=== PATIENT | female | born 1935 | race Caucasian/White ===

== ENCOUNTER 2016-12-03 10:46 | Inpatient (IN) | payer MEDICARE, OTHER ==
[~2016-12-03] VITALS: Ht 154.9 cm; Wt 86.0 kg
[~2016-12-03 10:46] MED LIST: AMLO5TAB4 PO; ASPI-306 PO; ATOR20TA17 PO; COL250 PO; DULO30CA45 PO; LANT3I SC; LORA-408 PO; MECL25TA2 PO; METO-448 PO; NOVO3I SC; PANT40TA3 PO; QUET25TA26 PO; RANI150T9 PO
[2016-12-03 11:00] VITALS: Ht 154.9 cm; Wt 86.0 kg
--- NOTE | 2016-12-03 11:59 | ERA ---
ER Documentation Chief Complaint Date/Time DATE: 12/03/16 TIME: 11:59 Chief Complaint headache with witnessed near syncope while walking HPI The patient is a 80-year-old female, presenting to the ER because of the weakness near syncope while she was walking prior to arrival. She denies chest pain, dyspnea, abdominal pain, vomiting, dysuria, diarrhea. She does not smoke or drink Past medical history: Diabetes mellitus, history of CVA with right hemiparesis, hypertension, hard of hearing Past surgical history: Laparotomy due to ischemic colitis ROS All systems reviewed and are negative except as per history of present illness. Medications Home Meds Active Scripts Ranitidine Hcl* (Zantac*) 150 Mg Tablet, 150 MG PO BID Y for EPIGASTRIC PAIN, # 30 TAB Prov:JENNIFER LAMA DO 12/28/15 Insulin Glargine* (Lantus*) 100 Unit/Ml Soln, 20 UNIT SC DAILY for 30 Days, EA Prov:STEPHANIE MADRIGAL EXTENSION EDGER 10/31/14 Metoprolol Tartrate* (Lopressor*) 25 Mg Tab, 25 MG PO BID for 30 Days, TAB Prov:STEPHANIE MADRIGAL EXTENSION EDGER 10/31/14 Insulin Aspart* (Novolog Insulin Pen*) 100 Unit/Ml Soln, 3 UNIT SC WITH MEALS for 30 Days Prov:STEPHANIE MADRIGAL EXTENSION EDGER 10/31/14 Reported Medications Pantoprazole* (Pantoprazole*) 40 Mg Tablet.dr, 40 MG PO AC BREAKFAST, TAB 12/03/16 Lorazepam* (Lorazepam*) 1 Mg Tablet, 1 MG PO Q8 Y for ANXIETY, #60 TAB 12/03/16 Duloxetine Hcl* (Cymbalta*) 30 Mg Capsule.dr, 30 MG PO DAILY, CAP 12/03/16 Docusate Sodium* (Colace*) 100 Mg Capsule, 100 MG PO DAILY, #30 CAP 12/03/16 Atorvastatin Calcium* (Atorvastatin Calcium*) 20 Mg Tablet, 20 MG PO QHS, #30 TAB 12/03/16 Aspirin* (Aspirin* Chew) 81 Mg Tab.chew, 81 MG PO DAILY, TAB.CHEW 12/03/16 Amlodipine Besylate* (Amlodipine Besylate*) 5 Mg Tablet, 5 MG PO DAILY, #30 TAB 12/03/16 Quetiapine Fumarate* (Seroquel*) 25 Mg Tablet, 25 TAB PO DAILY 11/27/11 Discontinued Reported Medications Aspirin (Analgesic) 325 Mg Tablet, 1 TAB PO DAILY, 0 Refills 08/19/10 Duloxetine Hcl* (Cymbalta*) 30 Mg Capsule.dr, 1 TAB PO DAILY, 0 Refills 08/19/10 Docusate Sodium (Colace) 250 Mg Cap, 1 TAB PO BID, 0 Refills 08/19/10 Discontinued Scripts Meclizine Hcl* (Antivert*) 25 Mg Tablet, 25 MG PO Q6H Y for DIZZINESS, #20 TAB Prov:JENNIFER LAMA DO 12/28/15 Allergies Allergies: Coded Allergies: No Known Drug Allergy (Verified Allergy, Mild, 02/22/12) PMhx/Soc History of Surgery: No Anesthesia Reaction: No Hx Neurological Disorder: No Hx Respiratory Disorders: No Hx Cardiac Disorders: No Hx Psychiatric Problems: No (DEPRESSION, ANXIETY) Hx Miscellaneous Medical Probl: Yes (DM,hyperlipidemia,Htn,CVA) Hx Alcohol Use: No Hx Substance Use: No Hx Tobacco Use: No Smoking Status: Never smoker Physical Exam Vitals Vital Signs Date Time Temp Pulse Resp B/P Pulse Ox O2 Delivery O2 Flow Rate FiO2 12/03/16 13:44 68 12 125/64 97 Room Air 12/03/16 11:00 98.9 74 16 92/61 95 Physical Exam Const: No acute distress. Head: Atraumatic. Eyes: Normal Conjunctiva. ENT: Normal External Ears, Nose and Mouth. Neck: Full range of motion. No meningismus. Resp: Clear to auscultation bilaterally. Cardio: Regular rate and rhythm. Abd: Soft, non distended, normal bowel sounds, non tender. Skin: No petechiae or rashes. Back: No midline or flank tenderness. Ext: No cyanosis, or edema. Neur: Awake and alert. Right hemiparalysis Psych: Normal Mood and Affect. Result Diagram: 12/03/16 1220 12/03/16 1220 Results 24 hrs Laboratory Tests Test 12/03/16 12:20 White Blood Count 9.410^3/ul Red Blood Count 5.0010^6/ul Hemoglobin 12.9g/dl Hematocrit 41.0% Mean Corpuscular Volume 82.0fl Mean Corpuscular Hemoglobin 25.8pg Mean Corpuscular Hemoglobin Concent 31.5g/dl Red Cell Distribution Width 15.2% Platelet Count 32455^3/UL Mean Platelet Volume 12.3fl Neutrophils % 71.0% Lymphocytes % 21.2% Monocytes % 6.1% Eosinophils % 1.2% Basophils % 0.3% Nucleated Red Blood Cells % 0.0/100WBC Neutrophils # (Manual) 710^3/ul Lymphocytes # 2.010^3/ul Monocytes # 0.610^3/ul Eosinophils # 0.110^3/ul Basophils # 0.010^3/ul Nucleated Red Blood Cells # 0.010^3/ul Sodium Level 140mmol/L Potassium Level 3.9mmol/L Chloride Level 101mmol/L Carbon Dioxide Level 26mmol/L Anion Gap 17 Blood Urea Nitrogen 25mg/dl Creatinine 1.11mg/dl Glucose Level 261mg/dl Calcium Level 9.0mg/dl Troponin I < 0.012ng/ml Current Medications Medications (Trade) Dose Ordered Sig/Jarett Route PRN Reason Start Time Stop Time Status Last Admin Dose Admin Sodium Chloride (NS) 500 ml @ 500 mls/hr Q1H ONCE IV 12/03/16 12:00 12/03/16 12:59 DC 12/03/16 13:22 Procedures/[place] [id number] Radiology Main Line: [phone] DIAGNOSTIC IMAGING REPORT Patient: BRANDO PIRES : 1935 Age: 80 Sex: F MR #: [id number] DOS: 12/03/16 1156 Ordering MD: KEAGAN PAUL MD Location: E/R Room/Bed: PROCEDURE: CT Brain without contrast. CLINICAL INDICATION: Syncope TECHNIQUE: A CT of the brain was performed on a multidetector CT scanner utilizing axial sections from the skull base through the vertex without contrast. Images were reviewed on a high-resolution PACS workstation. Exam CTDI = 44.4 mGy and the DLP = 630.20 mGy-cm. One or more of the following dose reduction techniques were used: Automated exposure control Adjustment of the mA and/or kV according to patient size. Use of iterative reconstruction technique. COMPARISON: MRI brain 02/23/2012 FINDINGS: Mild diffuse cerebral and cerebellar atrophy is present. There is proportionate dilatation of the ventricular system and sulci in a symmetric fashion. There is prominence of the extraaxial spaces secondary to atrophy. There is no evidence of intracranial hemorrhage, mass effect or midline shift. There is focal encephalomalacia in the medial left cerebellar hemisphere. Chronic lacunar infarct is seen in the posterior left basal ganglia. No abnormal intra-axial or extra-axial fluid collections are seen. The density of the brain is normal and the leger/white matter differentiation is well preserved. Mild patchy diffuse deep white matter microangiopathic ischemic change is seen. The osseous structures are unremarkable. Paranasal sinuses are clear. Vascular calcifications are identified. IMPRESSION: 1. No intracranial hemorrhage, mass effect or midline shift. 2. Mild generalized atrophy. Mild microangiopathic ischemic change. 3. Chronic lacunar infarcts in the posterior left basal ganglia and inferior medial left cerebellar hemisphere. 4. Intracranial atherosclerosis. RPTAT: HHO .Pal Alexandre MD, MD Date Time Electronically viewed and signed by .Pal Alexandre MD, on 12/03/2016 13:22 .O/ CC: KEAGAN PAUL MD EKG: Read by emergency physician Rate/Rhythm: Normal Sinus Rhythm 75 beats/min QRS, ST, T-waves: No ST elevation, no T inversion Impression: Normal EKG MEDICAL MAKING DECISION: The patient is a 80-year-old, presenting with acute near syncope most likely due to acute dehydration. She was treated with normal saline 500 mL with good response The differential diagnoses considered include but are not limited to bradyarrhythmia, tachyarrhythmias, aortic outflow obstruction, neurogenic including subarachnoid hemorrhage, orthostatic hypotension and all of its causes , hypoglycemia, dysautonomia, medications. Departure Diagnosis: Primary Impression: Near syncope Additional Impression: Dehydration Condition: Stable Comments I discussed the findings with the patient. I discussed the patient with her physician Dr. Hadley at 2:15 PM who was made aware of the lab, the treatment, the patient condition. The patient is admitted to telemetry observation KEAGAN PAUL MD Dec 03, 2016 11:58
[2016-12-03] MEDS ORDERED: SOD CHLORIDE 0.9% 500 ML IV ONE (12:00)
[2016-12-03 12:48] LABS: BASOPHILS % 0.3 % (0.0-2.0); EOSINOPHILS # 0.1 10^3/ul (0.0-0.5); EOSINOPHILS % 1.2 % (0.0-7.0); HEMOGLOBIN 12.9 g/dl (12.0-16.0); LYMPHOCYTES % 21.2 % (15.0-51.0); MEAN CORPUSCULAR HEMOGLOBIN 25.8 pg (29.0-33.0); MEAN CORPUSCULAR HGB CONC 31.5 g/dl (32.0-37.0); MEAN PLATELET VOLUME 12.3 fl (7.4-10.4); MONOCYTE # 0.6 10^3/ul (0.3-0.9); MONOCYTES % 6.1 % (0.0-11.0); PLATELET COUNT 239 10^3/UL (140-415); RED CELL DISTRIBUTION WIDTH 15.2 % (11.5-14.5); WHITE BLOOD COUNT 9.4 10^3/ul (4.8-10.8)
[2016-12-03 13:11] LABS: ANION GAP 17 (8-16); BLOOD UREA NITROGEN 25 mg/dl (7-20); CARBON DIOXIDE 26 mmol/L (21-31); CHLORIDE 101 mmol/L (97-110); CREATININE 1.11 mg/dl (0.44-1.00); GLUCOSE 261 mg/dl (70-220); POTASSIUM 3.9 mmol/L (3.5-5.1); SODIUM 140 mmol/L (135-144)
[2016-12-03 13:23] LABS: TROPONIN-I < 0.012 ng/ml (0.00-0.12)
--- NOTE | 2016-12-03 13:23 | RADRPT ---
PROCEDURE: CT Brain without contrast. CLINICAL INDICATION: Syncope TECHNIQUE: A CT of the brain was performed on a multidetector CT scanner utilizing axial sections from the skull base through the vertex without contrast. Images were reviewed on a high-resolution Noveporter workstation. Exam CTDI = 44.4 mGy and the DLP = 630.20 mGy-cm. One or more of the following dose reduction techniques were used: Automated exposure control Adjustment of the mA and/or kV according to patient size. Use of iterative reconstruction technique. COMPARISON: MRI brain 02/23/2012 FINDINGS: Mild diffuse cerebral and cerebellar atrophy is present. There is proportionate dilatation of the v entricular system and sulci in a symmetric fashion. There is prominence of the extraaxial spaces sec ondary to atrophy. There is no evidence of intracranial hemorrhage, mass effect or midline shift. Th ere is focal encephalomalacia in the medial left cerebellar hemisphere. Chronic lacunar infarct is s een in the posterior left basal ganglia. No abnormal intra-axial or extra-axial fluid collections a re seen. The density of the brain is normal and the leger/white matter differentiation is well prese rved. Mild patchy diffuse deep white matter microangiopathic ischemic change is seen. The osseou s structures are unremarkable. Paranasal sinuses are clear. Vascular calcifications are identified. IMPRESSION: 1. No intracranial hemorrhage, mass effect or midline shift. 2. Mild generalized atrophy. Mild microangiopathic ischemic change. 3. Chronic lacunar infarcts in the posterior left basal ganglia and inferior medial left cerebellar hemisphere. 4. Intracranial atherosclerosis. RPTAT: HHO .Pal Alexandre MD, Date Time Electronically viewed and signed by .Pal Alexandre MD, MD on 12/03/2016 13:22 .O/
[2016-12-03] MEDS ORDERED: ATOR20TA38 PO (13:40)
[2016-12-03] MEDS ORDERED: ASPI81TA3 PO (13:40)
[2016-12-03] MEDS ORDERED: AMLO-145 PO (13:40)
[2016-12-03] MEDS ORDERED: DULO30CA45 PO (13:41)
[2016-12-03] MEDS ORDERED: DOCU-144 PO (13:41)
[2016-12-03] MEDS ORDERED: LORA1TAB PO (13:42)
[2016-12-03] MEDS ORDERED: PANT40TA4 PO (13:43)
[2016-12-03] MEDS ORDERED: NITROGLYCERIN (SL) 0.4 MG TAB SL PRN (16:00)
[2016-12-03] MEDS ORDERED: GLUCOSE GEL 15 GRAM TUBE PO PRN ×2 (17:00)
[2016-12-03] MEDS ORDERED: GLUCOSE GEL 15 GRAM TUBE BUCCAL PRN (17:00)
[2016-12-03] MEDS ORDERED: DEXTROSE 50% 50 ML SYRINGE IV PRN ×2 (17:00)
[2016-12-03] MEDS ORDERED: GLUCAGON 1 MG INJ IM PRN (17:00)
[2016-12-03] MEDS: INSULIN ASPART [NOVOLOG] 3 ML PEN SC SCH (18:00)
[2016-12-03 18:14] LABS: CREATINE KINASE 23 IU/L (23-200)
[2016-12-03 18:24] LABS: CK-MB 0.36 ng/ml (0.0-2.4)
[2016-12-03 18:31] LABS: TROPONIN-I < 0.012 ng/ml (0.00-0.12)
--- NOTE | 2016-12-03 18:32 | HP ---
DATE OF ADMISSION: 12/03/2016 CHIEF COMPLAINT: Near syncopal episode and headache. HISTORY OF PRESENT ILLNESS: The patient is a 80-year-old female with past medical history positive for diabetes, hypertension, hyperlipidemia, history of CVA with right hemiparesis, history of ischemic colitis 2 years ago, and according to patient's daughter, the patient had a near syncopal episode after eating breakfast. After the patient recovered and was alert and oriented. However, the patient complains headache. The patient was evaluated in the emergency room and underwent a CT of the brain which revealed: 1. No intracranial hemorrhage, mass effect, or midline shift. 2. Mild generalized atrophy, mild nuchal cord myelopathic ischemic change. 3. Chronic lacunar infarctions in the posterior left basal ganglia and anterior medial left cerebral hemisphere. 4. Intracranial atherosclerosis. The patient underwent 12 lead EKG, which revealed normal sinus rhythm, no ST elevation, no T-wave inversion. The patient was noted to have dehydration according to BNP and the patient was given IV fluids, and patient will be admitted for further evaluation and management. PAST MEDICAL HISTORY: Diabetes, hyperlipidemia, hypertension, history of CVA, depression, anxiety, hearing impairment. PAST SURGICAL HISTORY: Status post laparotomy due to ischemic colitis 2 years ago. FAMILY HISTORY: Noncontributory. SOCIAL HISTORY: Patient lives at home with her family. The patient denies any tobacco use. Denies any alcohol use. Denies any illicit drug use. ALLERGIES: NO KNOWN ALLERGIES. MEDICATIONS ON ADMISSION: Include: 1. Amlodipine. 2. Aspirin. 3. Atorvastatin. 4. Colace. 5. Cymbalta. 6. NovoLog 3 units with meals. 7. Lantus 20 units subcu at bedtime. 8. Ativan. 9. Metoprolol. 10. Protonix. 11. Seroquel. 12. Zantac. REVIEW OF SYSTEMS: The patient denies any fever or chills. Denies any nausea and vomiting. Denies any dysuria. Denies any chest pain, denies shortness of breath. Twelve point review of system is negative unless mentioned in HPI and what is mentioned above. PHYSICAL EXAMINATION: GENERAL: Well developed, obese female, currently is awake, alert. VITAL SIGNS: Temperature is 98.9, pulse is 69, blood pressure 125/64, respiratory 12, oxygen saturation 97 percent on room air. HEENT: Head is atraumatic, normocephalic. Pupils equal, round, reactive to light and accommodation. Oral mucosa is pink and moist. NECK: Supple. No cervical lymphadenopathy. No thyromegaly. CHEST: Lungs clear bilaterally. Slightly diminished at the bases. CARDIOVASCULAR: Normal S1, S2. No murmurs, gallops, clicks, rubs noted. ABDOMEN: Protuberant, soft, nondistended, nontender. Bowel sounds present. No guarding. No rebound tenderness. EXTREMITIES: No edema, clubbing, cyanosis. Pulses equal bilaterally 2+. SKIN: No rash. No petechiae noted. NEUROLOGICAL: Patient is awake, alert, and oriented x3. Moves all extremities. LABORATORY DATA: On admission, CBC white blood cells 9.4, hemoglobin 12.9, hematocrit 41.0, platelets 239. Chemistry sodium was 140, potassium 3.9, chloride 101, carbon dioxide 26, BUN is 25, creatinine 1.11, glucose 261. Troponin less than 0.012. ASSESSMENT AND PLAN: 1. Near syncopal episode. Will admit patient on telemetry floor. Will obtain cardiac enzymes x3 to rule out acute coronary syndrome. Will ask Dr. Bhagat to see patient in cardiology consultation. Also obtain 2D echo for evaluation of left ventricular function. 2. Headache and near syncopal episode. Rule out transient ischemic attack in patient with history of stroke. Continue aspirin. Will ask Dr. Blackburn to see patient in a neurology consultation. 3. Diabetes mellitus type 2. We will obtain hemoglobin A1c. Continue Lantus and NovoLog. 4. Hypertension. Patient is currently hypotensive. Continue to monitor. 5. Acute kidney injury secondary to dehydration. Continue gentle hydration. 6. Will continue Lovenox for deep venous thrombosis prophylaxis and Protonix for peptic ulcer disease prophylaxis. Further recommendations based on clinical course. Plan of care discussed with Dr. Hadley. Dictated By: Sailaja Moreno NP /nano/arya /Document#: [id number]
[2016-12-03 19:27] VITALS: PULSE 70
[2016-12-03 20:00] VITALS: BP 125/83; PULSE 75; RESP 16
[2016-12-03 20:01] VITALS: BP 125/73; PULSE 72; RESP 18
[2016-12-03] MEDS: ATORVASTATIN 20 MG TAB PO SCH (20:26)
[2016-12-03 23:46] VITALS: BP 172/74; RESP 17
[2016-12-04] VITALS (11 sets, daily range): BP systolic 130–157; BP diastolic 63–94; PULSE 70–84; RESP 16–18
[2016-12-04 01:52] LABS: CK-MB 0.35 ng/ml (0.0-2.4)
[2016-12-04 01:56] LABS: TROPONIN-I < 0.012 ng/ml (0.00-0.12)
[2016-12-04 02:18] LABS: CREATINE KINASE 25 IU/L (23-200)
[2016-12-04] MEDS ORDERED: hydrALAzine 20 MG INJ IV PRN (02:30)
[2016-12-04] MEDS ORDERED: AMLODIPINE 10 MG TAB PO ONE (02:30)
--- NOTE | 2016-12-04 03:42 | CONS ---
DATE OF ADMISSION: 12/03/2016 DATE OF CONSULTATION: 12/03/2016 REASON FOR CONSULTATION: Presyncope. Add electrocardiogram to assess acute coronary syndrome, rule out cardiac arrhythmia. REFERRING PHYSICIAN: Redd Hadley MD. HISTORY OF PRESENT ILLNESS: Ms. Pleitez is a 80-year-old female with a history of diabetes mellitus, prior CVA with right hemiparesis, hypertension, difficulty hearing, prior ischemic colitis status post laparotomy, who presented with generalized weakness and complaints of near syncopal episode while walking prior to arrival. The patient, at that time, denies chest pain or shortness of breath to ER doctor but currently does tell me that she has chest pain, described as a cramping feeling within her chest. Initially in the emergency department, temperature 98.9, blood pressure low at 92/61, pulse 74, respiratory rate 16, sating 95 percent. The patient's labs, white count 9.4, hemoglobin 5.0, platelet count of 239. Sodium of 140, potassium 3.9, creatinine of 1.1. BUN 25. Troponin negative. The patient underwent a head CT revealing no intracranial hemorrhage, mild generalized atrophy, chronic lacunar infarcts, intracranial atherosclerosis. The patient's electrocardiogram, normal sinus rhythm, rate 75, normal axis, normal intervals, lateral T-wave inversion. The patient, at this time, awaits admit to the floor. PAST MEDICAL HISTORY: As above in HPI. MEDICATION: Prior to admit: 1. Norvasc. 5 mg daily. 2. Atorvastatin 20 q.h.s. 3. Metoprolol 25 mg p.o. b.i.d. 4. Aspirin 81 mg daily. 5. Cymbalta 30 mg daily. 6. Ativan p.r.n. 7. Seroquel 25 mg daily. 8. Colace p.r.n. 9. Protonix 4 mg daily. 10. Zantac 150 mg p.o. b.i.d. 11. Lantus insulin. ALLERGIES: NO KNOWN DRUG ALLERGIES. SOCIAL HISTORY: No tobacco, EtOH, or illicit drug use. FAMILY HISTORY: Negative for sudden cardiac or early CAD. REVIEW OF SYSTEMS: As above in HPI. CONSTITUTIONAL: No fevers or chills. RESPIRATORY: Positive shortness of breath. CARDIOVASCULAR: Intermittent chest pain. GASTROINTESTINAL: History is acute colitis. GENITOURINARY: No hematuria. MUSCULOSKELETAL: Degenerative joint disease. PSYCH: Positive psychiatric history on medications. NEURO: Presyncope. PHYSICAL EXAMINATION: VITAL SIGNS: Temperature 98.9, blood pressure most recently now 125/64, pulse 68, pulse ox 99 percent. GENERAL: The patient is alert, awake, complaining of chest pain and generalized weakness. NECK: JVP is difficult to assess, secondary to body habitus. HEART: Regular rate and rhythm. Normal S1, S2 and 1/6 systolic murmur. Nondisplaced PMI. ABDOMEN: Positive bowel sounds. Soft. EXTREMITIES: No pitting edema. One plus pulses bilaterally. LABORATORY: As above in HPI. No further labs reviewed at this time. IMAGING STUDIES: As above in HPI. No further imaging studies are reviewed this time. ECG: As above in HPI. No further electrocardiograms reviewed at this time. IMPRESSION: 1. Chest pain. Assess for acute cardiac syndrome. 2. Presyncope. Rule out cardiac etiology. Rule out cardiac arrhythmia, rule acute coronary syndrome. 3. Hypotension on admit with a history of hypertension medications. 4. Electrocardiogram with lateral T-wave inversion. Assess for acute coronary syndrome. 5. Generalized weakness. 6. Diabetes mellitus. 7. Prerenal azotemia. RECOMMENDATIONS: 1. At this time, would admit patient to telemetry monitoring to follow rhythm rates closely to rule out any possible rhythm causes of the patient's presyncopal episode. 2. Complete rule out for myocardial infarction to ensure that the patient's chest pain is not due to any acute coronary syndromes, acute myocardial infarction. 3. Troponin q.6 h x2. 4. Check 2D echo to further assess ejection fraction, wall motion, and major abnormalities and consider carotid ultrasound. 5. The patient is status post CT revealing no acute abnormalities. 6. Check orthostatics, which showed orthostasis in the setting of possible prerenal state due to the patient's syncopal episode. 7. We will hold the patient's antihypertensives at this time. Follow blood pressure closely. 8. IV fluid hydration. Thank you for allowing me to take part in the care of this patient. I will follow with you. Any further recommendation will be made through inpatient hospital clinical course. Dictated By: Nancy Agosto /fnt/grs /Document#: [id number] CC: Redd Hadley MD;*End*
[2016-12-04] MEDS: PANTOPRAZOLE (EC) 40 MG TAB PO SCH (06:03)
[2016-12-04 07:34] LABS: BASOPHILS % 0.4 % (0.0-2.0); EOSINOPHILS # 0.2 10^3/ul (0.0-0.5); EOSINOPHILS % 2.6 % (0.0-7.0); HEMATOCRIT 38.6 % (37.0-47.0); HEMOGLOBIN 12.2 g/dl (12.0-16.0); LYMPHOCYTES # 2.3 10^3/ul (0.8-2.9); LYMPHOCYTES % 29.8 % (15.0-51.0); MEAN CORPUSCULAR HEMOGLOBIN 25.6 pg (29.0-33.0); MEAN CORPUSCULAR HGB CONC 31.6 g/dl (32.0-37.0); MEAN CORPUSCULAR VOLUME 81.1 fl (82.0-101.0); MEAN PLATELET VOLUME 12.4 fl (7.4-10.4); MONOCYTE # 0.5 10^3/ul (0.3-0.9); MONOCYTES % 6.9 % (0.0-11.0); NEUTROPHILS % 59.9 % (39.0-77.0); PLATELET COUNT 213 10^3/UL (140-415); RED BLOOD COUNT 4.76 10^6/ul (4.20-5.40); RED CELL DISTRIBUTION WIDTH 15.5 % (11.5-14.5); WHITE BLOOD COUNT 7.7 10^3/ul (4.8-10.8)
[2016-12-04 07:50] LABS: CHOL/HDL RATIO 2.8 RATIO
[2016-12-04] MEDS: ASPIRIN 81 MG TAB PO SCH (08:29)
[2016-12-04] MEDS: QUETIAPINE 25 MG TAB PO SCH (08:30)
[2016-12-04] MEDS: AMLODIPINE 10 MG TAB PO SCH (08:30)
[2016-12-04 08:33] LABS: CALCIUM 8.9 mg/dl (8.4-10.2); CREATININE 0.8 mg/dl (0.44-1.00); POTASSIUM 4.5 mmol/L (3.5-5.1)
[2016-12-04] MEDS: INSULIN GLARGINE [LANtus] 3 ML PEN SC SCH (08:35)
[2016-12-04] MEDS: INSULIN ASPART [NOVOLOG] 3 ML PEN SC SCH ×5 (08:38→20:39)
[2016-12-04 08:50] LABS: CK-MB 0.51 ng/ml (0.0-2.4)
[2016-12-04 08:54] LABS: TROPONIN-I < 0.012 ng/ml (0.00-0.12)
[2016-12-04 09:15] LABS: CREATINE KINASE 27 IU/L (23-200)
--- NOTE | 2016-12-04 11:23 | CONS ---
Date/Time of Note Date/Time of Note DATE: 12/04/16 TIME: 11:10 Assessment/Plan Assessment/Plan Chief Complaint/Hosp Course 80 year old female with history of CVA with residual right sided weakness, DM with generalized weakness syncopal event with hypotension. Recommendations: check orthostatic vitals ECHO Carotid Duplex MRI Brain w/o contrast continue aspirin 81 mg daily anti-hypertensives currently being held LDL 80, goal is less than 70 would initiate low dose statin HBA1C (9.6%) to optimize diabetes medications , insulin adjustment goal HBA1C <7.0% for secondary stroke prevention DVT ppx Problems: Consultation Date/Type/Reason Admit Date/Time Dec 03, 2016 at 14:20 Date of Consultation: Dec 04, 2016 Type of Consultation: Neurology Reason for Consultation evaluation for syncope Referring Provider: CARLEE VILLALPANDO Hx of Present Illness 80 year old female with history of DM, previous CVA with residual right hemiparesis, HTN, ischemic colitis hx admitted with generalized weakness with syncopal event while sitting on the sofa at home. Per history obtained from daughter she was diaphoretic, eyes rolled up with generalized weakness with bluish discoloration of her lips lasted a few mins, no seizure activity described. Per daughter her blood pressure was low in 70-80 range when checked by daughter at home. She returned back to baseline admitted for further work up. Head CT shows chronic lacunar infarctions posterior left basal ganglia and anterior medial left cerebral hemisphere, intracranial athero. no complaints Past Medical History ischemic colitis CVA DM HTN Past Surgical History ischemic bowel Family History Significant Family History: no pertinent family hx Social History Smoking Status: Never smoker Exam/Review of Systems Vital Signs Vitals Vital Signs Date Time Temp Pulse Resp B/P Pulse Ox O2 Delivery O2 Flow Rate FiO2 12/04/16 08:11 79 12/04/16 07:19 98.0 18 153/94 94 12/03/16 20:00 Nasal Cannula 2.0 Intake and Output 12/03/16 12/03/16 12/04/16 15:00 23:00 07:00 Intake Total 300 ml Balance 300 ml Exam awake and alert oriented to self, hospital, family no aphasia follows commands CN: BHASKAR blinks to threat, slight right facial droop palate upgoing uvula midline scm/trap intact Motor: slight drift in right arm 4/5 strength compared to left poor effort in both LE can lift anti-gravity Reflexes brisk throughout toes upgoing Results Result Diagram: 12/04/16 0656 12/04/16 0656 Results 24 hrs Laboratory Tests Test 12/03/16 12:20 12/03/16 17:45 12/04/16 00:31 12/04/16 06:56 White Blood Count 9.4 7.7 Red Blood Count 5.00 4.76 Hemoglobin 12.9 12.2 Hematocrit 41.0 38.6 Mean Corpuscular Volume 82.0 81.1 L Mean Corpuscular Hemoglobin 25.8 L 25.6 L Mean Corpuscular Hemoglobin Concent 31.5 L 31.6 L Red Cell Distribution Width 15.2 H 15.5 H Platelet Count 239 213 Mean Platelet Volume 12.3 #H 12.4 H Neutrophils % 71.0 59.9 Lymphocytes % 21.2 29.8 Monocytes % 6.1 6.9 Eosinophils % 1.2 2.6 Basophils % 0.3 0.4 Nucleated Red Blood Cells % 0.0 0.0 Neutrophils # (Manual) 7 5 Lymphocytes # 2.0 2.3 Monocytes # 0.6 0.5 Eosinophils # 0.1 0.2 Basophils # 0.0 0.0 Nucleated Red Blood Cells # 0.0 0.0 Sodium Level 140 138 Potassium Level 3.9 4.5 Chloride Level 101 103 Carbon Dioxide Level 26 28 Anion Gap 17 H 12 Blood Urea Nitrogen 25 H 28 H Creatinine 1.11 H 0.80 Glucose Level 261 H 241 H Calcium Level 9.0 8.9 Troponin I < 0.012 < 0.012 < 0.012 < 0.012 Thyroid Stimulating Hormone (TSH) 2.530 Hemoglobin A1c 9.6 H Creatine Kinase 23 25 27 Creatine Kinase Index 1.6 1.4 1.9 Creatinine Kinase MB (Mass) 0.36 0.35 0.51 Triglycerides Level 122 Cholesterol Level 159 LDL Cholesterol, Calculated 80 HDL Cholesterol 55 Cholesterol/HDL Ratio 2.8 Test 12/04/16 08:20 Bedside Glucose 236 H Medications Medications Current Medications Aspirin (Aspirin) 81 mg DAILY PO Last administered on 12/04/16 08:29; Admin Dose 81 MG; Start 12/04/16 at 09:00 Atorvastatin Calcium (Lipitor) 20 mg QHS PO Last administered on 12/03/16 20: 26; Admin Dose 20 MG; Start 12/03/16 at 21:00 Insulin Glargine (Lantus) 20 unit DAILY SC Last administered on 12/04/16 08:35 ; Admin Dose 20 UNIT; Start 12/04/16 at 09:00 Pantoprazole (Protonix Tab) 40 mg DAILY@06 PO Last administered on 12/04/16 06 :03; Admin Dose 40 MG; Start 12/04/16 at 06:00 Nitroglycerin (Nitroglycerin (Sl Tab) 0.4 Mg) 1 tab Q5M PRN SL ANGINA; Start at 16:00 Miscellaneous Information 1 ea NOTE XX ; Start 12/03/16 at 17:00 Glucose (Glutose) 15 gm Q15M PRN PO DECREASED GLUCOSE; Start 12/03/16 at 17:00 Glucose (Glutose) 22.5 gm Q15M PRN PO DECREASED GLUCOSE; Start 12/03/16 at 17: 00 Dextrose (D50w Syringe) 25 ml Q15M PRN IV DECREASED GLUCOSE; Start 12/03/16 at 17:00 Dextrose (D50w Syringe) 50 ml Q15M PRN IV DECREASED GLUCOSE; Start 12/03/16 at 17:00 Glucagon (Glucagen) 1 mg Q15M PRN IM DECREASED GLUCOSE; Start 12/03/16 at 17:00 Glucose (Glutose) 15 gm Q15M PRN BUCCAL DECREASED GLUCOSE; Start 12/03/16 at 17 :00 Amlodipine Besylate (Norvasc) 10 mg DAILY PO Last administered on 12/04/16 08: 30; Admin Dose 10 MG; Start 12/04/16 at 09:00 Lorazepam (Ativan) 1 mg Q6H PRN IV AGITATION/ANXIETY; Start 12/04/16 at 02:30 Quetiapine Fumarate (Seroquel) 25 mg DAILY PO Last administered on 12/04/16 08 :30; Admin Dose 25 MG; Start 12/04/16 at 09:00 Hydralazine HCl (Apresoline) 10 mg Q4H PRN IV ELEVATED BLOOD PRESSURE; Start at 02:30 DON GONCALVES MD Dec 04, 2016 11:20
--- NOTE | 2016-12-04 11:56 | CONS ---
Date/Time of Note Date/Time of Note DATE: 12/04/16 TIME: 11:50 Assessment/Plan Assessment/Plan Chief Complaint/Hosp Course IMPRESSION: 1. Chest pain.-negative trop x 3 2. Presyncope.- no sig arrythmia by tele monitoring 3. Hypotension on admit-now improved with HTN 4. Electrocardiogram with lateral T-wave inversion. Assess for acute coronary syndrome. 5. Generalized weakness. 6. Diabetes mellitus. 7. Prerenal azotemia. Rec: -Tele -Will f/u echo -Continue norvasc and f/u BP with possible need for additional anti-hypertenives -Will consider lexiscan -Ongoing neuro eval -repeat orthostatics -Continue asa/statin Problems: Consultation Date/Type/Reason Admit Date/Time Dec 03, 2016 at 14:20 Initial Consult Date 12/04/16 Type of Consultation: cardiology Reason for Consultation Chest pain Referring Provider: CARLEE VILLALPANDO Exam/Review of Systems Vital Signs Vitals Vital Signs Date Time Temp Pulse Resp B/P Pulse Ox O2 Delivery O2 Flow Rate FiO2 12/04/16 11:29 98.2 83 16 157/76 96 12/04/16 08:00 Nasal Cannula 2.0 Intake and Output 12/03/16 12/03/16 12/04/16 15:00 23:00 07:00 Intake Total 300 ml Balance 300 ml Exam Review of Systems: CONSTITUTIONAL: No fevers, chills. PULMONARY: No sob CARDIOVASCULAR: intermittent chest pain GASTROINTESTINAL: No nausea/vomiting. GENITOURINARY: No hematuria/dysuria. MUSCULOSKELETAL: No myagias/arthalgias. PSYCHIATRIC: The patient denies depression. NEUROLOGIC: No weakness Constitutional: alert Psych: no complaints Head: normocephalic ENMT: mucosa pink and moist Neck: jvd (9 cm water), supple Respiratory: diminished breath sounds (at bases/B) Cardiovascular: regular rate and rhythm Gastrointestinal: non-tender, soft Musculoskeletal: muscle tone (normal) Extremities: edema (none) Neurological: other (No focal deficits) Results Result Diagram: 12/04/16 0656 12/04/16 0656 Results 24 hrs Laboratory Tests Test 12/03/16 12:20 12/03/16 17:45 12/04/16 00:31 12/04/16 06:56 White Blood Count 9.4 7.7 Red Blood Count 5.00 4.76 Hemoglobin 12.9 12.2 Hematocrit 41.0 38.6 Mean Corpuscular Volume 82.0 81.1 L Mean Corpuscular Hemoglobin 25.8 L 25.6 L Mean Corpuscular Hemoglobin Concent 31.5 L 31.6 L Red Cell Distribution Width 15.2 H 15.5 H Platelet Count 239 213 Mean Platelet Volume 12.3 #H 12.4 H Neutrophils % 71.0 59.9 Lymphocytes % 21.2 29.8 Monocytes % 6.1 6.9 Eosinophils % 1.2 2.6 Basophils % 0.3 0.4 Nucleated Red Blood Cells % 0.0 0.0 Neutrophils # (Manual) 7 5 Lymphocytes # 2.0 2.3 Monocytes # 0.6 0.5 Eosinophils # 0.1 0.2 Basophils # 0.0 0.0 Nucleated Red Blood Cells # 0.0 0.0 Sodium Level 140 138 Potassium Level 3.9 4.5 Chloride Level 101 103 Carbon Dioxide Level 26 28 Anion Gap 17 H 12 Blood Urea Nitrogen 25 H 28 H Creatinine 1.11 H 0.80 Glucose Level 261 H 241 H Calcium Level 9.0 8.9 Troponin I < 0.012 < 0.012 < 0.012 < 0.012 Thyroid Stimulating Hormone (TSH) 2.530 Hemoglobin A1c 9.6 H Creatine Kinase 23 25 27 Creatine Kinase Index 1.6 1.4 1.9 Creatinine Kinase MB (Mass) 0.36 0.35 0.51 Triglycerides Level 122 Cholesterol Level 159 LDL Cholesterol, Calculated 80 HDL Cholesterol 55 Cholesterol/HDL Ratio 2.8 Test 12/04/16 08:20 Bedside Glucose 236 H Medications Medications Current Medications Aspirin (Aspirin) 81 mg DAILY PO Last administered on 12/04/16 08:29; Admin Dose 81 MG; Start 12/04/16 at 09:00 Atorvastatin Calcium (Lipitor) 20 mg QHS PO Last administered on 12/03/16 20: 26; Admin Dose 20 MG; Start 12/03/16 at 21:00 Insulin Glargine (Lantus) 20 unit DAILY SC Last administered on 12/04/16 08:35 ; Admin Dose 20 UNIT; Start 12/04/16 at 09:00 Pantoprazole (Protonix Tab) 40 mg DAILY@06 PO Last administered on 12/04/16 06 :03; Admin Dose 40 MG; Start 12/04/16 at 06:00 Nitroglycerin (Nitroglycerin (Sl Tab) 0.4 Mg) 1 tab Q5M PRN SL ANGINA; Start at 16:00 Miscellaneous Information 1 ea NOTE XX ; Start 12/03/16 at 17:00 Glucose (Glutose) 15 gm Q15M PRN PO DECREASED GLUCOSE; Start 12/03/16 at 17:00 Glucose (Glutose) 22.5 gm Q15M PRN PO DECREASED GLUCOSE; Start 12/03/16 at 17: 00 Dextrose (D50w Syringe) 25 ml Q15M PRN IV DECREASED GLUCOSE; Start 12/03/16 at 17:00 Dextrose (D50w Syringe) 50 ml Q15M PRN IV DECREASED GLUCOSE; Start 12/03/16 at 17:00 Glucagon (Glucagen) 1 mg Q15M PRN IM DECREASED GLUCOSE; Start 12/03/16 at 17:00 Glucose (Glutose) 15 gm Q15M PRN BUCCAL DECREASED GLUCOSE; Start 12/03/16 at 17 :00 Amlodipine Besylate (Norvasc) 10 mg DAILY PO Last administered on 12/04/16 08: 30; Admin Dose 10 MG; Start 12/04/16 at 09:00 Lorazepam (Ativan) 1 mg Q6H PRN IV AGITATION/ANXIETY; Start 12/04/16 at 02:30 Quetiapine Fumarate (Seroquel) 25 mg DAILY PO Last administered on 12/04/16 08 :30; Admin Dose 25 MG; Start 12/04/16 at 09:00 Hydralazine HCl (Apresoline) 10 mg Q4H PRN IV ELEVATED BLOOD PRESSURE; Start at 02:30 ROSALINDA JARVIS Dec 04, 2016 11:55
--- NOTE | 2016-12-04 12:27 | RADRPT ---
PROCEDURE: US Carotids. CLINICAL INDICATION: bruit , syncope TECHNIQUE: Multiple sonographic of the carotid bifurcation region and vertebral arteries were obta ined utilizing leger scale, duplex and color-flow imaging. The images were reviewed on a PACS worksta tion. COMPARISON: No prior studies are available for comparison. FINDINGS: Evaluation of the right carotid bifurcation region reveals mild calcific atherosclerotic disease. . There is a 32% stenosis in the right carotid bulb. Evaluation of the left carotid bifurcation region reveals mild calcific atherosclerotic disease. There is antegrade flow within the vertebral arteries bilaterally. RIGHT CAROTID MEASUREMENTS: Common Carotid Ahzzrm89.2 (cm/sec) Internal Carotid Artery - cyvjihim02.1 (cm/sec) Internal Carotid Artery - mid87.3 (cm/sec) Internal Carotid Artery - iwzppz97.4 (cm/sec) Internal Carotid/Common Carotid1.67 LEFT CAROTID MEASUREMENTS: Common Carotid Psgepg99.1 (cm/sec) Internal Carotid Artery - (cm/sec) Internal Carotid Artery - mid47.5 (cm/sec) Internal Carotid Artery - oxzkfi95.1 (cm/sec) Internal Carotid/Common Carotid0.7 RPTAT: AA IMPRESSION: No evidence for hemodynamically significant stenosis in the bilateral internal carotid arteries - va lidated velocity measurements with angiographic measurements, velocity criteria are extrapolated fro m diameter data as defined by the Society of Radiologists in Ultrasound Consensus Conference Radiolo gy 2003; 229;340-346. This study does indirectly reference the measurement of the distal ICA diamet er as the denominator for stenosis measurement. Normal antegrade flow in the vertebral arteries bilaterally. .Deangelo Casatneda MD, Date Time Electronically viewed and signed by .Deangelo Castaneda MD, MD on 12/04/2016 12:27 .S/
--- NOTE | 2016-12-04 13:59 | RADRPT ---
Echocardiogram Report Patient Name: BRANDO PIRES Gender: Female Date: 1935 Study Date: 04-Dec-2016 [employer]ato Pancake Frier: Mireya Amaya RDCS Location: [facility] Ref. Physician: CARLEE VILLALPANDO Quality: Good Procedures: Transthoracic echocardiogram with complete 2D, M-Mode, and doppler examination. Indications: Evaluate Left Ventricular function. 2D/M Mode Doppler Measurement Value Normal Ranges Measurement Value Normal Ranges LVIDd 2D 4.0 3.5 - 5.6 cm AV Peak Jacob 1.3 m/sec LVIDs 2D 2.3 2.1 - 4.1 cm AV Peak PG 6.3 mmHg LVPWd 2D 1.1 0.6 - 1.1 cm LVOT Peak Jacob 1.0 m/sec IVSd 2D 1.1 0.6 - 1.1 cm LVOT Peak PG 4.3 mmHg AoR Diam 2D 3.2 2.0 - 3.7 cm MV E Peak Jacob 0.7 m/sec EDV 2D 71.9 cm3 MV A Peak Jacob 1.2 m/sec ESV 2D 12.5 cm3 MV E/A 0.6 LA Dimen 2D 4.2 2.3 - 4.0 cm MV Decel Time 241 msec MV Decel Shelby 3 MV E/A 0.6 TR Peak Jacob 1.8 m/sec TR Peak PG 13.6 mmHg RVSP 17.0 mmHg Findings Left Ventricle: Normal left ventricular systolic function. Normal left ventricular cavity size. Mild concentric left ventricular hypertrophy. Ejection fraction is visually estimated at 6065 %. Tissue Doppler/Mitral Doppler indices are consistent with impaired relaxation (Stage I diastolic dysfunction). Right Ventricle: Normal right ventricular size. Normal right ventricular systolic function. Left Atrium: There is mild enlargement of left atrium. Right Atrium: The right atrium is normal in size. Mitral Valve: Normal appearance and function of the mitral valve with trace physiologic regurgitation. Aortic Valve: Normal appearance of the aortic valve. No significant aortic stenosis or insufficiency. Tricuspid Valve: Normal appearance of the tricuspid valve. Estimated peak PA systolic pressure 17 mmHg. There is trace tricuspid regurgitation. Pulmonic Valve: Pulmonic valve not well visualized. Pericardium: Normal pericardium with no significant pericardial effusion. Aorta: Normal aortic root. IVC: Normal size and normal respiratory collapse consistent with normal right atrial pressure. Conclusions 1.Normal left ventricular systolic function. Normal left ventricular cavity size. Mild concentric left ventricular hypertrophy. Ejection fraction is visually estimated at 60-65 %. Tissue Doppler/Mitral Doppler indices are consistent with impaired relaxation (Stage I diastolic dysfunction). 2.Normal appearance and function of the mitral valve with trace physiologic regurgitation. 3.Normal appearance of the tricuspid valve. Estimated peak PA systolic pressure 17 mmHg. There is trace tricuspid regurgitation. Electronically Signed By: Kiran Bhagat 04-Dec-2016 13:59:03 -0700 Patient Name: BRANDO PIRES Study Date: 04-Dec-2016 [id number]
--- NOTE | 2016-12-04 14:17 | PN ---
Date/Time of Note Date/Time of Note DATE: 12/04/16 TIME: 14:06 Assessment/Plan VTE Prophylaxis VTE Prophylaxis Intervention: LMWH Lines/Catheters [facility] ([facility] Saline Lock Urinary Cath still in place: Yes Reason Cath still needed: urinary retention Assessment/Plan Assessment/Plan 1. Near syncopal episode. - Continue on telemetry - cardiac enzymes x3 to rule out acute coronary - per Dr. Bhagat in cardiology - 2D echo 2. Headache and near syncopal episode. Rule out transient ischemic attack in patient with history of stroke. - Continue aspirin. - per Dr. Blackburn in a neurology consultation. 3. Diabetes mellitus type 2. - hemoglobin A1c. - Continue Lantus and NovoLog. 4. Hypertension. Patient is currently hypotensive. - Continue to monitor. 5. Acute kidney injury secondary to dehydration. - Continue gentle hydration. 6. Lovenox for deep venous thrombosis prophylaxis 7. Protonix for peptic ulcer disease prophylaxis. Further recommendations based on clinical course. Plan of care discussed with Dr. Hadley. Subjective 24 Hr Interval Summary Free Text/Dictation nad, resying in bed, afebrile, seems comfortable, dw staff, no acute issues reported. Constitutional: requiring O2 Respiratory: no complaints Cardiovascular: no complaints Gastrointestinal: no complaints Genitourinary: no complaints Musculoskeletal: no complaints Exam/Review of Systems Vital Signs Vitals Vital Signs Date Time Temp Pulse Resp B/P Pulse Ox O2 Delivery O2 Flow Rate FiO2 12/04/16 12:04 82 12/04/16 11:29 98.2 16 157/76 96 12/04/16 08:00 Nasal Cannula 2.0 Intake and Output 12/03/16 12/03/16 12/04/16 15:00 23:00 07:00 Intake Total 300 ml Balance 300 ml Exam Constitutional: alert, well developed Respiratory: clear to auscultation, normal air movement Cardiovascular: nl pulses, regular rate and rhythm Gastrointestinal: non-tender, soft Musculoskeletal: muscle weakness Extremities: normal pulses Results Result Diagram: 12/04/16 0656 12/04/16 0656 Results 24 hrs Laboratory Tests Test 12/03/16 17:45 12/04/16 00:31 12/04/16 06:56 12/04/16 08:20 Hemoglobin A1c 9.6 H Creatine Kinase 23 25 27 Creatine Kinase Index 1.6 1.4 1.9 Creatinine Kinase MB (Mass) 0.36 0.35 0.51 Troponin I < 0.012 < 0.012 < 0.012 White Blood Count 7.7 Red Blood Count 4.76 Hemoglobin 12.2 Hematocrit 38.6 Mean Corpuscular Volume 81.1 L Mean Corpuscular Hemoglobin 25.6 L Mean Corpuscular Hemoglobin Concent 31.6 L Red Cell Distribution Width 15.5 H Platelet Count 213 Mean Platelet Volume 12.4 H Neutrophils % 59.9 Lymphocytes % 29.8 Monocytes % 6.9 Eosinophils % 2.6 Basophils % 0.4 Nucleated Red Blood Cells % 0.0 Neutrophils # (Manual) 5 Lymphocytes # 2.3 Monocytes # 0.5 Eosinophils # 0.2 Basophils # 0.0 Nucleated Red Blood Cells # 0.0 Sodium Level 138 Potassium Level 4.5 Chloride Level 103 Carbon Dioxide Level 28 Anion Gap 12 Blood Urea Nitrogen 28 H Creatinine 0.80 Glucose Level 241 H Calcium Level 8.9 Triglycerides Level 122 Cholesterol Level 159 LDL Cholesterol, Calculated 80 HDL Cholesterol 55 Cholesterol/HDL Ratio 2.8 Bedside Glucose 236 H Test 12/04/16 12:34 Bedside Glucose 191 Medications Medications Current Medications Aspirin (Aspirin) 81 mg DAILY PO Last administered on 12/04/16 08:29; Admin Dose 81 MG; Start 12/04/16 at 09:00 Atorvastatin Calcium (Lipitor) 20 mg QHS PO Last administered on 12/03/16 20: 26; Admin Dose 20 MG; Start 12/03/16 at 21:00 Insulin Glargine (Lantus) 20 unit DAILY SC Last administered on 12/04/16 08:35 ; Admin Dose 20 UNIT; Start 12/04/16 at 09:00 Pantoprazole (Protonix Tab) 40 mg DAILY@06 PO Last administered on 12/04/16 06 :03; Admin Dose 40 MG; Start 12/04/16 at 06:00 Nitroglycerin (Nitroglycerin (Sl Tab) 0.4 Mg) 1 tab Q5M PRN SL ANGINA; Start at 16:00 Miscellaneous Information 1 ea NOTE XX ; Start 12/03/16 at 17:00 Glucose (Glutose) 15 gm Q15M PRN PO DECREASED GLUCOSE; Start 12/03/16 at 17:00 Glucose (Glutose) 22.5 gm Q15M PRN PO DECREASED GLUCOSE; Start 12/03/16 at 17: 00 Dextrose (D50w Syringe) 25 ml Q15M PRN IV DECREASED GLUCOSE; Start 12/03/16 at 17:00 Dextrose (D50w Syringe) 50 ml Q15M PRN IV DECREASED GLUCOSE; Start 12/03/16 at 17:00 Glucagon (Glucagen) 1 mg Q15M PRN IM DECREASED GLUCOSE; Start 12/03/16 at 17:00 Glucose (Glutose) 15 gm Q15M PRN BUCCAL DECREASED GLUCOSE; Start 12/03/16 at 17 :00 Amlodipine Besylate (Norvasc) 10 mg DAILY PO Last administered on 12/04/16 08: 30; Admin Dose 10 MG; Start 12/04/16 at 09:00 Lorazepam (Ativan) 1 mg Q6H PRN IV AGITATION/ANXIETY; Start 12/04/16 at 02:30 Quetiapine Fumarate (Seroquel) 25 mg DAILY PO Last administered on 12/04/16 08 :30; Admin Dose 25 MG; Start 12/04/16 at 09:00 Hydralazine HCl (Apresoline) 10 mg Q4H PRN IV ELEVATED BLOOD PRESSURE; Start at 02:30 Benazepril HCl (Lotensin) 10 mg BID PO ; Start 12/04/16 at 21:00 TAMERA HANKINS Dec 04, 2016 14:16
[2016-12-04] MEDS ORDERED: Discontinue current oral sulfonylureas (glyburide, glipizide, and/or glimepiride) prior to XX ONE (14:30)
[2016-12-04] MEDS ORDERED: HYPOGLYCEMIA PROTOCOL when Glucose is <70 mg/dL or symptomatic <90 mg/dL. XX ONE (14:30)
[2016-12-04] MEDS ORDERED: INSULIN ASPART [NOVOLOG] 3 ML PEN SC SCH (17:00)
[2016-12-04] MEDS: ATORVASTATIN 20 MG TAB PO SCH (20:40)
[2016-12-04] MEDS: BENAZEPRIL 10 MG TAB PO SCH (20:40)
[2016-12-05] VITALS (11 sets, daily range): BP systolic 106–144; BP diastolic 58–80; PULSE 68–82; RESP 15–22
[2016-12-05] MEDS: ACCU-CHEK XX SCH ×2 (02:00)
[2016-12-05] MEDS ORDERED: ACCU-CHEK XX SCH (02:00)
[2016-12-05] MEDS: PANTOPRAZOLE (EC) 40 MG TAB PO SCH (05:31)
[2016-12-05 06:58] LABS: BASOPHILS % 0.3 % (0.0-2.0); EOSINOPHILS # 0.2 10^3/ul (0.0-0.5); EOSINOPHILS % 3.1 % (0.0-7.0); HEMOGLOBIN 11.7 g/dl (12.0-16.0); LYMPHOCYTES # 1.9 10^3/ul (0.8-2.9); LYMPHOCYTES % 29.3 % (15.0-51.0); MEAN CORPUSCULAR HEMOGLOBIN 25.9 pg (29.0-33.0); MEAN CORPUSCULAR HGB CONC 31.6 g/dl (32.0-37.0); MEAN PLATELET VOLUME 12.3 fl (7.4-10.4); MONOCYTE # 0.5 10^3/ul (0.3-0.9); MONOCYTES % 7.5 % (0.0-11.0); NEUTROPHILS % 59.5 % (39.0-77.0); PLATELET COUNT 197 10^3/UL (140-415); RED BLOOD COUNT 4.51 10^6/ul (4.20-5.40); RED CELL DISTRIBUTION WIDTH 15.2 % (11.5-14.5); WHITE BLOOD COUNT 6.5 10^3/ul (4.8-10.8)
[2016-12-05 07:35] LABS: CALCIUM 9.2 mg/dl (8.4-10.2); CREATININE 0.79 mg/dl (0.44-1.00); POTASSIUM 4.4 mmol/L (3.5-5.1)
[2016-12-05] MEDS: INSULIN ASPART [NOVOLOG] 3 ML PEN SC SCH ×7 (07:55→20:44)
[2016-12-05] MEDS: INSULIN GLARGINE [LANtus] 3 ML PEN SC SCH (08:25)
--- NOTE | 2016-12-05 11:02 | CONS ---
Date/Time of Note Date/Time of Note DATE: 12/05/16 TIME: 10:52 Assessment/Plan Assessment/Plan Chief Complaint/Hosp Course IMPRESSION: 1. Chest pain.-negative trop x 3/NL EF by echo 2. Presyncope.- no sig arrythmia by tele monitoring 3. Hypotension on admit-now improved with HTN 4. Electrocardiogram with lateral T-wave inversion-negative trop x 3 5. Generalized weakness. 6. Diabetes mellitus. 7. Prerenal azotemia. Rec: -Tele -Continue norvasc/benazepril -Ongoing neuro eval -Continue asa/statin -Lexiscan stress test today Problems: Consultation Date/Type/Reason Admit Date/Time Dec 03, 2016 at 14:20 Initial Consult Date 12/04/16 Type of Consultation: cardiology Reason for Consultation chest pain Referring Provider: CARLEE VILLALPANDO Exam/Review of Systems Vital Signs Vitals Vital Signs Date Time Temp Pulse Resp B/P Pulse Ox O2 Delivery O2 Flow Rate FiO2 12/05/16 08:28 72 12/05/16 07:22 98.3 16 144/65 93 12/04/16 20:00 Nasal Cannula 2.0 Intake and Output 12/04/16 12/04/16 12/05/16 15:00 23:00 07:00 Intake Total 750 ml 400 ml Balance 750 ml 400 ml Exam Review of Systems: CONSTITUTIONAL: No fevers, chills. PULMONARY: No sob CARDIOVASCULAR: No chest pain/palpitations GASTROINTESTINAL: No nausea/vomiting. GENITOURINARY: No hematuria/dysuria. MUSCULOSKELETAL: No myagias/arthalgias. PSYCHIATRIC: The patient denies depression. NEUROLOGIC: No weakness Constitutional: alert, oriented Head: normocephalic ENMT: mucosa pink and moist Neck: jvd (9 cm water), supple Respiratory: diminished breath sounds (at bases/B) Cardiovascular: regular rate and rhythm Gastrointestinal: non-tender, soft Musculoskeletal: muscle tone Extremities: edema (none) Neurological: other (No focal deficits) Results Result Diagram: 12/05/16 0610 12/05/16 0610 Results 24 hrs Laboratory Tests Test 12/04/16 12:34 12/04/16 17:56 12/04/16 20:34 12/05/16 06:10 Bedside Glucose 191 188 126 White Blood Count 6.5 Red Blood Count 4.51 Hemoglobin 11.7 L Hematocrit 37.0 Mean Corpuscular Volume 82.0 Mean Corpuscular Hemoglobin 25.9 L Mean Corpuscular Hemoglobin Concent 31.6 L Red Cell Distribution Width 15.2 H Platelet Count 197 Mean Platelet Volume 12.3 H Neutrophils % 59.5 Lymphocytes % 29.3 Monocytes % 7.5 Eosinophils % 3.1 Basophils % 0.3 Nucleated Red Blood Cells % 0.0 Neutrophils # (Manual) 3.9 Lymphocytes # 1.9 Monocytes # 0.5 Eosinophils # 0.2 Basophils # 0.0 Nucleated Red Blood Cells # 0.0 Sodium Level 142 Potassium Level 4.4 Chloride Level 101 Carbon Dioxide Level 30 Anion Gap 15 Blood Urea Nitrogen 26 H Creatinine 0.79 Glucose Level 182 Hemoglobin A1c 9.5 H Calcium Level 9.2 Test 12/05/16 08:11 Bedside Glucose 192 Medications Medications Current Medications Aspirin (Aspirin) 81 mg DAILY PO Last administered on 12/04/16 08:29; Admin Dose 81 MG; Start 12/04/16 at 09:00 Atorvastatin Calcium (Lipitor) 20 mg QHS PO Last administered on 12/04/16 20: 40; Admin Dose 20 MG; Start 12/03/16 at 21:00 Insulin Glargine (Lantus) 20 unit DAILY SC Last administered on 12/05/16 08:25 ; Admin Dose 20 UNIT; Start 12/04/16 at 09:00 Pantoprazole (Protonix Tab) 40 mg DAILY@06 PO Last administered on 12/05/16 05 :31; Admin Dose 40 MG; Start 12/04/16 at 06:00 Nitroglycerin (Nitroglycerin (Sl Tab) 0.4 Mg) 1 tab Q5M PRN SL ANGINA; Start at 16:00 Miscellaneous Information 1 ea NOTE XX ; Start 12/03/16 at 17:00 Glucose (Glutose) 15 gm Q15M PRN PO DECREASED GLUCOSE; Start 12/03/16 at 17:00 Glucose (Glutose) 22.5 gm Q15M PRN PO DECREASED GLUCOSE; Start 12/03/16 at 17: 00 Dextrose (D50w Syringe) 25 ml Q15M PRN IV DECREASED GLUCOSE; Start 12/03/16 at 17:00 Dextrose (D50w Syringe) 50 ml Q15M PRN IV DECREASED GLUCOSE; Start 12/03/16 at 17:00 Glucagon (Glucagen) 1 mg Q15M PRN IM DECREASED GLUCOSE; Start 12/03/16 at 17:00 Glucose (Glutose) 15 gm Q15M PRN BUCCAL DECREASED GLUCOSE; Start 12/03/16 at 17 :00 Amlodipine Besylate (Norvasc) 10 mg DAILY PO Last administered on 12/04/16 08: 30; Admin Dose 10 MG; Start 12/04/16 at 09:00 Lorazepam (Ativan) 1 mg Q6H PRN IV AGITATION/ANXIETY; Start 12/04/16 at 02:30 Quetiapine Fumarate (Seroquel) 25 mg DAILY PO Last administered on 12/04/16 08 :30; Admin Dose 25 MG; Start 12/04/16 at 09:00 Hydralazine HCl (Apresoline) 10 mg Q4H PRN IV ELEVATED BLOOD PRESSURE; Start at 02:30 Benazepril HCl (Lotensin) 10 mg BID PO Last administered on 12/04/16 20:40; Admin Dose 10 MG; Start 12/04/16 at 21:00 Diagnostic Test (Pha) (Accu-Chek) 1 ea 02 XX ; Start 12/05/16 at 02:00 Diagnostic Test (Pha) (Accu-Chek) 1 ea 02 XX ; Start 12/05/16 at 02:00 ROSALINDA JARVIS Dec 05, 2016 11:01
[2016-12-05] MEDS ORDERED: REGADENOSON 0.4 MG/5 ML SYG ONE (11:29)
--- NOTE | 2016-12-05 12:04 | PN ---
Date/Time of Note Date/Time of Note DATE: 12/05/16 TIME: 12:03 Assessment/Plan VTE Prophylaxis VTE Prophylaxis Intervention: SCD's Lines/Catheters [facility] Urinary Cath still in place: Yes Reason Cath still needed: urinary retention Assessment/Plan Chief Complaint/Hosp Course Patient is taken to stress test, no acute events reported prior to procedure. ASSESSMENT AND PLAN: 1. Near syncopal episode. Dr. Bhagat is following in cardiology consultation. 2. Rule out acute stroke. Dr. Blackburn to see patient in a neurology consultation. 3. Diabetes mellitus type 2. Continue Lantus and NovoLog. 4. Hypertension. 5. Acute kidney injury secondary to dehydration, resolved. D/W Dr Hadley Problems: Exam/Review of Systems Vital Signs Vitals Vital Signs Date Time Temp Pulse Resp B/P Pulse Ox O2 Delivery O2 Flow Rate FiO2 12/05/16 08:28 72 12/05/16 08:00 Nasal Cannula 2.0 12/05/16 07:22 98.3 16 144/65 93 Intake and Output 12/04/16 12/04/16 12/05/16 15:00 23:00 07:00 Intake Total 750 ml 400 ml Balance 750 ml 400 ml Exam Constitutional: alert Neck: supple Respiratory: normal air movement Cardiovascular: nl pulses Gastrointestinal: non-tender, soft Extremities: normal pulses Results Result Diagram: 12/05/16 0610 12/05/16 0610 Results 24 hrs Laboratory Tests Test 12/04/16 12:34 12/04/16 17:56 12/04/16 20:34 12/05/16 06:10 Bedside Glucose 191 188 126 White Blood Count 6.5 Red Blood Count 4.51 Hemoglobin 11.7 L Hematocrit 37.0 Mean Corpuscular Volume 82.0 Mean Corpuscular Hemoglobin 25.9 L Mean Corpuscular Hemoglobin Concent 31.6 L Red Cell Distribution Width 15.2 H Platelet Count 197 Mean Platelet Volume 12.3 H Neutrophils % 59.5 Lymphocytes % 29.3 Monocytes % 7.5 Eosinophils % 3.1 Basophils % 0.3 Nucleated Red Blood Cells % 0.0 Neutrophils # (Manual) 3.9 Lymphocytes # 1.9 Monocytes # 0.5 Eosinophils # 0.2 Basophils # 0.0 Nucleated Red Blood Cells # 0.0 Sodium Level 142 Potassium Level 4.4 Chloride Level 101 Carbon Dioxide Level 30 Anion Gap 15 Blood Urea Nitrogen 26 H Creatinine 0.79 Glucose Level 182 Hemoglobin A1c 9.5 H Calcium Level 9.2 Test 12/05/16 08:11 Bedside Glucose 192 Medications Medications Current Medications Aspirin (Aspirin) 81 mg DAILY PO Last administered on 12/04/16 08:29; Admin Dose 81 MG; Start 12/04/16 at 09:00 Atorvastatin Calcium (Lipitor) 20 mg QHS PO Last administered on 12/04/16 20: 40; Admin Dose 20 MG; Start 12/03/16 at 21:00 Insulin Glargine (Lantus) 20 unit DAILY SC Last administered on 12/05/16 08:25 ; Admin Dose 20 UNIT; Start 12/04/16 at 09:00 Pantoprazole (Protonix Tab) 40 mg DAILY@06 PO Last administered on 12/05/16 05 :31; Admin Dose 40 MG; Start 12/04/16 at 06:00 Nitroglycerin (Nitroglycerin (Sl Tab) 0.4 Mg) 1 tab Q5M PRN SL ANGINA; Start at 16:00 Miscellaneous Information 1 ea NOTE XX ; Start 12/03/16 at 17:00 Glucose (Glutose) 15 gm Q15M PRN PO DECREASED GLUCOSE; Start 12/03/16 at 17:00 Glucose (Glutose) 22.5 gm Q15M PRN PO DECREASED GLUCOSE; Start 12/03/16 at 17: 00 Dextrose (D50w Syringe) 25 ml Q15M PRN IV DECREASED GLUCOSE; Start 12/03/16 at 17:00 Dextrose (D50w Syringe) 50 ml Q15M PRN IV DECREASED GLUCOSE; Start 12/03/16 at 17:00 Glucagon (Glucagen) 1 mg Q15M PRN IM DECREASED GLUCOSE; Start 12/03/16 at 17:00 Glucose (Glutose) 15 gm Q15M PRN BUCCAL DECREASED GLUCOSE; Start 12/03/16 at 17 :00 Amlodipine Besylate (Norvasc) 10 mg DAILY PO Last administered on 12/04/16 08: 30; Admin Dose 10 MG; Start 12/04/16 at 09:00 Lorazepam (Ativan) 1 mg Q6H PRN IV AGITATION/ANXIETY; Start 12/04/16 at 02:30 Quetiapine Fumarate (Seroquel) 25 mg DAILY PO Last administered on 12/04/16 08 :30; Admin Dose 25 MG; Start 12/04/16 at 09:00 Hydralazine HCl (Apresoline) 10 mg Q4H PRN IV ELEVATED BLOOD PRESSURE; Start at 02:30 Benazepril HCl (Lotensin) 10 mg BID PO Last administered on 12/04/16 20:40; Admin Dose 10 MG; Start 12/04/16 at 21:00 Diagnostic Test (Pha) (Accu-Chek) 1 ea 02 XX ; Start 12/05/16 at 02:00 Diagnostic Test (Pha) (Accu-Chek) 1 ea 02 XX ; Start 12/05/16 at 02:00 CARLEE VILLALPANDO Dec 05, 2016 12:04
--- NOTE | 2016-12-05 13:04 | CARRPT ---
DATE OF PROCEDURE: 12/05/2016 TYPE OF PROCEDURE: Lexiscan cardiac stress test, electrocardiogram portion. ATTENDING PHYSICIAN: Dr. Kiran Bhagat. INDICATION: Chest pain, assess for ischemia. BASELINE VITAL SIGNS ON ELECTROCARDIOGRAM: Pulse of 79, blood pressure 159/72. Electrocardiogram reveals normal sinus rhythm, rate 79, normal axis, normal intervals, with lateral T-wave inversions. PROCEDURE: Patient underwent a standard Lexiscan infusion for over 10 seconds followed by radiotracer. Patient's test was stopped due to completion of protocol. Maximal achieved blood pressure during the test 141/62. Maximal achieved heart rate during test 83. ELECTROCARDIOGRAM FINDINGS: The patient did develop any new Lexiscan-induced ST-T wave changes from baseline abnormalities. Occasional PVCs. SYMPTOMS: The patient had no complaints of chest pain or shortness of breath during stress testing. IMPRESSION: 1. No Lexiscan-induced ST-T changes from baseline abnormalities for diagnostic cardiac ischemia. 2. No complaints of chest pain or shortness of breath during stress testing. 3. Occasional premature ventricular contractions during stress test. 4. Report of nuclear images to follow in a separate dictation. Dictated By: Nancy Agosto /fnt/gj /Document#: [id number] CC: Redd Hadley MD;*[facility]*
--- NOTE | 2016-12-05 14:47 | PN ---
Date/Time of Note Date/Time of Note DATE: 12/05/16 TIME: 14:43 Assessment/Plan VTE Prophylaxis VTE Prophylaxis Intervention: SCD's Lines/Catheters IV [facility] Type [facility]from [facility] Saline Lock Urinary Cath still in place: Yes Reason Cath still needed: urinary retention Assessment/Plan Chief Complaint/Hosp Course Patient is taken to stress test, no acute events reported prior to procedure. ASSESSMENT AND PLAN: - Near syncopal episode. Cardiac enzymes is negative 3. Dr. Bhagat is following and cardiology consultation. Patient is undergoing stress test today. - Rule out transient ischemic attack in patient with history of stroke. Continue aspirin. Dr. Blackburn is following in a neurology consultation. - Diabetes mellitus type 2. Hemoglobin A1c is 9.6. Continue Lantus and NovoLog. - Hypertension. Continue Lotensin and Norvasc. - Acute kidney injury secondary to dehydration, resolved. Further recommendations based on clinical course. Plan of care discussed with Dr. Hadley. Problems: Exam/Review of Systems Vital Signs Vitals Vital Signs Date Time Temp Pulse Resp B/P Pulse Ox O2 Delivery O2 Flow Rate FiO2 12/05/16 13:07 98.2 80 22 106/59 93 12/05/16 08:00 Nasal Cannula 2.0 Intake and Output 12/04/16 12/04/16 12/05/16 15:00 23:00 07:00 Intake Total 750 ml 400 ml Balance 750 ml 400 ml Results Result Diagram: 12/05/16 0610 12/05/16 0610 Results 24 hrs Laboratory Tests Test 12/04/16 17:56 12/04/16 20:34 12/05/16 06:10 12/05/16 08:11 Bedside Glucose 188 126 192 White Blood Count 6.5 Red Blood Count 4.51 Hemoglobin 11.7 L Hematocrit 37.0 Mean Corpuscular Volume 82.0 Mean Corpuscular Hemoglobin 25.9 L Mean Corpuscular Hemoglobin Concent 31.6 L Red Cell Distribution Width 15.2 H Platelet Count 197 Mean Platelet Volume 12.3 H Neutrophils % 59.5 Lymphocytes % 29.3 Monocytes % 7.5 Eosinophils % 3.1 Basophils % 0.3 Nucleated Red Blood Cells % 0.0 Neutrophils # (Manual) 3.9 Lymphocytes # 1.9 Monocytes # 0.5 Eosinophils # 0.2 Basophils # 0.0 Nucleated Red Blood Cells # 0.0 Sodium Level 142 Potassium Level 4.4 Chloride Level 101 Carbon Dioxide Level 30 Anion Gap 15 Blood Urea Nitrogen 26 H Creatinine 0.79 Glucose Level 182 Hemoglobin A1c 9.5 H Calcium Level 9.2 Medications Medications Current Medications Aspirin (Aspirin) 81 mg DAILY PO Last administered on 12/04/16 08:29; Admin Dose 81 MG; Start 12/04/16 at 09:00 Atorvastatin Calcium (Lipitor) 20 mg QHS PO Last administered on 12/04/16 20: 40; Admin Dose 20 MG; Start 12/03/16 at 21:00 Insulin Glargine (Lantus) 20 unit DAILY SC Last administered on 12/05/16 08:25 ; Admin Dose 20 UNIT; Start 12/04/16 at 09:00 Pantoprazole (Protonix Tab) 40 mg DAILY@06 PO Last administered on 12/05/16 05 :31; Admin Dose 40 MG; Start 12/04/16 at 06:00 Nitroglycerin (Nitroglycerin (Sl Tab) 0.4 Mg) 1 tab Q5M PRN SL ANGINA; Start at 16:00 Miscellaneous Information 1 ea NOTE XX ; Start 12/03/16 at 17:00 Glucose (Glutose) 15 gm Q15M PRN PO DECREASED GLUCOSE; Start 12/03/16 at 17:00 Glucose (Glutose) 22.5 gm Q15M PRN PO DECREASED GLUCOSE; Start 12/03/16 at 17: 00 Dextrose (D50w Syringe) 25 ml Q15M PRN IV DECREASED GLUCOSE; Start 12/03/16 at 17:00 Dextrose (D50w Syringe) 50 ml Q15M PRN IV DECREASED GLUCOSE; Start 12/03/16 at 17:00 Glucagon (Glucagen) 1 mg Q15M PRN IM DECREASED GLUCOSE; Start 12/03/16 at 17:00 Glucose (Glutose) 15 gm Q15M PRN BUCCAL DECREASED GLUCOSE; Start 12/03/16 at 17 :00 Amlodipine Besylate (Norvasc) 10 mg DAILY PO Last administered on 12/04/16 08: 30; Admin Dose 10 MG; Start 12/04/16 at 09:00 Lorazepam (Ativan) 1 mg Q6H PRN IV AGITATION/ANXIETY; Start 12/04/16 at 02:30 Quetiapine Fumarate (Seroquel) 25 mg DAILY PO Last administered on 12/04/16 08 :30; Admin Dose 25 MG; Start 12/04/16 at 09:00 Hydralazine HCl (Apresoline) 10 mg Q4H PRN IV ELEVATED BLOOD PRESSURE; Start at 02:30 Benazepril HCl (Lotensin) 10 mg BID PO Last administered on 12/04/16 20:40; Admin Dose 10 MG; Start 12/04/16 at 21:00 Diagnostic Test (Pha) (Accu-Chek) 1 ea 02 XX ; Start 12/05/16 at 02:00 Diagnostic Test (Pha) (Accu-Chek) 1 ea 02 XX ; Start 12/05/16 at 02:00 CARLEE VILLALPANDO Dec 05, 2016 14:47
--- NOTE | 2016-12-05 14:53 | RADRPT ---
PROCEDURE: Lexiscan myocardial perfusion study CLINICAL INDICATION: 80 -year-old patient complaining of chest pain. TECHNIQUE: Lexiscan 0.4 mg intravenously separate acquisition gated myocardial perfusion SPECT usi ng Tc 99m Myoview 30.0 mCi intravenously at stress and Tc-99m Myoview, 10.0 mCi intravenously at res t was performed using the rest/stress sequence. Poststress Myoview SPECT images were obtained in th e supine position. COMPARISON: No prior studies. FINDINGS: Perfusion images reveal no evidence of perfusion defects. Lexiscan post stress gated SPECT images demonstrate no wall motion abnormalities. IMPRESSION: 1. No definite evidence of stress-induced ischemia. 2. No wall motion abnormalities. 3. The left ventricle ejection fraction at stress is greater than 70%. A call report was made to Dr. Bhagat at 02:51 p.m. on December 05, 2016. RPTAT: HH .Marie Chavez MD, MD Date Time Electronically viewed and signed by .Marie Chavez MD, on 12/05/2016 14:52 .L/
[2016-12-05] MEDS: BENAZEPRIL 10 MG TAB PO SCH ×2 (16:00→20:42)
[2016-12-05] MEDS: AMLODIPINE 10 MG TAB PO SCH (16:00)
[2016-12-05] MEDS: ASPIRIN 81 MG TAB PO SCH (16:38)
[2016-12-05] MEDS: QUETIAPINE 25 MG TAB PO SCH (16:38)
--- NOTE | 2016-12-05 17:11 | RADRPT ---
Vent Rate: 81 bpm RR Interval: 0 msec MS Interval: 144 msec QRS Duration: 76 msec QT Interval: 400 msec QTC Interval: 464 msec P-R-T [place]: 32 - 55 - 59 degrees Normal sinus rhythm Normal ECG Electronically Signed By: Rodrigue Tavarez [id number]
--- NOTE | 2016-12-05 17:12 | RADRPT ---
Vent Rate: 82 bpm RR Interval: 0 msec CA Interval: 142 msec QRS Duration: 70 msec QT Interval: 380 msec QTC Interval: 443 msec P-R-T [place]: 33 - 25 - 54 degrees Normal sinus rhythm Normal ECG Electronically Signed By: Rodrigue Tavarez [id number]
[2016-12-05] MEDS: ATORVASTATIN 20 MG TAB PO SCH (20:41)
[2016-12-06] VITALS (10 sets, daily range): BP systolic 125–152; BP diastolic 59–82; PULSE 76–97; RESP 16–18
[2016-12-06] MEDS: ACCU-CHEK XX SCH ×2 (02:00)
--- NOTE | 2016-12-06 04:25 | RADRPT ---
PROCEDURE: MR Brain without contrast. CLINICAL INDICATION: Syncope. Question stroke. TECHNIQUE: Sagittal and axial T1 weighted, axial T2 weighted, coronal GRE, axial diffusion weighte d with ADC mapping, and axial and sagittal FLAIR imaging without contrast. COMPARISON: None FINDINGS: No diffusion weighted abnormalities are seen to suggest the presence of acute ischemia or recent inf arct. No hypointense signal abnormalities are seen on the GRE images to suggest the presence of blo od degradation products. There is no evidence of intracranial hemorrhage, mass effect, or midline sh ift. No extra-axial fluid collections are seen. Again seen is moderate cerebral and cerebellar atrop hy with mild ex vacuo dilatation of the ventricles and moderate probable chronic microvascular ische maria guadalupe change of both hemispheres. Old lacunar infarcts of the basal ganglia and left thalamus and old left cerebellar infarct again seen. Small old infarct of the right paramedian johnny and left dorsal lingula.. Prior cataract surgery. Normal flow voids are visible in the proximal intracranial arter ies and dural sinuses, indicating patency. The visualized paranasal sinuses and mastoids are grossly clear. IMPRESSION: Atrophy and chronic microvascular ischemic changes. Old lacunar infarcts again seen. No definite a cute abnormality. RPTAT: [facility] Physician Jaime Date Time Electronically viewed and signed by Physician Jaime on 12/06/2016 02:29 LE/
[2016-12-06] MEDS: PANTOPRAZOLE (EC) 40 MG TAB PO SCH (06:00)
[2016-12-06 06:31] LABS: BASOPHILS % 0.4 % (0.0-2.0); EOSINOPHILS # 0.2 10^3/ul (0.0-0.5); HEMATOCRIT 38.1 % (37.0-47.0); LYMPHOCYTES % 27.6 % (15.0-51.0); MEAN CORPUSCULAR HEMOGLOBIN 25.8 pg (29.0-33.0); MEAN CORPUSCULAR HGB CONC 31.5 g/dl (32.0-37.0); MEAN CORPUSCULAR VOLUME 81.8 fl (82.0-101.0); MEAN PLATELET VOLUME 12.7 fl (7.4-10.4); MONOCYTE # 0.6 10^3/ul (0.3-0.9); MONOCYTES % 8.3 % (0.0-11.0); NEUTROPHILS % 60.3 % (39.0-77.0); PLATELET COUNT 196 10^3/UL (140-415); RED BLOOD COUNT 4.66 10^6/ul (4.20-5.40); RED CELL DISTRIBUTION WIDTH 15.5 % (11.5-14.5); WHITE BLOOD COUNT 7.4 10^3/ul (4.8-10.8)
[2016-12-06 07:12] LABS: CALCIUM 9.4 mg/dl (8.4-10.2); CREATININE 0.85 mg/dl (0.44-1.00); POTASSIUM 4.2 mmol/L (3.5-5.1)
[2016-12-06] MEDS: INSULIN GLARGINE [LANtus] 3 ML PEN SC SCH (08:15)
[2016-12-06] MEDS: INSULIN ASPART [NOVOLOG] 3 ML PEN SC SCH ×7 (08:16→21:00)
[2016-12-06] MEDS: ASPIRIN 81 MG TAB PO SCH (08:18)
[2016-12-06] MEDS: AMLODIPINE 10 MG TAB PO SCH (08:19)
[2016-12-06] MEDS: BENAZEPRIL 10 MG TAB PO SCH ×2 (08:19→21:02)
[2016-12-06] MEDS: QUETIAPINE 25 MG TAB PO SCH (08:19)
--- NOTE | 2016-12-06 12:18 | CONS ---
Date/Time of Note Date/Time of Note DATE: 12/06/16 TIME: 12:16 Assessment/Plan Assessment/Plan Additional Assessment/Plan 1. Chest pain.-negative trop x 3 - will monitor clinically 2. Presyncope.- no sig arrythmia by tele monitoring - no ectopy on tele 3. Hypotension on admit-now improved with HTN - BP better now 4. Electrocardiogram with lateral T-wave inversion. Assess for acute coronary syndrome. R/o TN now. 5. Generalized weakness. 6. Diabetes mellitus - con't sheila Rx 7. Prerenal azotemia. Consultation Date/Type/Reason Admit Date/Time Dec 03, 2016 at 14:20 Initial Consult Date 12/04/16 Type of Consultation: cardiology Referring Provider: CARLEE VILLALPANDO 24 HR Interval Summary Free Text/Dictation No acute events - BP in good destin now - no tachy-bardy on tele ROS: No fever, no chills, no nausea, no vomiting, no diarrhea/constipation No recent weight changes No chest pain, no PND, no orthopnea No dizziness, blurred vision No thirst, no heat or cold intolerance Exam/Review of Systems Vital Signs Vitals Vital Signs Date Time Temp Pulse Resp B/P Pulse Ox O2 Delivery O2 Flow Rate FiO2 12/06/16 12:03 91 12/06/16 11:16 97.8 16 149/74 97 12/06/16 08:00 Nasal Cannula 2.0 Intake and Output 12/05/16 12/05/16 12/06/16 15:00 23:00 07:00 Intake Total 450 ml Balance 450 ml Exam General: WN/WD/NAD, AOx 3 (Swedish) HEENT: Unicetric/atraumatic/EOMI (follows commands) NECK: JVD elevated, no thyromegaly Lymph: no lymphadenopathy HEART: regular with no S3, II/ systolic murmur at apex LUNGS: Coarse sounds ABD: soft, NT, ND, +BS : Intact Neuro: non focal SKIN: chronic changes EXT: trace edema Results Result Diagram: 12/06/16 0519 12/06/16 0519 Results 24 hrs Laboratory Tests Test 12/05/16 15:46 12/05/16 16:37 12/05/16 20:43 12/06/16 05:19 Bedside Glucose 146 116 132 White Blood Count 7.4 Red Blood Count 4.66 Hemoglobin 12.0 Hematocrit 38.1 Mean Corpuscular Volume 81.8 L Mean Corpuscular Hemoglobin 25.8 L Mean Corpuscular Hemoglobin Concent 31.5 L Red Cell Distribution Width 15.5 H Platelet Count 196 Mean Platelet Volume 12.7 H Neutrophils % 60.3 Lymphocytes % 27.6 Monocytes % 8.3 Eosinophils % 3.0 Basophils % 0.4 Nucleated Red Blood Cells % 0.0 Neutrophils # (Manual) 4.4 Lymphocytes # 2.0 Monocytes # 0.6 Eosinophils # 0.2 Basophils # 0.0 Nucleated Red Blood Cells # 0.0 Sodium Level 140 Potassium Level 4.2 Chloride Level 100 Carbon Dioxide Level 32 H Anion Gap 12 Blood Urea Nitrogen 24 H Creatinine 0.85 Glucose Level 189 Calcium Level 9.4 Medications Medications Current Medications Aspirin (Aspirin) 81 mg DAILY PO Last administered on 12/06/16 08:18; Admin Dose 81 MG; Start 12/04/16 at 09:00 Atorvastatin Calcium (Lipitor) 20 mg QHS PO Last administered on 12/05/16 20: 41; Admin Dose 20 MG; Start 12/03/16 at 21:00 Insulin Glargine (Lantus) 20 unit DAILY SC Last administered on 12/06/16 08:15 ; Admin Dose 20 UNIT; Start 12/04/16 at 09:00 Pantoprazole (Protonix Tab) 40 mg DAILY@06 PO Last administered on 12/05/16 05 :31; Admin Dose 40 MG; Start 12/04/16 at 06:00 Nitroglycerin (Nitroglycerin (Sl Tab) 0.4 Mg) 1 tab Q5M PRN SL ANGINA; Start at 16:00 Miscellaneous Information 1 ea NOTE XX ; Start 12/03/16 at 17:00 Glucose (Glutose) 15 gm Q15M PRN PO DECREASED GLUCOSE; Start 12/03/16 at 17:00 Glucose (Glutose) 22.5 gm Q15M PRN PO DECREASED GLUCOSE; Start 12/03/16 at 17: 00 Dextrose (D50w Syringe) 25 ml Q15M PRN IV DECREASED GLUCOSE; Start 12/03/16 at 17:00 Dextrose (D50w Syringe) 50 ml Q15M PRN IV DECREASED GLUCOSE; Start 12/03/16 at 17:00 Glucagon (Glucagen) 1 mg Q15M PRN IM DECREASED GLUCOSE; Start 12/03/16 at 17:00 Glucose (Glutose) 15 gm Q15M PRN BUCCAL DECREASED GLUCOSE; Start 12/03/16 at 17 :00 Amlodipine Besylate (Norvasc) 10 mg DAILY PO Last administered on 12/06/16 08: 19; Admin Dose 10 MG; Start 12/04/16 at 09:00 Lorazepam (Ativan) 1 mg Q6H PRN IV AGITATION/ANXIETY; Start 12/04/16 at 02:30 Quetiapine Fumarate (Seroquel) 25 mg DAILY PO Last administered on 12/06/16 08 :19; Admin Dose 25 MG; Start 12/04/16 at 09:00 Hydralazine HCl (Apresoline) 10 mg Q4H PRN IV ELEVATED BLOOD PRESSURE; Start at 02:30 Benazepril HCl (Lotensin) 10 mg BID PO Last administered on 12/06/16 08:19; Admin Dose 10 MG; Start 12/04/16 at 21:00 Diagnostic Test (Pha) (Accu-Chek) 1 ea 02 XX ; Start 12/05/16 at 02:00 Diagnostic Test (Pha) (Accu-Chek) 1 ea 02 XX ; Start 12/05/16 at 02:00 ARTHUR TITUS MD Dec 06, 2016 12:18
--- NOTE | 2016-12-06 12:59 | CONS ---
Date/Time of Note Date/Time of Note DATE: 12/06/16 TIME: 12:53 Consult Date/Type/Reason Admit Date/Time Dec 03, 2016 at 14:20 Initial Consult Date 12/04/16 Type of Consultation: neurology Ordering Provider: CARLEE VILLALPANDO Subjective No complaints, no syncopes. Objective Vital Signs Date Time Temp Pulse Resp B/P Pulse Ox O2 Delivery O2 Flow Rate FiO2 12/06/16 12:03 91 12/06/16 11:16 97.8 16 149/74 97 12/06/16 08:00 Nasal Cannula 2.0 Intake and Output 12/05/16 12/05/16 12/06/16 15:00 23:00 07:00 Intake Total 450 ml Balance 450 ml Results/Medications Result Diagram: 12/06/16 0519 12/06/16 0519 Results 24 hrs Laboratory Tests Test 12/05/16 15:46 12/05/16 16:37 12/05/16 20:43 12/06/16 05:19 Bedside Glucose 146 116 132 White Blood Count 7.4 Red Blood Count 4.66 Hemoglobin 12.0 Hematocrit 38.1 Mean Corpuscular Volume 81.8 L Mean Corpuscular Hemoglobin 25.8 L Mean Corpuscular Hemoglobin Concent 31.5 L Red Cell Distribution Width 15.5 H Platelet Count 196 Mean Platelet Volume 12.7 H Neutrophils % 60.3 Lymphocytes % 27.6 Monocytes % 8.3 Eosinophils % 3.0 Basophils % 0.4 Nucleated Red Blood Cells % 0.0 Neutrophils # (Manual) 4.4 Lymphocytes # 2.0 Monocytes # 0.6 Eosinophils # 0.2 Basophils # 0.0 Nucleated Red Blood Cells # 0.0 Sodium Level 140 Potassium Level 4.2 Chloride Level 100 Carbon Dioxide Level 32 H Anion Gap 12 Blood Urea Nitrogen 24 H Creatinine 0.85 Glucose Level 189 Calcium Level 9.4 Test 12/06/16 12:10 Bedside Glucose 209 Medications Current Medications Aspirin (Aspirin) 81 mg DAILY PO Last administered on 12/06/16 08:18; Admin Dose 81 MG; Start 12/04/16 at 09:00 Atorvastatin Calcium (Lipitor) 20 mg QHS PO Last administered on 12/05/16 20: 41; Admin Dose 20 MG; Start 12/03/16 at 21:00 Insulin Glargine (Lantus) 20 unit DAILY SC Last administered on 12/06/16 08:15 ; Admin Dose 20 UNIT; Start 12/04/16 at 09:00 Pantoprazole (Protonix Tab) 40 mg DAILY@06 PO Last administered on 12/05/16 05 :31; Admin Dose 40 MG; Start 12/04/16 at 06:00 Nitroglycerin (Nitroglycerin (Sl Tab) 0.4 Mg) 1 tab Q5M PRN SL ANGINA; Start at 16:00 Miscellaneous Information 1 ea NOTE XX ; Start 12/03/16 at 17:00 Glucose (Glutose) 15 gm Q15M PRN PO DECREASED GLUCOSE; Start 12/03/16 at 17:00 Glucose (Glutose) 22.5 gm Q15M PRN PO DECREASED GLUCOSE; Start 12/03/16 at 17: 00 Dextrose (D50w Syringe) 25 ml Q15M PRN IV DECREASED GLUCOSE; Start 12/03/16 at 17:00 Dextrose (D50w Syringe) 50 ml Q15M PRN IV DECREASED GLUCOSE; Start 12/03/16 at 17:00 Glucagon (Glucagen) 1 mg Q15M PRN IM DECREASED GLUCOSE; Start 12/03/16 at 17:00 Glucose (Glutose) 15 gm Q15M PRN BUCCAL DECREASED GLUCOSE; Start 12/03/16 at 17 :00 Amlodipine Besylate (Norvasc) 10 mg DAILY PO Last administered on 12/06/16 08: 19; Admin Dose 10 MG; Start 12/04/16 at 09:00 Lorazepam (Ativan) 1 mg Q6H PRN IV AGITATION/ANXIETY; Start 12/04/16 at 02:30 Quetiapine Fumarate (Seroquel) 25 mg DAILY PO Last administered on 12/06/16 08 :19; Admin Dose 25 MG; Start 12/04/16 at 09:00 Hydralazine HCl (Apresoline) 10 mg Q4H PRN IV ELEVATED BLOOD PRESSURE; Start at 02:30 Benazepril HCl (Lotensin) 10 mg BID PO Last administered on 12/06/16 08:19; Admin Dose 10 MG; Start 12/04/16 at 21:00 Diagnostic Test (Pha) (Accu-Chek) 1 ea 02 XX ; Start 8/25/17 at 02:00 Diagnostic Test (Pha) (Accu-Chek) 1 ea 02 XX ; Start 12/05/16 at 02:00 Assessment/Plan Chief Complaint/Hosp Course Neuro exam: awake and alert, Ox3, fluent speech, follows commands CN: Pupils 3mm postsx, sluggish, blinks to threat, slight right facial droop palate upgoing uvula midline scm/trap intact Motor: slight drift in right arm 4/5 strength compared to left poor effort in both LE can lift anti-gravity Reflexes brisk throughout toes upgoing Min right [id number] dysmetria A/P: S/p syncope, Hypotension, dehydration. hx of CVA Continue current Tx Problems: GREGOR SIMMONS MD Dec 06, 2016 12:59
--- NOTE | 2016-12-06 14:26 | PN ---
Date/Time of Note Date/Time of Note DATE: 12/06/16 TIME: 14:16 Assessment/Plan VTE Prophylaxis VTE Prophylaxis Intervention: other Lines/Catheters IV [facility] Peripheral IV Urinary Cath still in place: No Assessment/Plan Assessment/Plan - C/O WHEEZING- will do CXR, breathing treatment, cont to observe at tele - Near syncopal episode. Cardiac enzymes is negative 3. Dr. Bhagat is following and cardiology consultation. Patient is undergoing stress test today. - Rule out transient ischemic attack in patient with history of stroke. Continue aspirin. Dr. Blackburn is following in a neurology consultation. - Diabetes mellitus type 2. Hemoglobin A1c is 9.6. Continue Lantus and NovoLog. - Hypertension. Continue Lotensin and Norvasc. - Acute kidney injury secondary to dehydration, resolved. Further recommendations based on clinical course. Plan of care discussed with Dr. Hadley. Subjective 24 Hr Interval Summary Respiratory: no complaints Cardiovascular: no complaints Gastrointestinal: no complaints Genitourinary: no complaints Musculoskeletal: no complaints Skin: no complaints Exam/Review of Systems Vital Signs Vitals Vital Signs Date Time Temp Pulse Resp B/P Pulse Ox O2 Delivery O2 Flow Rate FiO2 12/06/16 12:03 91 12/06/16 11:16 97.8 16 149/74 97 12/06/16 08:00 Nasal Cannula 2.0 Intake and Output 12/05/16 12/05/16 12/06/16 15:00 23:00 07:00 Intake Total 450 ml Balance 450 ml Exam Constitutional: alert, well developed Respiratory: diminished breath sounds Cardiovascular: nl pulses, regular rate and rhythm Gastrointestinal: non-tender, soft Musculoskeletal: nl extremities to inspection Skin: other Results Result Diagram: 12/06/16 0519 12/06/16 0519 Results 24 hrs Laboratory Tests Test 12/05/16 15:46 12/05/16 16:37 12/05/16 20:43 12/06/16 05:19 Bedside Glucose 146 116 132 White Blood Count 7.4 Red Blood Count 4.66 Hemoglobin 12.0 Hematocrit 38.1 Mean Corpuscular Volume 81.8 L Mean Corpuscular Hemoglobin 25.8 L Mean Corpuscular Hemoglobin Concent 31.5 L Red Cell Distribution Width 15.5 H Platelet Count 196 Mean Platelet Volume 12.7 H Neutrophils % 60.3 Lymphocytes % 27.6 Monocytes % 8.3 Eosinophils % 3.0 Basophils % 0.4 Nucleated Red Blood Cells % 0.0 Neutrophils # (Manual) 4.4 Lymphocytes # 2.0 Monocytes # 0.6 Eosinophils # 0.2 Basophils # 0.0 Nucleated Red Blood Cells # 0.0 Sodium Level 140 Potassium Level 4.2 Chloride Level 100 Carbon Dioxide Level 32 H Anion Gap 12 Blood Urea Nitrogen 24 H Creatinine 0.85 Glucose Level 189 Calcium Level 9.4 Test 12/06/16 07:38 12/06/16 12:10 Bedside Glucose 186 209 Medications Medications Current Medications Aspirin (Aspirin) 81 mg DAILY PO Last administered on 12/06/16 08:18; Admin Dose 81 MG; Start 12/04/16 at 09:00 Atorvastatin Calcium (Lipitor) 20 mg QHS PO Last administered on 12/05/16 20: 41; Admin Dose 20 MG; Start 12/03/16 at 21:00 Insulin Glargine (Lantus) 20 unit DAILY SC Last administered on 12/06/16 08:15 ; Admin Dose 20 UNIT; Start 12/04/16 at 09:00 Pantoprazole (Protonix Tab) 40 mg DAILY@06 PO Last administered on 12/05/16 05 :31; Admin Dose 40 MG; Start 12/04/16 at 06:00 Nitroglycerin (Nitroglycerin (Sl Tab) 0.4 Mg) 1 tab Q5M PRN SL ANGINA; Start at 16:00 Miscellaneous Information 1 ea NOTE XX ; Start 12/03/16 at 17:00 Glucose (Glutose) 15 gm Q15M PRN PO DECREASED GLUCOSE; Start 12/03/16 at 17:00 Glucose (Glutose) 22.5 gm Q15M PRN PO DECREASED GLUCOSE; Start 12/03/16 at 17: 00 Dextrose (D50w Syringe) 25 ml Q15M PRN IV DECREASED GLUCOSE; Start 12/03/16 at 17:00 Dextrose (D50w Syringe) 50 ml Q15M PRN IV DECREASED GLUCOSE; Start 12/03/16 at 17:00 Glucagon (Glucagen) 1 mg Q15M PRN IM DECREASED GLUCOSE; Start 12/03/16 at 17:00 Glucose (Glutose) 15 gm Q15M PRN BUCCAL DECREASED GLUCOSE; Start 12/03/16 at 17 :00 Amlodipine Besylate (Norvasc) 10 mg DAILY PO Last administered on 12/06/16 08: 19; Admin Dose 10 MG; Start 12/04/16 at 09:00 Lorazepam (Ativan) 1 mg Q6H PRN IV AGITATION/ANXIETY; Start 12/04/16 at 02:30 Quetiapine Fumarate (Seroquel) 25 mg DAILY PO Last administered on 12/06/16 08 :19; Admin Dose 25 MG; Start 12/04/16 at 09:00 Hydralazine HCl (Apresoline) 10 mg Q4H PRN IV ELEVATED BLOOD PRESSURE; Start at 02:30 Benazepril HCl (Lotensin) 10 mg BID PO Last administered on 12/06/16 08:19; Admin Dose 10 MG; Start 12/04/16 at 21:00 Diagnostic Test (Pha) (Accu-Chek) 1 ea 02 XX ; Start 12/05/16 at 02:00 Diagnostic Test (Pha) (Accu-Chek) 1 ea 02 XX ; Start 12/05/16 at 02:00 TAMERA HANKINS Dec 06, 2016 14:26
[2016-12-06] MEDS ORDERED: LEVALBUTEROL (NEB) 0.63 MG/3 ML AMP HHN PRN (14:30)
[2016-12-06] MEDS ORDERED: BISACODYL 10 MG SUPP PR PRN (15:30)
[2016-12-06] MEDS: MAGNESIUM HYDROXIDE 30ML CUP PO PRN (15:55)
[2016-12-06 16:47] LABS: BASOPHILS % 0.4 % (0.0-2.0); EOSINOPHILS # 0.2 10^3/ul (0.0-0.5); EOSINOPHILS % 3.1 % (0.0-7.0); HEMATOCRIT 37.7 % (37.0-47.0); HEMOGLOBIN 11.9 g/dl (12.0-16.0); LYMPHOCYTES # 2.1 10^3/ul (0.8-2.9); LYMPHOCYTES % 31.6 % (15.0-51.0); MEAN CORPUSCULAR HGB CONC 31.6 g/dl (32.0-37.0); MEAN CORPUSCULAR VOLUME 82.3 fl (82.0-101.0); MEAN PLATELET VOLUME 12.5 fl (7.4-10.4); MONOCYTE # 0.6 10^3/ul (0.3-0.9); MONOCYTES % 8.3 % (0.0-11.0); NEUTROPHILS % 56.3 % (39.0-77.0); PLATELET COUNT 203 10^3/UL (140-415); RED BLOOD COUNT 4.58 10^6/ul (4.20-5.40); RED CELL DISTRIBUTION WIDTH 15.5 % (11.5-14.5); WHITE BLOOD COUNT 6.8 10^3/ul (4.8-10.8)
--- NOTE | 2016-12-06 17:33 | RADRPT ---
PROCEDURE: Chest xray. CLINICAL INDICATION: Wheezing TECHNIQUE: A portable semisupine AP view of the chest was obtained. COMPARISON: 10/27/2014. FINDINGS: The cardiomediastinal silhouette is within normal limits. Atherosclerotic calcifications are presen t in the aorta. Lung volumes are low with associated bronchovascular crowding and bibasilar subsegm ental atelectasis. No focal opacity, pleural effusion, or pneumothorax is identified. The skeletal structures and soft tissues are unremarkable. IMPRESSION: Low lung volumes with associated bronchovascular crowding and bibasilar subsegmental atelectasis. RPTAT:PP .Chelita Arauz MD, MD Date Time Electronically viewed and signed by .Chelita Arauz MD, on 12/06/2016 17:33 .K/
[2016-12-06] MEDS: ATORVASTATIN 20 MG TAB PO SCH (21:03)
[2016-12-07] VITALS (13 sets, daily range): BP systolic 109–151; BP diastolic 52–69; PULSE 80–100; RESP 17–20
[2016-12-07] MEDS: ACCU-CHEK XX SCH ×2 (02:00)
[2016-12-07] MEDS: PANTOPRAZOLE (EC) 40 MG TAB PO SCH (05:15)
[2016-12-07 07:42] LABS: CALCIUM 9.2 mg/dl (8.4-10.2); CREATININE 0.9 mg/dl (0.44-1.00); POTASSIUM 4.6 mmol/L (3.5-5.1)
[2016-12-07] MEDS: INSULIN GLARGINE [LANtus] 3 ML PEN SC SCH (07:50)
[2016-12-07] MEDS: INSULIN ASPART [NOVOLOG] 3 ML PEN SC SCH ×7 (07:58→21:03)
[2016-12-07] MEDS: BENAZEPRIL 10 MG TAB PO SCH ×2 (08:19→20:42)
[2016-12-07] MEDS: ASPIRIN 81 MG TAB PO SCH (08:19)
[2016-12-07] MEDS: QUETIAPINE 25 MG TAB PO SCH (08:19)
[2016-12-07] MEDS: AMLODIPINE 10 MG TAB PO SCH (08:19)
--- NOTE | 2016-12-07 09:46 | CONS ---
Date/Time of Note Date/Time of Note DATE: 12/07/16 TIME: 09:44 Assessment/Plan Assessment/Plan Additional Assessment/Plan 1. Chest pain.-negative trop x 3 - will monitor clinically NO intervention planned now. 2. Presyncope.- no sig arrythmia by tele monitoring - no ectopy on tele 3. Hypotension on admit-now improved with HTN -Labile - will add therapy as needed 4. Electrocardiogram with lateral T-wave inversion. Assess for acute coronary syndrome. R/o LA now. 5. Generalized weakness- much improved 6. Diabetes mellitus - con't sheila Rx 7. Prerenal azotemia. Consultation Date/Type/Reason Admit Date/Time Dec 03, 2016 at 16:00 Initial Consult Date 12/04/16 Type of Consultation: neurology Referring Provider: CARLEE VILLALPANDO 24 HR Interval Summary Free Text/Dictation Much better overall - no ectopy on te;e - diego add BP rx as needed ROS: No fever, no chills, no nausea, no vomiting, no diarrhea/constipation No recent weight changes No chest pain, no PND, no orthopnea No dizziness, blurred vision No thirst, no heat or cold intolerance Exam/Review of Systems Vital Signs Vitals Vital Signs Date Time Temp Pulse Resp B/P Pulse Ox O2 Delivery O2 Flow Rate FiO2 12/07/16 08:06 98.2 88 17 151/69 94 12/06/16 20:00 Nasal Cannula 2.0 Intake and Output 12/06/16 12/06/16 12/07/16 15:00 23:00 07:00 Intake Total 800 ml 400 ml Balance 800 ml 400 ml Exam General: WN/WD/NAD, AOx 2-3 French HEENT: Unicetric/atraumatic/EOMI (follows commands) NECK: JVD elevated, no thyromegaly Lymph: no lymphadenopathy HEART: regular with no S3, II/ systolic murmur at apex LUNGS: Coarse sounds ABD: soft, NT, ND, +BS : Intact Neuro: non focal SKIN: chronic changes EXT: trace edema Results Result Diagram: 12/06/16 1530 12/07/16 0603 Results 24 hrs Laboratory Tests Test 12/06/16 12:10 12/06/16 15:30 12/06/16 17:10 12/06/16 21:24 Bedside Glucose 209 125 170 White Blood Count 6.8 Red Blood Count 4.58 Hemoglobin 11.9 L Hematocrit 37.7 Mean Corpuscular Volume 82.3 Mean Corpuscular Hemoglobin 26.0 L Mean Corpuscular Hemoglobin Concent 31.6 L Red Cell Distribution Width 15.5 H Platelet Count 203 Mean Platelet Volume 12.5 H Neutrophils % 56.3 Lymphocytes % 31.6 Monocytes % 8.3 Eosinophils % 3.1 Basophils % 0.4 Nucleated Red Blood Cells % 0.0 Neutrophils # (Manual) 3.8 Lymphocytes # 2.1 Monocytes # 0.6 Eosinophils # 0.2 Basophils # 0.0 Nucleated Red Blood Cells # 0.0 Test 12/07/16 06:03 12/07/16 07:46 Sodium Level 143 Potassium Level 4.6 Chloride Level 102 Carbon Dioxide Level 30 Anion Gap 16 Blood Urea Nitrogen 32 H Creatinine 0.90 Glucose Level 205 Calcium Level 9.2 Bedside Glucose 194 Medications Medications Current Medications Aspirin (Aspirin) 81 mg DAILY PO Last administered on 12/07/16 08:19; Admin Dose 81 MG; Start 12/04/16 at 09:00 Atorvastatin Calcium (Lipitor) 20 mg QHS PO Last administered on 12/06/16 21: 03; Admin Dose 20 MG; Start 12/03/16 at 21:00 Insulin Glargine (Lantus) 20 unit DAILY SC Last administered on 12/07/16 07:50 ; Admin Dose 20 UNIT; Start 12/04/16 at 09:00 Pantoprazole (Protonix Tab) 40 mg DAILY@06 PO Last administered on 12/07/16 05 :15; Admin Dose 40 MG; Start 12/04/16 at 06:00 Nitroglycerin (Nitroglycerin (Sl Tab) 0.4 Mg) 1 tab Q5M PRN SL ANGINA; Start at 16:00 Miscellaneous Information 1 ea NOTE XX ; Start 12/03/16 at 17:00 Glucose (Glutose) 15 gm Q15M PRN PO DECREASED GLUCOSE; Start 12/03/16 at 17:00 Glucose (Glutose) 22.5 gm Q15M PRN PO DECREASED GLUCOSE; Start 12/03/16 at 17: 00 Dextrose (D50w Syringe) 25 ml Q15M PRN IV DECREASED GLUCOSE; Start 12/03/16 at 17:00 Dextrose (D50w Syringe) 50 ml Q15M PRN IV DECREASED GLUCOSE; Start 12/03/16 at 17:00 Glucagon (Glucagen) 1 mg Q15M PRN IM DECREASED GLUCOSE; Start 12/03/16 at 17:00 Glucose (Glutose) 15 gm Q15M PRN BUCCAL DECREASED GLUCOSE; Start 12/03/16 at 17 :00 Amlodipine Besylate (Norvasc) 10 mg DAILY PO Last administered on 12/07/16 08: 19; Admin Dose 10 MG; Start 12/04/16 at 09:00 Lorazepam (Ativan) 1 mg Q6H PRN IV AGITATION/ANXIETY; Start 12/04/16 at 02:30 Quetiapine Fumarate (Seroquel) 25 mg DAILY PO Last administered on 12/07/16 08 :19; Admin Dose 25 MG; Start 12/04/16 at 09:00 Hydralazine HCl (Apresoline) 10 mg Q4H PRN IV ELEVATED BLOOD PRESSURE; Start at 02:30 Benazepril HCl (Lotensin) 10 mg BID PO Last administered on 12/07/16 08:19; Admin Dose 10 MG; Start 12/04/16 at 21:00 Diagnostic Test (Pha) (Accu-Chek) 1 ea 02 XX ; Start 12/05/16 at 02:00 Diagnostic Test (Pha) (Accu-Chek) 1 ea 02 XX ; Start 12/05/16 at 02:00 Magnesium Hydroxide (Milk Of Mag) 30 ml BID PRN PO CONSTIPATION Last administered on 12/06/16 15:55; Admin Dose 30 ML; Start 12/06/16 at 15:30 Bisacodyl (Dulcolax Supp) 10 mg DAILY PRN [place] CONSTIPATION Last administered on 12/07/16 07:48; Admin Dose 10 MG; Start 12/06/16 at 15:30 ARTHUR TITUS MD Dec 07, 2016 09:46
[2016-12-07] MEDS: ISOSORBIDE DINITRATE 20 MG TAB PO SCH ×2 (13:04→20:43)
--- NOTE | 2016-12-07 13:07 | CONS ---
Date/Time of Note Date/Time of Note DATE: 12/07/16 TIME: 13:06 Consult Date/Type/Reason Admit Date/Time Dec 03, 2016 at 16:00 Initial Consult Date 12/04/16 Type of Consultation: neurology Ordering Provider: CARLEE VILLALPANDO Subjective No acute events Objective Vital Signs Date Time Temp Pulse Resp B/P Pulse Ox O2 Delivery O2 Flow Rate FiO2 12/07/16 12:00 97.9 78 20 113/55 93 12/06/16 20:00 Nasal Cannula 2.0 Intake and Output 12/06/16 12/06/16 12/07/16 15:00 23:00 07:00 Intake Total 800 ml 400 ml Balance 800 ml 400 ml Results/Medications Result Diagram: 12/06/16 1530 12/07/16 0603 Results 24 hrs Laboratory Tests Test 12/06/16 15:30 12/06/16 17:10 12/06/16 21:24 12/07/16 06:03 White Blood Count 6.8 Red Blood Count 4.58 Hemoglobin 11.9 L Hematocrit 37.7 Mean Corpuscular Volume 82.3 Mean Corpuscular Hemoglobin 26.0 L Mean Corpuscular Hemoglobin Concent 31.6 L Red Cell Distribution Width 15.5 H Platelet Count 203 Mean Platelet Volume 12.5 H Neutrophils % 56.3 Lymphocytes % 31.6 Monocytes % 8.3 Eosinophils % 3.1 Basophils % 0.4 Nucleated Red Blood Cells % 0.0 Neutrophils # (Manual) 3.8 Lymphocytes # 2.1 Monocytes # 0.6 Eosinophils # 0.2 Basophils # 0.0 Nucleated Red Blood Cells # 0.0 Bedside Glucose 125 170 Sodium Level 143 Potassium Level 4.6 Chloride Level 102 Carbon Dioxide Level 30 Anion Gap 16 Blood Urea Nitrogen 32 H Creatinine 0.90 Glucose Level 205 Calcium Level 9.2 Test 12/07/16 07:46 12/07/16 12:05 Bedside Glucose 194 150 Medications Current Medications Aspirin (Aspirin) 81 mg DAILY PO Last administered on 12/07/16 08:19; Admin Dose 81 MG; Start 12/04/16 at 09:00 Atorvastatin Calcium (Lipitor) 20 mg QHS PO Last administered on 12/06/16 21: 03; Admin Dose 20 MG; Start 12/03/16 at 21:00 Insulin Glargine (Lantus) 20 unit DAILY SC Last administered on 12/07/16 07:50 ; Admin Dose 20 UNIT; Start 12/04/16 at 09:00 Pantoprazole (Protonix Tab) 40 mg DAILY@06 PO Last administered on 12/07/16 05 :15; Admin Dose 40 MG; Start 12/04/16 at 06:00 Nitroglycerin (Nitroglycerin (Sl Tab) 0.4 Mg) 1 tab Q5M PRN SL ANGINA; Start at 16:00 Miscellaneous Information 1 ea NOTE XX ; Start 12/03/16 at 17:00 Glucose (Glutose) 15 gm Q15M PRN PO DECREASED GLUCOSE; Start 12/03/16 at 17:00 Glucose (Glutose) 22.5 gm Q15M PRN PO DECREASED GLUCOSE; Start 12/03/16 at 17: 00 Dextrose (D50w Syringe) 25 ml Q15M PRN IV DECREASED GLUCOSE; Start 12/03/16 at 17:00 Dextrose (D50w Syringe) 50 ml Q15M PRN IV DECREASED GLUCOSE; Start 12/03/16 at 17:00 Glucagon (Glucagen) 1 mg Q15M PRN IM DECREASED GLUCOSE; Start 12/03/16 at 17:00 Glucose (Glutose) 15 gm Q15M PRN BUCCAL DECREASED GLUCOSE; Start 12/03/16 at 17 :00 Amlodipine Besylate (Norvasc) 10 mg DAILY PO Last administered on 12/07/16 08: 19; Admin Dose 10 MG; Start 12/04/16 at 09:00 Lorazepam (Ativan) 1 mg Q6H PRN IV AGITATION/ANXIETY; Start 12/04/16 at 02:30 Quetiapine Fumarate (Seroquel) 25 mg DAILY PO Last administered on 12/07/16 08 :19; Admin Dose 25 MG; Start 12/04/16 at 09:00 Hydralazine HCl (Apresoline) 10 mg Q4H PRN IV ELEVATED BLOOD PRESSURE; Start at 02:30 Benazepril HCl (Lotensin) 10 mg BID PO Last administered on 12/07/16 08:19; Admin Dose 10 MG; Start 12/04/16 at 21:00 Diagnostic Test (Pha) (Accu-Chek) 1 ea 02 XX ; Start 12/05/16 at 02:00 Diagnostic Test (Pha) (Accu-Chek) 1 ea 02 XX ; Start 12/05/16 at 02:00 Magnesium Hydroxide (Milk Of Mag) 30 ml BID PRN PO CONSTIPATION Last administered on 12/06/16 15:55; Admin Dose 30 ML; Start 12/06/16 at 15:30 Bisacodyl (Dulcolax Supp) 10 mg DAILY PRN [place] CONSTIPATION Last administered on 12/07/16 07:48; Admin Dose 10 MG; Start 12/06/16 at 15:30 Isosorbide Dinitrate (Isordil) 40 mg TID PO Last administered on 12/07/16 13: 04; Admin Dose 40 MG; Start 12/07/16 at 13:00 Assessment/Plan Chief Complaint/Hosp Course Neuro exam: awake and alert, Ox3, fluent speech, follows commands CN: Pupils 3mm postsx, sluggish, blinks to threat, slight right facial droop palate upgoing uvula midline scm/trap intact Motor: slight drift in right arm 4/5 strength compared to left poor effort in both LE can lift anti-gravity Reflexes brisk throughout toes upgoing Min right [id number] dysmetria A/P: S/p syncope, Hypotension, dehydration. hx of CVA Continue current Tx Problems: GREGOR SIMMONS MD Dec 07, 2016 13:07
[2016-12-07] MEDS ORDERED: ALBUTEROL 0.083% (NEB) 2.5 MG/3 ML AMP HHN SCH (20:00)
--- NOTE | 2016-12-07 20:01 | PN ---
Date/Time of Note Date/Time of Note DATE: 12/07/16 TIME: 19:53 Assessment/Plan VTE Prophylaxis VTE Prophylaxis Intervention: SCD's Lines/Catheters IV [facility] Type (from [facility] Peripheral IV Urinary Cath still in place: No Assessment/Plan Assessment/Plan - Acute Bronchitis - solumedrol - Albuterol - Due NEB - Levaquin - CX am - Possible aspiratio - CXR am - aspiration precautions - puree diet - swallow evaluation - Near syncopal episode. - Cardiac enzymes is negative 3. - per cardiology - Rule out transient ischemic attack in patient with history of stroke. Continue aspirin. Dr. Blackburn is following in a neurology consultation. - Diabetes mellitus type 2. Hemoglobin A1c is 9.6. Continue Lantus and NovoLog. - Hypertension. Continue Lotensin and Norvasc. - Acute kidney injury secondary to dehydration, resolved. Further recommendations based on clinical course. Plan of care discussed with Dr. Hadley. Subjective 24 Hr Interval Summary Free Text/Dictation 1730 - entry wheezing, no SOB, no chest pain . daughter at bed side, staff ENT: no complaints Respiratory: no complaints Cardiovascular: chest pain Gastrointestinal: no complaints Musculoskeletal: no complaints Exam/Review of Systems Vital Signs Vitals Vital Signs Date Time Temp Pulse Resp B/P Pulse Ox O2 Delivery O2 Flow Rate FiO2 12/07/16 19:50 98.1 88 18 126/60 95 12/06/16 20:00 Nasal Cannula 2.0 Intake and Output 12/06/16 12/06/16 12/07/16 15:00 23:00 07:00 Intake Total 800 ml 400 ml Balance 800 ml 400 ml Exam Constitutional: alert, oriented, well developed Respiratory: clear to auscultation, normal air movement Cardiovascular: nl pulses, regular rate and rhythm Gastrointestinal: non-tender, soft Musculoskeletal: nl extremities to inspection Extremities: normal pulses Neurological: nl mental status, nl speech Results Result Diagram: 12/06/16 1530 12/07/16 0603 Results 24 hrs Laboratory Tests Test 12/06/16 21:24 12/07/16 06:03 12/07/16 07:46 12/07/16 12:05 Bedside Glucose 170 194 150 Sodium Level 143 Potassium Level 4.6 Chloride Level 102 Carbon Dioxide Level 30 Anion Gap 16 Blood Urea Nitrogen 32 H Creatinine 0.90 Glucose Level 205 Calcium Level 9.2 Test 12/07/16 17:23 Bedside Glucose 194 Medications Medications Current Medications Aspirin (Aspirin) 81 mg DAILY PO Last administered on 12/07/16 08:19; Admin Dose 81 MG; Start 12/04/16 at 09:00 Atorvastatin Calcium (Lipitor) 20 mg QHS PO Last administered on 12/06/16 21: 03; Admin Dose 20 MG; Start 12/03/16 at 21:00 Insulin Glargine (Lantus) 20 unit DAILY SC Last administered on 12/07/16 07:50 ; Admin Dose 20 UNIT; Start 12/04/16 at 09:00 Pantoprazole (Protonix Tab) 40 mg DAILY@06 PO Last administered on 12/07/16 05 :15; Admin Dose 40 MG; Start 12/04/16 at 06:00 Nitroglycerin (Nitroglycerin (Sl Tab) 0.4 Mg) 1 tab Q5M PRN SL ANGINA; Start at 16:00 Miscellaneous Information 1 ea NOTE XX ; Start 12/03/16 at 17:00 Glucose (Glutose) 15 gm Q15M PRN PO DECREASED GLUCOSE; Start 12/03/16 at 17:00 Glucose (Glutose) 22.5 gm Q15M PRN PO DECREASED GLUCOSE; Start 12/03/16 at 17: 00 Dextrose (D50w Syringe) 25 ml Q15M PRN IV DECREASED GLUCOSE; Start 12/03/16 at 17:00 Dextrose (D50w Syringe) 50 ml Q15M PRN IV DECREASED GLUCOSE; Start 12/03/16 at 17:00 Glucagon (Glucagen) 1 mg Q15M PRN IM DECREASED GLUCOSE; Start 12/03/16 at 17:00 Glucose (Glutose) 15 gm Q15M PRN BUCCAL DECREASED GLUCOSE; Start 12/03/16 at 17 :00 Amlodipine Besylate (Norvasc) 10 mg DAILY PO Last administered on 12/07/16 08: 19; Admin Dose 10 MG; Start 12/04/16 at 09:00 Lorazepam (Ativan) 1 mg Q6H PRN IV AGITATION/ANXIETY; Start 12/04/16 at 02:30 Quetiapine Fumarate (Seroquel) 25 mg DAILY PO Last administered on 12/07/16 08 :19; Admin Dose 25 MG; Start 12/04/16 at 09:00 Hydralazine HCl (Apresoline) 10 mg Q4H PRN IV ELEVATED BLOOD PRESSURE; Start at 02:30 Benazepril HCl (Lotensin) 10 mg BID PO Last administered on 12/07/16 08:19; Admin Dose 10 MG; Start 12/04/16 at 21:00 Diagnostic Test (Pha) (Accu-Chek) 1 ea 02 XX ; Start 12/05/16 at 02:00 Diagnostic Test (Pha) (Accu-Chek) 1 ea 02 XX ; Start 12/05/16 at 02:00 Magnesium Hydroxide (Milk Of Mag) 30 ml BID PRN PO CONSTIPATION Last administered on 12/06/16 15:55; Admin Dose 30 ML; Start 12/06/16 at 15:30 Bisacodyl (Dulcolax Supp) 10 mg DAILY PRN [place] CONSTIPATION Last administered on 12/07/16 07:48; Admin Dose 10 MG; Start 12/06/16 at 15:30 Isosorbide Dinitrate (Isordil) 40 mg TID PO Last administered on 12/07/16 13: 04; Admin Dose 40 MG; Start 12/07/16 at 13:00 Methylprednisolone Sodium Succinate 40 mg 40 mg Q8 IV ; Start 12/07/16 at 22:00 Levofloxacin/ Dextrose 100 ml @ 100 mls/hr ONCE ONCE IVPB ; Start 12/07/16 at 21:30; Stop 12/07/16 at 22:29 Levofloxacin/ Dextrose (Levaquin 250 Mg/ D5W 50 ml (Pmx)) 50 ml @ 50 mls/hr Q24H IVPB ; Start 12/08/16 at 21:00 TAMERA HANKINS Dec 07, 2016 20:01
[2016-12-07] MEDS: ALBUTEROL/IPRATROPIUM (NEB) 3 ML AMP HHN SCH (20:18)
[2016-12-07] MEDS: ATORVASTATIN 20 MG TAB PO SCH (20:42)
[2016-12-07] MEDS ORDERED: LEVOFLOXACIN 500MG/D5W (PMX) 100 ML IVPB ONE (21:30)
[2016-12-07] MEDS ORDERED: METHYLPREDNISOLONE 40 MG INJ IV SCH (22:00)
[2016-12-08] VITALS (11 sets, daily range): BP systolic 110–160; BP diastolic 53–81; PULSE 90–109; RESP 18–20
[2016-12-08] MEDS: ALBUTEROL/IPRATROPIUM (NEB) 3 ML AMP HHN SCH ×4 (01:10→20:14)
[2016-12-08] MEDS: ACCU-CHEK XX SCH ×2 (02:00)
[2016-12-08] MEDS ORDERED: INSULIN ASPART [NOVOLOG] 3 ML PEN SC ONE ×2 (04:00→11:30)
[2016-12-08] MEDS: PANTOPRAZOLE (EC) 40 MG TAB PO SCH (06:00)
[2016-12-08] MEDS ORDERED: NPH, HUMAN INSULIN ISOPHANE 3ML VIAL SC SCH (06:00)
[2016-12-08 06:27] LABS: ABNORMAL IP MESSAGE 1; BASOPHILS % 0.1 % (0.0-2.0); HEMATOCRIT 35.6 % (37.0-47.0); HEMOGLOBIN 11.1 g/dl (12.0-16.0); LYMPHOCYTES # 0.6 10^3/ul (0.8-2.9); LYMPHOCYTES % 6.9 % (15.0-51.0); MEAN CORPUSCULAR HEMOGLOBIN 25.3 pg (29.0-33.0); MEAN CORPUSCULAR HGB CONC 31.2 g/dl (32.0-37.0); MEAN CORPUSCULAR VOLUME 81.3 fl (82.0-101.0); MEAN PLATELET VOLUME 12.6 fl (7.4-10.4); MONOCYTE # 0.1 10^3/ul (0.3-0.9); MONOCYTES % 0.6 % (0.0-11.0); NEUTROPHILS % 92.2 % (39.0-77.0); PLATELET COUNT 192 10^3/UL (140-415); RED BLOOD COUNT 4.38 10^6/ul (4.20-5.40); RED CELL DISTRIBUTION WIDTH 15.4 % (11.5-14.5); WHITE BLOOD COUNT 8.4 10^3/ul (4.8-10.8)
[2016-12-08 06:46] LABS: CALCIUM 9.4 mg/dl (8.4-10.2); CREATININE 1.08 mg/dl (0.44-1.00); POTASSIUM 4.9 mmol/L (3.5-5.1)
[2016-12-08 06:56] LABS: POSITIVE DIFF @See below
[2016-12-08] MEDS: ASPIRIN 81 MG TAB PO SCH (08:26)
[2016-12-08] MEDS: BENAZEPRIL 10 MG TAB PO SCH ×2 (08:29→20:40)
[2016-12-08] MEDS: AMLODIPINE 10 MG TAB PO SCH (08:30)
[2016-12-08] MEDS: QUETIAPINE 25 MG TAB PO SCH (08:31)
[2016-12-08] MEDS: ISOSORBIDE DINITRATE 20 MG TAB PO SCH ×3 (08:31→20:40)
[2016-12-08] MEDS: METHYLPREDNISOLONE 40 MG INJ IV SCH ×2 (08:33→20:33)
[2016-12-08] MEDS: NPH, HUMAN INSULIN ISOPHANE 3ML VIAL SC SCH ×2 (08:37→20:37)
[2016-12-08] MEDS: INSULIN ASPART [NOVOLOG] 3 ML PEN SC SCH ×7 (08:38→20:39)
[2016-12-08] MEDS: INSULIN GLARGINE [LANtus] 3 ML PEN SC SCH (08:43)
--- NOTE | 2016-12-08 09:25 | RADRPT ---
PROCEDURE: XR Chest 1 View. CLINICAL INDICATION: Shortness of breath. TECHNIQUE: AP view of the chest was obtained. COMPARISON: December 06, 2016 FINDINGS: The heart size is within normal limits. Calcified atherosclerosis is noted in the aorta. Elevated r ight hemidiaphragm is identified. Scattered atelectasis is seen in both lungs. No consolidations ar e identified. No pneumothorax is seen. Osseous structures appear intact. Old, healed left rib fra ctures are seen. IMPRESSION: Calcified atherosclerosis in the aorta. Elevated right hemidiaphragm. Scattered atelectasis in both lungs. RPTAT: AA .Bakari Alvarado MD, MD Date Time Electronically viewed and signed by .Bakari Alvarado MD, MD on 12/08/2016 09:25 .P/
--- NOTE | 2016-12-08 10:22 | CONS ---
Date/Time of Note Date/Time of Note DATE: 12/08/16 TIME: 10:19 Assessment/Plan Assessment/Plan Chief Complaint/Hosp Course IMPRESSION: 1. Chest pain.-negative trop x 3/NL EF by echo. NO ischemia. NL EF by lexiscan 2. Presyncope.- no sig arrythmia by tele monitoring 3. Hypotension on admit-now improved with HTN 4. Electrocardiogram with lateral T-wave inversion-negative trop x 3 5. Generalized weakness. 6. Diabetes mellitus. 7. Prerenal azotemia. Rec: -Tele -Continue norvasc/benazepril -Ongoing neuro eval -Continue asa/statin -D/C planning from cardiac standpoint Problems: Consultation Date/Type/Reason Admit Date/Time Dec 03, 2016 at 16:00 Initial Consult Date 12/04/16 Type of Consultation: cardiology Reason for Consultation chest pain Referring Provider: CARLEE VILLALPANDO Exam/Review of Systems Vital Signs Vitals Vital Signs Date Time Temp Pulse Resp B/P Pulse Ox O2 Delivery O2 Flow Rate FiO2 12/08/16 08:00 109 12/08/16 07:24 98.6 19 160/81 91 12/08/16 07:22 21 12/06/16 20:00 Nasal Cannula 2.0 Intake and Output 12/07/16 12/07/16 12/08/16 15:00 23:00 07:00 Intake Total 800 ml Balance 800 ml Exam Review of Systems: CONSTITUTIONAL: No fevers, chills. PULMONARY: No sob CARDIOVASCULAR: No chest pain/palpitations GASTROINTESTINAL: No nausea/vomiting. GENITOURINARY: No hematuria/dysuria. MUSCULOSKELETAL: c/o generalized body pain PSYCHIATRIC: The patient denies depression. NEUROLOGIC: No weakness Constitutional: alert Psych: no complaints Head: normocephalic ENMT: mucosa pink and moist Neck: jvd (8-9 cm water), supple Respiratory: diminished breath sounds (at bases/B) Cardiovascular: regular rate and rhythm Gastrointestinal: non-tender, soft Musculoskeletal: muscle tone (normal) Extremities: edema (none) Neurological: other (No focal deficits) Results Result Diagram: 12/08/16 0545 12/08/16 0545 Results 24 hrs Laboratory Tests Test 12/07/16 12:05 12/07/16 17:23 12/07/16 20:59 12/08/16 02:37 Bedside Glucose 150 194 270 H 334 H Test 12/08/16 05:45 12/08/16 06:22 12/08/16 08:23 12/08/16 09:34 White Blood Count 8.4 # Red Blood Count 4.38 Hemoglobin 11.1 L Hematocrit 35.6 L Mean Corpuscular Volume 81.3 L Mean Corpuscular Hemoglobin 25.3 L Mean Corpuscular Hemoglobin Concent 31.2 L Red Cell Distribution Width 15.4 H Platelet Count 192 Mean Platelet Volume 12.6 H Neutrophils % 92.2 H Lymphocytes % 6.9 L Monocytes % 0.6 Eosinophils % 0.0 Basophils % 0.1 Nucleated Red Blood Cells % 0.0 Neutrophils # (Manual) 7.8 H Lymphocytes # 0.6 L Monocytes # 0.1 L Eosinophils # 0.0 Basophils # 0.0 Nucleated Red Blood Cells # 0.0 Sodium Level 139 Potassium Level 4.9 Chloride Level 99 Carbon Dioxide Level 26 Anion Gap 19 H Blood Urea Nitrogen 35 H Creatinine 1.08 H Glucose Level 416 #*H Calcium Level 9.4 Bedside Glucose 399 H 382 H 361 H Medications Medications Current Medications Aspirin (Aspirin) 81 mg DAILY PO Last administered on 12/08/16 08:26; Admin Dose 81 MG; Start 12/04/16 at 09:00 Atorvastatin Calcium (Lipitor) 20 mg QHS PO Last administered on 12/07/16 20: 42; Admin Dose 20 MG; Start 12/03/16 at 21:00 Insulin Glargine (Lantus) 20 unit DAILY SC Last administered on 12/08/16 08:43 ; Admin Dose 20 UNIT; Start 12/04/16 at 09:00 Pantoprazole (Protonix Tab) 40 mg DAILY@06 PO Last administered on 12/07/16 05 :15; Admin Dose 40 MG; Start 12/04/16 at 06:00 Nitroglycerin (Nitroglycerin (Sl Tab) 0.4 Mg) 1 tab Q5M PRN SL ANGINA; Start at 16:00 Miscellaneous Information 1 ea NOTE XX ; Start 12/03/16 at 17:00 Glucose (Glutose) 15 gm Q15M PRN PO DECREASED GLUCOSE; Start 12/03/16 at 17:00 Glucose (Glutose) 22.5 gm Q15M PRN PO DECREASED GLUCOSE; Start 12/03/16 at 17: 00 Dextrose (D50w Syringe) 25 ml Q15M PRN IV DECREASED GLUCOSE; Start 12/03/16 at 17:00 Dextrose (D50w Syringe) 50 ml Q15M PRN IV DECREASED GLUCOSE; Start 12/03/16 at 17:00 Glucagon (Glucagen) 1 mg Q15M PRN IM DECREASED GLUCOSE; Start 12/03/16 at 17:00 Glucose (Glutose) 15 gm Q15M PRN BUCCAL DECREASED GLUCOSE; Start 12/03/16 at 17 :00 Amlodipine Besylate (Norvasc) 10 mg DAILY PO Last administered on 12/08/16 08: 30; Admin Dose 10 MG; Start 12/04/16 at 09:00 Lorazepam (Ativan) 1 mg Q6H PRN IV AGITATION/ANXIETY; Start 12/04/16 at 02:30 Quetiapine Fumarate (Seroquel) 25 mg DAILY PO Last administered on 12/08/16 08 :31; Admin Dose 25 MG; Start 12/04/16 at 09:00 Hydralazine HCl (Apresoline) 10 mg Q4H PRN IV ELEVATED BLOOD PRESSURE; Start at 02:30 Benazepril HCl (Lotensin) 10 mg BID PO Last administered on 12/08/16 08:29; Admin Dose 10 MG; Start 12/04/16 at 21:00 Diagnostic Test (Pha) (Accu-Chek) 1 ea 02 XX ; Start 12/05/16 at 02:00 Diagnostic Test (Pha) (Accu-Chek) 1 ea 02 XX ; Start 12/05/16 at 02:00 Magnesium Hydroxide (Milk Of Mag) 30 ml BID PRN PO CONSTIPATION Last administered on 12/06/16 15:55; Admin Dose 30 ML; Start 12/06/16 at 15:30 Bisacodyl (Dulcolax Supp) 10 mg DAILY PRN [place] CONSTIPATION Last administered on 12/07/16 07:48; Admin Dose 10 MG; Start 12/06/16 at 15:30 Isosorbide Dinitrate 40 mg 40 mg TID PO Last administered on 12/08/16 08:31; Admin Dose 40 MG; Start 12/07/16 at 13:00 Levofloxacin/ Dextrose (Levaquin 250 Mg/ D5W 50 ml (Pmx)) 50 ml @ 50 mls/hr Q24H IVPB ; Start 12/08/16 at 21:00 Methylprednisolone Sodium Succinate (Solu-Medrol) 10 mg BID IV Last administered on 12/08/16 08:33; Admin Dose 10 MG; Start 12/08/16 at 09:00 Insulin Human NPH (Humulin N) 10 unit BID SC Last administered on 12/08/16 08: 37; Admin Dose 10 UNIT; Start 12/08/16 at 09:00 ROSALINDA JARVIS Dec 08, 2016 10:22
--- NOTE | 2016-12-08 16:44 | PN ---
Date/Time of Note Date/Time of Note DATE: 12/08/16 TIME: 16:37 Assessment/Plan VTE Prophylaxis VTE Prophylaxis Intervention: SCD's Lines/Catheters IV [facility]ter Type (from [facility] Urinary Cath still in place: No Assessment/Plan Chief Complaint/Hosp Course Patient passed swallow evaluation, started on mechanical soft diet. Elevated blood sugar secondary to steroids use, will continue NPH with Solu-Medrol dose. Patient continues to complaints of headache and chest pain. Problems: Assessment/Plan - Acute bronchitis, continue Levaquin, steroids. - Near syncopal episode. Acute coronary syndrome ruled out. cardiac enzymes is negative 3. Dr. Bhagat is following and cardiology consultation. - Rule out transient ischemic attack in patient with history of stroke. Continue aspirin. MRI is negative. Dr. Sinclair is following in a neurology consultation. - Diabetes mellitus type 2. Hemoglobin A1c is 9.6. Continue Lantus and NovoLog. - Hypertension. Continue Lotensin and Norvasc. - Acute kidney injury secondary to dehydration, resolved. Further recommendations based on clinical course. Plan of care discussed with Dr. Hadley. Exam/Review of Systems Vital Signs Vitals Vital Signs Date Time Temp Pulse Resp B/P Pulse Ox O2 Delivery O2 Flow Rate FiO2 12/08/16 15:15 98.0 105 19 121/53 93 12/08/16 07:22 21 12/06/16 20:00 Nasal Cannula 2.0 Intake and Output 12/07/16 12/07/16 12/08/16 15:00 23:00 07:00 Intake Total 800 ml Balance 800 ml Exam Constitutional: alert, oriented Head: normocephalic Neck: supple Respiratory: normal air movement Cardiovascular: nl pulses Gastrointestinal: non-tender, soft Extremities: normal pulses Results Result Diagram: 12/08/16 0545 12/08/16 0545 Results 24 hrs Laboratory Tests Test 12/07/16 17:23 12/07/16 20:59 12/08/16 02:37 12/08/16 05:45 Bedside Glucose 194 270 H 334 H White Blood Count 8.4 # Red Blood Count 4.38 Hemoglobin 11.1 L Hematocrit 35.6 L Mean Corpuscular Volume 81.3 L Mean Corpuscular Hemoglobin 25.3 L Mean Corpuscular Hemoglobin Concent 31.2 L Red Cell Distribution Width 15.4 H Platelet Count 192 Mean Platelet Volume 12.6 H Neutrophils % 92.2 H Lymphocytes % 6.9 L Monocytes % 0.6 Eosinophils % 0.0 Basophils % 0.1 Nucleated Red Blood Cells % 0.0 Neutrophils # (Manual) 7.8 H Lymphocytes # 0.6 L Monocytes # 0.1 L Eosinophils # 0.0 Basophils # 0.0 Nucleated Red Blood Cells # 0.0 Sodium Level 139 Potassium Level 4.9 Chloride Level 99 Carbon Dioxide Level 26 Anion Gap 19 H Blood Urea Nitrogen 35 H Creatinine 1.08 H Glucose Level 416 #*H Calcium Level 9.4 Test 12/08/16 06:22 12/08/16 08:23 12/08/16 09:34 12/08/16 11:21 Bedside Glucose 399 H 382 H 361 H 381 H Test 12/08/16 12:20 Bedside Glucose 343 H Medications Medications Current Medications Aspirin (Aspirin) 81 mg DAILY PO Last administered on 12/08/16 08:26; Admin Dose 81 MG; Start 12/04/16 at 09:00 Atorvastatin Calcium (Lipitor) 20 mg QHS PO Last administered on 12/07/16 20: 42; Admin Dose 20 MG; Start 12/03/16 at 21:00 Insulin Glargine (Lantus) 20 unit DAILY SC Last administered on 12/08/16 08:43 ; Admin Dose 20 UNIT; Start 12/04/16 at 09:00 Pantoprazole (Protonix Tab) 40 mg DAILY@06 PO Last administered on 12/07/16 05 :15; Admin Dose 40 MG; Start 12/04/16 at 06:00 Nitroglycerin (Nitroglycerin (Sl Tab) 0.4 Mg) 1 tab Q5M PRN SL ANGINA; Start at 16:00 Miscellaneous Information 1 ea NOTE XX ; Start 12/03/16 at 17:00 Glucose (Glutose) 15 gm Q15M PRN PO DECREASED GLUCOSE; Start 12/03/16 at 17:00 Glucose (Glutose) 22.5 gm Q15M PRN PO DECREASED GLUCOSE; Start 12/03/16 at 17: 00 Dextrose (D50w Syringe) 25 ml Q15M PRN IV DECREASED GLUCOSE; Start 12/03/16 at 17:00 Dextrose (D50w Syringe) 50 ml Q15M PRN IV DECREASED GLUCOSE; Start 12/03/16 at 17:00 Glucagon (Glucagen) 1 mg Q15M PRN IM DECREASED GLUCOSE; Start 12/03/16 at 17:00 Glucose (Glutose) 15 gm Q15M PRN BUCCAL DECREASED GLUCOSE; Start 12/03/16 at 17 :00 Amlodipine Besylate (Norvasc) 10 mg DAILY PO Last administered on 12/08/16 08: 30; Admin Dose 10 MG; Start 12/04/16 at 09:00 Lorazepam (Ativan) 1 mg Q6H PRN IV AGITATION/ANXIETY; Start 12/04/16 at 02:30 Quetiapine Fumarate (Seroquel) 25 mg DAILY PO Last administered on 12/08/16 08 :31; Admin Dose 25 MG; Start 12/04/16 at 09:00 Hydralazine HCl (Apresoline) 10 mg Q4H PRN IV ELEVATED BLOOD PRESSURE; Start at 02:30 Benazepril HCl (Lotensin) 10 mg BID PO Last administered on 12/08/16 08:29; Admin Dose 10 MG; Start 12/04/16 at 21:00 Diagnostic Test (Pha) (Accu-Chek) 1 ea 02 XX ; Start 12/05/16 at 02:00 Diagnostic Test (Pha) (Accu-Chek) 1 ea 02 XX ; Start 12/05/16 at 02:00 Magnesium Hydroxide (Milk Of Mag) 30 ml BID PRN PO CONSTIPATION Last administered on 12/06/16 15:55; Admin Dose 30 ML; Start 12/06/16 at 15:30 Bisacodyl (Dulcolax Supp) 10 mg DAILY PRN [place] CONSTIPATION Last administered on 12/07/16 07:48; Admin Dose 10 MG; Start 12/06/16 at 15:30 Isosorbide Dinitrate 40 mg 40 mg TID PO Last administered on 12/08/16 13:06; Admin Dose 40 MG; Start 12/07/16 at 13:00 Levofloxacin/ Dextrose (Levaquin 250 Mg/ D5W 50 ml (Pmx)) 50 ml @ 50 mls/hr Q24H IVPB ; Start 12/08/16 at 21:00 Methylprednisolone Sodium Succinate (Solu-Medrol) 10 mg BID IV Last administered on 12/08/16 08:33; Admin Dose 10 MG; Start 12/08/16 at 09:00 Insulin Human NPH (Humulin N) 10 unit BID SC Last administered on 12/08/16 08: 37; Admin Dose 10 UNIT; Start 12/08/16 at 09:00 CARLEE VILLALPANDO Dec 08, 2016 16:44
[2016-12-08] MEDS: LEVOFLOXACIN 250MG/D5W (PMX) 50 ML IVPB SCH (20:40)
[2016-12-08] MEDS: ATORVASTATIN 20 MG TAB PO SCH (20:40)
[2016-12-09] VITALS (12 sets, daily range): BP systolic 110–145; BP diastolic 54–87; PULSE 100–101; RESP 18–20
[2016-12-09] MEDS: ALBUTEROL/IPRATROPIUM (NEB) 3 ML AMP HHN SCH ×5 (01:27→20:02)
[2016-12-09] MEDS: ACCU-CHEK XX SCH ×2 (02:00)
[2016-12-09] MEDS ORDERED: INSULIN ASPART [NOVOLOG] 3 ML PEN SC ONE (03:00)
[2016-12-09] MEDS: PANTOPRAZOLE (EC) 40 MG TAB PO SCH (06:04)
[2016-12-09 06:56] LABS: ABNORMAL IP MESSAGE 1; BASOPHILS % 0.1 % (0.0-2.0); HEMATOCRIT 33.3 % (37.0-47.0); HEMOGLOBIN 10.8 g/dl (12.0-16.0); LYMPHOCYTES # 1.1 10^3/ul (0.8-2.9); LYMPHOCYTES % 7.8 % (15.0-51.0); MEAN CORPUSCULAR HEMOGLOBIN 25.9 pg (29.0-33.0); MEAN CORPUSCULAR HGB CONC 32.4 g/dl (32.0-37.0); MEAN CORPUSCULAR VOLUME 79.9 fl (82.0-101.0); MEAN PLATELET VOLUME 13.2 fl (7.4-10.4); MONOCYTE # 0.4 10^3/ul (0.3-0.9); MONOCYTES % 2.9 % (0.0-11.0); NEUTROPHILS % 88.7 % (39.0-77.0); PLATELET COUNT 208 10^3/UL (140-415); RED BLOOD COUNT 4.17 10^6/ul (4.20-5.40); RED CELL DISTRIBUTION WIDTH 15.6 % (11.5-14.5); WHITE BLOOD COUNT 13.8 10^3/ul (4.8-10.8)
[2016-12-09 07:09] LABS: CALCIUM 9.7 mg/dl (8.4-10.2); CREATININE 0.93 mg/dl (0.44-1.00); POTASSIUM 4.3 mmol/L (3.5-5.1)
[2016-12-09 07:33] LABS: POSITIVE DIFF @See below
[2016-12-09] MEDS: AMLODIPINE 10 MG TAB PO SCH (08:18)
[2016-12-09] MEDS: BENAZEPRIL 10 MG TAB PO SCH ×2 (08:19→20:53)
[2016-12-09] MEDS: ISOSORBIDE DINITRATE 20 MG TAB PO SCH ×3 (08:19→20:53)
[2016-12-09] MEDS: QUETIAPINE 25 MG TAB PO SCH (08:20)
[2016-12-09] MEDS: ASPIRIN 81 MG TAB PO SCH (08:20)
[2016-12-09] MEDS: METHYLPREDNISOLONE 40 MG INJ IV SCH ×2 (08:21→20:52)
[2016-12-09] MEDS: INSULIN ASPART [NOVOLOG] 3 ML PEN SC SCH ×7 (08:29→20:42)
[2016-12-09] MEDS: INSULIN GLARGINE [LANtus] 3 ML PEN SC SCH (08:31)
[2016-12-09] MEDS: NPH, HUMAN INSULIN ISOPHANE 3ML VIAL SC SCH ×2 (08:31→20:41)
--- NOTE | 2016-12-09 09:05 | CONS ---
Date/Time of Note Date/Time of Note DATE: 12/09/16 TIME: 09:04 Assessment/Plan Assessment/Plan Additional Assessment/Plan 1. Chest pain.-negative trop x 3 - will monitor clinically NO intervention planned now. Now confused, but denies CP. 2. Presyncope.- no sig arrythmia by tele monitoring - no ectopy on tele - no indication for pacer. 3. Hypotension on admit-now improved with HTN -Labile - will add therapy as needed 4. Electrocardiogram with lateral T-wave inversion. Assess for acute coronary syndrome. R/o [place] now. 5. Generalized weakness- much improved 6. Diabetes mellitus - con't sheila Rx 7. Prerenal azotemia. 8. Encephalopathy - more confused today - PMD to follow. Consultation Date/Type/Reason Admit Date/Time Dec 03, 2016 at 16:00 Initial Consult Date 12/04/16 Type of Consultation: cardiology Referring Provider: CARLEE VILLALPANDO 24 HR Interval Summary Free Text/Dictation NO acute events - no tachy-hilda arrhythmia on tele. ROS: No fever, no chills, no nausea, no vomiting, no diarrhea/constipation No recent weight changes No chest pain, no PND, no orthopnea No dizziness, blurred vision No thirst, no heat or cold intolerance Exam/Review of Systems Vital Signs Vitals Vital Signs Date Time Temp Pulse Resp B/P Pulse Ox O2 Delivery O2 Flow Rate FiO2 12/09/16 08:51 100 12/09/16 07:53 97 12/09/16 07:53 20 Nasal Cannula 2.0 12/09/16 07:14 98.3 117/54 12/08/16 20:14 21 Intake and Output 12/08/16 12/08/16 12/09/16 15:00 23:00 07:00 Intake Total 750 ml 200 ml Balance 750 ml 200 ml Exam General: WN/WD/NAD, AOx 1 - more confused HEENT: Unicetric/atraumatic/EOMI (follows some commands) NECK: JVD elevated, no thyromegaly Lymph: no lymphadenopathy HEART: regular with no S3, II/ systolic murmur at apex LUNGS: Coarse sounds ABD: soft, NT, ND, +BS : Intact Neuro: non focal SKIN: chronic changes EXT: trace edema Results Result Diagram: 12/09/16 0531 12/09/16 0531 Results 24 hrs Laboratory Tests Test 12/08/16 09:34 12/08/16 11:21 12/08/16 12:20 12/08/16 17:19 Bedside Glucose 361 H 381 H 343 H 263 H Test 12/08/16 20:32 12/09/16 02:25 12/09/16 02:57 12/09/16 05:31 Bedside Glucose 284 H 315 H 296 H White Blood Count 13.8 #H Red Blood Count 4.17 L Hemoglobin 10.8 L Hematocrit 33.3 L Mean Corpuscular Volume 79.9 L Mean Corpuscular Hemoglobin 25.9 L Mean Corpuscular Hemoglobin Concent 32.4 Red Cell Distribution Width 15.6 H Platelet Count 208 Mean Platelet Volume 13.2 H Neutrophils % 88.7 H Lymphocytes % 7.8 L Monocytes % 2.9 Eosinophils % 0.0 Basophils % 0.1 Nucleated Red Blood Cells % 0.0 Neutrophils # (Manual) 12.3 H Lymphocytes # 1.1 Monocytes # 0.4 Eosinophils # 0.0 Basophils # 0.0 Nucleated Red Blood Cells # 0.0 Sodium Level 137 Potassium Level 4.3 Chloride Level 99 Carbon Dioxide Level 26 Anion Gap 16 Blood Urea Nitrogen 38 H Creatinine 0.93 Glucose Level 296 #H Calcium Level 9.7 Test 12/09/16 07:38 12/09/16 08:26 Bedside Glucose 298 H 306 H Medications Medications Current Medications Aspirin (Aspirin) 81 mg DAILY PO Last administered on 12/09/16 08:20; Admin Dose 81 MG; Start 12/04/16 at 09:00 Atorvastatin Calcium (Lipitor) 20 mg QHS PO Last administered on 12/08/16 20: 40; Admin Dose 20 MG; Start 12/03/16 at 21:00 Insulin Glargine (Lantus) 20 unit DAILY SC Last administered on 12/09/16 08:31 ; Admin Dose 20 UNIT; Start 12/04/16 at 09:00 Pantoprazole (Protonix Tab) 40 mg DAILY@06 PO Last administered on 12/09/16 06 :04; Admin Dose 40 MG; Start 12/04/16 at 06:00 Nitroglycerin (Nitroglycerin (Sl Tab) 0.4 Mg) 1 tab Q5M PRN SL ANGINA; Start at 16:00 Miscellaneous Information 1 ea NOTE XX ; Start 12/03/16 at 17:00 Glucose (Glutose) 15 gm Q15M PRN PO DECREASED GLUCOSE; Start 12/03/16 at 17:00 Glucose (Glutose) 22.5 gm Q15M PRN PO DECREASED GLUCOSE; Start 12/03/16 at 17: 00 Dextrose (D50w Syringe) 25 ml Q15M PRN IV DECREASED GLUCOSE; Start 12/03/16 at 17:00 Dextrose (D50w Syringe) 50 ml Q15M PRN IV DECREASED GLUCOSE; Start 12/03/16 at 17:00 Glucagon (Glucagen) 1 mg Q15M PRN IM DECREASED GLUCOSE; Start 12/03/16 at 17:00 Glucose (Glutose) 15 gm Q15M PRN BUCCAL DECREASED GLUCOSE; Start 12/03/16 at 17 :00 Amlodipine Besylate (Norvasc) 10 mg DAILY PO Last administered on 12/09/16 08: 18; Admin Dose 10 MG; Start 12/04/16 at 09:00 Lorazepam (Ativan) 1 mg Q6H PRN IV AGITATION/ANXIETY; Start 12/04/16 at 02:30 Quetiapine Fumarate (Seroquel) 25 mg DAILY PO Last administered on 12/09/16 08 :20; Admin Dose 25 MG; Start 12/04/16 at 09:00 Hydralazine HCl (Apresoline) 10 mg Q4H PRN IV ELEVATED BLOOD PRESSURE; Start at 02:30 Benazepril HCl (Lotensin) 10 mg BID PO Last administered on 12/09/16 08:19; Admin Dose 10 MG; Start 12/04/16 at 21:00 Diagnostic Test (Pha) (Accu-Chek) 1 ea 02 XX ; Start 12/05/16 at 02:00 Diagnostic Test (Pha) (Accu-Chek) 1 ea 02 XX ; Start 12/05/16 at 02:00 Magnesium Hydroxide (Milk Of Mag) 30 ml BID PRN PO CONSTIPATION Last administered on 12/06/16 15:55; Admin Dose 30 ML; Start 12/06/16 at 15:30 Bisacodyl (Dulcolax Supp) 10 mg DAILY PRN [place] CONSTIPATION Last administered on 12/07/16 07:48; Admin Dose 10 MG; Start 12/06/16 at 15:30 Isosorbide Dinitrate 40 mg 40 mg TID PO Last administered on 12/09/16 08:19; Admin Dose 40 MG; Start 12/07/16 at 13:00 Levofloxacin/ Dextrose (Levaquin 250 Mg/ D5W 50 ml (Pmx)) 50 ml @ 50 mls/hr Q24H IVPB Last administered on 12/08/16 20:40; Admin Dose 50 MLS/HR; Start at 21:00 Methylprednisolone Sodium Succinate (Solu-Medrol) 10 mg BID IV Last administered on 12/09/16 08:21; Admin Dose 10 MG; Start 12/08/16 at 09:00 Insulin Human NPH (Humulin N) 10 unit BID SC Last administered on 12/09/16 08: 31; Admin Dose 10 UNIT; Start 12/08/16 at 09:00 ARTHUR TITUS MD Dec 09, 2016 09:05
--- NOTE | 2016-12-09 15:33 | PN ---
Date/Time of Note Date/Time of Note DATE: 12/09/16 TIME: 15:24 Assessment/Plan VTE Prophylaxis VTE Prophylaxis Intervention: SCD's Lines/Catheters [facility] Urinary Cath still in place: No Assessment/Plan Chief Complaint/Hosp Course Patient denies any shortness of breath at rest, continues to have elevated sugar , NPH insulin is giving concurrently with steroid increased. PT evaluation. Assessment/Plan - Acute bronchitis, continue Levaquin, steroids. - Near syncopal episode. Acute coronary syndrome ruled out. cardiac enzymes is negative 3. Dr. Bhagat is following and cardiology consultation. - Rule out transient ischemic attack in patient with history of stroke. Continue aspirin. MRI is negative. Dr. Rios is following in a neurology consultation. - Diabetes mellitus type 2. Hemoglobin A1c is 9.6. Continue Lantus and NovoLog. - Hypertension. Continue Lotensin and Norvasc. - Acute kidney injury secondary to dehydration, resolved. Further recommendations based on clinical course. Plan of care discussed with Dr. Hadley. Problems: Exam/Review of Systems Vital Signs Vitals Vital Signs Date Time Temp Pulse Resp B/P Pulse Ox O2 Delivery O2 Flow Rate FiO2 12/09/16 13:54 96 2.0 12/09/16 13:54 95 16 Nasal Cannula 12/09/16 11:44 98.0 113/87 12/08/16 20:14 21 Intake and Output 12/08/16 12/08/16 12/09/16 15:00 23:00 07:00 Intake Total 750 ml 200 ml Balance 750 ml 200 ml Exam Constitutional: alert, oriented Head: normocephalic Neck: supple Respiratory: normal air movement Cardiovascular: nl pulses Gastrointestinal: non-tender, soft Extremities: normal pulses Results Result Diagram: 12/09/16 0531 12/09/16 0531 Results 24 hrs Laboratory Tests Test 12/08/16 17:19 12/08/16 20:32 12/09/16 02:25 12/09/16 02:57 Bedside Glucose 263 H 284 H 315 H 296 H Test 12/09/16 05:31 12/09/16 07:38 12/09/16 08:26 12/09/16 11:47 White Blood Count 13.8 #H Red Blood Count 4.17 L Hemoglobin 10.8 L Hematocrit 33.3 L Mean Corpuscular Volume 79.9 L Mean Corpuscular Hemoglobin 25.9 L Mean Corpuscular Hemoglobin Concent 32.4 Red Cell Distribution Width 15.6 H Platelet Count 208 Mean Platelet Volume 13.2 H Neutrophils % 88.7 H Lymphocytes % 7.8 L Monocytes % 2.9 Eosinophils % 0.0 Basophils % 0.1 Nucleated Red Blood Cells % 0.0 Neutrophils # (Manual) 12.3 H Lymphocytes # 1.1 Monocytes # 0.4 Eosinophils # 0.0 Basophils # 0.0 Nucleated Red Blood Cells # 0.0 Sodium Level 137 Potassium Level 4.3 Chloride Level 99 Carbon Dioxide Level 26 Anion Gap 16 Blood Urea Nitrogen 38 H Creatinine 0.93 Glucose Level 296 #H Calcium Level 9.7 Bedside Glucose 298 H 306 H 389 H Medications Medications Current Medications Aspirin (Aspirin) 81 mg DAILY PO Last administered on 12/09/16 08:20; Admin Dose 81 MG; Start 12/04/16 at 09:00 Atorvastatin Calcium (Lipitor) 20 mg QHS PO Last administered on 12/08/16 20: 40; Admin Dose 20 MG; Start 12/03/16 at 21:00 Insulin Glargine (Lantus) 20 unit DAILY SC Last administered on 12/09/16 08:31 ; Admin Dose 20 UNIT; Start 12/04/16 at 09:00 Pantoprazole (Protonix Tab) 40 mg DAILY@06 PO Last administered on 12/09/16 06 :04; Admin Dose 40 MG; Start 12/04/16 at 06:00 Nitroglycerin (Nitroglycerin (Sl Tab) 0.4 Mg) 1 tab Q5M PRN SL ANGINA; Start at 16:00 Miscellaneous Information 1 ea NOTE XX ; Start 12/03/16 at 17:00 Glucose (Glutose) 15 gm Q15M PRN PO DECREASED GLUCOSE; Start 12/03/16 at 17:00 Glucose (Glutose) 22.5 gm Q15M PRN PO DECREASED GLUCOSE; Start 12/03/16 at 17: 00 Dextrose (D50w Syringe) 25 ml Q15M PRN IV DECREASED GLUCOSE; Start 12/03/16 at 17:00 Dextrose (D50w Syringe) 50 ml Q15M PRN IV DECREASED GLUCOSE; Start 12/03/16 at 17:00 Glucagon (Glucagen) 1 mg Q15M PRN IM DECREASED GLUCOSE; Start 12/03/16 at 17:00 Glucose (Glutose) 15 gm Q15M PRN BUCCAL DECREASED GLUCOSE; Start 12/03/16 at 17 :00 Amlodipine Besylate (Norvasc) 10 mg DAILY PO Last administered on 12/09/16 08: 18; Admin Dose 10 MG; Start 12/04/16 at 09:00 Lorazepam (Ativan) 1 mg Q6H PRN IV AGITATION/ANXIETY; Start 12/04/16 at 02:30 Quetiapine Fumarate (Seroquel) 25 mg DAILY PO Last administered on 12/09/16 08 :20; Admin Dose 25 MG; Start 12/04/16 at 09:00 Hydralazine HCl (Apresoline) 10 mg Q4H PRN IV ELEVATED BLOOD PRESSURE; Start at 02:30 Benazepril HCl (Lotensin) 10 mg BID PO Last administered on 12/09/16 08:19; Admin Dose 10 MG; Start 12/04/16 at 21:00 Diagnostic Test (Pha) (Accu-Chek) 1 ea 02 XX ; Start 12/05/16 at 02:00 Diagnostic Test (Pha) (Accu-Chek) 1 ea 02 XX ; Start 12/05/16 at 02:00 Magnesium Hydroxide (Milk Of Mag) 30 ml BID PRN PO CONSTIPATION Last administered on 12/06/16 15:55; Admin Dose 30 ML; Start 12/06/16 at 15:30 Bisacodyl (Dulcolax Supp) 10 mg DAILY PRN [place] CONSTIPATION Last administered on 12/07/16 07:48; Admin Dose 10 MG; Start 12/06/16 at 15:30 Isosorbide Dinitrate 40 mg 40 mg TID PO Last administered on 12/09/16 12:47; Admin Dose 40 MG; Start 12/07/16 at 13:00 Levofloxacin/ Dextrose (Levaquin 250 Mg/ D5W 50 ml (Pmx)) 50 ml @ 50 mls/hr Q24H IVPB Last administered on 12/08/16 20:40; Admin Dose 50 MLS/HR; Start at 21:00 Methylprednisolone Sodium Succinate (Solu-Medrol) 10 mg BID IV Last administered on 12/09/16 08:21; Admin Dose 10 MG; Start 12/08/16 at 09:00 Insulin Human NPH (Humulin N) 14 unit BID@08,20 SC ; Start 12/09/16 at 20:00 CARLEE VILLALPANDO Dec 09, 2016 15:33
[2016-12-09] MEDS: LEVOFLOXACIN 250MG/D5W (PMX) 50 ML IVPB SCH (20:52)
[2016-12-09] MEDS: ATORVASTATIN 20 MG TAB PO SCH (20:53)
[2016-12-09] MEDS: LORAZEPAM 2 MG INJ IV PRN (20:54)
[2016-12-10] VITALS (12 sets, daily range): BP systolic 113–141; BP diastolic 53–63; PULSE 90–100; RESP 18–22
[2016-12-10] MEDS: ALBUTEROL/IPRATROPIUM (NEB) 3 ML AMP HHN SCH ×4 (00:56→19:18)
[2016-12-10] MEDS: ACCU-CHEK XX SCH (02:23)
[2016-12-10] MEDS: PANTOPRAZOLE (EC) 40 MG TAB PO SCH (05:46)
[2016-12-10 08:14] LABS: ABNORMAL IP MESSAGE 1; BASOPHILS % 0.1 % (0.0-2.0); HEMATOCRIT 34.2 % (37.0-47.0); HEMOGLOBIN 11.2 g/dl (12.0-16.0); LYMPHOCYTES # 0.9 10^3/ul (0.8-2.9); LYMPHOCYTES % 8.4 % (15.0-51.0); MEAN CORPUSCULAR HEMOGLOBIN 26.4 pg (29.0-33.0); MEAN CORPUSCULAR HGB CONC 32.7 g/dl (32.0-37.0); MEAN CORPUSCULAR VOLUME 80.7 fl (82.0-101.0); MEAN PLATELET VOLUME 13.2 fl (7.4-10.4); MONOCYTE # 0.2 10^3/ul (0.3-0.9); MONOCYTES % 1.9 % (0.0-11.0); PLATELET COUNT 221 10^3/UL (140-415); RED BLOOD COUNT 4.24 10^6/ul (4.20-5.40); RED CELL DISTRIBUTION WIDTH 15.5 % (11.5-14.5); WHITE BLOOD COUNT 11.1 10^3/ul (4.8-10.8)
[2016-12-10 08:16] LABS: POSITIVE DIFF @See below
[2016-12-10] MEDS: NPH, HUMAN INSULIN ISOPHANE 3ML VIAL SC SCH ×2 (08:35→20:41)
[2016-12-10] MEDS: INSULIN ASPART [NOVOLOG] 3 ML PEN SC SCH ×7 (08:36→20:40)
[2016-12-10] MEDS: METHYLPREDNISOLONE 40 MG INJ IV SCH ×2 (08:38→20:36)
[2016-12-10] MEDS: ASPIRIN 81 MG TAB PO SCH (08:39)
[2016-12-10] MEDS: ISOSORBIDE DINITRATE 20 MG TAB PO SCH ×3 (08:39→20:37)
[2016-12-10] MEDS: QUETIAPINE 25 MG TAB PO SCH (08:40)
[2016-12-10] MEDS: BENAZEPRIL 10 MG TAB PO SCH ×2 (08:40→20:37)
[2016-12-10] MEDS: AMLODIPINE 10 MG TAB PO SCH (08:40)
[2016-12-10 08:47] LABS: CALCIUM 9.4 mg/dl (8.4-10.2); CREATININE 0.96 mg/dl (0.44-1.00); POTASSIUM 4.7 mmol/L (3.5-5.1)
[2016-12-10] MEDS ORDERED: INSULIN GLARGINE [LANtus] 3 ML PEN SC SCH (09:00)
--- NOTE | 2016-12-10 14:16 | PN ---
Date/Time of Note Date/Time of Note DATE: 12/10/16 TIME: 14:15 Assessment/Plan VTE Prophylaxis VTE Prophylaxis Intervention: SCD's Lines/Catheters IV [facility] Type (from [facility] Urinary Cath still in place: No Assessment/Plan Chief Complaint/Hosp Course Patient continues to have wheezing, elevated blood sugar, will increase Lantus, continue physical therapy. Assessment/Plan - Acute bronchitis, continue Levaquin, steroids. - Near syncopal episode. Acute coronary syndrome ruled out. cardiac enzymes is negative 3. Dr. Bhagat is following and cardiology consultation. - Rule out transient ischemic attack in patient with history of stroke. Continue aspirin. MRI is negative. Dr. Rios is following in a neurology consultation. - Diabetes mellitus type 2. Hemoglobin A1c is 9.6. Continue Lantus and NovoLog. - Hypertension. Continue Lotensin and Norvasc. - Acute kidney injury secondary to dehydration, resolved. Further recommendations based on clinical course. Plan of care discussed with Dr. Hadley. Problems: Exam/Review of Systems Vital Signs Vitals Vital Signs Date Time Temp Pulse Resp B/P Pulse Ox O2 Delivery O2 Flow Rate FiO2 12/10/16 14:12 2.0 12/10/16 14:07 96 20 95 Nasal Cannula 12/10/16 12:01 98.3 123/56 12/08/16 20:14 21 Intake and Output 12/09/16 12/09/16 12/10/16 15:00 23:00 07:00 Intake Total 750 ml 240 ml Balance 750 ml 240 ml Exam Constitutional: alert, oriented Head: normocephalic Neck: supple Respiratory: normal air movement Cardiovascular: nl pulses Gastrointestinal: non-tender, soft Extremities: normal pulses Results Result Diagram: 12/10/16 0650 12/10/16 0650 Results 24 hrs Laboratory Tests Test 12/09/16 17:42 12/09/16 18:51 12/09/16 20:37 12/09/16 21:48 Bedside Glucose 431 *H 416 *H 305 H 229 H Test 12/10/16 02:21 12/10/16 06:50 12/10/16 08:18 12/10/16 12:09 Bedside Glucose 171 313 H 269 H White Blood Count 11.1 H Red Blood Count 4.24 Hemoglobin 11.2 L Hematocrit 34.2 L Mean Corpuscular Volume 80.7 L Mean Corpuscular Hemoglobin 26.4 L Mean Corpuscular Hemoglobin Concent 32.7 Red Cell Distribution Width 15.5 H Platelet Count 221 Mean Platelet Volume 13.2 H Neutrophils % 89.0 H Lymphocytes % 8.4 L Monocytes % 1.9 Eosinophils % 0.0 Basophils % 0.1 Nucleated Red Blood Cells % 0.0 Neutrophils # (Manual) 9.8 H Lymphocytes # 0.9 Monocytes # 0.2 L Eosinophils # 0.0 Basophils # 0.0 Nucleated Red Blood Cells # 0.0 Sodium Level 137 Potassium Level 4.7 Chloride Level 99 Carbon Dioxide Level 27 Anion Gap 16 Blood Urea Nitrogen 47 H Creatinine 0.96 Glucose Level 311 H Calcium Level 9.4 Medications Medications Current Medications Aspirin (Aspirin) 81 mg DAILY PO Last administered on 12/10/16 08:39; Admin Dose 81 MG; Start 12/04/16 at 09:00 Atorvastatin Calcium (Lipitor) 20 mg QHS PO Last administered on 12/09/16 20: 53; Admin Dose 20 MG; Start 12/03/16 at 21:00 Pantoprazole (Protonix Tab) 40 mg DAILY@06 PO Last administered on 12/10/16 05 :46; Admin Dose 40 MG; Start 12/04/16 at 06:00 Nitroglycerin (Nitroglycerin (Sl Tab) 0.4 Mg) 1 tab Q5M PRN SL ANGINA; Start at 16:00 Miscellaneous Information 1 ea NOTE XX ; Start 12/03/16 at 17:00 Glucose (Glutose) 15 gm Q15M PRN PO DECREASED GLUCOSE; Start 12/03/16 at 17:00 Glucose (Glutose) 22.5 gm Q15M PRN PO DECREASED GLUCOSE; Start 12/03/16 at 17: 00 Dextrose (D50w Syringe) 25 ml Q15M PRN IV DECREASED GLUCOSE; Start 12/03/16 at 17:00 Dextrose (D50w Syringe) 50 ml Q15M PRN IV DECREASED GLUCOSE; Start 12/03/16 at 17:00 Glucagon (Glucagen) 1 mg Q15M PRN IM DECREASED GLUCOSE; Start 12/03/16 at 17:00 Glucose (Glutose) 15 gm Q15M PRN BUCCAL DECREASED GLUCOSE; Start 12/03/16 at 17 :00 Amlodipine Besylate (Norvasc) 10 mg DAILY PO Last administered on 12/10/16 08: 40; Admin Dose 10 MG; Start 12/04/16 at 09:00 Lorazepam (Ativan) 1 mg Q6H PRN IV AGITATION/ANXIETY Last administered on 20:54; Admin Dose 1 MG; Start 12/04/16 at 02:30 Quetiapine Fumarate (Seroquel) 25 mg DAILY PO Last administered on 12/10/16 08 :40; Admin Dose 25 MG; Start 12/04/16 at 09:00 Hydralazine HCl (Apresoline) 10 mg Q4H PRN IV ELEVATED BLOOD PRESSURE; Start at 02:30 Benazepril HCl (Lotensin) 10 mg BID PO Last administered on 12/10/16 08:40; Admin Dose 10 MG; Start 12/04/16 at 21:00 Diagnostic Test (Pha) (Accu-Chek) 1 ea 02 XX Last administered on 12/10/16 02: 23; Admin Dose 1 EA; Start 12/05/16 at 02:00 Magnesium Hydroxide (Milk Of Mag) 30 ml BID PRN PO CONSTIPATION Last administered on 12/06/16 15:55; Admin Dose 30 ML; Start 12/06/16 at 15:30 Bisacodyl (Dulcolax Supp) 10 mg DAILY PRN [place] CONSTIPATION Last administered on 12/07/16 07:48; Admin Dose 10 MG; Start 12/06/16 at 15:30 Isosorbide Dinitrate 40 mg 40 mg TID PO Last administered on 12/10/16 12:10; Admin Dose 40 MG; Start 12/07/16 at 13:00 Levofloxacin/ Dextrose (Levaquin 250 Mg/ D5W 50 ml (Pmx)) 50 ml @ 50 mls/hr Q24H IVPB Last administered on 12/09/16 20:52; Admin Dose 50 MLS/HR; Start at 21:00 Methylprednisolone Sodium Succinate (Solu-Medrol) 10 mg BID IV Last administered on 12/10/16 08:38; Admin Dose 10 MG; Start 12/08/16 at 09:00 Insulin Human NPH (Humulin N) 14 unit BID@08,20 SC Last administered on 08:35; Admin Dose 14 UNIT; Start 12/09/16 at 20:00 Insulin Glargine (Lantus) 26 unit DAILY SC Last administered on 12/10/16 08:34 ; Admin Dose 26 UNIT; Start 12/10/16 at 09:00 CARLEE VILLALPANDO Dec 10, 2016 14:16
--- NOTE | 2016-12-10 17:35 | CONS ---
Date/Time of Note Date/Time of Note DATE: 12/10/16 TIME: 17:27 Assessment/Plan Assessment/Plan Chief Complaint/Hosp Course IMPRESSION: 1. Chest pain.-negative trop x 3/NL EF by echo. NO ischemia. NL EF by lexiscan 2. Presyncope.- no sig arrythmia by tele monitoring 3. Hypotension on admit-now improved with HTN 4. Electrocardiogram with lateral T-wave inversion-negative trop x 3 5. Generalized weakness. 6. Diabetes mellitus. 7. Prerenal azotemia. Rec: -Tele -Continue norvasc/benazepril/isordil -Continue asa/statin -Continue solumedrol/Bronchodilators Problems: Consultation Date/Type/Reason Admit Date/Time Dec 03, 2016 at 16:00 Initial Consult Date 12/04/16 Type of Consultation: cardiology Reason for Consultation sob Referring Provider: CARLEE VILLALPANDO Exam/Review of Systems Vital Signs Vitals Vital Signs Date Time Temp Pulse Resp B/P Pulse Ox O2 Delivery O2 Flow Rate FiO2 12/10/16 16:04 97 12/10/16 15:31 98.0 19 113/53 95 12/10/16 14:12 2.0 12/10/16 14:07 Nasal Cannula 12/08/16 20:14 21 Intake and Output 12/09/16 12/09/16 12/10/16 15:00 23:00 07:00 Intake Total 750 ml 240 ml Balance 750 ml 240 ml Exam Review of Systems: CONSTITUTIONAL: No fevers, chills. PULMONARY: No sob CARDIOVASCULAR: No chest pain/palpitations GASTROINTESTINAL: No nausea/vomiting. GENITOURINARY: No hematuria/dysuria. MUSCULOSKELETAL: No myagias/arthalgias. PSYCHIATRIC: The patient denies depression. NEUROLOGIC: No weakness Constitutional: alert Psych: no complaints Head: normocephalic ENMT: mucosa pink and moist Neck: jvd, supple Respiratory: diminished breath sounds Cardiovascular: regular rate and rhythm Gastrointestinal: non-tender Musculoskeletal: muscle tone (normal) Extremities: edema (none) Results Result Diagram: 12/10/16 0650 12/10/16 0650 Results 24 hrs Laboratory Tests Test 12/09/16 17:42 12/09/16 18:51 12/09/16 20:37 12/09/16 21:48 Bedside Glucose 431 *H 416 *H 305 H 229 H Test 12/10/16 02:21 12/10/16 06:50 12/10/16 08:18 12/10/16 12:09 Bedside Glucose 171 313 H 269 H White Blood Count 11.1 H Red Blood Count 4.24 Hemoglobin 11.2 L Hematocrit 34.2 L Mean Corpuscular Volume 80.7 L Mean Corpuscular Hemoglobin 26.4 L Mean Corpuscular Hemoglobin Concent 32.7 Red Cell Distribution Width 15.5 H Platelet Count 221 Mean Platelet Volume 13.2 H Neutrophils % 89.0 H Lymphocytes % 8.4 L Monocytes % 1.9 Eosinophils % 0.0 Basophils % 0.1 Nucleated Red Blood Cells % 0.0 Neutrophils # (Manual) 9.8 H Lymphocytes # 0.9 Monocytes # 0.2 L Eosinophils # 0.0 Basophils # 0.0 Nucleated Red Blood Cells # 0.0 Sodium Level 137 Potassium Level 4.7 Chloride Level 99 Carbon Dioxide Level 27 Anion Gap 16 Blood Urea Nitrogen 47 H Creatinine 0.96 Glucose Level 311 H Calcium Level 9.4 Medications Medications Current Medications Aspirin (Aspirin) 81 mg DAILY PO Last administered on 12/10/16 08:39; Admin Dose 81 MG; Start 12/04/16 at 09:00 Atorvastatin Calcium (Lipitor) 20 mg QHS PO Last administered on 12/09/16 20: 53; Admin Dose 20 MG; Start 12/03/16 at 21:00 Pantoprazole (Protonix Tab) 40 mg DAILY@06 PO Last administered on 12/10/16 05 :46; Admin Dose 40 MG; Start 12/04/16 at 06:00 Nitroglycerin (Nitroglycerin (Sl Tab) 0.4 Mg) 1 tab Q5M PRN [place] ANGINA; Start at 16:00 Miscellaneous Information 1 ea NOTE XX ; Start 12/03/16 at 17:00 Glucose (Glutose) 15 gm Q15M PRN PO DECREASED GLUCOSE; Start 12/03/16 at 17:00 Glucose (Glutose) 22.5 gm Q15M PRN PO DECREASED GLUCOSE; Start 12/03/16 at 17: 00 Dextrose (D50w Syringe) 25 ml Q15M PRN IV DECREASED GLUCOSE; Start 12/03/16 at 17:00 Dextrose (D50w Syringe) 50 ml Q15M PRN IV DECREASED GLUCOSE; Start 12/03/16 at 17:00 Glucagon (Glucagen) 1 mg Q15M PRN IM DECREASED GLUCOSE; Start 12/03/16 at 17:00 Glucose (Glutose) 15 gm Q15M PRN BUCCAL DECREASED GLUCOSE; Start 12/03/16 at 17 :00 Amlodipine Besylate (Norvasc) 10 mg DAILY PO Last administered on 12/10/16 08: 40; Admin Dose 10 MG; Start 12/04/16 at 09:00 Lorazepam (Ativan) 1 mg Q6H PRN IV AGITATION/ANXIETY Last administered on 20:54; Admin Dose 1 MG; Start 12/04/16 at 02:30 Quetiapine Fumarate (Seroquel) 25 mg DAILY PO Last administered on 12/10/16 08 :40; Admin Dose 25 MG; Start 12/04/16 at 09:00 Hydralazine HCl (Apresoline) 10 mg Q4H PRN IV ELEVATED BLOOD PRESSURE; Start at 02:30 Benazepril HCl (Lotensin) 10 mg BID PO Last administered on 12/10/16 08:40; Admin Dose 10 MG; Start 12/04/16 at 21:00 Diagnostic Test (Pha) (Accu-Chek) 1 ea 02 XX Last administered on 12/10/16 02: 23; Admin Dose 1 EA; Start 12/05/16 at 02:00 Magnesium Hydroxide (Milk Of Mag) 30 ml BID PRN PO CONSTIPATION Last administered on 12/06/16 15:55; Admin Dose 30 ML; Start 12/06/16 at 15:30 Bisacodyl (Dulcolax Supp) 10 mg DAILY PRN [place] CONSTIPATION Last administered on 12/07/16 07:48; Admin Dose 10 MG; Start 12/06/16 at 15:30 Isosorbide Dinitrate 40 mg 40 mg TID PO Last administered on 12/10/16 12:10; Admin Dose 40 MG; Start 12/07/16 at 13:00 Levofloxacin/ Dextrose (Levaquin 250 Mg/ D5W 50 ml (Pmx)) 50 ml @ 50 mls/hr Q24H IVPB Last administered on 12/09/16 20:52; Admin Dose 50 MLS/HR; Start at 21:00 Insulin Human NPH (Humulin N) 14 unit BID@08,20 SC Last administered on t 08:35; Admin Dose 14 UNIT; Start 12/09/16 at 20:00 Insulin Glargine (Lantus) 30 unit DAILY@08 SC ; Start 12/11/16 at 08:00 Methylprednisolone Sodium Succinate (Solu-Medrol) 10 mg BID@08,20 IV ; Start at 20:00 ROSALINDA JARVIS Dec 10, 2016 17:35
[2016-12-10] MEDS ORDERED: INSULIN ASPART [NOVOLOG] 3 ML PEN SC SCH (17:55)
[2016-12-10] MEDS: LEVOFLOXACIN 250MG/D5W (PMX) 50 ML IVPB SCH (20:36)
[2016-12-10] MEDS: ATORVASTATIN 20 MG TAB PO SCH (20:36)
[2016-12-10] MEDS: MAGNESIUM HYDROXIDE 30ML CUP PO PRN (20:56)
[2016-12-10] MEDS: LORAZEPAM 2 MG INJ IV PRN (22:11)
[2016-12-11] VITALS (10 sets, daily range): BP systolic 125–133; BP diastolic 59–83; PULSE 81–94; RESP 16–19
[2016-12-11] MEDS: ALBUTEROL/IPRATROPIUM (NEB) 3 ML AMP HHN SCH ×3 (01:12→13:01)
[2016-12-11] MEDS: ACCU-CHEK XX SCH (02:30)
[2016-12-11] MEDS: PANTOPRAZOLE (EC) 40 MG TAB PO SCH (06:20)
[2016-12-11] MEDS ORDERED: INSULIN GLARGINE [LANtus] 3 ML PEN SC SCH ×2 (08:00→09:00)
[2016-12-11] MEDS: MAGNESIUM HYDROXIDE 30ML CUP PO PRN (08:03)
[2016-12-11] MEDS: QUETIAPINE 25 MG TAB PO SCH (08:04)
[2016-12-11] MEDS: ISOSORBIDE DINITRATE 20 MG TAB PO SCH ×2 (08:04→12:22)
[2016-12-11] MEDS: AMLODIPINE 10 MG TAB PO SCH (08:04)
[2016-12-11] MEDS: BENAZEPRIL 10 MG TAB PO SCH (08:05)
[2016-12-11] MEDS: ASPIRIN 81 MG TAB PO SCH (08:05)
[2016-12-11] MEDS: NPH, HUMAN INSULIN ISOPHANE 3ML VIAL SC SCH ×2 (08:06→19:53)
[2016-12-11] MEDS: METHYLPREDNISOLONE 40 MG INJ IV SCH ×2 (08:06→19:40)
[2016-12-11] MEDS: INSULIN ASPART [NOVOLOG] 3 ML PEN SC SCH ×6 (08:07→17:26)
[2016-12-11 08:29] LABS: BASOPHILS % 0.1 % (0.0-2.0); HEMATOCRIT 31.6 % (37.0-47.0); HEMOGLOBIN 10.2 g/dl (12.0-16.0); LYMPHOCYTES # 1.2 10^3/ul (0.8-2.9); MEAN CORPUSCULAR HEMOGLOBIN 25.7 pg (29.0-33.0); MEAN CORPUSCULAR HGB CONC 32.3 g/dl (32.0-37.0); MEAN CORPUSCULAR VOLUME 79.6 fl (82.0-101.0); MEAN PLATELET VOLUME 12.5 fl (7.4-10.4); MONOCYTE # 0.5 10^3/ul (0.3-0.9); MONOCYTES % 4.8 % (0.0-11.0); NEUTROPHILS % 82.2 % (39.0-77.0); PLATELET COUNT 192 10^3/UL (140-415); RED BLOOD COUNT 3.97 10^6/ul (4.20-5.40); RED CELL DISTRIBUTION WIDTH 15.6 % (11.5-14.5); WHITE BLOOD COUNT 9.9 10^3/ul (4.8-10.8)
[2016-12-11 08:45] LABS: CALCIUM 9.2 mg/dl (8.4-10.2); CREATININE 0.92 mg/dl (0.44-1.00); POTASSIUM 4.9 mmol/L (3.5-5.1)
--- NOTE | 2016-12-11 15:09 | PDOCDIS ---
Discharge Instructions CONDITION Patient Condition: Stable HOME CARE INSTRUCTIONS: Special Diet: puree carb controlled diet ACTIVITY: Activity Restrictions: Slowly Increase Activity Rest between Activity Avoid heavy lifting Do not operate Machinery Do not operate Power Tool Avoid Heavy Housework Bathing Restrictions: TAMERA HANKINS Dec 11, 2016 15:09
--- NOTE | 2016-12-11 18:02 | CONS ---
Date/Time of Note Date/Time of Note DATE: 12/11/16 TIME: 18:00 Assessment/Plan Assessment/Plan Chief Complaint/Hosp Course IMPRESSION: 1. Chest pain.-negative trop x 3/NL EF by echo. NO ischemia. NL EF by lexiscan 2. Presyncope.- no sig arrythmia by tele monitoring 3. Hypotension on admit-now improved with HTN 4. Electrocardiogram with lateral T-wave inversion-negative trop x 3 5. Generalized weakness. 6. Diabetes mellitus. 7. Prerenal azotemia. Rec: -Tele -Continue norvasc/benazepril/isordil -Continue asa/statin -Continue solumedrol/Bronchodilators -Follow volume status closely Problems: Consultation Date/Type/Reason Admit Date/Time Dec 03, 2016 at 16:00 Initial Consult Date 12/04/16 Type of Consultation: cardiology Reason for Consultation chest pain Referring Provider: CARLEE VILLALPANDO Exam/Review of Systems Vital Signs Vitals Vital Signs Date Time Temp Pulse Resp B/P Pulse Ox O2 Delivery O2 Flow Rate FiO2 12/11/16 16:22 98.0 78 18 133/61 98 12/11/16 13:02 Nasal Cannula 2.0 12/08/16 20:14 21 Intake and Output 12/10/16 12/10/16 12/11/16 15:00 23:00 07:00 Intake Total 900 ml 400 ml Balance 900 ml 400 ml Exam Review of Systems: CONSTITUTIONAL: No fevers, chills. PULMONARY: No sob CARDIOVASCULAR: No chest pain/palpitations GASTROINTESTINAL: No nausea/vomiting. GENITOURINARY: No hematuria/dysuria. MUSCULOSKELETAL: No myagias/arthalgias. PSYCHIATRIC: The patient denies depression. NEUROLOGIC: No weakness Constitutional: alert Psych: no complaints Head: normocephalic ENMT: mucosa pink and moist Neck: supple Respiratory: diminished breath sounds (at bases/B) Cardiovascular: regular rate and rhythm Gastrointestinal: non-tender, soft Musculoskeletal: muscle tone (normal) Extremities: edema (none) Neurological: other (No focal deficits) Results Result Diagram: 12/11/16 0745 12/11/16 0745 Results 24 hrs Laboratory Tests Test 12/10/16 20:34 12/10/16 22:12 12/11/16 02:17 12/11/16 07:45 Bedside Glucose 325 H 313 H 243 H White Blood Count 9.9 Red Blood Count 3.97 L Hemoglobin 10.2 L Hematocrit 31.6 L Mean Corpuscular Volume 79.6 L Mean Corpuscular Hemoglobin 25.7 L Mean Corpuscular Hemoglobin Concent 32.3 Red Cell Distribution Width 15.6 H Platelet Count 192 Mean Platelet Volume 12.5 H Neutrophils % 82.2 H Lymphocytes % 12.0 L Monocytes % 4.8 Eosinophils % 0.0 Basophils % 0.1 Nucleated Red Blood Cells % 0.0 Neutrophils # (Manual) 8.2 H Lymphocytes # 1.2 Monocytes # 0.5 Eosinophils # 0.0 Basophils # 0.0 Nucleated Red Blood Cells # 0.0 Sodium Level 136 Potassium Level 4.9 Chloride Level 96 L Carbon Dioxide Level 29 Anion Gap 16 Blood Urea Nitrogen 44 H Creatinine 0.92 Glucose Level 363 H Calcium Level 9.2 Test 12/11/16 08:02 12/11/16 12:20 12/11/16 17:15 Bedside Glucose 299 H 254 H 156 Medications Medications Current Medications Aspirin (Aspirin) 81 mg DAILY PO Last administered on 12/11/16 08:05; Admin Dose 81 MG; Start 12/04/16 at 09:00 Atorvastatin Calcium (Lipitor) 20 mg QHS PO Last administered on 12/10/16 20: 36; Admin Dose 20 MG; Start 12/03/16 at 21:00 Pantoprazole (Protonix Tab) 40 mg DAILY@06 PO Last administered on 12/11/16 06 :20; Admin Dose 40 MG; Start 12/04/16 at 06:00 Nitroglycerin (Nitroglycerin (Sl Tab) 0.4 Mg) 1 tab Q5M PRN SL ANGINA; Start at 16:00 Miscellaneous Information 1 ea NOTE XX ; Start 12/03/16 at 17:00 Glucose (Glutose) 15 gm Q15M PRN PO DECREASED GLUCOSE; Start 12/03/16 at 17:00 Glucose (Glutose) 22.5 gm Q15M PRN PO DECREASED GLUCOSE; Start 12/03/16 at 17: 00 Dextrose (D50w Syringe) 25 ml Q15M PRN IV DECREASED GLUCOSE; Start 12/03/16 at 17:00 Dextrose (D50w Syringe) 50 ml Q15M PRN IV DECREASED GLUCOSE; Start 12/03/16 at 17:00 Glucagon (Glucagen) 1 mg Q15M PRN IM DECREASED GLUCOSE; Start 12/03/16 at 17:00 Glucose (Glutose) 15 gm Q15M PRN BUCCAL DECREASED GLUCOSE; Start 12/03/16 at 17 :00 Amlodipine Besylate (Norvasc) 10 mg DAILY PO Last administered on 12/11/16 08: 04; Admin Dose 10 MG; Start 12/04/16 at 09:00 Lorazepam (Ativan) 1 mg Q6H PRN IV AGITATION/ANXIETY Last administered on 22:11; Admin Dose 1 MG; Start 12/04/16 at 02:30 Quetiapine Fumarate (Seroquel) 25 mg DAILY PO Last administered on 12/11/16 08 :04; Admin Dose 25 MG; Start 12/04/16 at 09:00 Hydralazine HCl (Apresoline) 10 mg Q4H PRN IV ELEVATED BLOOD PRESSURE; Start at 02:30 Benazepril HCl (Lotensin) 10 mg BID PO Last administered on 12/11/16 08:05; Admin Dose 10 MG; Start 12/04/16 at 21:00 Diagnostic Test (Pha) (Accu-Chek) 1 ea 02 XX Last administered on 12/11/16 02: 30; Admin Dose 1 EA; Start 12/05/16 at 02:00 Magnesium Hydroxide (Milk Of Mag) 30 ml BID PRN PO CONSTIPATION Last administered on 12/11/16 08:03; Admin Dose 30 ML; Start 12/06/16 at 15:30 Bisacodyl (Dulcolax Supp) 10 mg DAILY PRN [place] CONSTIPATION Last administered on 12/07/16 07:48; Admin Dose 10 MG; Start 12/06/16 at 15:30 Isosorbide Dinitrate 40 mg 40 mg TID PO Last administered on 12/11/16 12:22; Admin Dose 40 MG; Start 12/07/16 at 13:00 Levofloxacin/ Dextrose (Levaquin 250 Mg/ D5W 50 ml (Pmx)) 50 ml @ 50 mls/hr Q24H IVPB Last administered on 12/10/16 20:36; Admin Dose 50 MLS/HR; Start at 21:00 Insulin Glargine (Lantus) 30 unit DAILY@08 SC Last administered on 12/11/16 08 :07; Admin Dose 30 UNIT; Start 12/11/16 at 08:00 Methylprednisolone Sodium Succinate (Solu-Medrol) 10 mg BID@08,20 IV Last administered on 12/11/16 08:06; Admin Dose 10 MG; Start 12/10/16 at 20:00 Insulin Human NPH (Humulin N) 18 unit BID@08,20 SC Last administered on 08:06; Admin Dose 18 UNIT; Start 12/11/16 at 08:00 ROSALINDA JARVIS Dec 11, 2016 18:02
== END 2016-12-11 19:50 | DRG 640 ==
LOC: E/R 10:46 → TEL 14:20 → OBSVTOIN 16:00
PROVIDERS: ADMIT Internal Medicine; ATTEND Internal Medicine
DX: E86.0 Dehydration (principal); G93.40 Encephalopathy, unspecified; N17.9 Acute kidney failure, unspecified; I95.9 Hypotension, unspecified; I69.351 Hemiplegia and hemiparesis following cerebral infarction affecting right dominant side; E11.9 Type 2 diabetes mellitus without complications; G45.9 Transient cerebral ischemic attack, unspecified; R55 Syncope and collapse; I10 Essential (primary) hypertension; R51 Headache; J20.9 Acute bronchitis, unspecified
CPT/HCPCS: 70450; 70551; 71010; 78452; 80048; 80061; 82550; 82553; 82962; 83036; 84443; 84484; 85025; 93005; 93017; 93306; 93880; 94640; 94664; 97110; 97162; 97530; 99283; G0378; A9500; A9505; J1815; J1956; J2060; J2785; J2920; J7040

== ENCOUNTER 2016-12-11 18:16 | Inpatient (IN) | payer MEDICARE, OTHER ==
[~2016-12-11] VITALS: Ht 152.4 cm; Wt 86.0 kg
[~2016-12-11 18:16] MED LIST changes: +AMLO-145 PO; -AMLO5TAB4 PO; -ASPI-306 PO; +ASPI81TA3 PO; -ATOR20TA17 PO; +ATOR20TA38 PO; -COL250 PO; +DOCU-144 PO; -LORA-408 PO; +LORA1TAB PO; -MECL25TA2 PO; -PANT40TA3 PO; +PANT40TA4 PO
[2016-12-11 20:20] VITALS: Ht 152.4 cm; Wt 86.0 kg
[2016-12-11 20:22] VITALS: BP 130/62; RESP 18
[2016-12-11] MEDS ORDERED: BENAZEPRIL 10 MG TAB PO SCH (22:20)
[2016-12-11] MEDS ORDERED: GLUCAGON 1 MG INJ IM PRN (22:20)
[2016-12-11] MEDS ORDERED: NPH, HUMAN INSULIN ISOPHANE 3ML VIAL SC SCH (22:20)
[2016-12-11] MEDS ORDERED: ISOSORBIDE DINITRATE 20 MG TAB PO SCH (22:20)
[2016-12-11] MEDS ORDERED: ATORVASTATIN 20 MG TAB PO SCH (22:20)
[2016-12-11] MEDS ORDERED: NITROGLYCERIN (SL) 0.4 MG TAB SL PRN (22:20)
[2016-12-11] MEDS ORDERED: INSULIN GLARGINE [LANtus] 3 ML PEN SC SCH (22:20)
[2016-12-11] MEDS ORDERED: METHYLPREDNISOLONE 40 MG INJ IV SCH (22:20)
[2016-12-11] MEDS ORDERED: DEXTROSE 50% 50 ML SYRINGE IV PRN ×2 (22:20)
[2016-12-11] MEDS ORDERED: GLUCOSE GEL 15 GRAM TUBE BUCCAL PRN (22:20)
[2016-12-11] MEDS ORDERED: LEVOFLOXACIN 250MG/D5W (PMX) 50 ML IVPB SCH (22:20)
[2016-12-11] MEDS ORDERED: BISACODYL 10 MG SUPP PR PRN (22:20)
[2016-12-11] MEDS ORDERED: GLUCOSE GEL 15 GRAM TUBE PO PRN (22:20)
[2016-12-11] MEDS ORDERED: LEVALBUTEROL (NEB) 0.63 MG/3 ML AMP HHN PRN (22:20)
[2016-12-11] MEDS: NPH, HUMAN INSULIN ISOPHANE 3ML VIAL SC SCH ×2 (23:03→23:13)
[2016-12-11] MEDS: ATORVASTATIN 20 MG TAB PO SCH (23:06)
[2016-12-11] MEDS: BENAZEPRIL 10 MG TAB PO SCH (23:06)
[2016-12-11] MEDS: ISOSORBIDE DINITRATE 20 MG TAB PO SCH (23:34)
[2016-12-12] MEDS: ALBUTEROL/IPRATROPIUM (NEB) 3 ML AMP HHN SCH ×3 (01:56→19:55)
[2016-12-12] MEDS: ACCU-CHEK XX SCH (02:07)
[2016-12-12 02:12] VITALS: BP 116/54; RESP 18
[2016-12-12 04:58] LABS: ADD UMIC NO; UR ASCORBIC ACID NEGATIVE (NEGATIVE); UR BILIRUBIN (Dip) NEGATIVE (NEGATIVE); UR BLOOD (Dip) NEGATIVE (NEGATIVE); UR CLARITY CLEAR (CLEAR); UR COLOR STRAW (YELLOW); UR GLUCOSE (Dip) 1+ mg/dL (NEGATIVE); UR KETONES (Dip) NEGATIVE (NEGATIVE); UR LEUKOCYTE ESTERASE (Dip) NEGATIVE Leu/ul (NEGATIVE); UR NITRITE (Dip) NEGATIVE (NEGATIVE); UR SPECIFIC GRAVITY (Dip) 1.012 (1.003-1.030); UR TOTAL PROTEIN (Dip) NEGATIVE (NEGATIVE); UR UROBILINOGEN (Dip) NEGATIVE (NEGATIVE)
[2016-12-12] MEDS: PANTOPRAZOLE (EC) 40 MG TAB PO SCH (06:50)
[2016-12-12 07:54] VITALS: BP 178/65; RESP 18
[2016-12-12] MEDS: INSULIN ASPART [NOVOLOG] 3 ML PEN SC SCH ×7 (08:12→20:55)
[2016-12-12 08:16] VITALS: BP 134/69; PULSE 80
[2016-12-12 08:34] LABS: BASOPHILS % 0.1 % (0.0-2.0); HEMATOCRIT 34.5 % (37.0-47.0); HEMOGLOBIN 11.1 g/dl (12.0-16.0); LYMPHOCYTES # 1.2 10^3/ul (0.8-2.9); LYMPHOCYTES % 11.9 % (15.0-51.0); MEAN CORPUSCULAR HEMOGLOBIN 25.6 pg (29.0-33.0); MEAN CORPUSCULAR HGB CONC 32.2 g/dl (32.0-37.0); MEAN CORPUSCULAR VOLUME 79.7 fl (82.0-101.0); MEAN PLATELET VOLUME 12.7 fl (7.4-10.4); MONOCYTE # 0.7 10^3/ul (0.3-0.9); MONOCYTES % 6.5 % (0.0-11.0); NEUTROPHILS % 80.8 % (39.0-77.0); PLATELET COUNT 223 10^3/UL (140-415); RED BLOOD COUNT 4.33 10^6/ul (4.20-5.40); RED CELL DISTRIBUTION WIDTH 15.4 % (11.5-14.5); WHITE BLOOD COUNT 10.4 10^3/ul (4.8-10.8)
[2016-12-12] MEDS: NPH, HUMAN INSULIN ISOPHANE 3ML VIAL SC SCH (08:37)
[2016-12-12 08:54] LABS: ALBUMIN 3.2 g/dl (3.3-4.9); ALBUMIN/GLOBULIN RATIO 1.03; BILIRUBIN,INDIRECT 0.1 mg/dl (0-1.1); BILIRUBIN,TOTAL 0.1 mg/dl (0.2-1.3); CALCIUM 9.1 mg/dl (8.4-10.2); CREATININE 0.89 mg/dl (0.44-1.00); POTASSIUM 4.6 mmol/L (3.5-5.1); TOTAL PROTEIN 6.3 g/dl (6.1-8.1)
[2016-12-12] MEDS: AMLODIPINE 10 MG TAB PO SCH (09:50)
[2016-12-12] MEDS: BENAZEPRIL 10 MG TAB PO SCH ×2 (09:50→20:55)
[2016-12-12] MEDS: ASPIRIN 81 MG TAB PO SCH (09:50)
[2016-12-12] MEDS: ISOSORBIDE DINITRATE 20 MG TAB PO SCH ×3 (09:51→20:54)
[2016-12-12] MEDS: QUETIAPINE 25 MG TAB PO SCH (09:56)
--- NOTE | 2016-12-12 12:36 | CONS ---
DATE OF ADMISSION: 12/11/2016 DATE OF CONSULTATION: 12/12/2016 This is a rehabilitation post admission physician evaluation. REHABILITATION IMPAIRMENT CATEGORY: Toxic metabolic encephalopathy. ACTIVE COMORBIDITIES: 1. Status post syncopal episode. 2. Acute kidney injury and dehydration. 3. Bronchitis. 4. Diabetes mellitus. 5. Hypertension. 6. Hyperlipidemia. 7. History of CVA. 8. Impairments in self-care, mobility and cognition. HISTORY OF PRESENT ILLNESS: The patient is a pleasant 81-year- old female with a history of multiple medical comorbidities, who was brought to the hospital for a syncopal episode. Patient reportedly was eating breakfast, complained of headache and weakness and was noted to have a syncopal episode. Head CT was negative for bleed. Workup did reveal dehydration, and patient also felt to likely have a component of encephalopathy with her increased confusion. Given the significant impairments in self- care, mobility and cognition as compared to baseline, patient has been cleared to transfer to the rehabilitation unit for comprehensive interdisciplinary rehab care. FUNCTIONAL HISTORY: Prior to recent events, she was independent in self-care tasks and mobility. Currently, she requires maximal assist for self-care mobility tasks. SOCIAL HISTORY: Patient reportedly lives at home and hopes to return there upon discharge. PAST MEDICAL HISTORY: 1. Hypertension. 2. Diabetes mellitus. 3. History of CVA. 4. Hyperlipidemia. 5. Remote history of ischemic colitis. MEDICATION: 1. Albuterol inhaler. 2. Norvasc 10 mg p.o. q.day. 3. Aspirin 81 mg p.o. q.day. 4. Lipitor 20 mg p.o. at bedtime. 5. Lotensin 10 mg p.o. b.i.d. 6. Insulin sliding scale. 7. NovoLog 8 units subcu with meals. 8. Lantus 30 units subcu q.day. 9. Isordil 40 mg p.o. t.i.d. 10. Levalbuterol inhaler. 11. Levofloxacin IV. 12. Solu-Medrol 10 mg IV b.i.d. 13. Humulin N 18 units subcu b.i.d. 14. Protonix 40 mg p.o. q.day. ALLERGIES: PATIENT WITH NO KNOWN DRUG ALLERGIES. PHYSICAL EXAMINATION: VITAL SIGNS: Patient is currently afebrile with stable vital signs. HEENT: Extraocular motions appear intact. Oropharynx clear. NECK: Supple. LUNGS: Clear anteriorly. HEART: S1, S2. ABDOMEN: Soft, nontender. Positive bowel sounds. NEUROLOGICALLY: She is awake. She is oriented to person. She will follow simple one-step commands. She seems to have a delayed thought processing speech. She demonstrates antigravity strength in the left upper extremity. Decreased shoulder forward flexion and abduction on the right upper extremity. Antigravity strength in bilateral lower extremities. PLAN: The patient has been admitted for comprehensive interdisciplinary acute rehab and is anticipated to tolerate 3 hours of daily therapy in divided doses for at least 5/7 days a week. The treatment plan will include: 1. Physical therapy to focus on bed mobility, transfers and household ambulation with goal of having patient reach a standby assist level. 2. Occupational therapy to focus on hygiene, grooming, dressing, bathing and toileting activities with goal to have patient reach standby assist level. 3. Speech therapy for full cognitive assessment and retraining with the goal of having patient return to baseline cognition. 4. Rehabilitation nursing for carry over of therapeutic interventions. The goal of continent to bowel, bladder, and the goal of pain adequately managed on oral medications. ESTIMATED LENGTH OF STAY: 14 days. DISPOSITION GOAL: Home with family. REHABILITATION BARRIER: Pain. INTERVENTION FOR BARRIER: Comprehensive interdisciplinary approach. I acknowledged I performed a full physical examination on this patient within 24 hours of admission to the rehabilitation unit and believe the patient is a good candidate for comprehensive interdisciplinary rehab care and is anticipated to make reasonable goals in a reasonable period of time as outlined above. Dictated By: Cande Omer MD /nano/shai /Document#: [id number]
--- NOTE | 2016-12-12 15:10 | CONS ---
Date/Time of Note Date/Time of Note DATE: 12/12/16 TIME: 15:07 Assessment/Plan Assessment/Plan Chief Complaint/Hosp Course IMPRESSION: 1. Chest pain.-negative trop x 3/NL EF by echo. NO ischemia. NL EF by lexiscan 2. Presyncope.- no sig arrythmia by tele monitoring 3. Hypotension on admit-now improved with HTN 4. Electrocardiogram with lateral T-wave inversion-negative trop x 3 5. Generalized weakness. 6. Diabetes mellitus. 7. Prerenal azotemia. Rec: -Now transferred to Rehab -Continue norvasc/benazepril/isordil -Continue asa/statin -Continue prednisilone -Follow volume status closely Problems: Consultation Date/Type/Reason Admit Date/Time Dec 11, 2016 at 20:00 Initial Consult Date 12/11/2016 Type of Consultation: cardiology Reason for Consultation chest pain Referring Provider: DEBBI SARABIA MD Exam/Review of Systems Vital Signs Vitals Vital Signs Date Time Temp Pulse Resp B/P Pulse Ox O2 Delivery O2 Flow Rate FiO2 12/12/16 08:16 80 134/69 12/12/16 08:00 2.0 12/12/16 07:54 98.1 18 96 12/12/16 01:56 Nasal Cannula Intake and Output 12/11/16 12/11/16 12/12/16 15:00 23:00 07:00 Intake Total 300 ml Output Total 300 ml Balance 0 ml Exam Review of Systems: CONSTITUTIONAL: No fevers, chills. PULMONARY: No sob CARDIOVASCULAR: No chest pain/palpitations GASTROINTESTINAL: No nausea/vomiting. GENITOURINARY: No hematuria/dysuria. MUSCULOSKELETAL: No myagias/arthalgias. PSYCHIATRIC: The patient denies depression. NEUROLOGIC: No weakness Constitutional: alert Psych: no complaints Head: normocephalic ENMT: mucosa pink and moist Neck: jvd, supple Respiratory: diminished breath sounds Cardiovascular: regular rate and rhythm Gastrointestinal: non-tender, soft Musculoskeletal: muscle weakness (generalized) Extremities: normal pulses, other (none) Results Result Diagram: 12/12/16 0642 12/12/16 0642 Results 24 hrs Laboratory Tests Test 12/11/16 23:10 12/12/16 02:06 12/12/16 02:30 12/12/16 06:42 Bedside Glucose 193 190 Urine Color STRAW Urine Clarity CLEAR Urine pH 7.0 Urine Specific [place] 1.012 Urine Ketones NEGATIVE Urine Nitrite NEGATIVE Urine Bilirubin NEGATIVE Urine Urobilinogen NEGATIVE Urine Leukocyte Esterase NEGATIVE Urine Hemoglobin NEGATIVE Urine Glucose 1+ H Urine Total Protein NEGATIVE White Blood Count 10.4 Red Blood Count 4.33 Hemoglobin 11.1 L Hematocrit 34.5 L Mean Corpuscular Volume 79.7 L Mean Corpuscular Hemoglobin 25.6 L Mean Corpuscular Hemoglobin Concent 32.2 Red Cell Distribution Width 15.4 H Platelet Count 223 Mean Platelet Volume 12.7 H Neutrophils % 80.8 H Lymphocytes % 11.9 L Monocytes % 6.5 Eosinophils % 0.0 Basophils % 0.1 Nucleated Red Blood Cells % 0.0 Neutrophils # (Manual) 8.4 H Lymphocytes # 1.2 Monocytes # 0.7 Eosinophils # 0.0 Basophils # 0.0 Nucleated Red Blood Cells # 0.0 Sodium Level 137 Potassium Level 4.6 Chloride Level 101 Carbon Dioxide Level 30 Anion Gap 11 Blood Urea Nitrogen 41 H Creatinine 0.89 Glucose Level 154 # Calcium Level 9.1 Total Bilirubin 0.1 L Direct Bilirubin 0.00 Indirect Bilirubin 0.1 Aspartate Amino Transf (AST/SGOT) 20 Alanine Aminotransferase (ALT/SGPT) 27 Alkaline Phosphatase 91 Total Protein 6.3 Albumin 3.2 L Globulin 3.10 Albumin/Globulin Ratio 1.03 Test 12/12/16 08:08 12/12/16 12:25 Bedside Glucose 141 273 H Medications Medications Current Medications Aspirin (Aspirin) 81 mg DAILY PO Last administered on 12/12/16 09:50; Admin Dose 81 MG; Start 12/11/16 at 22:20 Pantoprazole (Protonix Tab) 40 mg DAILY@06 PO Last administered on 12/12/16 06: 50; Admin Dose 40 MG; Start 12/11/16 at 22:20 Nitroglycerin (Nitroglycerin (Sl Tab) 0.4 Mg) 1 tab Q5M PRN SL ANGINA; Start at 22:20 Miscellaneous Information 1 ea NOTE XX ; Start 12/11/16 at 22:20 Glucose (Glutose) 15 gm Q15M PRN PO DECREASED GLUCOSE; Start 12/11/16 at 22:20 Glucose (Glutose) 22.5 gm Q15M PRN PO DECREASED GLUCOSE; Start 12/11/16 at 22: 20 Dextrose (D50w Syringe) 25 ml Q15M PRN IV DECREASED GLUCOSE; Start 12/11/16 at 22:20 Dextrose (D50w Syringe) 50 ml Q15M PRN IV DECREASED GLUCOSE; Start 12/11/16 at 22:20 Glucagon (Glucagen) 1 mg Q15M PRN IM DECREASED GLUCOSE; Start 12/11/16 at 22:20 Glucose (Glutose) 15 gm Q15M PRN BUCCAL DECREASED GLUCOSE; Start 12/11/16 at 22 :20 Amlodipine Besylate (Norvasc) 10 mg DAILY PO Last administered on 12/12/16 09: 50; Admin Dose 10 MG; Start 12/11/16 at 22:20 Quetiapine Fumarate (Seroquel) 25 mg DAILY PO Last administered on 12/12/16 09: 56; Admin Dose 25 MG; Start 12/11/16 at 22:20 Diagnostic Test (Pha) (Accu-Chek) 1 ea 02 XX Last administered on 12/12/16 02: 07; Admin Dose 1 EA; Start 12/11/16 at 22:20 Magnesium Hydroxide (Milk Of Mag) 30 ml BID PRN PO CONSTIPATION; Start at 22:20 Bisacodyl (Dulcolax Supp) 10 mg DAILY PRN [place] CONSTIPATION; Start 12/11/16 at 22 :20 Atorvastatin Calcium (Lipitor) 20 mg QHS PO Last administered on 12/11/16 23: 06; Admin Dose 20 MG; Start 12/11/16 at 23:10 Benazepril HCl (Lotensin) 10 mg BID PO Last administered on 12/12/16 09:50; Admin Dose 10 MG; Start 12/11/16 at 23:03 Isosorbide Dinitrate (Isordil) 40 mg TID PO Last administered on 12/12/16 13:00 ; Admin Dose 40 MG; Start 12/11/16 at 23:03 Insulin Human NPH (Humulin N) 18 unit BID@08,20 SC Last administered on 08:37; Admin Dose 18 UNIT; Start 12/11/16 at 23:03 Insulin Glargine (Lantus) 36 unit DAILY@08 SC ; Start 12/13/16 at 08:00 Prednisolone (Prelone) 20 mg AM PO ; Start 12/13/16 at 09:00 ROSALINDA JARVIS Dec 12, 2016 15:10
--- NOTE | 2016-12-12 19:57 | PN ---
Date/Time of Note Date/Time of Note DATE: 12/12/16 TIME: 19:56 Assessment/Plan VTE Prophylaxis VTE Prophylaxis Intervention: other Lines/Catheters [facility] Saline Lock Assessment/Plan Assessment/Plan - Acute bronchitis, continue Levaquin, steroids. - Near syncopal episode. Acute coronary syndrome ruled out. cardiac enzymes is negative 3. Dr. Bhagat is following and cardiology consultation. - Rule out transient ischemic attack in patient with history of stroke. Continue aspirin. MRI is negative. Dr. Rios is following in a neurology consultation. - Diabetes mellitus type 2. Hemoglobin A1c is 9.6. Continue Lantus and NovoLog. - Hypertension. Continue Lotensin and Norvasc. - Acute kidney injury secondary to dehydration, resolved. Further recommendations based on clinical course. Plan of care discussed with Dr. Hadley. Subjective 24 Hr Interval Summary Free Text/Dictation afebrile, tarah PT.DW STAFF Constitutional: improved Respiratory: no complaints Cardiovascular: no complaints Gastrointestinal: no complaints Genitourinary: no complaints Exam/Review of Systems Vital Signs Vitals Vital Signs Date Time Temp Pulse Resp B/P Pulse Ox O2 Delivery O2 Flow Rate FiO2 12/12/16 19:52 2.0 12/12/16 08:16 80 134/69 12/12/16 07:54 98.1 18 96 12/12/16 01:56 Nasal Cannula Intake and Output 12/11/16 12/11/16 12/12/16 14:59 22:59 06:59 Intake Total 300 ml Output Total 300 ml Balance 0 ml Exam Constitutional: alert, well developed Psych: nl mood/affect Gastrointestinal: non-tender, soft Musculoskeletal: nl extremities to inspection Extremities: normal pulses Neurological: nl mental status, nl speech Results Result Diagram: 12/12/16 0642 12/12/16 0642 Results 24 hrs Laboratory Tests Test 12/11/16 23:10 12/12/16 02:06 12/12/16 02:30 12/12/16 06:42 Bedside Glucose 193 190 Urine Color STRAW Urine Clarity CLEAR Urine pH 7.0 Urine Specific [place] 1.012 Urine Ketones NEGATIVE Urine Nitrite NEGATIVE Urine Bilirubin NEGATIVE Urine Urobilinogen NEGATIVE Urine Leukocyte Esterase NEGATIVE Urine Hemoglobin NEGATIVE Urine Glucose 1+ H Urine Total Protein NEGATIVE White Blood Count 10.4 Red Blood Count 4.33 Hemoglobin 11.1 L Hematocrit 34.5 L Mean Corpuscular Volume 79.7 L Mean Corpuscular Hemoglobin 25.6 L Mean Corpuscular Hemoglobin Concent 32.2 Red Cell Distribution Width 15.4 H Platelet Count 223 Mean Platelet Volume 12.7 H Neutrophils % 80.8 H Lymphocytes % 11.9 L Monocytes % 6.5 Eosinophils % 0.0 Basophils % 0.1 Nucleated Red Blood Cells % 0.0 Neutrophils # (Manual) 8.4 H Lymphocytes # 1.2 Monocytes # 0.7 Eosinophils # 0.0 Basophils # 0.0 Nucleated Red Blood Cells # 0.0 Sodium Level 137 Potassium Level 4.6 Chloride Level 101 Carbon Dioxide Level 30 Anion Gap 11 Blood Urea Nitrogen 41 H Creatinine 0.89 Glucose Level 154 # Calcium Level 9.1 Total Bilirubin 0.1 L Direct Bilirubin 0.00 Indirect Bilirubin 0.1 Aspartate Amino Transf (AST/SGOT) 20 Alanine Aminotransferase (ALT/SGPT) 27 Alkaline Phosphatase 91 Total Protein 6.3 Albumin 3.2 L Globulin 3.10 Albumin/Globulin Ratio 1.03 Test 12/12/16 08:08 12/12/16 12:25 12/12/16 17:24 Bedside Glucose 141 273 H 75 Medications Medications Current Medications Aspirin (Aspirin) 81 mg DAILY PO Last administered on 12/12/16 09:50; Admin Dose 81 MG; Start 12/11/16 at 22:20 Pantoprazole (Protonix Tab) 40 mg DAILY@06 PO Last administered on 12/12/16 06: 50; Admin Dose 40 MG; Start 12/11/16 at 22:20 Nitroglycerin (Nitroglycerin (Sl Tab) 0.4 Mg) 1 tab Q5M PRN SL ANGINA; Start at 22:20 Miscellaneous Information 1 ea NOTE XX ; Start 12/11/16 at 22:20 Glucose (Glutose) 15 gm Q15M PRN PO DECREASED GLUCOSE; Start 12/11/16 at 22:20 Glucose (Glutose) 22.5 gm Q15M PRN PO DECREASED GLUCOSE; Start 12/11/16 at 22: 20 Dextrose (D50w Syringe) 25 ml Q15M PRN IV DECREASED GLUCOSE; Start 12/11/16 at 22:20 Dextrose (D50w Syringe) 50 ml Q15M PRN IV DECREASED GLUCOSE; Start 12/11/16 at 22:20 Glucagon (Glucagen) 1 mg Q15M PRN IM DECREASED GLUCOSE; Start 12/11/16 at 22:20 Glucose (Glutose) 15 gm Q15M PRN BUCCAL DECREASED GLUCOSE; Start 12/11/16 at 22 :20 Amlodipine Besylate (Norvasc) 10 mg DAILY PO Last administered on 12/12/16 09: 50; Admin Dose 10 MG; Start 12/11/16 at 22:20 Quetiapine Fumarate (Seroquel) 25 mg DAILY PO Last administered on 12/12/16 09: 56; Admin Dose 25 MG; Start 12/11/16 at 22:20 Diagnostic Test (Pha) (Accu-Chek) 1 ea 02 XX Last administered on 12/12/16 02: 07; Admin Dose 1 EA; Start 12/11/16 at 22:20 Magnesium Hydroxide (Milk Of Mag) 30 ml BID PRN PO CONSTIPATION; Start at 22:20 Bisacodyl (Dulcolax Supp) 10 mg DAILY PRN [place] CONSTIPATION; Start 12/11/16 at 22 :20 Atorvastatin Calcium (Lipitor) 20 mg QHS PO Last administered on 12/11/16 23: 06; Admin Dose 20 MG; Start 12/11/16 at 23:10 Benazepril HCl (Lotensin) 10 mg BID PO Last administered on 12/12/16 09:50; Admin Dose 10 MG; Start 12/11/16 at 23:03 Isosorbide Dinitrate (Isordil) 40 mg TID PO Last administered on 12/12/16 13:00 ; Admin Dose 40 MG; Start 12/11/16 at 23:03 Prednisolone (Prelone) 20 mg AM PO ; Start 12/13/16 at 09:00 Levofloxacin (Levaquin) 250 mg Q24H PO ; Start 12/12/16 at 21:00; Stop 12/16/16 at 21:01 Insulin Glargine (Lantus) 30 unit DAILY@08 SC ; Start 12/13/16 at 08:00 TAMERA HANKINS Dec 12, 2016 19:57
[2016-12-12 20:00] VITALS: BP 108/62; RESP 18
[2016-12-12] MEDS: GLUCOSE GEL 15 GRAM TUBE PO PRN ×2 (20:50→21:11)
[2016-12-12] MEDS: LEVOFLOXACIN 250 MG TAB PO SCH (20:54)
[2016-12-12] MEDS: ATORVASTATIN 20 MG TAB PO SCH (20:55)
[2016-12-13] VITALS (11 sets, daily range): BP systolic 77–135; BP diastolic 51–85; PULSE 68–94; RESP 16–20
[2016-12-13] MEDS: ALBUTEROL/IPRATROPIUM (NEB) 3 ML AMP HHN SCH ×4 (01:48→20:35)
[2016-12-13] MEDS: ACCU-CHEK XX SCH (02:04)
[2016-12-13] MEDS: PANTOPRAZOLE (EC) 40 MG TAB PO SCH (06:24)
[2016-12-13] MEDS: INSULIN ASPART [NOVOLOG] 3 ML PEN SC SCH ×7 (07:35→20:45)
[2016-12-13] MEDS ORDERED: INSULIN GLARGINE [LANtus] 3 ML PEN SC SCH ×3 (08:00)
[2016-12-13] MEDS: QUETIAPINE 25 MG TAB PO SCH (08:28)
[2016-12-13] MEDS: AMLODIPINE 10 MG TAB PO SCH (08:28)
[2016-12-13] MEDS: ASPIRIN 81 MG TAB PO SCH (08:28)
[2016-12-13] MEDS: ISOSORBIDE DINITRATE 20 MG TAB PO SCH ×2 (08:29→12:38)
[2016-12-13] MEDS: BENAZEPRIL 10 MG TAB PO SCH ×2 (08:29→20:41)
[2016-12-13] MEDS: INSULIN GLARGINE [LANtus] 3 ML PEN SC SCH (08:44)
[2016-12-13] MEDS ORDERED: predniSOLONE (3 MG/ML) CUP PO SCH (09:00)
[2016-12-13] MEDS: predniSOLONE (3 MG/ML) CUP PO SCH (10:00)
--- NOTE | 2016-12-13 11:19 | CONS ---
Date/Time of Note Date/Time of Note DATE: 12/13/16 TIME: 11:19 Consult Date/Type/Reason Admit Date/Time Dec 11, 2016 at 20:00 Initial Consult Date Type of Consultation: cardiology Ordering Provider: DEBBI SARABIA MD Subjective Comfortable Objective pulm-cta max assist Vital Signs Date Time Temp Pulse Resp B/P Pulse Ox O2 Delivery O2 Flow Rate FiO2 12/13/16 09:50 88 16 103/51 95 Nasal Cannula 2.0 12/13/16 08:46 98.4 12/13/16 01:48 28 Intake and Output 12/12/16 12/12/16 12/13/16 15:00 23:00 07:00 Intake Total 720 ml 930 ml Balance 720 ml 930 ml Results/Medications Result Diagram: 12/12/16 0642 12/12/16 0642 Results 24 hrs Laboratory Tests Test 12/12/16 12:25 12/12/16 17:24 12/12/16 20:48 12/12/16 21:06 Bedside Glucose 273 H 75 40 *L 48 *L Test 12/12/16 21:30 12/12/16 21:57 12/12/16 21:59 12/12/16 22:34 Bedside Glucose 75 67 L 66 L 78 Test 12/12/16 23:17 12/12/16 23:51 12/13/16 07:55 12/13/16 08:11 Bedside Glucose 127 156 38 *L 55 L Test 12/13/16 08:25 12/13/16 08:36 12/13/16 09:56 Bedside Glucose 77 100 136 Medications Current Medications Aspirin (Aspirin) 81 mg DAILY PO Last administered on 12/13/16 08:28; Admin Dose 81 MG; Start 12/11/16 at 22:20 Pantoprazole (Protonix Tab) 40 mg DAILY@06 PO Last administered on 12/13/16 06: 24; Admin Dose 40 MG; Start 12/11/16 at 22:20 Nitroglycerin (Nitroglycerin (Sl Tab) 0.4 Mg) 1 tab Q5M PRN SL ANGINA; Start at 22:20 Miscellaneous Information 1 ea NOTE XX ; Start 12/11/16 at 22:20 Glucose (Glutose) 15 gm Q15M PRN PO DECREASED GLUCOSE Last administered on 08:00; Admin Dose 15 GM; Start 12/11/16 at 22:20 Glucose (Glutose) 22.5 gm Q15M PRN PO DECREASED GLUCOSE Last administered on 21:11; Admin Dose 22.5 GM; Start 12/11/16 at 22:20 Dextrose (D50w Syringe) 25 ml Q15M PRN IV DECREASED GLUCOSE; Start 12/11/16 at 22:20 Dextrose (D50w Syringe) 50 ml Q15M PRN IV DECREASED GLUCOSE; Start 12/11/16 at 22:20 Glucagon (Glucagen) 1 mg Q15M PRN IM DECREASED GLUCOSE; Start 12/11/16 at 22:20 Glucose (Glutose) 15 gm Q15M PRN BUCCAL DECREASED GLUCOSE Last administered on 12/12/16 22:06; Admin Dose 15 GM; Start 12/11/16 at 22:20 Amlodipine Besylate (Norvasc) 10 mg DAILY PO Last administered on 12/13/16 08: 28; Admin Dose 10 MG; Start 12/11/16 at 22:20 Quetiapine Fumarate (Seroquel) 25 mg DAILY PO Last administered on 12/13/16 08: 28; Admin Dose 25 MG; Start 12/11/16 at 22:20 Diagnostic Test (Pha) (Accu-Chek) 1 ea 02 XX Last administered on 12/13/16 02: 04; Admin Dose 1 EA; Start 12/11/16 at 22:20 Magnesium Hydroxide (Milk Of Mag) 30 ml BID PRN PO CONSTIPATION; Start at 22:20 Bisacodyl (Dulcolax Supp) 10 mg DAILY PRN [place] CONSTIPATION; Start 12/11/16 at 22 :20 Atorvastatin Calcium (Lipitor) 20 mg QHS PO Last administered on 12/12/16 20:55 ; Admin Dose 20 MG; Start 12/11/16 at 23:10 Benazepril HCl (Lotensin) 10 mg BID PO Last administered on 12/13/16 08:29; Admin Dose 10 MG; Start 12/11/16 at 23:03 Isosorbide Dinitrate (Isordil) 40 mg TID PO Last administered on 12/13/16 08:29 ; Admin Dose 40 MG; Start 12/11/16 at 23:03 Levofloxacin (Levaquin) 250 mg Q24H PO Last administered on 12/12/16 20:54; Admin Dose 250 MG; Start 12/12/16 at 21:00; Stop 12/16/16 at 21:01 Prednisolone (Prelone) 20 mg AM PO Last administered on 12/13/16 10:00; Admin Dose 20 MG; Start 12/13/16 at 09:00 Insulin Glargine (Lantus) 15 unit DAILY@08 SC Last administered on 12/13/16 08: 44; Admin Dose 15 UNIT; Start 12/13/16 at 09:00 Assessment/Plan Additional Assessment/Plan Rehab- Toxic metabolic encephalopathy. Continue rehab program Status post syncopal episode. Acute kidney injury and dehydration. Bronchitis. Diabetes mellitus. Hypertension. Hyperlipidemia. History of CVA. SLIM WILSON MD Dec 13, 2016 11:19
--- NOTE | 2016-12-13 11:37 | PN ---
Date/Time of Note Date/Time of Note DATE: 12/13/16 TIME: 11:36 Assessment/Plan VTE Prophylaxis VTE Prophylaxis Intervention: other Lines/Catheters [facility] (from [facility]): Saline Lock Assessment/Plan Chief Complaint/Hosp Course - Acute bronchitis, continue Levaquin, steroids. - Near syncopal episode. Acute coronary syndrome ruled out. cardiac enzymes is negative 3. Dr. Bhagat is following and cardiology consultation. - Rule out transient ischemic attack in patient with history of stroke. Continue aspirin. MRI is negative. Dr. Rios is following in a neurology consultation. - Diabetes mellitus type 2. Hemoglobin A1c is 9.6. Continue Lantus and NovoLog. - Hypertension. Continue Lotensin and Norvasc. - Acute kidney injury secondary to dehydration, resolved. Problems: Subjective 24 Hr Interval Summary Free Text/Dictation Patient felt dizziness after physical therapy. Blood pressure was high and medications caused hypotension, currently stable Exam/Review of Systems Vital Signs Vitals Vital Signs Date Time Temp Pulse Resp B/P Pulse Ox O2 Delivery O2 Flow Rate FiO2 12/13/16 09:50 88 16 103/51 95 Nasal Cannula 2.0 12/13/16 08:46 98.4 12/13/16 01:48 28 Intake and Output 12/12/16 12/12/16 12/13/16 14:59 22:59 06:59 Intake Total 720 ml 930 ml Balance 720 ml 930 ml Exam Constitutional: well developed Head: atraumatic, normocephalic Neck: supple Cardiovascular: regular rate and rhythm Gastrointestinal: non-tender, soft Extremities: normal pulses Results Result Diagram: 12/12/16 0642 12/12/16 0642 Results 24 hrs Laboratory Tests Test 12/12/16 12:25 12/12/16 17:24 12/12/16 20:48 12/12/16 21:06 Bedside Glucose 273 H 75 40 *L 48 *L Test 12/12/16 21:30 12/12/16 21:57 12/12/16 21:59 12/12/16 22:34 Bedside Glucose 75 67 L 66 L 78 Test 12/12/16 23:17 12/12/16 23:51 12/13/16 07:55 12/13/16 08:11 Bedside Glucose 127 156 38 *L 55 L Test 12/13/16 08:25 12/13/16 08:36 12/13/16 09:56 Bedside Glucose 77 100 136 Medications Medications Current Medications Aspirin (Aspirin) 81 mg DAILY PO Last administered on 12/13/16 08:28; Admin Dose 81 MG; Start 12/11/16 at 22:20 Pantoprazole (Protonix Tab) 40 mg DAILY@06 PO Last administered on 12/13/16 06: 24; Admin Dose 40 MG; Start 12/11/16 at 22:20 Nitroglycerin (Nitroglycerin (Sl Tab) 0.4 Mg) 1 tab Q5M PRN SL ANGINA; Start at 22:20 Miscellaneous Information 1 ea NOTE XX ; Start 12/11/16 at 22:20 Glucose (Glutose) 15 gm Q15M PRN PO DECREASED GLUCOSE Last administered on 08:00; Admin Dose 15 GM; Start 12/11/16 at 22:20 Glucose (Glutose) 22.5 gm Q15M PRN PO DECREASED GLUCOSE Last administered on 21:11; Admin Dose 22.5 GM; Start 12/11/16 at 22:20 Dextrose (D50w Syringe) 25 ml Q15M PRN IV DECREASED GLUCOSE; Start 12/11/16 at 22:20 Dextrose (D50w Syringe) 50 ml Q15M PRN IV DECREASED GLUCOSE; Start 12/11/16 at 22:20 Glucagon (Glucagen) 1 mg Q15M PRN IM DECREASED GLUCOSE; Start 12/11/16 at 22:20 Glucose (Glutose) 15 gm Q15M PRN BUCCAL DECREASED GLUCOSE Last administered on 12/12/16 22:06; Admin Dose 15 GM; Start 12/11/16 at 22:20 Amlodipine Besylate (Norvasc) 10 mg DAILY PO Last administered on 12/13/16 08: 28; Admin Dose 10 MG; Start 12/11/16 at 22:20 Quetiapine Fumarate (Seroquel) 25 mg DAILY PO Last administered on 12/13/16 08: 28; Admin Dose 25 MG; Start 12/11/16 at 22:20 Diagnostic Test (Pha) (Accu-Chek) 1 ea 02 XX Last administered on 12/13/16 02: 04; Admin Dose 1 EA; Start 12/11/16 at 22:20 Magnesium Hydroxide (Milk Of Mag) 30 ml BID PRN PO CONSTIPATION; Start at 22:20 Bisacodyl (Dulcolax Supp) 10 mg DAILY PRN [place] CONSTIPATION; Start 12/11/16 at 22 :20 Atorvastatin Calcium (Lipitor) 20 mg QHS PO Last administered on 12/12/16 20:55 ; Admin Dose 20 MG; Start 12/11/16 at 23:10 Benazepril HCl (Lotensin) 10 mg BID PO Last administered on 12/13/16 08:29; Admin Dose 10 MG; Start 12/11/16 at 23:03 Isosorbide Dinitrate (Isordil) 40 mg TID PO Last administered on 12/13/16 08:29 ; Admin Dose 40 MG; Start 12/11/16 at 23:03 Levofloxacin (Levaquin) 250 mg Q24H PO Last administered on 12/12/16 20:54; Admin Dose 250 MG; Start 12/12/16 at 21:00; Stop 12/16/16 at 21:01 Prednisolone (Prelone) 20 mg AM PO Last administered on 12/13/16 10:00; Admin Dose 20 MG; Start 12/13/16 at 09:00 Insulin Glargine (Lantus) 15 unit DAILY@08 SC Last administered on 12/13/16 08: 44; Admin Dose 15 UNIT; Start 12/13/16 at 09:00 FACUNDO WHITEHEAD Dec 13, 2016 11:37
[2016-12-13] MEDS: MAGNESIUM HYDROXIDE 30ML CUP PO PRN (17:46)
[2016-12-13] MEDS: ATORVASTATIN 20 MG TAB PO SCH (20:40)
[2016-12-13] MEDS: LEVOFLOXACIN 250 MG TAB PO SCH (20:40)
[2016-12-14] MEDS: ALBUTEROL/IPRATROPIUM (NEB) 3 ML AMP HHN SCH ×4 (01:55→20:35)
[2016-12-14 02:00] VITALS: BP 128/65; RESP 18
[2016-12-14] MEDS: ACCU-CHEK XX SCH (02:15)
[2016-12-14] MEDS: PANTOPRAZOLE (EC) 40 MG TAB PO SCH (06:25)
[2016-12-14 07:30] VITALS: BP 145/64; RESP 20
[2016-12-14] MEDS: BENAZEPRIL 10 MG TAB PO SCH ×2 (08:11→21:35)
[2016-12-14] MEDS: predniSOLONE (3 MG/ML) CUP PO SCH (08:11)
[2016-12-14] MEDS: ASPIRIN 81 MG TAB PO SCH (08:12)
[2016-12-14] MEDS: QUETIAPINE 25 MG TAB PO SCH (08:12)
[2016-12-14] MEDS: INSULIN ASPART [NOVOLOG] 3 ML PEN SC SCH ×8 (08:13→22:39)
[2016-12-14] MEDS: INSULIN GLARGINE [LANtus] 3 ML PEN SC SCH (08:16)
[2016-12-14 08:23] VITALS: BP 137/53; PULSE 92; RESP 16
[2016-12-14 10:37] VITALS: BP 142/73; PULSE 100; RESP 16
[2016-12-14] MEDS ORDERED: AMLODIPINE 10 MG TAB ONE (12:18)
--- NOTE | 2016-12-14 12:26 | PN ---
Date/Time of Note Date/Time of Note DATE: 12/14/16 TIME: 12:25 Assessment/Plan VTE Prophylaxis VTE Prophylaxis Intervention: other Lines/Catheters [facility] Saline Lock Urinary Cath still in place: No Assessment/Plan Chief Complaint/Hosp Course - Acute bronchitis, continue Levaquin, steroids. - Near syncopal episode. Acute coronary syndrome ruled out. cardiac enzymes is negative 3. Dr. Bhagat is following and cardiology consultation. - Rule out transient ischemic attack in patient with history of stroke. Continue aspirin. MRI is negative. Dr. Rios is following in a neurology consultation. - Diabetes mellitus type 2. Hemoglobin A1c is 9.6. Continue Lantus and NovoLog. - Hypertension. Continue Lotensin and Norvasc. - Acute kidney injury secondary to dehydration, resolved. Problems: Subjective 24 Hr Interval Summary Free Text/Dictation Patient feeling better, blood pressure also doing better Exam/Review of Systems Vital Signs Vitals Vital Signs Date Time Temp Pulse Resp B/P Pulse Ox O2 Delivery O2 Flow Rate FiO2 12/14/16 10:37 100 16 142/73 93 Nasal Cannula 2.0 12/14/16 07:30 98.5 12/14/16 01:55 35 Intake and Output 12/13/16 12/13/16 12/14/16 15:00 23:00 07:00 Intake Total 1070 ml 860 ml Balance 1070 ml 860 ml Exam Constitutional: well developed Head: atraumatic, normocephalic Neck: supple Respiratory: clear to auscultation Cardiovascular: regular rate and rhythm Gastrointestinal: non-tender, soft Extremities: normal pulses Results Result Diagram: 12/12/16 0642 12/12/16 0642 Results 24 hrs Laboratory Tests Test 12/13/16 17:01 12/13/16 20:38 12/14/16 02:06 12/14/16 07:55 Bedside Glucose 314 H 343 H 334 H 199 Test 12/14/16 11:51 Bedside Glucose 295 H Medications Medications Current Medications Aspirin (Aspirin) 81 mg DAILY PO Last administered on 12/14/16 08:12; Admin Dose 81 MG; Start 12/11/16 at 22:20 Pantoprazole (Protonix Tab) 40 mg DAILY@06 PO Last administered on 12/14/16 06: 25; Admin Dose 40 MG; Start 12/11/16 at 22:20 Nitroglycerin (Nitroglycerin (Sl Tab) 0.4 Mg) 1 tab Q5M PRN SL ANGINA; Start at 22:20 Miscellaneous Information 1 ea NOTE XX ; Start 12/11/16 at 22:20 Glucose (Glutose) 15 gm Q15M PRN PO DECREASED GLUCOSE Last administered on 08:00; Admin Dose 15 GM; Start 12/11/16 at 22:20 Glucose (Glutose) 22.5 gm Q15M PRN PO DECREASED GLUCOSE Last administered on 21:11; Admin Dose 22.5 GM; Start 12/11/16 at 22:20 Dextrose (D50w Syringe) 25 ml Q15M PRN IV DECREASED GLUCOSE; Start 12/11/16 at 22:20 Dextrose (D50w Syringe) 50 ml Q15M PRN IV DECREASED GLUCOSE; Start 12/11/16 at 22:20 Glucagon (Glucagen) 1 mg Q15M PRN IM DECREASED GLUCOSE; Start 12/11/16 at 22:20 Glucose (Glutose) 15 gm Q15M PRN BUCCAL DECREASED GLUCOSE Last administered on 12/12/16 22:06; Admin Dose 15 GM; Start 12/11/16 at 22:20 Quetiapine Fumarate (Seroquel) 25 mg DAILY PO Last administered on 12/14/16 08: 12; Admin Dose 25 MG; Start 12/11/16 at 22:20 Diagnostic Test (Pha) (Accu-Chek) 1 ea 02 XX Last administered on 12/14/16 02: 15; Admin Dose 1 EA; Start 12/11/16 at 22:20 Magnesium Hydroxide (Milk Of Mag) 30 ml BID PRN PO CONSTIPATION Last administered on 12/13/16 17:46; Admin Dose 30 ML; Start 12/11/16 at 22:20 Bisacodyl (Dulcolax Supp) 10 mg DAILY PRN [place] CONSTIPATION; Start 12/11/16 at 22 :20 Atorvastatin Calcium (Lipitor) 20 mg QHS PO Last administered on 12/13/16 20:40 ; Admin Dose 20 MG; Start 12/11/16 at 23:10 Benazepril HCl (Lotensin) 10 mg BID PO Last administered on 12/14/16 08:11; Admin Dose 10 MG; Start 12/11/16 at 23:03 Levofloxacin (Levaquin) 250 mg Q24H PO Last administered on 12/13/16 20:40; Admin Dose 250 MG; Start 12/12/16 at 21:00; Stop 12/16/16 at 21:01 Prednisolone (Prelone) 20 mg AM PO Last administered on 12/14/16 08:11; Admin Dose 20 MG; Start 12/13/16 at 09:00 Insulin Glargine (Lantus) 15 unit DAILY@08 SC Last administered on 12/14/16 08: 16; Admin Dose 15 UNIT; Start 12/13/16 at 09:00 Amlodipine Besylate (Norvasc) 5 mg DAILY PO ; Start 12/15/16 at 09:00 Isosorbide Dinitrate (Isordil) 20 mg TID PO ; Start 12/14/16 at 13:00 FACUNDO WHITEHEAD Dec 14, 2016 12:26
[2016-12-14] MEDS: ISOSORBIDE DINITRATE 20 MG TAB PO SCH ×2 (12:38→21:34)
[2016-12-14] MEDS ORDERED: AMLODIPINE 5 MG TAB ONE (12:40)
[2016-12-14] MEDS: AMLODIPINE 5 MG TAB PO SCH (12:43)
[2016-12-14 12:45] VITALS: BP 154/68; PULSE 98; RESP 18
[2016-12-14 19:46] VITALS: BP 128/60; RESP 16
[2016-12-14] MEDS: ATORVASTATIN 20 MG TAB PO SCH (21:34)
[2016-12-14] MEDS: LEVOFLOXACIN 250 MG TAB PO SCH (21:34)
[2016-12-15] VITALS (9 sets, daily range): BP systolic 80–152; BP diastolic 47–71; PULSE 80–95; RESP 18–20
[2016-12-15] MEDS: ALBUTEROL/IPRATROPIUM (NEB) 3 ML AMP HHN SCH ×4 (01:21→19:52)
[2016-12-15] MEDS ORDERED: ACCU-CHEK XX SCH (02:00)
[2016-12-15] MEDS: ACCU-CHEK XX SCH ×2 (02:00)
[2016-12-15] MEDS: PANTOPRAZOLE (EC) 40 MG TAB PO SCH (06:43)
[2016-12-15] MEDS ORDERED: INSULIN ASPART [NOVOLOG] 3 ML PEN SC SCH ×2 (07:35→21:00)
[2016-12-15] MEDS: QUETIAPINE 25 MG TAB PO SCH (08:21)
[2016-12-15] MEDS: predniSOLONE (3 MG/ML) CUP PO SCH (08:21)
[2016-12-15] MEDS: INSULIN ASPART [NOVOLOG] 3 ML PEN SC SCH ×7 (08:23→22:09)
[2016-12-15] MEDS: INSULIN GLARGINE [LANtus] 3 ML PEN SC SCH (08:24)
[2016-12-15] MEDS: ASPIRIN 81 MG TAB PO SCH (08:26)
[2016-12-15] MEDS: AMLODIPINE 5 MG TAB PO SCH ×2 (08:31→14:00)
[2016-12-15] MEDS: BENAZEPRIL 10 MG TAB PO SCH ×2 (08:32→20:24)
[2016-12-15] MEDS: ISOSORBIDE DINITRATE 20 MG TAB PO SCH ×3 (08:32→20:23)
[2016-12-15] MEDS ORDERED: AMLODIPINE 5 MG TAB PO SCH (09:00)
--- NOTE | 2016-12-15 09:08 | CONS ---
Date/Time of Note Date/Time of Note DATE: 12/15/16 TIME: 09:06 Consult Date/Type/Reason Admit Date/Time Dec 11, 2016 at 20:00 Type of Consultation: cardiology Ordering Provider: DEBBI SARABIA MD Objective Vital Signs Date Time Temp Pulse Resp B/P Pulse Ox O2 Delivery O2 Flow Rate FiO2 12/15/16 02:14 98.4 76 18 121/60 94 12/15/16 01:25 2.0 12/15/16 01:25 21 12/14/16 20:38 Nasal Cannula Intake and Output 12/14/16 12/14/16 12/15/16 15:00 23:00 07:00 Intake Total 1170 ml 240 ml Output Total 0 ml Balance 1170 ml 240 ml INTERDISCIPLINARY TEAM CONFERENCE BOWEL- Cont BLADDER-incont SKIN- OT- DRESSING-max BATHING-max TOILETING-max PT- BED MOBILITY-max TRANSFERS-max AMBULATION-max SPEECH- COGNITION-mod DYPHAGIA- puree nectar A/P- Interdisciplinary team conference held today. Please see interdisciplinary sheet. Working toward d.c. on 12/25 with post discharge follow up of physical therapy, occupational therapy. Results/Medications Result Diagram: 12/12/16 0642 12/12/16 0642 Results 24 hrs Laboratory Tests Test 12/14/16 11:51 12/14/16 17:11 12/14/16 21:36 12/15/16 01:34 Bedside Glucose 295 H 253 H 303 H 191 Test 12/15/16 07:51 Bedside Glucose 199 Medications Current Medications Aspirin (Aspirin) 81 mg DAILY PO Last administered on 12/15/16 08:26; Admin Dose 81 MG; Start 12/11/16 at 22:20 Pantoprazole (Protonix Tab) 40 mg DAILY@06 PO Last administered on 12/15/16 06: 43; Admin Dose 40 MG; Start 12/11/16 at 22:20 Nitroglycerin (Nitroglycerin (Sl Tab) 0.4 Mg) 1 tab Q5M PRN SL ANGINA; Start at 22:20 Miscellaneous Information 1 ea NOTE XX ; Start 12/11/16 at 22:20 Glucose (Glutose) 15 gm Q15M PRN PO DECREASED GLUCOSE Last administered on 08:00; Admin Dose 15 GM; Start 12/11/16 at 22:20 Glucose (Glutose) 22.5 gm Q15M PRN PO DECREASED GLUCOSE Last administered on 21:11; Admin Dose 22.5 GM; Start 12/11/16 at 22:20 Dextrose (D50w Syringe) 25 ml Q15M PRN IV DECREASED GLUCOSE; Start 12/11/16 at 22:20 Dextrose (D50w Syringe) 50 ml Q15M PRN IV DECREASED GLUCOSE; Start 12/11/16 at 22:20 Glucagon (Glucagen) 1 mg Q15M PRN IM DECREASED GLUCOSE; Start 12/11/16 at 22:20 Glucose (Glutose) 15 gm Q15M PRN BUCCAL DECREASED GLUCOSE Last administered on 12/12/16 22:06; Admin Dose 15 GM; Start 12/11/16 at 22:20 Quetiapine Fumarate (Seroquel) 25 mg DAILY PO Last administered on 12/15/16 08: 21; Admin Dose 25 MG; Start 12/11/16 at 22:20 Diagnostic Test (Pha) (Accu-Chek) 1 ea 02 XX Last administered on 12/14/16 02: 15; Admin Dose 1 EA; Start 12/11/16 at 22:20 Magnesium Hydroxide (Milk Of Mag) 30 ml BID PRN PO CONSTIPATION Last administered on 12/13/16 17:46; Admin Dose 30 ML; Start 12/11/16 at 22:20 Bisacodyl (Dulcolax Supp) 10 mg DAILY PRN [place] CONSTIPATION; Start 12/11/16 at 22 :20 Atorvastatin Calcium (Lipitor) 20 mg QHS PO Last administered on 12/14/16 21:34 ; Admin Dose 20 MG; Start 12/11/16 at 23:10 Benazepril HCl (Lotensin) 10 mg BID PO Last administered on 12/15/16 08:32; Admin Dose 10 MG; Start 12/11/16 at 23:03 Levofloxacin (Levaquin) 250 mg Q24H PO Last administered on 12/14/16 21:34; Admin Dose 250 MG; Start 12/12/16 at 21:00; Stop 12/16/16 at 21:01 Prednisolone (Prelone) 20 mg AM PO Last administered on 12/15/16 08:21; Admin Dose 20 MG; Start 12/13/16 at 09:00 Insulin Glargine (Lantus) 15 unit DAILY@08 SC Last administered on 12/15/16 08: 24; Admin Dose 15 UNIT; Start 12/13/16 at 09:00 Isosorbide Dinitrate (Isordil) 20 mg TID PO Last administered on 12/15/16 08:32 ; Admin Dose 20 MG; Start 12/14/16 at 13:00 Amlodipine Besylate (Norvasc) 5 mg DAILY PO Last administered on 12/15/16 08:31 ; Admin Dose 5 MG; Start 12/14/16 at 13:00 Diagnostic Test (Pha) (Accu-Chek) 1 ea 02 XX ; Start 12/15/16 at 02:00 Diagnostic Test (Pha) (Accu-Chek) 1 ea 02 XX ; Start 12/15/16 at 02:00 SLIM WILSON MD Dec 15, 2016 09:08
--- NOTE | 2016-12-15 11:36 | PN ---
Date/Time of Note Date/Time of Note DATE: 12/15/16 TIME: 11:36 Assessment/Plan VTE Prophylaxis VTE Prophylaxis Intervention: other Lines/Catheters IV [facility] Urinary Cath still in place: No Assessment/Plan Chief Complaint/Hosp Course - Acute bronchitis, continue Levaquin, steroids. - Near syncopal episode. Acute coronary syndrome ruled out. cardiac enzymes is negative 3. Dr. Bhagat is following and cardiology consultation. - Rule out transient ischemic attack in patient with history of stroke. Continue aspirin. MRI is negative. Dr. Rios is following in a neurology consultation. - Diabetes mellitus type 2. Hemoglobin A1c is 9.6. Continue Lantus and NovoLog. - Hypertension. Continue Lotensin and Norvasc. - Acute kidney injury secondary to dehydration, resolved. Problems: Subjective 24 Hr Interval Summary Free Text/Dictation Patient is doing better, to have therapy today Exam/Review of Systems Vital Signs Vitals Vital Signs Date Time Temp Pulse Resp B/P Pulse Ox O2 Delivery O2 Flow Rate FiO2 12/15/16 11:14 95 126/59 97 12/15/16 07:30 98.5 20 12/15/16 01:25 2.0 12/15/16 01:25 21 12/14/16 20:38 Nasal Cannula Intake and Output 12/14/16 12/14/16 12/15/16 15:00 23:00 07:00 Intake Total 1170 ml 240 ml Output Total 0 ml Balance 1170 ml 240 ml Exam Constitutional: well developed Head: atraumatic, normocephalic Neck: supple Respiratory: clear to auscultation Cardiovascular: regular rate and rhythm Gastrointestinal: non-tender, soft Extremities: normal pulses Results Result Diagram: 12/12/16 0642 12/12/16 0642 Results 24 hrs Laboratory Tests Test 12/14/16 11:51 12/14/16 17:11 12/14/16 21:36 12/15/16 01:34 Bedside Glucose 295 H 253 H 303 H 191 Test 12/15/16 07:51 Bedside Glucose 199 Medications Medications Current Medications Aspirin (Aspirin) 81 mg DAILY PO Last administered on 12/15/16t 08:26; Admin Dose 81 MG; Start 12/11/16 at 22:20 Pantoprazole (Protonix Tab) 40 mg DAILY@06 PO Last administered on 12/15/16 06: 43; Admin Dose 40 MG; Start 12/11/16 at 22:20 Nitroglycerin (Nitroglycerin (Sl Tab) 0.4 Mg) 1 tab Q5M PRN SL ANGINA; Start at 22:20 Miscellaneous Information 1 ea NOTE XX ; Start 12/11/16 at 22:20 Glucose (Glutose) 15 gm Q15M PRN PO DECREASED GLUCOSE Last administered on 08:00; Admin Dose 15 GM; Start 12/11/16 at 22:20 Glucose (Glutose) 22.5 gm Q15M PRN PO DECREASED GLUCOSE Last administered on 21:11; Admin Dose 22.5 GM; Start 12/11/16 at 22:20 Dextrose (D50w Syringe) 25 ml Q15M PRN IV DECREASED GLUCOSE; Start 12/11/16 at 22:20 Dextrose (D50w Syringe) 50 ml Q15M PRN IV DECREASED GLUCOSE; Start 12/11/16 at 22:20 Glucagon (Glucagen) 1 mg Q15M PRN IM DECREASED GLUCOSE; Start 12/11/16 at 22:20 Glucose (Glutose) 15 gm Q15M PRN BUCCAL DECREASED GLUCOSE Last administered on 12/12/16 22:06; Admin Dose 15 GM; Start 12/11/16 at 22:20 Quetiapine Fumarate (Seroquel) 25 mg DAILY PO Last administered on 12/15/16 08: 21; Admin Dose 25 MG; Start 12/11/16 at 22:20 Magnesium Hydroxide (Milk Of Mag) 30 ml BID PRN PO CONSTIPATION Last administered on 12/13/16 17:46; Admin Dose 30 ML; Start 12/11/16 at 22:20 Bisacodyl (Dulcolax Supp) 10 mg DAILY PRN [place] CONSTIPATION; Start 12/11/16 at 22 :20 Atorvastatin Calcium (Lipitor) 20 mg QHS PO Last administered on 12/14/16 21:34 ; Admin Dose 20 MG; Start 12/11/16 at 23:10 Benazepril HCl (Lotensin) 10 mg BID PO Last administered on 12/15/16 08:32; Admin Dose 10 MG; Start 12/11/16 at 23:03 Levofloxacin (Levaquin) 250 mg Q24H PO Last administered on 12/14/16 21:34; Admin Dose 250 MG; Start 12/12/16 at 21:00; Stop 12/16/16 at 21:01 Prednisolone (Prelone) 20 mg AM PO Last administered on 12/15/16 08:21; Admin Dose 20 MG; Start 12/13/16 at 09:00 Insulin Glargine (Lantus) 15 unit DAILY@08 SC Last administered on 12/15/16 08: 24; Admin Dose 15 UNIT; Start 12/13/16 at 09:00 Isosorbide Dinitrate (Isordil) 20 mg TID PO Last administered on 12/15/16 08:32 ; Admin Dose 20 MG; Start 12/14/16 at 13:00 Amlodipine Besylate (Norvasc) 5 mg DAILY PO Last administered on 12/15/16 08:31 ; Admin Dose 5 MG; Start 12/14/16 at 13:00 Diagnostic Test (Pha) (Accu-Chek) 1 ea 02 XX ; Start 12/15/16 at 02:00 Acetaminophen (Tylenol Tab) 650 mg Q4H PRN PO PAIN AND OR ELEVATED TEMP; Start 12/15/16 at 11:30 FACUNDO WHITEHEAD Dec 15, 2016 11:36
[2016-12-15] MEDS: ACETAMINOPHEN 325 MG TAB PO PRN (11:39)
[2016-12-15] MEDS: LEVOFLOXACIN 250 MG TAB PO SCH (20:21)
[2016-12-15] MEDS: ATORVASTATIN 20 MG TAB PO SCH (20:21)
[2016-12-16] MEDS: ALBUTEROL/IPRATROPIUM (NEB) 3 ML AMP HHN SCH ×4 (01:18→19:35)
[2016-12-16] MEDS: ACCU-CHEK XX SCH (02:00)
[2016-12-16] MEDS: PANTOPRAZOLE (EC) 40 MG TAB PO SCH (06:17)
[2016-12-16 06:43] VITALS: BP 170/60; PULSE 86
[2016-12-16] MEDS: MAGNESIUM HYDROXIDE 30ML CUP PO PRN (07:14)
[2016-12-16 08:00] VITALS: BP 126/69; RESP 18
[2016-12-16] MEDS ORDERED: INSULIN GLARGINE [LANtus] 3 ML PEN SC SCH (08:00)
[2016-12-16] MEDS: ASPIRIN 81 MG TAB PO SCH (08:06)
[2016-12-16] MEDS: QUETIAPINE 25 MG TAB PO SCH (08:06)
[2016-12-16] MEDS: ISOSORBIDE DINITRATE 20 MG TAB PO SCH ×3 (08:07→21:19)
[2016-12-16] MEDS: predniSOLONE (3 MG/ML) CUP PO SCH (08:07)
[2016-12-16] MEDS: INSULIN ASPART [NOVOLOG] 3 ML PEN SC SCH ×5 (08:10→21:29)
[2016-12-16] MEDS: BENAZEPRIL 10 MG TAB PO SCH ×2 (11:00→21:19)
--- NOTE | 2016-12-16 12:09 | PN ---
Date/Time of Note Date/Time of Note DATE: 12/16/16 TIME: 11:59 Assessment/Plan VTE Prophylaxis VTE Prophylaxis Intervention: other Lines/Catheters IV [facility] Type (from [facility]): Saline Lock Urinary Cath still in place: No Assessment/Plan Assessment/Plan - Acute bronchitis, continue Levaquin, steroids. - Near syncopal episode. Acute coronary syndrome ruled out. cardiac enzymes is negative 3. Dr. Bhagat is following and cardiology consultation. - Rule out transient ischemic attack in patient with history of stroke. Continue aspirin. MRI is negative. Dr. Rios is following in a neurology consultation. - Diabetes mellitus type 2. Hemoglobin A1c is 9.6. Continue Lantus and NovoLog. - Hypertension. Continue Lotensin and Norvasc. - Acute kidney injury secondary to dehydration, resolved. Subjective 24 Hr Interval Summary Free Text/Dictation sitting up in chair, eating lunch- states she is very hungry. daughter at bed side- all Qs answerd, BS elevated sec to steroids- will increase ac mealtime insulin to 6 units dw staff Respiratory: no complaints Cardiovascular: no complaints Gastrointestinal: no complaints Genitourinary: no complaints Musculoskeletal: no complaints Skin: no complaints Exam/Review of Systems Vital Signs Vitals Vital Signs Date Time Temp Pulse Resp B/P Pulse Ox O2 Delivery O2 Flow Rate FiO2 12/16/16 08:00 98.2 92 18 126/69 97 12/16/16 07:25 2.0 12/16/16 06:43 Room Air 12/15/16 01:25 Intake and Output 12/15/16 12/15/16 12/16/16 15:00 23:00 07:00 Intake Total 620 ml Balance 620 ml Exam Constitutional: alert, oriented, well developed Respiratory: diminished breath sounds, normal air movement Cardiovascular: nl pulses, regular rate and rhythm Gastrointestinal: non-tender, soft Musculoskeletal: nl extremities to inspection Extremities: normal pulses Neurological: confused, nl speech, other (oriented to name only) Results Result Diagram: 12/12/16 0642 12/15/16 2150 Results 24 hrs Laboratory Tests Test 12/15/16 12:03 12/15/16 17:09 12/15/16 20:14 12/15/16 20:58 Bedside Glucose 397 H 498 *H 561 *H 513 *H Test 12/15/16 21:30 12/15/16 21:50 12/15/16 22:48 12/16/16 01:49 Bedside Glucose 480 *H 369 H 279 H Glucose Level 518 *H Test 12/16/16 03:21 12/16/16 06:22 12/16/16 07:48 12/16/16 10:18 Bedside Glucose 255 H 355 H 370 H 210 Medications Medications Current Medications Aspirin (Aspirin) 81 mg DAILY PO Last administered on 12/16/16 08:06; Admin Dose 81 MG; Start 12/11/16 at 22:20 Pantoprazole (Protonix Tab) 40 mg DAILY@06 PO Last administered on 12/16/16 06: 17; Admin Dose 40 MG; Start 12/11/16 at 22:20 Nitroglycerin (Nitroglycerin (Sl Tab) 0.4 Mg) 1 tab Q5M PRN SL ANGINA; Start at 22:20 Miscellaneous Information 1 ea NOTE XX ; Start 12/11/16 at 22:20 Glucose (Glutose) 15 gm Q15M PRN PO DECREASED GLUCOSE Last administered on 08:00; Admin Dose 15 GM; Start 12/11/16 at 22:20 Glucose (Glutose) 22.5 gm Q15M PRN PO DECREASED GLUCOSE Last administered on 21:11; Admin Dose 22.5 GM; Start 12/11/16 at 22:20 Dextrose (D50w Syringe) 25 ml Q15M PRN IV DECREASED GLUCOSE; Start 12/11/16 at 22:20 Dextrose (D50w Syringe) 50 ml Q15M PRN IV DECREASED GLUCOSE; Start 12/11/16 at 22:20 Glucagon (Glucagen) 1 mg Q15M PRN IM DECREASED GLUCOSE; Start 12/11/16 at 22:20 Glucose (Glutose) 15 gm Q15M PRN BUCCAL DECREASED GLUCOSE Last administered on 12/12/16 22:06; Admin Dose 15 GM; Start 12/11/16 at 22:20 Quetiapine Fumarate (Seroquel) 25 mg DAILY PO Last administered on 12/16/16 08: 06; Admin Dose 25 MG; Start 12/11/16 at 22:20 Magnesium Hydroxide (Milk Of Mag) 30 ml BID PRN PO CONSTIPATION Last administered on 12/16/16 07:14; Admin Dose 30 ML; Start 12/11/16 at 22:20 Bisacodyl (Dulcolax Supp) 10 mg DAILY PRN [place] CONSTIPATION; Start 12/11/16 at 22 :20 Atorvastatin Calcium (Lipitor) 20 mg QHS PO Last administered on 12/15/16 20:21 ; Admin Dose 20 MG; Start 12/11/16 at 23:10 Levofloxacin (Levaquin) 250 mg Q24H PO Last administered on 12/15/16 20:21; Admin Dose 250 MG; Start 12/12/16 at 21:00; Stop 12/16/16 at 21:01 Prednisolone (Prelone) 20 mg AM PO Last administered on 12/16/16 08:07; Admin Dose 20 MG; Start 12/13/16 at 09:00 Isosorbide Dinitrate (Isordil) 20 mg TID PO Last administered on 12/16/16 08:07 ; Admin Dose 20 MG; Start 12/14/16 at 13:00 Diagnostic Test (Pha) (Accu-Chek) 1 ea 02 XX ; Start 12/15/16 at 02:00 Acetaminophen (Tylenol Tab) 650 mg Q4H PRN PO PAIN AND OR ELEVATED TEMP Last administered on 12/15/16 11:39; Admin Dose 650 MG; Start 12/15/16 at 11:30 Benazepril HCl (Lotensin) 10 mg BID@11,21 PO Last administered on 12/15/16 20: 24; Admin Dose 10 MG; Start 12/15/16 at 21:00 Amlodipine Besylate (Norvasc) 5 mg DAILY@14 PO ; Start 12/15/16 at 14:00 Insulin Glargine (Lantus) 20 unit DAILY@08 SC Last administered on 12/16/16 08: 08; Admin Dose 20 UNIT; Start 12/16/16 at 08:00 TAMERA HANKINS Dec 16, 2016 12:09
--- NOTE | 2016-12-16 12:37 | CONS ---
Date/Time of Note Date/Time of Note DATE: 12/16/16 TIME: 12:35 Consult Date/Type/Reason Admit Date/Time Dec 11, 2016 at 20:00 Type of Consultation: cardiology Ordering Provider: DEBBI SARABIA MD Subjective RN reports elevated BS Objective pulm-cta mod assist transfer Vital Signs Date Time Temp Pulse Resp B/P Pulse Ox O2 Delivery O2 Flow Rate FiO2 12/16/16 08:00 98.2 92 18 126/69 97 12/16/16 07:25 2.0 12/16/16 06:43 Room Air 12/15/16 01:25 Intake and Output 12/15/16 12/15/16 12/16/16 15:00 23:00 07:00 Intake Total 620 ml Balance 620 ml Results/Medications Result Diagram: 12/12/16 0642 12/15/16 2150 Results 24 hrs Laboratory Tests Test 12/15/16 17:09 12/15/16 20:14 12/15/16 20:58 12/15/16 21:30 Bedside Glucose 498 *H 561 *H 513 *H 480 *H Test 12/15/16 21:50 12/15/16 22:48 12/16/16 01:49 12/16/16 03:21 Glucose Level 518 *H Bedside Glucose 369 H 279 H 255 H Test 12/16/16 06:22 12/16/16 07:48 12/16/16 10:18 12/16/16 12:04 Bedside Glucose 355 H 370 H 210 160 Medications Current Medications Aspirin (Aspirin) 81 mg DAILY PO Last administered on 12/16/16 08:06; Admin Dose 81 MG; Start 12/11/16 at 22:20 Pantoprazole (Protonix Tab) 40 mg DAILY@06 PO Last administered on 12/16/16 06: 17; Admin Dose 40 MG; Start 12/11/16 at 22:20 Nitroglycerin (Nitroglycerin (Sl Tab) 0.4 Mg) 1 tab Q5M PRN SL ANGINA; Start at 22:20 Miscellaneous Information 1 ea NOTE XX ; Start 12/11/16 at 22:20 Glucose (Glutose) 15 gm Q15M PRN PO DECREASED GLUCOSE Last administered on 08:00; Admin Dose 15 GM; Start 12/11/16 at 22:20 Glucose (Glutose) 22.5 gm Q15M PRN PO DECREASED GLUCOSE Last administered on 21:11; Admin Dose 22.5 GM; Start 12/11/16 at 22:20 Dextrose (D50w Syringe) 25 ml Q15M PRN IV DECREASED GLUCOSE; Start 12/11/16 at 22:20 Dextrose (D50w Syringe) 50 ml Q15M PRN IV DECREASED GLUCOSE; Start 12/11/16 at 22:20 Glucagon (Glucagen) 1 mg Q15M PRN IM DECREASED GLUCOSE; Start 12/11/16 at 22:20 Glucose (Glutose) 15 gm Q15M PRN BUCCAL DECREASED GLUCOSE Last administered on 12/12/16 22:06; Admin Dose 15 GM; Start 12/11/16 at 22:20 Quetiapine Fumarate (Seroquel) 25 mg DAILY PO Last administered on 12/16/16 08: 06; Admin Dose 25 MG; Start 12/11/16 at 22:20 Magnesium Hydroxide (Milk Of Mag) 30 ml BID PRN PO CONSTIPATION Last administered on 12/16/16 07:14; Admin Dose 30 ML; Start 12/11/16 at 22:20 Bisacodyl (Dulcolax Supp) 10 mg DAILY PRN [place] CONSTIPATION; Start 12/11/16 at 22 :20 Atorvastatin Calcium (Lipitor) 20 mg QHS PO Last administered on 12/15/16 20:21 ; Admin Dose 20 MG; Start 12/11/16 at 23:10 Levofloxacin (Levaquin) 250 mg Q24H PO Last administered on 12/15/16 20:21; Admin Dose 250 MG; Start 12/12/16 at 21:00; Stop 12/16/16 at 21:01 Prednisolone (Prelone) 20 mg AM PO Last administered on 12/16/16 08:07; Admin Dose 20 MG; Start 12/13/16 at 09:00 Isosorbide Dinitrate (Isordil) 20 mg TID PO Last administered on 12/16/16 08:07 ; Admin Dose 20 MG; Start 12/14/16 at 13:00 Diagnostic Test (Pha) (Accu-Chek) 1 ea 02 XX ; Start 12/15/16 at 02:00 Acetaminophen (Tylenol Tab) 650 mg Q4H PRN PO PAIN AND OR ELEVATED TEMP Last administered on 12/15/16 11:39; Admin Dose 650 MG; Start 12/15/16 at 11:30 Benazepril HCl (Lotensin) 10 mg BID@11,21 PO Last administered on 12/15/16 20: 24; Admin Dose 10 MG; Start 12/15/16 at 21:00 Amlodipine Besylate (Norvasc) 5 mg DAILY@14 PO ; Start 12/15/16 at 14:00 Insulin Glargine (Lantus) 20 unit DAILY@08 SC Last administered on 12/16/16 08: 08; Admin Dose 20 UNIT; Start 12/16/16 at 08:00 Assessment/Plan Additional Assessment/Plan Rehab- Toxic metabolic encephalopathy. Continue rehab activities as tolerated Status post syncopal episode. Acute kidney injury and dehydration. Bronchitis. Diabetes mellitus- meds per IM Hypertension- improved with adjusting timing of meds Hyperlipidemia. History of CVA. SLIM WILSON MD Dec 16, 2016 12:37
[2016-12-16] MEDS: AMLODIPINE 5 MG TAB PO SCH (14:00)
[2016-12-16] MEDS ORDERED: INSULIN ASPART [NOVOLOG] 3 ML PEN SC SCH (17:35)
[2016-12-16 20:00] VITALS: BP 130/64; RESP 18
[2016-12-16] MEDS: LEVOFLOXACIN 250 MG TAB PO SCH (21:18)
[2016-12-16] MEDS: ATORVASTATIN 20 MG TAB PO SCH (21:19)
[2016-12-17] MEDS: ALBUTEROL/IPRATROPIUM (NEB) 3 ML AMP HHN SCH ×4 (01:53→19:40)
[2016-12-17 02:00] VITALS: BP 142/69; RESP 18
[2016-12-17] MEDS: ACCU-CHEK XX SCH (02:28)
[2016-12-17] MEDS: PANTOPRAZOLE (EC) 40 MG TAB PO SCH (06:28)
[2016-12-17 06:58] LABS: BASOPHILS % 0.1 % (0.0-2.0); EOSINOPHILS # 0.2 10^3/ul (0.0-0.5); EOSINOPHILS % 1.5 % (0.0-7.0); HEMATOCRIT 33.6 % (37.0-47.0); HEMOGLOBIN 10.8 g/dl (12.0-16.0); LYMPHOCYTES # 3.4 10^3/ul (0.8-2.9); LYMPHOCYTES % 32.2 % (15.0-51.0); MEAN CORPUSCULAR HEMOGLOBIN 25.5 pg (29.0-33.0); MEAN CORPUSCULAR HGB CONC 32.1 g/dl (32.0-37.0); MEAN CORPUSCULAR VOLUME 79.2 fl (82.0-101.0); MEAN PLATELET VOLUME 11.7 fl (7.4-10.4); MONOCYTE # 0.8 10^3/ul (0.3-0.9); MONOCYTES % 7.7 % (0.0-11.0); NEUTROPHILS % 57.9 % (39.0-77.0); PLATELET COUNT 235 10^3/UL (140-415); RED BLOOD COUNT 4.24 10^6/ul (4.20-5.40); RED CELL DISTRIBUTION WIDTH 15.3 % (11.5-14.5); WHITE BLOOD COUNT 10.5 10^3/ul (4.8-10.8)
[2016-12-17 07:25] LABS: CALCIUM 8.5 mg/dl (8.4-10.2); CREATININE 0.84 mg/dl (0.44-1.00); POTASSIUM 4.2 mmol/L (3.5-5.1)
[2016-12-17 08:00] VITALS: BP 149/65; RESP 18
[2016-12-17] MEDS: ASPIRIN 81 MG TAB PO SCH (08:05)
[2016-12-17] MEDS: ISOSORBIDE DINITRATE 20 MG TAB PO SCH ×3 (08:05→20:54)
[2016-12-17] MEDS: QUETIAPINE 25 MG TAB PO SCH (08:05)
[2016-12-17] MEDS: INSULIN GLARGINE [LANtus] 3 ML PEN SC SCH (08:08)
[2016-12-17] MEDS: INSULIN ASPART [NOVOLOG] 3 ML PEN SC SCH ×7 (08:09→21:00)
[2016-12-17] MEDS ORDERED: predniSOLONE (3 MG/ML) CUP PO SCH (09:00)
[2016-12-17] MEDS: BENAZEPRIL 10 MG TAB PO SCH ×2 (11:00→20:54)
--- NOTE | 2016-12-17 11:03 | CONS ---
Date/Time of Note Date/Time of Note DATE: 12/17/16 TIME: 11:02 Consult Date/Type/Reason Admit Date/Time Dec 11, 2016 at 20:00 Type of Consultation: cardiology Ordering Provider: DEBBI SARABIA MD Subjective In good spirits Objective pulm-cta mod assist Vital Signs Date Time Temp Pulse Resp B/P Pulse Ox O2 Delivery O2 Flow Rate FiO2 12/17/16 08:00 97.9 88 18 149/65 94 12/17/16 01:53 Nasal Cannula 2.0 12/16/16 19:35 21 Intake and Output 12/16/16 12/16/16 12/17/16 15:00 23:00 07:00 Intake Total 720 ml 360 ml Balance 720 ml 360 ml Results/Medications Result Diagram: 12/17/1628 12/17/1628 Results 24 hrs Laboratory Tests Test 12/16/16 12:04 12/16/16 17:03 12/16/16 21:16 12/17/16 02:07 Bedside Glucose 160 251 H 304 H 237 H Test 12/17/16 06:28 12/17/16 07:56 White Blood Count 10.5 Red Blood Count 4.24 Hemoglobin 10.8 L Hematocrit 33.6 L Mean Corpuscular Volume 79.2 L Mean Corpuscular Hemoglobin 25.5 L Mean Corpuscular Hemoglobin Concent 32.1 Red Cell Distribution Width 15.3 H Platelet Count 235 Mean Platelet Volume 11.7 H Neutrophils % 57.9 Lymphocytes % 32.2 Monocytes % 7.7 Eosinophils % 1.5 Basophils % 0.1 Nucleated Red Blood Cells % 0.0 Neutrophils # (Manual) 6.1 Lymphocytes # 3.4 H Monocytes # 0.8 Eosinophils # 0.2 Basophils # 0.0 Nucleated Red Blood Cells # 0.0 Sodium Level 134 L Potassium Level 4.2 Chloride Level 99 Carbon Dioxide Level 31 Anion Gap 8 Blood Urea Nitrogen 29 H Creatinine 0.84 Glucose Level 215 # Calcium Level 8.5 Bedside Glucose 242 H Medications Current Medications Aspirin (Aspirin) 81 mg DAILY PO Last administered on 12/17/16 08:05; Admin Dose 81 MG; Start 12/11/16 at 22:20 Pantoprazole (Protonix Tab) 40 mg DAILY@06 PO Last administered on 12/17/16 06: 28; Admin Dose 40 MG; Start 12/11/16 at 22:20 Nitroglycerin (Nitroglycerin (Sl Tab) 0.4 Mg) 1 tab Q5M PRN SL ANGINA; Start at 22:20 Miscellaneous Information 1 ea NOTE XX ; Start 12/11/16 at 22:20 Glucose (Glutose) 15 gm Q15M PRN PO DECREASED GLUCOSE Last administered on 08:00; Admin Dose 15 GM; Start 12/11/16 at 22:20 Glucose (Glutose) 22.5 gm Q15M PRN PO DECREASED GLUCOSE Last administered on 21:11; Admin Dose 22.5 GM; Start 12/11/16 at 22:20 Dextrose (D50w Syringe) 25 ml Q15M PRN IV DECREASED GLUCOSE; Start 12/11/16 at 22:20 Dextrose (D50w Syringe) 50 ml Q15M PRN IV DECREASED GLUCOSE; Start 12/11/16 at 22:20 Glucagon (Glucagen) 1 mg Q15M PRN IM DECREASED GLUCOSE; Start 12/11/16 at 22:20 Glucose (Glutose) 15 gm Q15M PRN BUCCAL DECREASED GLUCOSE Last administered on 12/12/16 22:06; Admin Dose 15 GM; Start 12/11/16 at 22:20 Quetiapine Fumarate (Seroquel) 25 mg DAILY PO Last administered on 12/17/16 08: 05; Admin Dose 25 MG; Start 12/11/16 at 22:20 Magnesium Hydroxide (Milk Of Mag) 30 ml BID PRN PO CONSTIPATION Last administered on 12/16/16 07:14; Admin Dose 30 ML; Start 12/11/16 at 22:20 Bisacodyl (Dulcolax Supp) 10 mg DAILY PRN [place] CONSTIPATION; Start 12/11/16 at 22 :20 Atorvastatin Calcium (Lipitor) 20 mg QHS PO Last administered on 12/16/16 21:19 ; Admin Dose 20 MG; Start 12/11/16 at 23:10 Isosorbide Dinitrate (Isordil) 20 mg TID PO Last administered on 12/17/16 08:05 ; Admin Dose 20 MG; Start 12/14/16 at 13:00 Diagnostic Test (Pha) (Accu-Chek) 1 ea 02 XX Last administered on 12/17/16 02: 28; Admin Dose 1 EA; Start 12/15/16 at 02:00 Acetaminophen (Tylenol Tab) 650 mg Q4H PRN PO PAIN AND OR ELEVATED TEMP Last administered on 12/15/16 11:39; Admin Dose 650 MG; Start 12/15/16 at 11:30 Benazepril HCl (Lotensin) 10 mg BID@11,21 PO Last administered on 12/16/16 21: 19; Admin Dose 10 MG; Start 12/15/16 at 21:00 Amlodipine Besylate (Norvasc) 5 mg DAILY@14 PO ; Start 12/15/16 at 14:00 Prednisolone (Prelone) 10 mg DAILY PO Last administered on 12/17/16 08:06; Admin Dose 10 MG; Start 12/17/16 at 09:00 Insulin Glargine (Lantus) 26 unit DAILY@08 SC Last administered on 12/17/16 08: 08; Admin Dose 26 UNIT; Start 12/17/16 at 08:00 Assessment/Plan Additional Assessment/Plan Rehab- Toxic metabolic encephalopathy. Continue rehab program, patient progressing well Status post syncopal episode. Acute kidney injury and dehydration. Bronchitis. Diabetes mellitus- meds per IM Hypertension- improved Hyperlipidemia. History of CVA. SLIM WILSON MD Dec 17, 2016 11:02
[2016-12-17] MEDS: AMLODIPINE 5 MG TAB PO SCH (14:00)
--- NOTE | 2016-12-17 17:09 | CONS ---
Date/Time of Note Date/Time of Note DATE: 12/17/16 TIME: 17:04 Assessment/Plan Assessment/Plan Chief Complaint/Hosp Course IMPRESSION: 1. Chest pain.-negative trop x 3/NL EF by echo. NO ischemia. NL EF by lexiscan 2. Presyncope.- no sig arrythmia by tele monitoring 3. Hypotension on admit-now improved with HTN 4. Electrocardiogram with lateral T-wave inversion-negative trop x 3 5. Generalized weakness. 6. Diabetes mellitus. 7. Prerenal azotemia. Rec: -Now transferred to Rehab -Continue norvasc/benazepril/isordil and follow labile BP with possible need to decrease doses -Continue asa/statin -Continue prednisilone -Follow volume status closely Problems: Consultation Date/Type/Reason Admit Date/Time Dec 11, 2016 at 20:00 Initial Consult Date 12/11/2016 Type of Consultation: cardiology Reason for Consultation HTN Referring Provider: DEBBI SARABIA MD Exam/Review of Systems Vital Signs Vitals Vital Signs Date Time Temp Pulse Resp B/P Pulse Ox O2 Delivery O2 Flow Rate FiO2 12/17/16 08:00 97.9 88 18 149/65 94 12/17/16 08:00 Nasal Cannula 2.0 12/16/16 19:35 21 Intake and Output 12/16/16 12/16/16 12/17/16 14:59 22:59 06:59 Intake Total 720 ml 360 ml Balance 720 ml 360 ml Exam Review of Systems: CONSTITUTIONAL: No fevers, chills. PULMONARY: No sob CARDIOVASCULAR: No chest pain/palpitations GASTROINTESTINAL: No nausea/vomiting. GENITOURINARY: No hematuria/dysuria. MUSCULOSKELETAL: No myagias/arthalgias. PSYCHIATRIC: The patient denies depression. NEUROLOGIC: somewhat lethargic Constitutional: alert Psych: no complaints Head: normocephalic ENMT: mucosa pink and moist Neck: jvd (9 cm water), supple Respiratory: diminished breath sounds (at bases/B) Cardiovascular: regular rate and rhythm Gastrointestinal: non-tender, soft Musculoskeletal: muscle tone (normal) Extremities: edema (none) Neurological: other (No focal deficits) Results Result Diagram: 12/17/16 0628 12/17/1628 Results 24 hrs Laboratory Tests Test 12/16/16 21:16 12/17/16 02:07 12/17/16 06:28 12/17/16 07:56 Bedside Glucose 304 H 237 H 242 H White Blood Count 10.5 Red Blood Count 4.24 Hemoglobin 10.8 L Hematocrit 33.6 L Mean Corpuscular Volume 79.2 L Mean Corpuscular Hemoglobin 25.5 L Mean Corpuscular Hemoglobin Concent 32.1 Red Cell Distribution Width 15.3 H Platelet Count 235 Mean Platelet Volume 11.7 H Neutrophils % 57.9 Lymphocytes % 32.2 Monocytes % 7.7 Eosinophils % 1.5 Basophils % 0.1 Nucleated Red Blood Cells % 0.0 Neutrophils # (Manual) 6.1 Lymphocytes # 3.4 H Monocytes # 0.8 Eosinophils # 0.2 Basophils # 0.0 Nucleated Red Blood Cells # 0.0 Sodium Level 134 L Potassium Level 4.2 Chloride Level 99 Carbon Dioxide Level 31 Anion Gap 8 Blood Urea Nitrogen 29 H Creatinine 0.84 Glucose Level 215 # Calcium Level 8.5 Test 12/17/16 11:54 12/17/16 16:59 Bedside Glucose 191 108 Medications Medications Current Medications Aspirin (Aspirin) 81 mg DAILY PO Last administered on 12/17/16 08:05; Admin Dose 81 MG; Start 12/11/16 at 22:20 Pantoprazole (Protonix Tab) 40 mg DAILY@06 PO Last administered on 12/17/16 06: 28; Admin Dose 40 MG; Start 12/11/16 at 22:20 Nitroglycerin (Nitroglycerin (Sl Tab) 0.4 Mg) 1 tab Q5M PRN SL ANGINA; Start at 22:20 Miscellaneous Information 1 ea NOTE XX ; Start 12/11/16 at 22:20 Glucose (Glutose) 15 gm Q15M PRN PO DECREASED GLUCOSE Last administered on 08:00; Admin Dose 15 GM; Start 12/11/16 at 22:20 Glucose (Glutose) 22.5 gm Q15M PRN PO DECREASED GLUCOSE Last administered on 21:11; Admin Dose 22.5 GM; Start 12/11/16 at 22:20 Dextrose (D50w Syringe) 25 ml Q15M PRN IV DECREASED GLUCOSE; Start 12/11/16 at 22:20 Dextrose (D50w Syringe) 50 ml Q15M PRN IV DECREASED GLUCOSE; Start 12/11/16 at 22:20 Glucagon (Glucagen) 1 mg Q15M PRN IM DECREASED GLUCOSE; Start 12/11/16 at 22:20 Glucose (Glutose) 15 gm Q15M PRN BUCCAL DECREASED GLUCOSE Last administered on 12/12/16 22:06; Admin Dose 15 GM; Start 12/11/16 at 22:20 Quetiapine Fumarate (Seroquel) 25 mg DAILY PO Last administered on 12/17/16 08: 05; Admin Dose 25 MG; Start 12/11/16 at 22:20 Magnesium Hydroxide (Milk Of Mag) 30 ml BID PRN PO CONSTIPATION Last administered on 12/16/16 07:14; Admin Dose 30 ML; Start 12/11/16 at 22:20 Bisacodyl (Dulcolax Supp) 10 mg DAILY PRN [place] CONSTIPATION; Start 12/11/16 at 22 :20 Atorvastatin Calcium (Lipitor) 20 mg QHS PO Last administered on 12/16/16 21:19 ; Admin Dose 20 MG; Start 12/11/16 at 23:10 Isosorbide Dinitrate (Isordil) 20 mg TID PO Last administered on 12/17/16 08:05 ; Admin Dose 20 MG; Start 12/14/16 at 13:00 Diagnostic Test (Pha) (Accu-Chek) 1 ea 02 XX Last administered on 12/17/16 02: 28; Admin Dose 1 EA; Start 12/15/16 at 02:00 Acetaminophen (Tylenol Tab) 650 mg Q4H PRN PO PAIN AND OR ELEVATED TEMP Last administered on 12/15/16 11:39; Admin Dose 650 MG; Start 12/15/16 at 11:30 Benazepril HCl (Lotensin) 10 mg BID@11,21 PO Last administered on 12/16/16 21: 19; Admin Dose 10 MG; Start 12/15/16 at 21:00 Amlodipine Besylate (Norvasc) 5 mg DAILY@14 PO ; Start 12/15/16 at 14:00 Prednisolone (Prelone) 10 mg DAILY PO Last administered on 12/17/16 08:06; Admin Dose 10 MG; Start 12/17/16 at 09:00 Insulin Glargine (Lantus) 26 unit DAILY@08 SC Last administered on 9/6/17at 08: 08; Admin Dose 26 UNIT; Start 12/17/16 at 08:00 ROSALINDA JARVIS Dec 17, 2016 17:09
[2016-12-17 19:55] VITALS: BP 140/65; PULSE 82; RESP 17
[2016-12-17] MEDS: ATORVASTATIN 20 MG TAB PO SCH (20:58)
[2016-12-18] MEDS: ALBUTEROL/IPRATROPIUM (NEB) 3 ML AMP HHN SCH ×4 (01:01→20:25)
[2016-12-18] MEDS: ACCU-CHEK XX SCH (01:59)
[2016-12-18 02:10] VITALS: BP 128/60; PULSE 80; RESP 18
--- NOTE | 2016-12-18 02:10 | PN ---
Date/Time of Note Date/Time of Note DATE: 12/18/16 TIME: 02:04 Assessment/Plan VTE Prophylaxis VTE Prophylaxis Intervention: other Lines/Catheters IV C[facility]ter Type [facility]from [facility] Saline Lock Urinary Cath still in place: No Assessment/Plan Assessment/Plan - Hyperglycemic sec to steroids and Diabetes- improving/ Prednisone lowered. cont to monitor - Acute bronchitis, continue Levaquin, steroids. - Near syncopal episode. Acute coronary syndrome ruled out. cardiac enzymes is negative 3. - per Dr. Bhagat in cardiology consultation. - Rule out transient ischemic attack in patient with history of stroke. Continue aspirin. MRI is negative. - Dr. Rios is following in a neurology consultation. - Diabetes mellitus type 2. Hemoglobin A1c is 9.6. Continue Lantus and NovoLog. - Hypertension. Continue Lotensin and Norvasc. - Acute kidney injury secondary to dehydration, resolved. Dw Dr Hadley Subjective 24 Hr Interval Summary Free Text/Dictation Late entry- 12/17/2016 Sleeping, easily responsive, denies any chest pain, shortness of breath, no new issues reported overnight per staff. Constitutional: improved Respiratory: no complaints Cardiovascular: no complaints Gastrointestinal: no complaints Genitourinary: no complaints Musculoskeletal: no complaints Exam/Review of Systems Vital Signs Vitals Vital Signs Date Time Temp Pulse Resp B/P Pulse Ox O2 Delivery O2 Flow Rate FiO2 12/18/16 01:01 78 18 95 Nasal Cannula 2.0 12/17/16 19:55 98.4 140/65 12/17/16 19:42 21 Intake and Output 12/17/16 12/17/16 12/18/16 15:00 23:00 07:00 Intake Total 720 ml 360 ml Balance 720 ml 360 ml Exam Constitutional: alert, oriented (name only), well developed Respiratory: clear to auscultation, normal air movement Cardiovascular: nl pulses, regular rate and rhythm Musculoskeletal: nl extremities to inspection Extremities: normal pulses Neurological: confused, nl speech Skin: nl turgor Results Result Diagram: 12/17/1662712/17/16627 Results 24 hrs Laboratory Tests Test 12/17/16 02:07 12/17/16 06:28 12/17/16 07:56 12/17/16 11:54 Bedside Glucose 237 H 242 H 191 White Blood Count 10.5 Red Blood Count 4.24 Hemoglobin 10.8 L Hematocrit 33.6 L Mean Corpuscular Volume 79.2 L Mean Corpuscular Hemoglobin 25.5 L Mean Corpuscular Hemoglobin Concent 32.1 Red Cell Distribution Width 15.3 H Platelet Count 235 Mean Platelet Volume 11.7 H Neutrophils % 57.9 Lymphocytes % 32.2 Monocytes % 7.7 Eosinophils % 1.5 Basophils % 0.1 Nucleated Red Blood Cells % 0.0 Neutrophils # (Manual) 6.1 Lymphocytes # 3.4 H Monocytes # 0.8 Eosinophils # 0.2 Basophils # 0.0 Nucleated Red Blood Cells # 0.0 Sodium Level 134 L Potassium Level 4.2 Chloride Level 99 Carbon Dioxide Level 31 Anion Gap 8 Blood Urea Nitrogen 29 H Creatinine 0.84 Glucose Level 215 # Calcium Level 8.5 Test 12/17/16 16:59 12/17/16 21:02 Bedside Glucose 108 114 Medications Medications Current Medications Aspirin (Aspirin) 81 mg DAILY PO Last administered on 12/17/16 08:05; Admin Dose 81 MG; Start 12/11/16 at 22:20 Pantoprazole (Protonix Tab) 40 mg DAILY@06 PO Last administered on 12/17/16 06: 28; Admin Dose 40 MG; Start 12/11/16 at 22:20 Nitroglycerin (Nitroglycerin (Sl Tab) 0.4 Mg) 1 tab Q5M PRN SL ANGINA; Start at 22:20 Miscellaneous Information 1 ea NOTE XX ; Start 12/11/16 at 22:20 Glucose (Glutose) 15 gm Q15M PRN PO DECREASED GLUCOSE Last administered on 08:00; Admin Dose 15 GM; Start 12/11/16 at 22:20 Glucose (Glutose) 22.5 gm Q15M PRN PO DECREASED GLUCOSE Last administered on 21:11; Admin Dose 22.5 GM; Start 12/11/16 at 22:20 Dextrose (D50w Syringe) 25 ml Q15M PRN IV DECREASED GLUCOSE; Start 12/11/16 at 22:20 Dextrose (D50w Syringe) 50 ml Q15M PRN IV DECREASED GLUCOSE; Start 12/11/16 at 22:20 Glucagon (Glucagen) 1 mg Q15M PRN IM DECREASED GLUCOSE; Start 12/11/16 at 22:20 Glucose (Glutose) 15 gm Q15M PRN BUCCAL DECREASED GLUCOSE Last administered on 12/12/16 22:06; Admin Dose 15 GM; Start 12/11/16 at 22:20 Quetiapine Fumarate (Seroquel) 25 mg DAILY PO Last administered on 12/17/16 08: 05; Admin Dose 25 MG; Start 12/11/16 at 22:20 Magnesium Hydroxide (Milk Of Mag) 30 ml BID PRN PO CONSTIPATION Last administered on 12/16/16 07:14; Admin Dose 30 ML; Start 12/11/16 at 22:20 Bisacodyl (Dulcolax Supp) 10 mg DAILY PRN [place] CONSTIPATION; Start 12/11/16 at 22 :20 Atorvastatin Calcium (Lipitor) 20 mg QHS PO Last administered on 12/17/16 20:58 ; Admin Dose 20 MG; Start 12/11/16 at 23:10 Isosorbide Dinitrate (Isordil) 20 mg TID PO Last administered on 12/17/16 20:54 ; Admin Dose 20 MG; Start 12/14/16 at 13:00 Diagnostic Test (Pha) (Accu-Chek) 1 ea 02 XX Last administered on 12/17/16 02: 28; Admin Dose 1 EA; Start 12/15/16 at 02:00 Acetaminophen (Tylenol Tab) 650 mg Q4H PRN PO PAIN AND OR ELEVATED TEMP Last administered on 12/15/16 11:39; Admin Dose 650 MG; Start 12/15/16 at 11:30 Benazepril HCl (Lotensin) 10 mg BID@11,21 PO Last administered on 12/17/16 20: 54; Admin Dose 10 MG; Start 12/15/16 at 21:00 Amlodipine Besylate (Norvasc) 5 mg DAILY@14 PO ; Start 12/15/16 at 14:00 Insulin Glargine (Lantus) 26 unit DAILY@08 SC Last administered on 12/17/16 08: 08; Admin Dose 26 UNIT; Start 12/17/16 at 08:00 Prednisolone (Prelone (Ped)) 10 mg DAILY PO ; Start 12/18/16 at 09:00 TAMERA HANKINS Dec 18, 2016 02:10
[2016-12-18] MEDS: PANTOPRAZOLE (EC) 40 MG TAB PO SCH (05:38)
[2016-12-18 07:30] VITALS: BP 167/79; RESP 20
[2016-12-18] MEDS: INSULIN ASPART [NOVOLOG] 3 ML PEN SC SCH ×7 (08:51→21:33)
[2016-12-18 09:00] VITALS: BP 135/65
[2016-12-18] MEDS: ASPIRIN 81 MG TAB PO SCH (09:00)
[2016-12-18] MEDS: QUETIAPINE 25 MG TAB PO SCH (09:00)
[2016-12-18] MEDS: predniSOLONE (3 MG/ML PO SYG) PO SCH (09:00)
[2016-12-18] MEDS: ISOSORBIDE DINITRATE 20 MG TAB PO SCH ×2 (09:00→13:00)
[2016-12-18] MEDS: INSULIN GLARGINE [LANtus] 3 ML PEN SC SCH (09:02)
[2016-12-18] MEDS ORDERED: MECLIZINE 25 MG TAB PO PRN (11:30)
--- NOTE | 2016-12-18 11:48 | CONS ---
Date/Time of Note Date/Time of Note DATE: 12/18/16 TIME: 11:47 Consult Date/Type/Reason Admit Date/Time Dec 11, 2016 at 20:00 Type of Consultation: cardiology Ordering Provider: DEBBI SARABIA MD Subjective Comfortable Objective pulm-cta minassisttransfer and ambulation 20 feet Vital Signs Date Time Temp Pulse Resp B/P Pulse Ox O2 Delivery O2 Flow Rate FiO2 12/18/16 09:50 72 17 94 21 12/18/16 08:00 Nasal Cannula 2.0 12/18/16 07:30 98.5 167/79 Intake and Output 12/17/16 12/17/16 12/18/16 15:00 23:00 07:00 Intake Total 720 ml 960 ml 300 ml Balance 720 ml 960 ml 300 ml Results/Medications Result Diagram: 12/17/1628 12/17/16 06 Results 24 hrs Laboratory Tests Test 12/17/16 11:54 12/17/16 16:59 12/17/16 21:02 12/18/16 08:34 Bedside Glucose 191 108 114 208 Test 12/18/16 10:25 Bedside Glucose 280 H Medications Current Medications Aspirin (Aspirin) 81 mg DAILY PO Last administered on 12/17/16 08:05; Admin Dose 81 MG; Start 12/11/16 at 22:20 Pantoprazole (Protonix Tab) 40 mg DAILY@06 PO Last administered on 12/18/16 05: 38; Admin Dose 40 MG; Start 12/11/16 at 22:20 Nitroglycerin (Nitroglycerin (Sl Tab) 0.4 Mg) 1 tab Q5M PRN SL ANGINA; Start at 22:20 Miscellaneous Information 1 ea NOTE XX ; Start 12/11/16 at 22:20 Glucose (Glutose) 15 gm Q15M PRN PO DECREASED GLUCOSE Last administered on 08:00; Admin Dose 15 GM; Start 12/11/16 at 22:20 Glucose (Glutose) 22.5 gm Q15M PRN PO DECREASED GLUCOSE Last administered on 21:11; Admin Dose 22.5 GM; Start 12/11/16 at 22:20 Dextrose (D50w Syringe) 25 ml Q15M PRN IV DECREASED GLUCOSE; Start 12/11/16 at 22:20 Dextrose (D50w Syringe) 50 ml Q15M PRN IV DECREASED GLUCOSE; Start 12/11/16 at 22:20 Glucagon (Glucagen) 1 mg Q15M PRN IM DECREASED GLUCOSE; Start 12/11/16 at 22:20 Glucose (Glutose) 15 gm Q15M PRN BUCCAL DECREASED GLUCOSE Last administered on 12/12/16 22:06; Admin Dose 15 GM; Start 12/11/16 at 22:20 Quetiapine Fumarate (Seroquel) 25 mg DAILY PO Last administered on 12/17/16 08: 05; Admin Dose 25 MG; Start 12/11/16 at 22:20 Magnesium Hydroxide (Milk Of Mag) 30 ml BID PRN PO CONSTIPATION Last administered on 12/16/16 07:14; Admin Dose 30 ML; Start 12/11/16 at 22:20 Bisacodyl (Dulcolax Supp) 10 mg DAILY PRN [place] CONSTIPATION; Start 12/11/16 at 22 :20 Atorvastatin Calcium (Lipitor) 20 mg QHS PO Last administered on 12/17/16 20:58 ; Admin Dose 20 MG; Start 12/11/16 at 23:10 Isosorbide Dinitrate (Isordil) 20 mg TID PO Last administered on 12/17/16 20:54 ; Admin Dose 20 MG; Start 12/14/16 at 13:00 Diagnostic Test (Pha) (Accu-Chek) 1 ea 02 XX Last administered on 12/17/16 02: 28; Admin Dose 1 EA; Start 12/15/16 at 02:00 Acetaminophen (Tylenol Tab) 650 mg Q4H PRN PO PAIN AND OR ELEVATED TEMP Last administered on 12/15/16 11:39; Admin Dose 650 MG; Start 12/15/16 at 11:30 Benazepril HCl (Lotensin) 10 mg BID@11,21 PO Last administered on 12/17/16 20: 54; Admin Dose 10 MG; Start 12/15/16 at 21:00 Amlodipine Besylate (Norvasc) 5 mg DAILY@14 PO ; Start 12/15/16 at 14:00 Insulin Glargine (Lantus) 26 unit DAILY@08 SC Last administered on 12/18/16 09: 02; Admin Dose 26 UNIT; Start 12/17/16 at 08:00 Prednisolone (Prelone (Ped)) 10 mg DAILY PO ; Start 12/18/16 at 09:00 Meclizine HCl (Antivert) 25 mg BID PRN PO NAUSEA AND/OR VOMITING; Start at 11:30 Assessment/Plan Additional Assessment/Plan Rehab- Toxic metabolic encephalopathy. Continue rehab activities Status post syncopal episode. Acute kidney injury and dehydration. Bronchitis. Diabetes mellitus- meds per IM Hypertension- improved Hyperlipidemia. History of CVA. SLIM WILSON MD Dec 18, 2016 11:48
[2016-12-18 13:00] VITALS: BP 108/58
[2016-12-18] MEDS ORDERED: INSULIN ASPART [NOVOLOG] 3 ML PEN SC ONE ×2 (13:00)
[2016-12-18 14:00] VITALS: BP 142/83; RESP 18
[2016-12-18] MEDS: AMLODIPINE 5 MG TAB PO SCH (14:00)
[2016-12-18] MEDS: BENAZEPRIL 10 MG TAB PO SCH (14:30)
--- NOTE | 2016-12-18 19:15 | CONS ---
Date/Time of Note Date/Time of Note DATE: 12/18/16 TIME: 19:11 Assessment/Plan Assessment/Plan Chief Complaint/Hosp Course IMPRESSION: 1. Chest pain.-negative trop x 3/NL EF by echo. NO ischemia. NL EF by lexiscan 2. Presyncope.- no sig arrythmia by tele monitoring 3. Hypotension on admit-now improved with HTN 4. Electrocardiogram with lateral T-wave inversion-negative trop x 3 5. Generalized weakness. 6. Diabetes mellitus. 7. Prerenal azotemia. Rec: -Now transferred to Rehab -Continue norvasc/benazepril/isordil and follow labile BP with possible need to decrease doses but all documented BP is above cut off -Continue asa/statin -Continue prednisilone -Follow volume status closely Problems: Consultation Date/Type/Reason Admit Date/Time Dec 11, 2016 at 20:00 Initial Consult Date 12/11/2016 Type of Consultation: cardiology Reason for Consultation Hotn Referring Provider: DEBBI SARABIA MD Exam/Review of Systems Vital Signs Vitals Vital Signs Date Time Temp Pulse Resp B/P Pulse Ox O2 Delivery O2 Flow Rate FiO2 12/18/16 14:00 98.5 94 18 142/83 93 12/18/16 09:50 21 12/18/16 08:00 Nasal Cannula 2.0 Intake and Output 12/17/16 12/17/16 12/18/16 15:00 23:00 07:00 Intake Total 720 ml 960 ml 300 ml Balance 720 ml 960 ml 300 ml Exam Review of Systems: CONSTITUTIONAL: No fevers, chills. PULMONARY: No sob CARDIOVASCULAR: No chest pain/palpitations GASTROINTESTINAL: No nausea/vomiting. GENITOURINARY: No hematuria/dysuria. MUSCULOSKELETAL: No myagias/arthalgias. PSYCHIATRIC: The patient denies depression. NEUROLOGIC: No weakness Constitutional: alert Psych: no complaints Head: normocephalic ENMT: mucosa pink and moist Neck: jvd, supple Respiratory: diminished breath sounds Cardiovascular: regular rate and rhythm Gastrointestinal: non-tender, soft Musculoskeletal: muscle tone (normal) Extremities: edema Neurological: other (No focal deficits) Results Result Diagram: 12/17/1628 12/17/1628 Results 24 hrs Laboratory Tests Test 12/17/16 21:02 12/18/16 08:34 12/18/16 10:25 12/18/16 12:18 Bedside Glucose 114 208 280 H 384 H Test 12/18/16 13:49 12/18/16 17:34 Bedside Glucose 295 H 73 Medications Medications Current Medications Aspirin (Aspirin) 81 mg DAILY PO Last administered on 12/18/16 09:00; Admin Dose 81 MG; Start 12/11/16 at 22:20 Pantoprazole (Protonix Tab) 40 mg DAILY@06 PO Last administered on 12/18/16 05: 38; Admin Dose 40 MG; Start 12/11/16 at 22:20 Nitroglycerin (Nitroglycerin (Sl Tab) 0.4 Mg) 1 tab Q5M PRN SL ANGINA; Start at 22:20 Miscellaneous Information 1 ea NOTE XX ; Start 12/11/16 at 22:20 Glucose (Glutose) 15 gm Q15M PRN PO DECREASED GLUCOSE Last administered on 08:00; Admin Dose 15 GM; Start 12/11/16 at 22:20 Glucose (Glutose) 22.5 gm Q15M PRN PO DECREASED GLUCOSE Last administered on 21:11; Admin Dose 22.5 GM; Start 12/11/16 at 22:20 Dextrose (D50w Syringe) 25 ml Q15M PRN IV DECREASED GLUCOSE; Start 12/11/16 at 22:20 Dextrose (D50w Syringe) 50 ml Q15M PRN IV DECREASED GLUCOSE; Start 12/11/16 at 22:20 Glucagon (Glucagen) 1 mg Q15M PRN IM DECREASED GLUCOSE; Start 12/11/16 at 22:20 Glucose (Glutose) 15 gm Q15M PRN BUCCAL DECREASED GLUCOSE Last administered on 12/12/16 22:06; Admin Dose 15 GM; Start 12/11/16 at 22:20 Quetiapine Fumarate (Seroquel) 25 mg DAILY PO Last administered on 12/17/16 08: 05; Admin Dose 25 MG; Start 12/11/16 at 22:20 Magnesium Hydroxide (Milk Of Mag) 30 ml BID PRN PO CONSTIPATION Last administered on 12/16/16 07:14; Admin Dose 30 ML; Start 12/11/16 at 22:20 Bisacodyl (Dulcolax Supp) 10 mg DAILY PRN [place] CONSTIPATION; Start 12/11/16 at 22 :20 Atorvastatin Calcium (Lipitor) 20 mg QHS PO Last administered on 12/17/16 20:58 ; Admin Dose 20 MG; Start 12/11/16 at 23:10 Isosorbide Dinitrate (Isordil) 20 mg TID PO Last administered on 12/18/16 09:00 ; Admin Dose 20 MG; Start 12/14/16 at 13:00 Diagnostic Test (Pha) (Accu-Chek) 1 ea 02 XX Last administered on 12/17/16 02: 28; Admin Dose 1 EA; Start 12/15/16 at 02:00 Acetaminophen (Tylenol Tab) 650 mg Q4H PRN PO PAIN AND OR ELEVATED TEMP Last administered on 12/15/16 11:39; Admin Dose 650 MG; Start 12/15/16 at 11:30 Benazepril HCl (Lotensin) 10 mg BID@11,21 PO Last administered on 12/17/16 20: 54; Admin Dose 10 MG; Start 12/15/16 at 21:00 Amlodipine Besylate (Norvasc) 5 mg DAILY@14 PO ; Start 12/15/16 at 14:00 Insulin Glargine (Lantus) 26 unit DAILY@08 SC Last administered on 12/18/16 09: 02; Admin Dose 26 UNIT; Start 12/17/16 at 08:00 Prednisolone (Prelone (Ped)) 10 mg DAILY PO ; Start 12/18/16 at 09:00 Meclizine HCl (Antivert) 25 mg BID PRN PO NAUSEA AND/OR VOMITING; Start at 11:30 ROSALINDA JARVIS Dec 18, 2016 19:15
[2016-12-18] MEDS ORDERED: ONDANSETRON 4 MG TAB PO PRN (19:30)
[2016-12-18 20:00] VITALS: BP 117/57; RESP 18
[2016-12-18] MEDS: ATORVASTATIN 20 MG TAB PO SCH (21:17)
[2016-12-18] MEDS: ISOSORBIDE DINITRATE 10 MG TAB PO SCH (21:23)
[2016-12-18] MEDS: AL HYDROX/MG HYDROX/SIMETH 30 ML CUP PO PRN (21:23)
[2016-12-19] MEDS: ALBUTEROL/IPRATROPIUM (NEB) 3 ML AMP HHN SCH ×4 (01:32→21:26)
[2016-12-19] MEDS: ACCU-CHEK XX SCH (02:00)
[2016-12-19] MEDS: PANTOPRAZOLE (EC) 40 MG TAB PO SCH (06:31)
[2016-12-19 07:30] VITALS: BP 131/65; RESP 20
[2016-12-19] MEDS: ISOSORBIDE DINITRATE 10 MG TAB PO SCH ×3 (08:25→21:02)
[2016-12-19] MEDS: ASPIRIN 81 MG TAB PO SCH (08:25)
[2016-12-19] MEDS: QUETIAPINE 25 MG TAB PO SCH (08:25)
[2016-12-19] MEDS: BENAZEPRIL 10 MG TAB PO SCH (08:25)
[2016-12-19] MEDS: predniSOLONE (3 MG/ML PO SYG) PO SCH (08:26)
[2016-12-19] MEDS: INSULIN ASPART [NOVOLOG] 3 ML PEN SC SCH ×7 (08:27→20:57)
[2016-12-19] MEDS: INSULIN GLARGINE [LANtus] 3 ML PEN SC SCH (08:27)
--- NOTE | 2016-12-19 10:38 | CONS ---
Date/Time of Note Date/Time of Note DATE: 12/19/16 TIME: 10:37 Consult Date/Type/Reason Admit Date/Time Dec 11, 2016 at 20:00 Type of Consultation: cardiology Ordering Provider: DEBBI SARABIA MD Subjective reports feeling tired Objective pulm-cta abd-soft min assist ambulation Vital Signs Date Time Temp Pulse Resp B/P Pulse Ox O2 Delivery O2 Flow Rate FiO2 12/19/16 08:00 Nasal Cannula 2.0 12/19/16 07:53 80 20 97 12/19/16 07:30 98.4 131/65 12/18/16 09:50 21 Intake and Output 12/18/16 12/18/16 12/19/16 15:00 23:00 07:00 Intake Total 620 ml 890 ml Balance 620 ml 890 ml Results/Medications Result Diagram: 12/17/1628 12/17/16627 Results 24 hrs Laboratory Tests Test 12/18/16 12:18 12/18/16 13:49 12/18/16 17:34 12/18/16 21:22 Bedside Glucose 384 H 295 H 73 186 Test 12/19/16 01:03 12/19/16 08:03 Bedside Glucose 236 H 291 H Medications Current Medications Aspirin (Aspirin) 81 mg DAILY PO Last administered on 12/19/16 08:25; Admin Dose 81 MG; Start 12/11/16 at 22:20 Pantoprazole (Protonix Tab) 40 mg DAILY@06 PO Last administered on 12/19/16 06: 31; Admin Dose 40 MG; Start 12/11/16 at 22:20 Nitroglycerin (Nitroglycerin (Sl Tab) 0.4 Mg) 1 tab Q5M PRN SL ANGINA; Start at 22:20 Miscellaneous Information 1 ea NOTE XX ; Start 12/11/16 at 22:20 Glucose (Glutose) 15 gm Q15M PRN PO DECREASED GLUCOSE Last administered on 08:00; Admin Dose 15 GM; Start 12/11/16 at 22:20 Glucose (Glutose) 22.5 gm Q15M PRN PO DECREASED GLUCOSE Last administered on 21:11; Admin Dose 22.5 GM; Start 12/11/16 at 22:20 Dextrose (D50w Syringe) 25 ml Q15M PRN IV DECREASED GLUCOSE; Start 12/11/16 at 22:20 Dextrose (D50w Syringe) 50 ml Q15M PRN IV DECREASED GLUCOSE; Start 12/11/16 at 22:20 Glucagon (Glucagen) 1 mg Q15M PRN IM DECREASED GLUCOSE; Start 12/11/16 at 22:20 Glucose (Glutose) 15 gm Q15M PRN BUCCAL DECREASED GLUCOSE Last administered on 12/12/16 22:06; Admin Dose 15 GM; Start 12/11/16 at 22:20 Quetiapine Fumarate (Seroquel) 25 mg DAILY PO Last administered on 12/19/16 08: 25; Admin Dose 25 MG; Start 12/11/16 at 22:20 Magnesium Hydroxide (Milk Of Mag) 30 ml BID PRN PO CONSTIPATION Last administered on 12/16/16 07:14; Admin Dose 30 ML; Start 12/11/16 at 22:20 Bisacodyl (Dulcolax Supp) 10 mg DAILY PRN [place] CONSTIPATION; Start 12/11/16 at 22 :20 Atorvastatin Calcium (Lipitor) 20 mg QHS PO Last administered on 12/18/16 21:17 ; Admin Dose 20 MG; Start 12/11/16 at 23:10 Diagnostic Test (Pha) (Accu-Chek) 1 ea 02 XX Last administered on 12/17/16 02: 28; Admin Dose 1 EA; Start 12/15/16 at 02:00 Acetaminophen (Tylenol Tab) 650 mg Q4H PRN PO PAIN AND OR ELEVATED TEMP Last administered on 12/15/16 11:39; Admin Dose 650 MG; Start 12/15/16 at 11:30 Amlodipine Besylate (Norvasc) 5 mg DAILY@14 PO ; Start 12/15/16 at 14:00 Insulin Glargine (Lantus) 26 unit DAILY@08 SC Last administered on 12/19/16 08: 27; Admin Dose 26 UNIT; Start 12/17/16 at 08:00 Prednisolone (Prelone (Ped)) 10 mg DAILY PO Last administered on 12/19/16 08:26 ; Admin Dose 10 MG; Start 12/18/16 at 09:00 Meclizine HCl (Antivert) 25 mg BID PRN PO NAUSEA AND/OR VOMITING; Start at 11:30 Benazepril HCl (Lotensin) 10 mg DAILY PO Last administered on 12/19/16 08:25; Admin Dose 10 MG; Start 12/19/16 at 09:00 Isosorbide Dinitrate (Isordil) 10 mg TID PO Last administered on 12/19/16 08:25 ; Admin Dose 10 MG; Start 12/18/16 at 21:00 Ondansetron HCl (Zofran Tab) 4 mg Q6H PRN PO NAUSEA AND/OR VOMITING; Start 12/18 at 19:30 Al Hydrox/Mg Hydrox/Simethicone (Mag-Al Plus) 30 ml Q4H PRN PO GASTROINTESTINAL UPSET Last administered on 12/18/16 21:23; Admin Dose 30 ML; Start 12/18/16 at 19:30 Assessment/Plan Additional Assessment/Plan Rehab- Toxic metabolic encephalopathy. Continue rehab treatment plan Status post syncopal episode. Acute kidney injury and dehydration.-encourage po intake Bronchitis. Diabetes mellitus- meds per IM Hypertension- improved Hyperlipidemia. History of CVA. SLIM WILSON MD Dec 19, 2016 10:37
[2016-12-19 14:00] VITALS: BP 164/72; RESP 20
--- NOTE | 2016-12-19 16:30 | CONS ---
Date/Time of Note Date/Time of Note DATE: 12/19/16 TIME: 16:28 Assessment/Plan Assessment/Plan Chief Complaint/Hosp Course IMPRESSION: 1. Chest pain.-negative trop x 3/NL EF by echo. NO ischemia. NL EF by lexiscan 2. Presyncope.- no sig arrythmia by tele monitoring 3. Hypotension on admit-now improved with HTN 4. Electrocardiogram with lateral T-wave inversion-negative trop x 3 5. Generalized weakness. 6. Diabetes mellitus. 7. Prerenal azotemia. Rec: -Now transferred to Rehab -Continue norvasc/benazepril and follow labile BP closely -Continue asa/statin -Continue prednisilone -Follow volume status closely -PT/OT Problems: Consultation Date/Type/Reason Admit Date/Time Dec 11, 2016 at 20:00 Initial Consult Date 12/11/2016 Type of Consultation: cardiology Reason for Consultation HTN Referring Provider: DEBBI SARABIA MD Exam/Review of Systems Vital Signs Vitals Vital Signs Date Time Temp Pulse Resp B/P Pulse Ox O2 Delivery O2 Flow Rate FiO2 12/19/16 14:00 98.3 92 20 164/72 97 12/19/16 13:40 2.0 12/19/16 08:00 Nasal Cannula 12/18/16 09:50 21 Intake and Output 12/18/16 12/18/16 12/19/16 15:00 23:00 07:00 Intake Total 620 ml 890 ml Balance 620 ml 890 ml Exam Review of Systems: CONSTITUTIONAL: No fevers, chills. PULMONARY: No sob CARDIOVASCULAR: No chest pain/palpitations GASTROINTESTINAL: No nausea/vomiting. GENITOURINARY: No hematuria/dysuria. MUSCULOSKELETAL: No myagias/arthalgias. PSYCHIATRIC: The patient denies depression. NEUROLOGIC: No weakness Constitutional: other (sleeping) Psych: no complaints Head: normocephalic ENMT: mucosa pink and moist Neck: jvd (8 cm water), supple Respiratory: clear to auscultation Cardiovascular: regular rate and rhythm Gastrointestinal: non-tender, soft Musculoskeletal: muscle weakness (mild generalized) Extremities: edema (none) Neurological: other (No focal deficits) Results Result Diagram: 12/17/16 0628 12/17/16 0628 Results 24 hrs Laboratory Tests Test 12/18/16 17:34 12/18/16 21:22 12/19/16 01:03 12/19/16 08:03 Bedside Glucose 73 186 236 H 291 H Test 12/19/16 11:47 Bedside Glucose 253 H Medications Medications Current Medications Aspirin (Aspirin) 81 mg DAILY PO Last administered on 12/19/16 08:25; Admin Dose 81 MG; Start 12/11/16 at 22:20 Pantoprazole (Protonix Tab) 40 mg DAILY@06 PO Last administered on 12/19/16 06: 31; Admin Dose 40 MG; Start 12/11/16 at 22:20 Nitroglycerin (Nitroglycerin (Sl Tab) 0.4 Mg) 1 tab Q5M PRN SL ANGINA; Start at 22:20 Miscellaneous Information 1 ea NOTE XX ; Start 12/11/16 at 22:20 Glucose (Glutose) 15 gm Q15M PRN PO DECREASED GLUCOSE Last administered on 08:00; Admin Dose 15 GM; Start 12/11/16 at 22:20 Glucose (Glutose) 22.5 gm Q15M PRN PO DECREASED GLUCOSE Last administered on 21:11; Admin Dose 22.5 GM; Start 12/11/16 at 22:20 Dextrose (D50w Syringe) 25 ml Q15M PRN IV DECREASED GLUCOSE; Start 12/11/16 at 22:20 Dextrose (D50w Syringe) 50 ml Q15M PRN IV DECREASED GLUCOSE; Start 12/11/16 at 22:20 Glucagon (Glucagen) 1 mg Q15M PRN IM DECREASED GLUCOSE; Start 12/11/16 at 22:20 Glucose (Glutose) 15 gm Q15M PRN BUCCAL DECREASED GLUCOSE Last administered on 12/12/16 22:06; Admin Dose 15 GM; Start 12/11/16 at 22:20 Quetiapine Fumarate (Seroquel) 25 mg DAILY PO Last administered on 12/19/16 08: 25; Admin Dose 25 MG; Start 12/11/16 at 22:20 Magnesium Hydroxide (Milk Of Mag) 30 ml BID PRN PO CONSTIPATION Last administered on 12/16/16 07:14; Admin Dose 30 ML; Start 12/11/16 at 22:20 Bisacodyl (Dulcolax Supp) 10 mg DAILY PRN [place] CONSTIPATION; Start 12/11/16 at 22 :20 Atorvastatin Calcium (Lipitor) 20 mg QHS PO Last administered on 12/18/16 21:17 ; Admin Dose 20 MG; Start 12/11/16 at 23:10 Diagnostic Test (Pha) (Accu-Chek) 1 ea 02 XX Last administered on 12/17/16 02: 28; Admin Dose 1 EA; Start 12/15/16 at 02:00 Acetaminophen (Tylenol Tab) 650 mg Q4H PRN PO PAIN AND OR ELEVATED TEMP Last administered on 12/15/16 11:39; Admin Dose 650 MG; Start 12/15/16 at 11:30 Amlodipine Besylate (Norvasc) 5 mg DAILY@14 PO ; Start 12/15/16 at 14:00 Insulin Glargine (Lantus) 26 unit DAILY@08 SC Last administered on 12/19/16 08: 27; Admin Dose 26 UNIT; Start 12/17/16 at 08:00 Prednisolone (Prelone (Ped)) 10 mg DAILY PO Last administered on 12/19/16 08:26 ; Admin Dose 10 MG; Start 12/18/16 at 09:00 Meclizine HCl (Antivert) 25 mg BID PRN PO NAUSEA AND/OR VOMITING; Start at 11:30 Benazepril HCl (Lotensin) 10 mg DAILY PO Last administered on 12/19/16 08:25; Admin Dose 10 MG; Start 12/19/16 at 09:00 Isosorbide Dinitrate (Isordil) 10 mg TID PO Last administered on 12/19/16 12:27 ; Admin Dose 10 MG; Start 12/18/16 at 21:00 Ondansetron HCl (Zofran Tab) 4 mg Q6H PRN PO NAUSEA AND/OR VOMITING; Start 12/18 at 19:30 Al Hydrox/Mg Hydrox/Simethicone (Mag-Al Plus) 30 ml Q4H PRN PO GASTROINTESTINAL UPSET Last administered on 12/18/16 21:23; Admin Dose 30 ML; Start 12/18/16 at 19:30 ROSALINDA JARVIS Dec 19, 2016 16:30
[2016-12-19] MEDS: AMLODIPINE 5 MG TAB PO SCH (16:36)
[2016-12-19 20:00] VITALS: BP 132/70; RESP 18
[2016-12-19] MEDS: ATORVASTATIN 20 MG TAB PO SCH (20:56)
[2016-12-20] MEDS: ALBUTEROL/IPRATROPIUM (NEB) 3 ML AMP HHN SCH ×4 (01:24→19:55)
[2016-12-20 02:00] VITALS: BP 130/63; RESP 18
[2016-12-20] MEDS ORDERED: ACCU-CHEK XX SCH (02:00)
[2016-12-20] MEDS: ACCU-CHEK XX SCH (02:00)
[2016-12-20] MEDS: PANTOPRAZOLE (EC) 40 MG TAB PO SCH (06:47)
[2016-12-20 08:00] VITALS: BP 128/67; RESP 18
[2016-12-20] MEDS: INSULIN ASPART [NOVOLOG] 3 ML PEN SC SCH ×7 (08:18→20:45)
[2016-12-20] MEDS: INSULIN GLARGINE [LANtus] 3 ML PEN SC SCH (08:20)
[2016-12-20] MEDS: ISOSORBIDE DINITRATE 10 MG TAB PO SCH ×3 (08:21→20:36)
[2016-12-20] MEDS: BENAZEPRIL 10 MG TAB PO SCH (08:22)
[2016-12-20] MEDS: QUETIAPINE 25 MG TAB PO SCH (08:22)
[2016-12-20] MEDS: ASPIRIN 81 MG TAB PO SCH (08:22)
[2016-12-20] MEDS: predniSOLONE (3 MG/ML PO SYG) PO SCH (08:22)
--- NOTE | 2016-12-20 12:00 | CONS ---
Date/Time of Note Date/Time of Note DATE: 12/20/16 TIME: 11:59 Consult Date/Type/Reason Admit Date/Time Dec 11, 2016 at 20:00 Type of Consultation: cardiology Ordering Provider: DEBBI SARABIA MD Subjective Patient up for activities Objective Lungs clear abdomen soft Min assist 90 feet ambulation Vital Signs Date Time Temp Pulse Resp B/P Pulse Ox O2 Delivery O2 Flow Rate FiO2 12/20/16 08:32 88 18 96 Nasal Cannula 2.0 12/20/16 08:00 98.4 128/67 12/20/16 01:24 21 Intake and Output 12/19/16 12/19/16 12/20/16 15:00 23:00 07:00 Intake Total 620 ml 720 ml Balance 620 ml 720 ml Results/Medications Result Diagram: 12/17/1662712/17/16627 Results 24 hrs Laboratory Tests Test 12/19/16 17:26 12/19/16 20:55 12/20/16 07:51 Bedside Glucose 147 163 177 Medications Current Medications Aspirin (Aspirin) 81 mg DAILY PO Last administered on 12/20/16 08:22; Admin Dose 81 MG; Start 12/11/16 at 22:20 Pantoprazole (Protonix Tab) 40 mg DAILY@06 PO Last administered on 12/20/16 06: 47; Admin Dose 40 MG; Start 12/11/16 at 22:20 Nitroglycerin (Nitroglycerin (Sl Tab) 0.4 Mg) 1 tab Q5M PRN SL ANGINA; Start at 22:20 Miscellaneous Information 1 ea NOTE XX ; Start 12/11/16 at 22:20 Glucose (Glutose) 15 gm Q15M PRN PO DECREASED GLUCOSE Last administered on 08:00; Admin Dose 15 GM; Start 12/11/16 at 22:20 Glucose (Glutose) 22.5 gm Q15M PRN PO DECREASED GLUCOSE Last administered on 21:11; Admin Dose 22.5 GM; Start 12/11/16 at 22:20 Dextrose (D50w Syringe) 25 ml Q15M PRN IV DECREASED GLUCOSE; Start 12/11/16 at 22:20 Dextrose (D50w Syringe) 50 ml Q15M PRN IV DECREASED GLUCOSE; Start 12/11/16 at 22:20 Glucagon (Glucagen) 1 mg Q15M PRN IM DECREASED GLUCOSE; Start 12/11/16 at 22:20 Glucose (Glutose) 15 gm Q15M PRN BUCCAL DECREASED GLUCOSE Last administered on 12/12/16 22:06; Admin Dose 15 GM; Start 12/11/16 at 22:20 Quetiapine Fumarate (Seroquel) 25 mg DAILY PO Last administered on 12/20/16 08: 22; Admin Dose 25 MG; Start 12/11/16 at 22:20 Magnesium Hydroxide (Milk Of Mag) 30 ml BID PRN PO CONSTIPATION Last administered on 12/16/16 07:14; Admin Dose 30 ML; Start 12/11/16 at 22:20 Bisacodyl (Dulcolax Supp) 10 mg DAILY PRN [place] CONSTIPATION; Start 12/11/16 at 22 :20 Atorvastatin Calcium (Lipitor) 20 mg QHS PO Last administered on 12/19/16 20:56 ; Admin Dose 20 MG; Start 12/11/16 at 23:10 Diagnostic Test (Pha) (Accu-Chek) 1 ea 02 XX Last administered on 12/17/16 02: 28; Admin Dose 1 EA; Start 12/15/16 at 02:00 Acetaminophen (Tylenol Tab) 650 mg Q4H PRN PO PAIN AND OR ELEVATED TEMP Last administered on 12/15/16 11:39; Admin Dose 650 MG; Start 12/15/16 at 11:30 Amlodipine Besylate (Norvasc) 5 mg DAILY@14 PO Last administered on 12/19/16 16 :36; Admin Dose 5 MG; Start 12/15/16 at 14:00 Prednisolone (Prelone (Ped)) 10 mg DAILY PO Last administered on 12/20/16 08:22 ; Admin Dose 10 MG; Start 12/18/16 at 09:00 Meclizine HCl (Antivert) 25 mg BID PRN PO NAUSEA AND/OR VOMITING; Start at 11:30 Benazepril HCl (Lotensin) 10 mg DAILY PO Last administered on 12/20/16 08:22; Admin Dose 10 MG; Start 12/19/16 at 09:00 Isosorbide Dinitrate (Isordil) 10 mg TID PO Last administered on 9/9/17at 08:21 ; Admin Dose 10 MG; Start 12/18/16 at 21:00 Ondansetron HCl (Zofran Tab) 4 mg Q6H PRN PO NAUSEA AND/OR VOMITING; Start 12/18 at 19:30 Al Hydrox/Mg Hydrox/Simethicone (Mag-Al Plus) 30 ml Q4H PRN PO GASTROINTESTINAL UPSET Last administered on 12/18/16 21:23; Admin Dose 30 ML; Start 12/18/16 at 19:30 Insulin Glargine (Lantus) 30 unit DAILY@08 SC Last administered on 12/20/16 08: 20; Admin Dose 30 UNIT; Start 12/20/16 at 08:00 Assessment/Plan Additional Assessment/Plan Rehab- Toxic metabolic encephalopathy. Continue rehab therapy program Status post syncopal episode. Acute kidney injury and dehydration.-encourage po intake Bronchitis. Diabetes mellitus- meds per IM Hypertension- improved Hyperlipidemia. History of CVA. SLIM WILSON MD Dec 20, 2016 12:00
[2016-12-20] MEDS: AMLODIPINE 5 MG TAB PO SCH (14:00)
--- NOTE | 2016-12-20 14:42 | CONS ---
Date/Time of Note Date/Time of Note DATE: 12/20/16 TIME: 14:39 Assessment/Plan Assessment/Plan Additional Assessment/Plan Atypical chest pain abnormal electrocardiogram Dizziness Diabetes Dyslipidemia Clinically and hemodynamically stable Avoid AV Randolph medications Continue Imdur Continue Norvasc and lisinopril Continue ASA Continue Insulin Continue Lipitor PT/OT as tolerated Consultation Date/Type/Reason Admit Date/Time Dec 11, 2016 at 20:00 Constitutional: improved Respiratory: no complaints Cardiovascular: no complaints Gastrointestinal: no complaints Genitourinary: no complaints Musculoskeletal: no complaints Skin: no complaints Psychological: no complaints Social History Smoking Status: Never smoker Exam/Review of Systems Vital Signs Vitals Vital Signs Date Time Temp Pulse Resp B/P Pulse Ox O2 Delivery O2 Flow Rate FiO2 12/20/16 08:32 88 18 96 Nasal Cannula 2.0 12/20/16 08:00 98.4 128/67 12/20/16 01:24 21 Intake and Output 12/19/16 12/19/16 12/20/16 15:00 23:00 07:00 Intake Total 620 ml 720 ml Balance 620 ml 720 ml Exam Constitutional: alert Head: atraumatic, normocephalic Neck: non-tender, supple Respiratory: clear to auscultation Cardiovascular: regular rate and rhythm Gastrointestinal: nl liver, spleen, non-tender, soft Extremities: normal pulses Results Result Diagram: 12/17/1662712/17/1628 Results 24 hrs Laboratory Tests Test 12/19/16 17:26 12/19/16 20:55 12/20/16 07:51 12/20/16 12:13 Bedside Glucose 147 163 177 154 Medications Medications Current Medications Aspirin (Aspirin) 81 mg DAILY PO Last administered on 12/20/16 08:22; Admin Dose 81 MG; Start 12/11/16 at 22:20 Pantoprazole (Protonix Tab) 40 mg DAILY@06 PO Last administered on 12/20/16 06: 47; Admin Dose 40 MG; Start 12/11/16 at 22:20 Nitroglycerin (Nitroglycerin (Sl Tab) 0.4 Mg) 1 tab Q5M PRN SL ANGINA; Start at 22:20 Miscellaneous Information 1 ea NOTE XX ; Start 12/11/16 at 22:20 Glucose (Glutose) 15 gm Q15M PRN PO DECREASED GLUCOSE Last administered on 08:00; Admin Dose 15 GM; Start 12/11/16 at 22:20 Glucose (Glutose) 22.5 gm Q15M PRN PO DECREASED GLUCOSE Last administered on 21:11; Admin Dose 22.5 GM; Start 12/11/16 at 22:20 Dextrose (D50w Syringe) 25 ml Q15M PRN IV DECREASED GLUCOSE; Start 12/11/16 at 22:20 Dextrose (D50w Syringe) 50 ml Q15M PRN IV DECREASED GLUCOSE; Start 12/11/16 at 22:20 Glucagon (Glucagen) 1 mg Q15M PRN IM DECREASED GLUCOSE; Start 12/11/16 at 22:20 Glucose (Glutose) 15 gm Q15M PRN BUCCAL DECREASED GLUCOSE Last administered on 12/12/16 22:06; Admin Dose 15 GM; Start 12/11/16 at 22:20 Quetiapine Fumarate (Seroquel) 25 mg DAILY PO Last administered on 12/20/16 08: 22; Admin Dose 25 MG; Start 12/11/16 at 22:20 Magnesium Hydroxide (Milk Of Mag) 30 ml BID PRN PO CONSTIPATION Last administered on 12/16/16 07:14; Admin Dose 30 ML; Start 12/11/16 at 22:20 Bisacodyl (Dulcolax Supp) [address] [place] CONSTIPATION; Start 12/11/16 at 22 :20 Atorvastatin Calcium (Lipitor) 20 mg QHS PO Last administered on 12/19/16 20:56 ; Admin Dose 20 MG; Start 12/11/16 at 23:10 Diagnostic Test (Pha) (Accu-Chek) 1 ea 02 XX Last administered on 12/17/16 02: 28; Admin Dose 1 EA; Start 12/15/16 at 02:00 Acetaminophen (Tylenol Tab) 650 mg Q4H PRN PO PAIN AND OR ELEVATED TEMP Last administered on 12/15/16 11:39; Admin Dose 650 MG; Start 12/15/16 at 11:30 Amlodipine Besylate (Norvasc) 5 mg DAILY@14 PO Last administered on 12/19/16 16 :36; Admin Dose 5 MG; Start 12/15/16 at 14:00 Prednisolone (Prelone (Ped)) 10 mg DAILY PO Last administered on 12/20/16 08:22 ; Admin Dose 10 MG; Start 12/18/16 at 09:00 Meclizine HCl (Antivert) 25 mg BID PRN PO NAUSEA AND/OR VOMITING; Start at 11:30 Benazepril HCl (Lotensin) 10 mg DAILY PO Last administered on 12/20/16 08:22; Admin Dose 10 MG; Start 12/19/16 at 09:00 Isosorbide Dinitrate (Isordil) 10 mg TID PO Last administered on 12/20/16 08:21 ; Admin Dose 10 MG; Start 12/18/16 at 21:00 Ondansetron HCl (Zofran Tab) 4 mg Q6H PRN PO NAUSEA AND/OR VOMITING; Start 12/18 at 19:30 Al Hydrox/Mg Hydrox/Simethicone (Mag-Al Plus) 30 ml Q4H PRN PO GASTROINTESTINAL UPSET Last administered on 12/18/16 21:23; Admin Dose 30 ML; Start 12/18/16 at 19:30 Insulin Glargine (Lantus) 30 unit DAILY@08 SC Last administered on 12/20/16 08: 20; Admin Dose 30 UNIT; Start 12/20/16 at 08:00 VICKY GILES M.D. Dec 20, 2016 14:42
[2016-12-20] MEDS: AL HYDROX/MG HYDROX/SIMETH 30 ML CUP PO PRN (17:31)
[2016-12-20] MEDS: LACTULOSE 30ML CUP PO PRN (17:31)
[2016-12-20 20:00] VITALS: BP 139/77; RESP 18
[2016-12-20] MEDS: DOCUSATE SODIUM 100 MG CAP PO SCH (20:33)
[2016-12-20] MEDS: ATORVASTATIN 20 MG TAB PO SCH (20:34)
[2016-12-20] MEDS: SENNA TAB PO SCH (20:37)
--- NOTE | 2016-12-20 20:50 | PN ---
Date/Time of Note Date/Time of Note DATE: 12/20/16 TIME: 20:50 Assessment/Plan VTE Prophylaxis VTE Prophylaxis Intervention: other Lines/Catheters [facility]from [facility] Urinary Cath still in place: No Assessment/Plan Assessment/Plan - Hyperglycemic sec to steroids and Diabetes- cont to monitor - Acute bronchitis, continue Levaquin, steroids. - Near syncopal episode. Acute coronary syndrome ruled out. cardiac enzymes is negative 3. - per Dr. Bhagat in cardiology consultation. - Rule out transient ischemic attack in patient with history of stroke. Continue aspirin. MRI is negative. - Dr. Rios is following in a neurology consultation. - Diabetes mellitus type 2. Hemoglobin A1c is 9.6. Continue Lantus and NovoLog. - Hypertension. Continue Lotensin and Norvasc. - Acute kidney injury secondary to dehydration, resolved. Rupesh Hadley Subjective 24 Hr Interval Summary Free Text/Dictation sleeping, easy awakens when called by name, tolerates PT-dw staff Constitutional: requiring O2 Respiratory: no complaints Cardiovascular: no complaints Gastrointestinal: no complaints Genitourinary: no complaints Musculoskeletal: no complaints Exam/Review of Systems Vital Signs Vitals Vital Signs Date Time Temp Pulse Resp B/P Pulse Ox O2 Delivery O2 Flow Rate FiO2 12/20/16 19:55 85 16 92 21 12/20/16 19:29 Nasal Cannula 2.0 12/20/16 08:00 98.4 128/67 Intake and Output 12/19/16 12/19/16 12/20/16 15:00 23:00 07:00 Intake Total 620 ml 720 ml Balance 620 ml 720 ml Exam Constitutional: alert, oriented, well developed Respiratory: diminished breath sounds, normal air movement Cardiovascular: nl pulses Gastrointestinal: non-tender, soft Musculoskeletal: nl extremities to inspection Neurological: nl speech, other Results Result Diagram: 12/17/1628 12/17/16 0628 Results 24 hrs Laboratory Tests Test 12/19/16 20:55 12/20/16 07:51 12/20/16 12:13 12/20/16 17:18 Bedside Glucose 163 177 154 193 Test 12/20/16 20:26 Bedside Glucose 260 H Medications Medications Current Medications Aspirin (Aspirin) 81 mg DAILY PO Last administered on 12/20/16t 08:22; Admin Dose 81 MG; Start 12/11/16 at 22:20 Pantoprazole (Protonix Tab) 40 mg DAILY@06 PO Last administered on 12/20/16 06: 47; Admin Dose 40 MG; Start 12/11/16 at 22:20 Nitroglycerin (Nitroglycerin (Sl Tab) 0.4 Mg) 1 tab Q5M PRN SL ANGINA; Start at 22:20 Miscellaneous Information 1 ea NOTE XX ; Start 12/11/16 at 22:20 Glucose (Glutose) 15 gm Q15M PRN PO DECREASED GLUCOSE Last administered on 08:00; Admin Dose 15 GM; Start 12/11/16 at 22:20 Glucose (Glutose) 22.5 gm Q15M PRN PO DECREASED GLUCOSE Last administered on 21:11; Admin Dose 22.5 GM; Start 12/11/16 at 22:20 Dextrose (D50w Syringe) 25 ml Q15M PRN IV DECREASED GLUCOSE; Start 12/11/16 at 22:20 Dextrose (D50w Syringe) 50 ml Q15M PRN IV DECREASED GLUCOSE; Start 12/11/16 at 22:20 Glucagon (Glucagen) 1 mg Q15M PRN IM DECREASED GLUCOSE; Start 12/11/16 at 22:20 Glucose (Glutose) 15 gm Q15M PRN BUCCAL DECREASED GLUCOSE Last administered on 12/12/16 22:06; Admin Dose 15 GM; Start 12/11/16 at 22:20 Quetiapine Fumarate (Seroquel) 25 mg DAILY PO Last administered on 12/20/16 08: 22; Admin Dose 25 MG; Start 12/11/16 at 22:20 Magnesium Hydroxide (Milk Of Mag) 30 ml BID PRN PO CONSTIPATION Last administered on 12/16/16 07:14; Admin Dose 30 ML; Start 12/11/16 at 22:20 Bisacodyl (Dulcolax Supp) 10 mg DAILY PRN [place] CONSTIPATION; Start 12/11/16 at 22 :20 Atorvastatin Calcium (Lipitor) 20 mg QHS PO Last administered on 12/20/16 20:34 ; Admin Dose 20 MG; Start 12/11/16 at 23:10 Diagnostic Test (Pha) (Accu-Chek) 1 ea 02 XX Last administered on 12/17/16 02: 28; Admin Dose 1 EA; Start 12/15/16 at 02:00 Acetaminophen (Tylenol Tab) 650 mg Q4H PRN PO PAIN AND OR ELEVATED TEMP Last administered on 12/15/16 11:39; Admin Dose 650 MG; Start 12/15/16 at 11:30 Amlodipine Besylate (Norvasc) 5 mg DAILY@14 PO Last administered on 12/19/16 16 :36; Admin Dose 5 MG; Start 12/15/16 at 14:00 Prednisolone (Prelone (Ped)) 10 mg DAILY PO Last administered on 12/20/16 08:22 ; Admin Dose 10 MG; Start 12/18/16 at 09:00 Meclizine HCl (Antivert) 25 mg BID PRN PO NAUSEA AND/OR VOMITING; Start at 11:30 Benazepril HCl (Lotensin) 10 mg DAILY PO Last administered on 12/20/16 08:22; Admin Dose 10 MG; Start 12/19/16 at 09:00 Isosorbide Dinitrate (Isordil) 10 mg TID PO Last administered on 12/20/16 20:36 ; Admin Dose 10 MG; Start 12/18/16 at 21:00 Ondansetron HCl (Zofran Tab) 4 mg Q6H PRN PO NAUSEA AND/OR VOMITING; Start 12/18 at 19:30 Al Hydrox/Mg Hydrox/Simethicone (Mag-Al Plus) 30 ml Q4H PRN PO GASTROINTESTINAL UPSET Last administered on 12/20/16 17:31; Admin Dose 30 ML; Start 12/18/16 at 19:30 Insulin Glargine (Lantus) 30 unit DAILY@08 SC Last administered on 12/20/16 08: 20; Admin Dose 30 UNIT; Start 12/20/16 at 08:00 Docusate Sodium (Colace) 100 mg BID PO Last administered on 12/20/16 20:33; Admin Dose 100 MG; Start 12/20/16 at 21:00 Senna (Senokot) 1 tab DAILY PO Last administered on 12/20/16 20:37; Admin Dose 1 TAB; Start 12/20/16 at 21:00 Lactulose (Enulose) 20 gm DAILY PRN PO CONSTIPATION Last administered on 17:31; Admin Dose 20 GM; Start 12/20/16 at 15:00 TAMERA HANKINS Dec 20, 2016 20:50
[2016-12-21] MEDS: ALBUTEROL/IPRATROPIUM (NEB) 3 ML AMP HHN SCH ×4 (01:27→20:42)
[2016-12-21 02:00] VITALS: BP 132/68; RESP 18
[2016-12-21] MEDS: ACCU-CHEK XX SCH (02:00)
[2016-12-21] MEDS: PANTOPRAZOLE (EC) 40 MG TAB PO SCH (06:34)
[2016-12-21] MEDS: INSULIN ASPART [NOVOLOG] 3 ML PEN SC SCH ×7 (08:48→21:10)
[2016-12-21] MEDS: INSULIN GLARGINE [LANtus] 3 ML PEN SC SCH (08:50)
[2016-12-21 09:00] VITALS: BP 107/57
[2016-12-21] MEDS: ISOSORBIDE DINITRATE 10 MG TAB PO SCH ×3 (09:00→21:00)
[2016-12-21] MEDS: SENNA TAB PO SCH (09:00)
[2016-12-21] MEDS: BENAZEPRIL 10 MG TAB PO SCH (09:00)
[2016-12-21] MEDS: DOCUSATE SODIUM 100 MG CAP PO SCH ×2 (12:54→21:01)
[2016-12-21] MEDS: ASPIRIN 81 MG TAB PO SCH (12:54)
[2016-12-21] MEDS: QUETIAPINE 25 MG TAB PO SCH (12:56)
--- NOTE | 2016-12-21 13:26 | CONS ---
Date/Time of Note Date/Time of Note DATE: 12/21/16 TIME: 13:25 Assessment/Plan Assessment/Plan Additional Assessment/Plan Atypical chest pain Abnormal electrocardiogram Dizziness Diabetes Dyslipidemia Clinically and hemodynamically stable EF 70% Avoid AV Randolph medications Continue Imdur Continue Norvasc and lisinopril Continue ASA Continue Insulin Continue Lipitor PT/OT as tolerated Consultation Date/Type/Reason Admit Date/Time Dec 11, 2016 at 20:00 Initial Consult Date Type of Consultation: cardiology Referring Provider: DEBBI SARABIA MD Exam/Review of Systems Vital Signs Vitals Vital Signs Date Time Temp Pulse Resp B/P Pulse Ox O2 Delivery O2 Flow Rate FiO2 12/21/16 09:00 107/57 12/21/16 07:47 84 16 93 21 12/21/16 02:00 98.7 12/20/16 19:29 Nasal Cannula 2.0 Intake and Output 12/20/16 12/20/16 12/21/16 15:00 23:00 07:00 Intake Total 720 ml 510 ml 120 ml Balance 720 ml 510 ml 120 ml Exam Head: atraumatic, normocephalic Neck: non-tender, supple Respiratory: clear to auscultation Gastrointestinal: nl liver, spleen, non-tender, soft Extremities: normal pulses Results Result Diagram: 12/17/1662712/17/16627 Results 24 hrs Laboratory Tests Test 12/20/16 17:18 12/20/16 20:26 12/21/16 02:41 12/21/16 07:59 Bedside Glucose 193 260 H 238 H 222 H Test 12/21/16 12:15 Bedside Glucose 173 Medications Medications Current Medications Aspirin (Aspirin) 81 mg DAILY PO Last administered on 12/21/16 12:54; Admin Dose 81 MG; Start 12/11/16 at 22:20 Pantoprazole (Protonix Tab) 40 mg DAILY@06 PO Last administered on 12/21/16 06 :34; Admin Dose 40 MG; Start 12/11/16 at 22:20 Nitroglycerin (Nitroglycerin (Sl Tab) 0.4 Mg) 1 tab Q5M PRN SL ANGINA; Start at 22:20 Miscellaneous Information 1 ea NOTE XX ; Start 12/11/16 at 22:20 Glucose (Glutose) 15 gm Q15M PRN PO DECREASED GLUCOSE Last administered on 08:00; Admin Dose 15 GM; Start 12/11/16 at 22:20 Glucose (Glutose) 22.5 gm Q15M PRN PO DECREASED GLUCOSE Last administered on 21:11; Admin Dose 22.5 GM; Start 12/11/16 at 22:20 Dextrose (D50w Syringe) 25 ml Q15M PRN IV DECREASED GLUCOSE; Start 12/11/16 at 22:20 Dextrose (D50w Syringe) 50 ml Q15M PRN IV DECREASED GLUCOSE; Start 12/11/16 at 22:20 Glucagon (Glucagen) 1 mg Q15M PRN IM DECREASED GLUCOSE; Start 12/11/16 at 22:20 Glucose (Glutose) 15 gm Q15M PRN BUCCAL DECREASED GLUCOSE Last administered on 12/12/16 22:06; Admin Dose 15 GM; Start 12/11/16 at 22:20 Quetiapine Fumarate (Seroquel) 25 mg DAILY PO Last administered on 12/21/16 12 :56; Admin Dose 25 MG; Start 12/11/16 at 22:20 Magnesium Hydroxide (Milk Of Mag) 30 ml BID PRN PO CONSTIPATION Last administered on 12/16/16 07:14; Admin Dose 30 ML; Start 12/11/16 at 22:20 Bisacodyl (Dulcolax Supp) 10 mg DAILY PRN [place] CONSTIPATION; Start 12/11/16 at 22 :20 Atorvastatin Calcium (Lipitor) 20 mg QHS PO Last administered on 12/20/16 20:34 ; Admin Dose 20 MG; Start 12/11/16 at 23:10 Diagnostic Test (Pha) (Accu-Chek) 1 ea 02 XX Last administered on 12/21/16 02: 00; Admin Dose 1 EA; Start 12/15/16 at 02:00 Acetaminophen (Tylenol Tab) 650 mg Q4H PRN PO PAIN AND OR ELEVATED TEMP Last administered on 12/15/16 11:39; Admin Dose 650 MG; Start 12/15/16 at 11:30 Amlodipine Besylate (Norvasc) 5 mg DAILY@14 PO Last administered on 12/19/16 16 :36; Admin Dose 5 MG; Start 12/15/16 at 14:00 Prednisolone (Prelone (Ped)) 10 mg DAILY PO Last administered on 12/20/16 08:22 ; Admin Dose 10 MG; Start 12/18/16 at 09:00 Meclizine HCl (Antivert) 25 mg BID PRN PO NAUSEA AND/OR VOMITING; Start at 11:30 Benazepril HCl (Lotensin) 10 mg DAILY PO Last administered on 12/20/16 08:22; Admin Dose 10 MG; Start 12/19/16 at 09:00 Isosorbide Dinitrate (Isordil) 10 mg TID PO Last administered on 12/21/16 12: 59; Admin Dose 10 MG; Start 12/18/16 at 21:00 Ondansetron HCl (Zofran Tab) 4 mg Q6H PRN PO NAUSEA AND/OR VOMITING; Start 12/18 at 19:30 Al Hydrox/Mg Hydrox/Simethicone (Mag-Al Plus) 30 ml Q4H PRN PO GASTROINTESTINAL UPSET Last administered on 12/20/16 17:31; Admin Dose 30 ML; Start 12/18/16 at 19:30 Insulin Glargine (Lantus) 30 unit DAILY@08 SC Last administered on 12/21/16 08 :50; Admin Dose 30 UNIT; Start 12/20/16 at 08:00 Docusate Sodium (Colace) 100 mg BID PO Last administered on 12/21/16 12:54; Admin Dose 100 MG; Start 12/20/16 at 21:00 Senna (Senokot) 1 tab DAILY PO Last administered on 12/20/16 20:37; Admin Dose 1 TAB; Start 12/20/16 at 21:00 Lactulose (Enulose) 20 gm DAILY PRN PO CONSTIPATION Last administered on 17:31; Admin Dose 20 GM; Start 12/20/16 at 15:00 VICKY GILES M.D. Dec 21, 2016 13:26
--- NOTE | 2016-12-21 13:29 | PN ---
Date/Time of Note Date/Time of Note DATE: 12/21/16 TIME: 13:29 Assessment/Plan VTE Prophylaxis VTE Prophylaxis Intervention: other Lines/Catheters IV [facility] Type (from [facility] Urinary Cath still in place: No Assessment/Plan Assessment/Plan - Acute bronchitis, continue Levaquin, steroids. - Hyperglycemic sec to steroids and Diabetes- cont to monitor - Near syncopal episode. Acute coronary syndrome ruled out. cardiac enzymes is negative 3. - per Dr. Bhagat in cardiology consultation. - Rule out transient ischemic attack in patient with history of stroke. Continue aspirin. MRI is negative. - Dr. Rios is following in a neurology consultation. - Diabetes mellitus type 2. Hemoglobin A1c is 9.6. Continue Lantus and NovoLog. - Hypertension. Continue Lotensin and Norvasc. - Acute kidney injury secondary to dehydration, resolved. Dw Dr Hadley Subjective 24 Hr Interval Summary Constitutional: requiring O2 Respiratory: no complaints Cardiovascular: no complaints Gastrointestinal: no complaints Genitourinary: no complaints Musculoskeletal: no complaints Exam/Review of Systems Vital Signs Vitals Vital Signs Date Time Temp Pulse Resp B/P Pulse Ox O2 Delivery O2 Flow Rate FiO2 12/21/16 09:00 107/57 12/21/16 07:47 84 16 93 21 12/21/16 02:00 98.7 12/20/16 19:29 Nasal Cannula 2.0 Intake and Output 12/20/16 12/20/16 12/21/16 15:00 23:00 07:00 Intake Total 720 ml 510 ml 120 ml Balance 720 ml 510 ml 120 ml Exam Constitutional: alert, oriented, well developed Psych: nl mood/affect Respiratory: clear to auscultation, normal air movement Cardiovascular: regular rate and rhythm Gastrointestinal: non-tender, soft Musculoskeletal: nl extremities to inspection Neurological: nl speech, other Results Result Diagram: 12/17/1662712/17/16627 Results 24 hrs Laboratory Tests Test 12/20/16 17:18 12/20/16 20:26 12/21/16 02:41 12/21/16 07:59 Bedside Glucose 193 260 H 238 H 222 H Test 12/21/16 12:15 Bedside Glucose 173 Medications Medications Current Medications Aspirin (Aspirin) 81 mg DAILY PO Last administered on 12/21/16t 12:54; Admin Dose 81 MG; Start 12/11/16 at 22:20 Pantoprazole (Protonix Tab) 40 mg DAILY@06 PO Last administered on 12/21/16 06 :34; Admin Dose 40 MG; Start 12/11/16 at 22:20 Nitroglycerin (Nitroglycerin (Sl Tab) 0.4 Mg) 1 tab Q5M PRN SL ANGINA; Start at 22:20 Miscellaneous Information 1 ea NOTE XX ; Start 12/11/16 at 22:20 Glucose (Glutose) 15 gm Q15M PRN PO DECREASED GLUCOSE Last administered on 08:00; Admin Dose 15 GM; Start 12/11/16 at 22:20 Glucose (Glutose) 22.5 gm Q15M PRN PO DECREASED GLUCOSE Last administered on 21:11; Admin Dose 22.5 GM; Start 12/11/16 at 22:20 Dextrose (D50w Syringe) 25 ml Q15M PRN IV DECREASED GLUCOSE; Start 12/11/16 at 22:20 Dextrose (D50w Syringe) 50 ml Q15M PRN IV DECREASED GLUCOSE; Start 12/11/16 at 22:20 Glucagon (Glucagen) 1 mg Q15M PRN IM DECREASED GLUCOSE; Start 12/11/16 at 22:20 Glucose (Glutose) 15 gm Q15M PRN BUCCAL DECREASED GLUCOSE Last administered on 12/12/16 22:06; Admin Dose 15 GM; Start 12/11/16 at 22:20 Quetiapine Fumarate (Seroquel) 25 mg DAILY PO Last administered on 12/21/16 12 :56; Admin Dose 25 MG; Start 12/11/16 at 22:20 Magnesium Hydroxide (Milk Of Mag) 30 ml BID PRN PO CONSTIPATION Last administered on 12/16/16 07:14; Admin Dose 30 ML; Start 12/11/16 at 22:20 Bisacodyl (Dulcolax Supp) 10 mg DAILY PRN [place] CONSTIPATION; Start 12/11/16 at 22 :20 Atorvastatin Calcium (Lipitor) 20 mg QHS PO Last administered on 12/20/16 20:34 ; Admin Dose 20 MG; Start 12/11/16 at 23:10 Diagnostic Test (Pha) (Accu-Chek) 1 ea 02 XX Last administered on 12/21/16 02: 00; Admin Dose 1 EA; Start 12/15/16 at 02:00 Acetaminophen (Tylenol Tab) 650 mg Q4H PRN PO PAIN AND OR ELEVATED TEMP Last administered on 12/15/16 11:39; Admin Dose 650 MG; Start 12/15/16 at 11:30 Amlodipine Besylate (Norvasc) 5 mg DAILY@14 PO Last administered on 12/19/16 16 :36; Admin Dose 5 MG; Start 12/15/16 at 14:00 Prednisolone (Prelone (Ped)) 10 mg DAILY PO Last administered on 12/20/16 08:22 ; Admin Dose 10 MG; Start 12/18/16 at 09:00 Meclizine HCl (Antivert) 25 mg BID PRN PO NAUSEA AND/OR VOMITING; Start at 11:30 Benazepril HCl (Lotensin) 10 mg DAILY PO Last administered on 12/20/16 08:22; Admin Dose 10 MG; Start 12/19/16 at 09:00 Isosorbide Dinitrate (Isordil) 10 mg TID PO Last administered on 12/21/16 12: 59; Admin Dose 10 MG; Start 12/18/16 at 21:00 Ondansetron HCl (Zofran Tab) 4 mg Q6H PRN PO NAUSEA AND/OR VOMITING; Start 12/18 at 19:30 Al Hydrox/Mg Hydrox/Simethicone (Mag-Al Plus) 30 ml Q4H PRN PO GASTROINTESTINAL UPSET Last administered on 12/20/16 17:31; Admin Dose 30 ML; Start 12/18/16 at 19:30 Insulin Glargine (Lantus) 30 unit DAILY@08 SC Last administered on 12/21/16 08 :50; Admin Dose 30 UNIT; Start 12/20/16 at 08:00 Docusate Sodium (Colace) 100 mg BID PO Last administered on 12/21/16 12:54; Admin Dose 100 MG; Start 12/20/16 at 21:00 Senna (Senokot) 1 tab DAILY PO Last administered on 12/20/16 20:37; Admin Dose 1 TAB; Start 12/20/16 at 21:00 Lactulose (Enulose) 20 gm DAILY PRN PO CONSTIPATION Last administered on 9/9/ 17at 17:31; Admin Dose 20 GM; Start 12/20/16 at 15:00 TAMERA HANKINS Dec 21, 2016 13:29
[2016-12-21 14:00] VITALS: BP 108/58
[2016-12-21] MEDS: AMLODIPINE 5 MG TAB PO SCH (14:00)
[2016-12-21] MEDS: predniSOLONE (3 MG/ML PO SYG) PO SCH (18:31)
[2016-12-21 20:01] VITALS: BP 102/49; RESP 18
[2016-12-21] MEDS: ATORVASTATIN 20 MG TAB PO SCH (21:01)
[2016-12-22] MEDS: ALBUTEROL/IPRATROPIUM (NEB) 3 ML AMP HHN SCH ×2 (01:42→08:00)
[2016-12-22 02:00] VITALS: BP 118/65; RESP 18
[2016-12-22] MEDS: ACCU-CHEK XX SCH (02:56)
[2016-12-22] MEDS: PANTOPRAZOLE (EC) 40 MG TAB PO SCH (05:36)
[2016-12-22 07:30] VITALS: BP 131/74; RESP 20
[2016-12-22] MEDS ORDERED: INSULIN GLARGINE [LANtus] 3 ML PEN SC SCH (08:00)
[2016-12-22] MEDS: INSULIN GLARGINE [LANtus] 3 ML PEN SC SCH (08:44)
[2016-12-22] MEDS: INSULIN ASPART [NOVOLOG] 3 ML PEN SC SCH ×7 (08:45→20:24)
[2016-12-22] MEDS: SENNA TAB PO SCH (09:01)
[2016-12-22] MEDS: QUETIAPINE 25 MG TAB PO SCH (09:01)
[2016-12-22] MEDS: LACTULOSE 30ML CUP PO PRN (09:01)
[2016-12-22] MEDS: ASPIRIN 81 MG TAB PO SCH (09:01)
[2016-12-22] MEDS: DOCUSATE SODIUM 100 MG CAP PO SCH ×2 (09:02→20:18)
[2016-12-22] MEDS: ISOSORBIDE DINITRATE 10 MG TAB PO SCH ×3 (09:02→20:18)
[2016-12-22] MEDS: BENAZEPRIL 10 MG TAB PO SCH (09:02)
[2016-12-22] MEDS: predniSOLONE (3 MG/ML PO SYG) PO SCH (09:02)
[2016-12-22] MEDS ORDERED: ALBUTEROL/IPRATROPIUM (NEB) 3 ML AMP HHN PRN (11:30)
--- NOTE | 2016-12-22 12:12 | CONS ---
Date/Time of Note Date/Time of Note DATE: 12/22/16 TIME: 12:10 Consult Date/Type/Reason Admit Date/Time Dec 11, 2016 at 20:00 Type of Consultation: cardiology Ordering Provider: DEBBI SARABIA MD Objective Vital Signs Date Time Temp Pulse Resp B/P Pulse Ox O2 Delivery O2 Flow Rate FiO2 12/22/16 07:30 98.7 92 20 131/74 95 12/22/16 01:42 21 12/21/16 20:15 Nasal Cannula 2.0 Intake and Output 12/21/16 12/21/16 12/22/16 15:00 23:00 07:00 Intake Total 700 ml 120 ml 100 ml Balance 700 ml 120 ml 100 ml INTERDISCIPLINARY TEAM CONFERENCE BOWEL- Cont BLADDER-Cont SKIN- intact OT- DRESSING-mod BATHING-mod TOILETING-mod PT- BED MOBILITY-min TRANSFERS-min AMBULATION-min 90 feet SPEECH- COGNITION-mod DYPHAGIA-puree nectar thick A/P- Interdisciplinary team conference held today. Please see interdisciplinary sheet. Working toward d.c. on 12/25 with post discharge follow up of physical therapy, occupational therapy. Results/Medications Results 24 hrs Laboratory Tests Test 12/21/16 12:15 12/21/16 17:56 12/21/16 18:24 12/21/16 20:59 Bedside Glucose 173 35 *L 97 300 H Test 12/22/16 03:01 12/22/16 05:40 12/22/16 07:57 Bedside Glucose 323 H 286 H 251 H Medications Current Medications Aspirin (Aspirin) 81 mg DAILY PO Last administered on 12/22/16 09:01; Admin Dose 81 MG; Start 12/11/16 at 22:20 Pantoprazole (Protonix Tab) 40 mg DAILY@06 PO Last administered on 12/22/16 05 :36; Admin Dose 40 MG; Start 12/11/16 at 22:20 Nitroglycerin (Nitroglycerin (Sl Tab) 0.4 Mg) 1 tab Q5M PRN SL ANGINA; Start at 22:20 Miscellaneous Information 1 ea NOTE XX ; Start 12/11/16 at 22:20 Glucose (Glutose) 15 gm Q15M PRN PO DECREASED GLUCOSE Last administered on 08:00; Admin Dose 15 GM; Start 12/11/16 at 22:20 Glucose (Glutose) 22.5 gm Q15M PRN PO DECREASED GLUCOSE Last administered on 21:11; Admin Dose 22.5 GM; Start 12/11/16 at 22:20 Dextrose (D50w Syringe) 25 ml Q15M PRN IV DECREASED GLUCOSE; Start 12/11/16 at 22:20 Dextrose (D50w Syringe) 50 ml Q15M PRN IV DECREASED GLUCOSE; Start 12/11/16 at 22:20 Glucagon (Glucagen) 1 mg Q15M PRN IM DECREASED GLUCOSE; Start 12/11/16 at 22:20 Glucose (Glutose) 15 gm Q15M PRN BUCCAL DECREASED GLUCOSE Last administered on 12/12/16 22:06; Admin Dose 15 GM; Start 12/11/16 at 22:20 Quetiapine Fumarate (Seroquel) 25 mg DAILY PO Last administered on 12/22/16 09 :01; Admin Dose 25 MG; Start 12/11/16 at 22:20 Magnesium Hydroxide (Milk Of Mag) 30 ml BID PRN PO CONSTIPATION Last administered on 12/16/16 07:14; Admin Dose 30 ML; Start 12/11/16 at 22:20 Bisacodyl (Dulcolax Supp) 10 mg DAILY PRN [place] CONSTIPATION Last administered on 12/22/16 05:36; Admin Dose 10 MG; Start 12/11/16 at 22:20 Atorvastatin Calcium (Lipitor) 20 mg QHS PO Last administered on 12/21/16 21: 01; Admin Dose 20 MG; Start 12/11/16 at 23:10 Diagnostic Test (Pha) (Accu-Chek) 1 ea 02 XX Last administered on 12/22/16 02: 56; Admin Dose 1 EA; Start 12/15/16 at 02:00 Acetaminophen (Tylenol Tab) 650 mg Q4H PRN PO PAIN AND OR ELEVATED TEMP Last administered on 12/15/16 11:39; Admin Dose 650 MG; Start 12/15/16 at 11:30 Amlodipine Besylate (Norvasc) 5 mg DAILY@14 PO Last administered on 12/19/16 16 :36; Admin Dose 5 MG; Start 12/15/16 at 14:00 Prednisolone (Prelone (Ped)) 10 mg DAILY PO Last administered on 12/22/16 09: 02; Admin Dose 10 MG; Start 12/18/16 at 09:00 Meclizine HCl (Antivert) 25 mg BID PRN PO NAUSEA AND/OR VOMITING; Start at 11:30 Benazepril HCl (Lotensin) 10 mg DAILY PO Last administered on 12/22/16 09:02; Admin Dose 10 MG; Start 12/19/16 at 09:00 Isosorbide Dinitrate (Isordil) 10 mg TID PO Last administered on 12/22/16 09: 02; Admin Dose 10 MG; Start 12/18/16 at 21:00 Ondansetron HCl (Zofran Tab) 4 mg Q6H PRN PO NAUSEA AND/OR VOMITING; Start 12/18 at 19:30 Al Hydrox/Mg Hydrox/Simethicone (Mag-Al Plus) 30 ml Q4H PRN PO GASTROINTESTINAL UPSET Last administered on 12/20/16 17:31; Admin Dose 30 ML; Start 12/18/16 at 19:30 Docusate Sodium (Colace) 100 mg BID PO Last administered on 12/22/16 09:02; Admin Dose 100 MG; Start 12/20/16 at 21:00 Senna (Senokot) 1 tab DAILY PO Last administered on 12/22/16 09:01; Admin Dose 1 TAB; Start 12/20/16 at 21:00 Lactulose (Enulose) 20 gm DAILY PRN PO CONSTIPATION Last administered on 09:01; Admin Dose 20 GM; Start 12/20/16 at 15:00 Insulin Glargine (Lantus) 30 unit DAILY@08 SC Last administered on 12/22/16 08 :44; Admin Dose 30 UNIT; Start 12/22/16 at 08:00 SLIM WILSON MD Dec 22, 2016 12:12
--- NOTE | 2016-12-22 12:47 | CONS ---
Date/Time of Note Date/Time of Note DATE: 12/22/16 TIME: 12:46 Assessment/Plan Assessment/Plan Chief Complaint/Hosp Course IMPRESSION: 1. Chest pain.-negative trop x 3/NL EF by echo. NO ischemia. NL EF by lexiscan 2. Presyncope.- no sig arrythmia by tele monitoring 3. Hypotension on admit-now improved with HTN 4. Electrocardiogram with lateral T-wave inversion-negative trop x 3 5. Generalized weakness. 6. Diabetes mellitus. 7. Prerenal azotemia. Rec: -Now transferred to Rehab -Continue norvasc/benazepril with reasonable BP control -Continue asa/statin -Continue prednisilone -Follow volume status closely -PT/OT Problems: Consultation Date/Type/Reason Admit Date/Time Dec 11, 2016 at 20:00 Initial Consult Date 12/11/2016 Type of Consultation: cardiology Reason for Consultation chest pain Referring Provider: DEBBI SARABIA MD Exam/Review of Systems Vital Signs Vitals Vital Signs Date Time Temp Pulse Resp B/P Pulse Ox O2 Delivery O2 Flow Rate FiO2 12/22/16 07:30 98.7 92 20 131/74 95 12/22/16 01:42 21 12/21/16 20:15 Nasal Cannula 2.0 Intake and Output 12/21/16 12/21/16 12/22/16 15:00 23:00 07:00 Intake Total 700 ml 120 ml 100 ml Balance 700 ml 120 ml 100 ml Exam Review of Systems: CONSTITUTIONAL: No fevers, chills. PULMONARY: No sob CARDIOVASCULAR: No chest pain/palpitations GASTROINTESTINAL: No nausea/vomiting. GENITOURINARY: No hematuria/dysuria. MUSCULOSKELETAL: No myagias/arthalgias. PSYCHIATRIC: The patient denies depression. NEUROLOGIC: No weakness Constitutional: alert Psych: no complaints Head: normocephalic ENMT: mucosa pink and moist Neck: jvd (8-9 cm water), supple Respiratory: diminished breath sounds (at bases/B) Cardiovascular: regular rate and rhythm Gastrointestinal: non-tender, soft Musculoskeletal: muscle tone (normal) Extremities: edema (none) Neurological: other (No focal deficits) Results Results 24 hrs Laboratory Tests Test 12/21/16 17:56 12/21/16 18:24 12/21/16 20:59 12/22/16 03:01 Bedside Glucose 35 *L 97 300 H 323 H Test 12/22/16 05:40 12/22/16 07:57 12/22/16 12:09 Bedside Glucose 286 H 251 H 121 Medications Medications Current Medications Aspirin (Aspirin) 81 mg DAILY PO Last administered on 12/22/16 09:01; Admin Dose 81 MG; Start 12/11/16 at 22:20 Pantoprazole (Protonix Tab) 40 mg DAILY@06 PO Last administered on 12/22/16 05 :36; Admin Dose 40 MG; Start 12/11/16 at 22:20 Nitroglycerin (Nitroglycerin (Sl Tab) 0.4 Mg) 1 tab Q5M PRN SL ANGINA; Start at 22:20 Miscellaneous Information 1 ea NOTE XX ; Start 12/11/16 at 22:20 Glucose (Glutose) 15 gm Q15M PRN PO DECREASED GLUCOSE Last administered on 08:00; Admin Dose 15 GM; Start 12/11/16 at 22:20 Glucose (Glutose) 22.5 gm Q15M PRN PO DECREASED GLUCOSE Last administered on 21:11; Admin Dose 22.5 GM; Start 12/11/16 at 22:20 Dextrose (D50w Syringe) 25 ml Q15M PRN IV DECREASED GLUCOSE; Start 12/11/16 at 22:20 Dextrose (D50w Syringe) 50 ml Q15M PRN IV DECREASED GLUCOSE; Start 12/11/16 at 22:20 Glucagon (Glucagen) 1 mg Q15M PRN IM DECREASED GLUCOSE; Start 12/11/16 at 22:20 Glucose (Glutose) 15 gm Q15M PRN BUCCAL DECREASED GLUCOSE Last administered on 12/12/16 22:06; Admin Dose 15 GM; Start 12/11/16 at 22:20 Quetiapine Fumarate (Seroquel) 25 mg DAILY PO Last administered on 12/22/16 09 :01; Admin Dose 25 MG; Start 12/11/16 at 22:20 Magnesium Hydroxide (Milk Of Mag) 30 ml BID PRN PO CONSTIPATION Last administered on 12/16/16 07:14; Admin Dose 30 ML; Start 12/11/16 at 22:20 Bisacodyl (Dulcolax Supp) 10 mg DAILY PRN [place] CONSTIPATION Last administered on 12/22/16 05:36; Admin Dose 10 MG; Start 12/11/16 at 22:20 Atorvastatin Calcium (Lipitor) 20 mg QHS PO Last administered on 12/21/16 21: 01; Admin Dose 20 MG; Start 12/11/16 at 23:10 Diagnostic Test (Pha) (Accu-Chek) 1 ea 02 XX Last administered on 12/22/16 02: 56; Admin Dose 1 EA; Start 12/15/16 at 02:00 Acetaminophen (Tylenol Tab) 650 mg Q4H PRN PO PAIN AND OR ELEVATED TEMP Last administered on 12/15/16 11:39; Admin Dose 650 MG; Start 12/15/16 at 11:30 Amlodipine Besylate (Norvasc) 5 mg DAILY@14 PO Last administered on 12/19/16 16 :36; Admin Dose 5 MG; Start 12/15/16 at 14:00 Prednisolone (Prelone (Ped)) 10 mg DAILY PO Last administered on 12/22/16 09: 02; Admin Dose 10 MG; Start 12/18/16 at 09:00 Meclizine HCl (Antivert) 25 mg BID PRN PO NAUSEA AND/OR VOMITING; Start at 11:30 Benazepril HCl (Lotensin) 10 mg DAILY PO Last administered on 12/22/16 09:02; Admin Dose 10 MG; Start 12/19/16 at 09:00 Isosorbide Dinitrate (Isordil) 10 mg TID PO Last administered on 12/22/16 09: 02; Admin Dose 10 MG; Start 12/18/16 at 21:00 Ondansetron HCl (Zofran Tab) 4 mg Q6H PRN PO NAUSEA AND/OR VOMITING; Start 12/18 at 19:30 Al Hydrox/Mg Hydrox/Simethicone (Mag-Al Plus) 30 ml Q4H PRN PO GASTROINTESTINAL UPSET Last administered on 12/20/16 17:31; Admin Dose 30 ML; Start 12/18/16 at 19:30 Docusate Sodium (Colace) 100 mg BID PO Last administered on 12/22/16 09:02; Admin Dose 100 MG; Start 12/20/16 at 21:00 Senna (Senokot) 1 tab DAILY PO Last administered on 12/22/16 09:01; Admin Dose 1 TAB; Start 12/20/16 at 21:00 Lactulose (Enulose) 20 gm DAILY PRN PO CONSTIPATION Last administered on 09:01; Admin Dose 20 GM; Start 12/20/16 at 15:00 Insulin Glargine (Lantus) 30 unit DAILY@08 SC Last administered on 12/22/16 08 :44; Admin Dose 30 UNIT; Start 12/22/16 at 08:00 ROSALINDA JARVIS Dec 22, 2016 12:47
[2016-12-22 14:00] VITALS: BP 104/57; RESP 20
[2016-12-22] MEDS: AMLODIPINE 5 MG TAB PO SCH (14:00)
--- NOTE | 2016-12-22 15:40 | RADRPT ---
PROCEDURE: Video-fluoroscopy swallowing study. CLINICAL INDICATION: Dysphagia. TECHNIQUE: Fluoroscopic guided video swallowing study was done in conjunction with the speech ther apist. The study was confined to the oral, pharyngeal, and cervical phases of the swallowing mechani sm. 3.6 minutes of fluoroscopy time was used. 24 series of images were obtained. COMPARISON: No prior study is available for comparison. FINDINGS: There is aspiration during swallowing nectar thick liquid via straw. IMPRESSION: 1. Aspiration during swallowing. 2. Please refer to the speech therapist's recommendations for future feedings. RPTAT: QQ .Satya Clements MD, Date Time Electronically viewed and signed by .Satya Clements MD, on 12/22/2016 15:39 .R/
[2016-12-22 20:00] VITALS: BP 138/60; RESP 18
[2016-12-22] MEDS: ATORVASTATIN 20 MG TAB PO SCH (20:18)
[2016-12-23 02:00] VITALS: BP 122/63; RESP 18
[2016-12-23] MEDS: ACCU-CHEK XX SCH (02:14)
[2016-12-23] MEDS: PANTOPRAZOLE (EC) 40 MG TAB PO SCH (06:45)
[2016-12-23] MEDS: INSULIN ASPART [NOVOLOG] 3 ML PEN SC SCH ×7 (07:35→21:54)
[2016-12-23] MEDS: INSULIN GLARGINE [LANtus] 3 ML PEN SC SCH (08:10)
[2016-12-23] MEDS: predniSOLONE (3 MG/ML PO SYG) PO SCH (08:11)
[2016-12-23] MEDS: SENNA TAB PO SCH (08:11)
[2016-12-23] MEDS: BENAZEPRIL 10 MG TAB PO SCH (08:11)
[2016-12-23] MEDS: QUETIAPINE 25 MG TAB PO SCH (08:12)
[2016-12-23] MEDS: DOCUSATE SODIUM 100 MG CAP PO SCH ×2 (08:12→21:48)
[2016-12-23] MEDS: ASPIRIN 81 MG TAB PO SCH (08:12)
[2016-12-23 08:13] VITALS: BP 192/81; PULSE 80; RESP 20
[2016-12-23] MEDS: ISOSORBIDE DINITRATE 10 MG TAB PO SCH ×3 (08:13→21:49)
--- NOTE | 2016-12-23 08:42 | RADRPT ---
PROCEDURE: XR Abdomen. CLINICAL INDICATION: Abdominal pain TECHNIQUE: Two AP views of the abdomen were obtained COMPARISON: None. FINDINGS: There is a nonobstructive bowel gas pattern. Contrast from prior examination is seen within the stom ach, distal small bowel and colon. No abnormal soft tissue calcifications are seen. The visualized portions of the lung bases are clear. The osseous structures are unremarkable. IMPRESSION: 1. Residual contrast within the stomach. Clinical correlation for delayed gastric emptying is recom mended. 2. Nonobstructive bowel gas pattern. Contrast from prior examination is seen within the small bowel and colon. RPTAT: HH .Roberta Gandara MD, MD Date Time Electronically viewed and signed by .Roberta Gandara MD, on 12/23/2016 08:42 .G/
--- NOTE | 2016-12-23 09:31 | PN ---
Date/Time of Note Date/Time of Note DATE: 12/23/16 TIME: 09:30 Assessment/Plan VTE Prophylaxis VTE Prophylaxis Intervention: other Lines/Catheters IV [facility]from [facility] Urinary Cath still in place: No Assessment/Plan Assessment/Plan - Hyperglycemic sec to steroids and Diabetes-resolved - Acute bronchitis, continue Levaquin, steroids. - Near syncopal episode. Acute coronary syndrome ruled out. cardiac enzymes negative 3. - per Dr. Bhagat in cardiology consultation. - Rule out transient ischemic attack in patient with history of stroke. Continue aspirin. MRI is negative. - Dr. Rios is following in a neurology consultation. - Diabetes mellitus type 2. Hemoglobin A1c is 9.6. Continue Lantus and NovoLog. - Hypertension. Continue Lotensin and Norvasc. - Acute kidney injury secondary to dehydration, resolved. Dw Dr Hadley Subjective 24 Hr Interval Summary Free Text/Dictation Late entry- 12/22/2016. Constitutional: requiring O2 Respiratory: no complaints Cardiovascular: no complaints Gastrointestinal: no complaints Genitourinary: no complaints Musculoskeletal: no complaints Skin: no complaints Exam/Review of Systems Vital Signs Vitals Vital Signs Date Time Temp Pulse Resp B/P Pulse Ox O2 Delivery O2 Flow Rate FiO2 12/23/16 08:13 98.0 80 20 192/81 93 Room Air 12/22/16 19:28 2.0 12/22/16 01:42 21 Intake and Output 12/22/16 12/22/16 12/23/16 15:00 23:00 07:00 Intake Total 760 ml 120 ml Output Total 2 ml Balance 758 ml 120 ml Exam Constitutional: alert, oriented, well developed Psych: nl mood/affect Respiratory: clear to auscultation, normal air movement Cardiovascular: nl pulses, regular rate and rhythm Musculoskeletal: nl extremities to inspection Extremities: normal pulses Neurological: confused, nl speech, other Results Results 24 hrs Laboratory Tests Test 12/22/16 12:09 12/22/16 17:32 12/22/16 20:17 12/23/16 02:08 Bedside Glucose 121 138 284 H 178 Test 12/23/16 08:00 Bedside Glucose 98 Medications Medications Current Medications Aspirin (Aspirin) 81 mg DAILY PO Last administered on 12/23/16t 08:12; Admin Dose 81 MG; Start 12/11/16 at 22:20 Pantoprazole (Protonix Tab) 40 mg DAILY@06 PO Last administered on 12/23/16 06 :45; Admin Dose 40 MG; Start 12/11/16 at 22:20 Nitroglycerin (Nitroglycerin (Sl Tab) 0.4 Mg) 1 tab Q5M PRN SL ANGINA; Start at 22:20 Miscellaneous Information 1 ea NOTE XX ; Start 12/11/16 at 22:20 Glucose (Glutose) 15 gm Q15M PRN PO DECREASED GLUCOSE Last administered on 08:00; Admin Dose 15 GM; Start 12/11/16 at 22:20 Glucose (Glutose) 22.5 gm Q15M PRN PO DECREASED GLUCOSE Last administered on 21:11; Admin Dose 22.5 GM; Start 12/11/16 at 22:20 Dextrose (D50w Syringe) 25 ml Q15M PRN IV DECREASED GLUCOSE; Start 12/11/16 at 22:20 Dextrose (D50w Syringe) 50 ml Q15M PRN IV DECREASED GLUCOSE; Start 12/11/16 at 22:20 Glucagon (Glucagen) 1 mg Q15M PRN IM DECREASED GLUCOSE; Start 12/11/16 at 22:20 Glucose (Glutose) 15 gm Q15M PRN BUCCAL DECREASED GLUCOSE Last administered on 12/12/16 22:06; Admin Dose 15 GM; Start 12/11/16 at 22:20 Quetiapine Fumarate (Seroquel) 25 mg DAILY PO Last administered on 12/23/16 08 :12; Admin Dose 25 MG; Start 12/11/16 at 22:20 Magnesium Hydroxide (Milk Of Mag) 30 ml BID PRN PO CONSTIPATION Last administered on 12/16/16 07:14; Admin Dose 30 ML; Start 12/11/16 at 22:20 Bisacodyl (Dulcolax Supp) 10 mg DAILY PRN [place] CONSTIPATION Last administered on 12/22/16 05:36; Admin Dose 10 MG; Start 12/11/16 at 22:20 Atorvastatin Calcium (Lipitor) 20 mg QHS PO Last administered on 12/22/16 20: 18; Admin Dose 20 MG; Start 12/11/16 at 23:10 Diagnostic Test (Pha) (Accu-Chek) 1 ea 02 XX Last administered on 12/23/16 02: 14; Admin Dose 1 EA; Start 12/15/16 at 02:00 Acetaminophen (Tylenol Tab) 650 mg Q4H PRN PO PAIN AND OR ELEVATED TEMP Last administered on 12/15/16 11:39; Admin Dose 650 MG; Start 12/15/16 at 11:30 Amlodipine Besylate (Norvasc) 5 mg DAILY@14 PO Last administered on 12/19/16 16 :36; Admin Dose 5 MG; Start 12/15/16 at 14:00 Prednisolone (Prelone (Ped)) 10 mg DAILY PO Last administered on 12/23/16 08: 11; Admin Dose 10 MG; Start 12/18/16 at 09:00 Meclizine HCl (Antivert) 25 mg BID PRN PO NAUSEA AND/OR VOMITING; Start at 11:30 Benazepril HCl (Lotensin) 10 mg DAILY PO Last administered on 12/23/16 08:11; Admin Dose 10 MG; Start 12/19/16 at 09:00 Isosorbide Dinitrate (Isordil) 10 mg TID PO Last administered on 12/23/16 08: 13; Admin Dose 10 MG; Start 12/18/16 at 21:00 Ondansetron HCl (Zofran Tab) 4 mg Q6H PRN PO NAUSEA AND/OR VOMITING; Start 12/18 at 19:30 Al Hydrox/Mg Hydrox/Simethicone (Mag-Al Plus) 30 ml Q4H PRN PO GASTROINTESTINAL UPSET Last administered on 12/20/16 17:31; Admin Dose 30 ML; Start 12/18/16 at 19:30 Docusate Sodium (Colace) 100 mg BID PO Last administered on 12/23/16 08:12; Admin Dose 100 MG; Start 12/20/16 at 21:00 Senna (Senokot) 1 tab DAILY PO Last administered on 12/23/16 08:11; Admin Dose 1 TAB; Start 12/20/16 at 21:00 Lactulose (Enulose) 20 gm DAILY PRN PO CONSTIPATION Last administered on 09:01; Admin Dose 20 GM; Start 12/20/16 at 15:00 Insulin Glargine (Lantus) 30 unit DAILY@08 SC Last administered on 12/23/16t 08 :10; Admin Dose 30 UNIT; Start 12/22/16 at 08:00 TAMERA HANKINS Dec 23, 2016 09:31
--- NOTE | 2016-12-23 09:32 | PN ---
Date/Time of Note Date/Time of Note DATE: 12/23/16 TIME: :31 Assessment/Plan VTE Prophylaxis VTE Prophylaxis Intervention: other Lines/Catheters [facility] Urinary Cath still in place: No Assessment/Plan Assessment/Plan - Hyperglycemic sec to steroids and Diabetes- improving/ Prednisone lowered. cont to monitor - Acute bronchitis, continue Levaquin, steroids. - Near syncopal episode. Acute coronary syndrome ruled out. cardiac enzymes is negative 3. - per Dr. Bhagat in cardiology consultation. - Rule out transient ischemic attack in patient with history of stroke. Continue aspirin. MRI is negative. - Dr. Rios is following in a neurology consultation. - Diabetes mellitus type 2. Hemoglobin A1c is 9.6. Continue Lantus and NovoLog. - Hypertension. Continue Lotensin and Norvasc. - Acute kidney injury secondary to dehydration, resolved. Rupesh Lucas Subjective 24 Hr Interval Summary Free Text/Dictation resting on bed, seems comfortable, dw staff Respiratory: no complaints Cardiovascular: no complaints Gastrointestinal: no complaints Genitourinary: no complaints Musculoskeletal: no complaints Skin: no complaints Exam/Review of Systems Vital Signs Vitals Vital Signs Date Time Temp Pulse Resp B/P Pulse Ox O2 Delivery O2 Flow Rate FiO2 12/23/16 08:13 98.0 80 20 192/81 93 Room Air 12/22/16 19:28 2.0 12/22/16 01:42 21 Intake and Output 12/22/16 12/22/16 12/23/16 15:00 23:00 07:00 Intake Total 760 ml 120 ml Output Total 2 ml Balance 758 ml 120 ml Exam Constitutional: alert, oriented, well developed Respiratory: clear to auscultation Cardiovascular: nl pulses, regular rate and rhythm Gastrointestinal: non-tender, soft Musculoskeletal: nl extremities to inspection Extremities: normal pulses Neurological: confused, nl speech Results Results 24 hrs Laboratory Tests Test 12/22/16 12:09 12/22/16 17:32 12/22/16 20:17 12/23/16 02:08 Bedside Glucose 121 138 284 H 178 Test 12/23/16 08:00 Bedside Glucose 98 Medications Medications Current Medications Aspirin (Aspirin) 81 mg DAILY PO Last administered on 12/23/16t 08:12; Admin Dose 81 MG; Start 12/11/16 at 22:20 Pantoprazole (Protonix Tab) 40 mg DAILY@06 PO Last administered on 12/23/16 06 :45; Admin Dose 40 MG; Start 12/11/16 at 22:20 Nitroglycerin (Nitroglycerin (Sl Tab) 0.4 Mg) 1 tab Q5M PRN SL ANGINA; Start at 22:20 Miscellaneous Information 1 ea NOTE XX ; Start 12/11/16 at 22:20 Glucose (Glutose) 15 gm Q15M PRN PO DECREASED GLUCOSE Last administered on 08:00; Admin Dose 15 GM; Start 12/11/16 at 22:20 Glucose (Glutose) 22.5 gm Q15M PRN PO DECREASED GLUCOSE Last administered on 21:11; Admin Dose 22.5 GM; Start 12/11/16 at 22:20 Dextrose (D50w Syringe) 25 ml Q15M PRN IV DECREASED GLUCOSE; Start 12/11/16 at 22:20 Dextrose (D50w Syringe) 50 ml Q15M PRN IV DECREASED GLUCOSE; Start 12/11/16 at 22:20 Glucagon (Glucagen) 1 mg Q15M PRN IM DECREASED GLUCOSE; Start 12/11/16 at 22:20 Glucose (Glutose) 15 gm Q15M PRN BUCCAL DECREASED GLUCOSE Last administered on 12/12/16 22:06; Admin Dose 15 GM; Start 12/11/16 at 22:20 Quetiapine Fumarate (Seroquel) 25 mg DAILY PO Last administered on 12/23/16 08 :12; Admin Dose 25 MG; Start 12/11/16 at 22:20 Magnesium Hydroxide (Milk Of Mag) 30 ml BID PRN PO CONSTIPATION Last administered on 12/16/16 07:14; Admin Dose 30 ML; Start 12/11/16 at 22:20 Bisacodyl (Dulcolax Supp) 10 mg DAILY PRN [place] CONSTIPATION Last administered on 12/22/16 05:36; Admin Dose 10 MG; Start 12/11/16 at 22:20 Atorvastatin Calcium (Lipitor) 20 mg QHS PO Last administered on 12/22/16 20: 18; Admin Dose 20 MG; Start 12/11/16 at 23:10 Diagnostic Test (Pha) (Accu-Chek) 1 ea 02 XX Last administered on 12/23/16 02: 14; Admin Dose 1 EA; Start 12/15/16 at 02:00 Acetaminophen (Tylenol Tab) 650 mg Q4H PRN PO PAIN AND OR ELEVATED TEMP Last administered on 12/15/16 11:39; Admin Dose 650 MG; Start 12/15/16 at 11:30 Amlodipine Besylate (Norvasc) 5 mg DAILY@14 PO Last administered on 12/19/16 16 :36; Admin Dose 5 MG; Start 12/15/16 at 14:00 Prednisolone (Prelone (Ped)) 10 mg DAILY PO Last administered on 12/23/16 08: 11; Admin Dose 10 MG; Start 12/18/16 at 09:00 Meclizine HCl (Antivert) 25 mg BID PRN PO NAUSEA AND/OR VOMITING; Start at 11:30 Benazepril HCl (Lotensin) 10 mg DAILY PO Last administered on 12/23/16 08:11; Admin Dose 10 MG; Start 12/19/16 at 09:00 Isosorbide Dinitrate (Isordil) 10 mg TID PO Last administered on 12/23/16 08: 13; Admin Dose 10 MG; Start 12/18/16 at 21:00 Ondansetron HCl (Zofran Tab) 4 mg Q6H PRN PO NAUSEA AND/OR VOMITING; Start 12/18 at 19:30 Al Hydrox/Mg Hydrox/Simethicone (Mag-Al Plus) 30 ml Q4H PRN PO GASTROINTESTINAL UPSET Last administered on 12/20/16 17:31; Admin Dose 30 ML; Start 12/18/16 at 19:30 Docusate Sodium (Colace) 100 mg BID PO Last administered on 12/23/16 08:12; Admin Dose 100 MG; Start 12/20/16 at 21:00 Senna (Senokot) 1 tab DAILY PO Last administered on 12/23/16 08:11; Admin Dose 1 TAB; Start 12/20/16 at 21:00 Lactulose (Enulose) 20 gm DAILY PRN PO CONSTIPATION Last administered on 09:01; Admin Dose 20 GM; Start 12/20/16 at 15:00 Insulin Glargine (Lantus) 30 unit DAILY@08 SC Last administered on 12/23/16t 08 :10; Admin Dose 30 UNIT; Start 12/22/16 at 08:00 TAMERA HANKINS Dec 23, 2016 09:32
[2016-12-23] MEDS: ACETAMINOPHEN 325 MG TAB PO PRN (12:38)
--- NOTE | 2016-12-23 12:39 | CONS ---
Date/Time of Note Date/Time of Note DATE: 12/23/16 TIME: 12:37 Consult Date/Type/Reason Admit Date/Time Dec 11, 2016 at 20:00 Type of Consultation: cardiology Ordering Provider: DEBBI SARABIA MD Subjective Patient complains of dysuria Objective Lungs clear abdomen soft Minimal assist ambulation Vital Signs Date Time Temp Pulse Resp B/P Pulse Ox O2 Delivery O2 Flow Rate FiO2 12/23/16 08:13 98.0 80 20 192/81 93 Room Air 12/22/16 19:28 2.0 12/22/16 01:42 21 Intake and Output 12/22/16 12/22/16 12/23/16 15:00 23:00 07:00 Intake Total 760 ml 120 ml Output Total 2 ml Balance 758 ml 120 ml Results/Medications Results 24 hrs Laboratory Tests Test 12/22/16 17:32 12/22/16 20:17 12/23/16 02:08 12/23/16 08:00 Bedside Glucose 138 284 H 178 98 Test 12/23/16 12:11 Bedside Glucose 192 Medications Current Medications Aspirin (Aspirin) 81 mg DAILY PO Last administered on 12/23/16 08:12; Admin Dose 81 MG; Start 12/11/16 at 22:20 Pantoprazole (Protonix Tab) 40 mg DAILY@06 PO Last administered on 12/23/16 06 :45; Admin Dose 40 MG; Start 12/11/16 at 22:20 Nitroglycerin (Nitroglycerin (Sl Tab) 0.4 Mg) 1 tab Q5M PRN SL ANGINA; Start at 22:20 Miscellaneous Information 1 ea NOTE XX ; Start 12/11/16 at 22:20 Glucose (Glutose) 15 gm Q15M PRN PO DECREASED GLUCOSE Last administered on 08:00; Admin Dose 15 GM; Start 12/11/16 at 22:20 Glucose (Glutose) 22.5 gm Q15M PRN PO DECREASED GLUCOSE Last administered on 21:11; Admin Dose 22.5 GM; Start 12/11/16 at 22:20 Dextrose (D50w Syringe) 25 ml Q15M PRN IV DECREASED GLUCOSE; Start 12/11/16 at 22:20 Dextrose (D50w Syringe) 50 ml Q15M PRN IV DECREASED GLUCOSE; Start 12/11/16 at 22:20 Glucagon (Glucagen) 1 mg Q15M PRN IM DECREASED GLUCOSE; Start 12/11/16 at 22:20 Glucose (Glutose) 15 gm Q15M PRN BUCCAL DECREASED GLUCOSE Last administered on 12/12/16 22:06; Admin Dose 15 GM; Start 12/11/16 at 22:20 Quetiapine Fumarate (Seroquel) 25 mg DAILY PO Last administered on 12/23/16 08 :12; Admin Dose 25 MG; Start 12/11/16 at 22:20 Magnesium Hydroxide (Milk Of Mag) 30 ml BID PRN PO CONSTIPATION Last administered on 12/16/16 07:14; Admin Dose 30 ML; Start 12/11/16 at 22:20 Bisacodyl (Dulcolax Supp) 10 mg DAILY PRN [place] CONSTIPATION Last administered on 12/22/16 05:36; Admin Dose 10 MG; Start 12/11/16 at 22:20 Atorvastatin Calcium (Lipitor) 20 mg QHS PO Last administered on 12/22/16 20: 18; Admin Dose 20 MG; Start 12/11/16 at 23:10 Diagnostic Test (Pha) (Accu-Chek) 1 ea 02 XX Last administered on 12/23/16 02: 14; Admin Dose 1 EA; Start 12/15/16 at 02:00 Acetaminophen (Tylenol Tab) 650 mg Q4H PRN PO PAIN AND OR ELEVATED TEMP Last administered on 12/15/16 11:39; Admin Dose 650 MG; Start 12/15/16 at 11:30 Prednisolone (Prelone (Ped)) 10 mg DAILY PO Last administered on 12/23/16 08: 11; Admin Dose 10 MG; Start 12/18/16 at 09:00 Meclizine HCl (Antivert) 25 mg BID PRN PO NAUSEA AND/OR VOMITING; Start at 11:30 Benazepril HCl (Lotensin) 10 mg DAILY PO Last administered on 12/23/16 08:11; Admin Dose 10 MG; Start 12/19/16 at 09:00 Isosorbide Dinitrate (Isordil) 10 mg TID PO Last administered on 12/23/16 08: 13; Admin Dose 10 MG; Start 12/18/16 at 21:00 Ondansetron HCl (Zofran Tab) 4 mg Q6H PRN PO NAUSEA AND/OR VOMITING; Start 12/18 at 19:30 Al Hydrox/Mg Hydrox/Simethicone (Mag-Al Plus) 30 ml Q4H PRN PO GASTROINTESTINAL UPSET Last administered on 12/20/16 17:31; Admin Dose 30 ML; Start 12/18/16 at 19:30 Docusate Sodium (Colace) 100 mg BID PO Last administered on 12/23/16 08:12; Admin Dose 100 MG; Start 12/20/16 at 21:00 Senna (Senokot) 1 tab DAILY PO Last administered on 12/23/16 08:11; Admin Dose 1 TAB; Start 12/20/16 at 21:00 Lactulose (Enulose) 20 gm DAILY PRN PO CONSTIPATION Last administered on 09:01; Admin Dose 20 GM; Start 12/20/16 at 15:00 Insulin Glargine (Lantus) 30 unit DAILY@08 SC Last administered on 12/23/16 08 :10; Admin Dose 30 UNIT; Start 12/22/16 at 08:00 Nifedipine (Procardia Xl) 60 mg DAILY PO ; Start 12/24/16 at 09:00 Assessment/Plan Additional Assessment/Plan Rehab- Toxic metabolic encephalopathy. Overall steady functional gains. Working towards discharge home with family tomorrow Status post syncopal episode. -urinalysis for possible UTI Acute kidney injury and dehydration. Bronchitis. Diabetes mellitus- meds per IM Hypertension- improved Hyperlipidemia. History of CVA. SLIM WILSON MD Dec 23, 2016 12:39
[2016-12-23 13:15] LABS: ADD UMIC YES; UR ASCORBIC ACID NEGATIVE (NEGATIVE); UR BILIRUBIN (Dip) NEGATIVE (NEGATIVE); UR BLOOD (Dip) 1+ mg/dL (NEGATIVE); UR BUDDING YEAST MODERATE /HPF (NONE SEEN); UR CLARITY CLOUDY (CLEAR); UR COLOR YELLOW (YELLOW); UR GLUCOSE (Dip) 1+ mg/dL (NEGATIVE); UR KETONES (Dip) NEGATIVE (NEGATIVE); UR LEUKOCYTE ESTERASE (Dip) 3+ Leu/ul (NEGATIVE); UR MUCUS FEW /HPF (NONE SEEN); UR NITRITE (Dip) NEGATIVE (NEGATIVE); UR RBC 22 /HPF (0-5); UR SQUAMOUS EPITHELIAL CELL FEW /HPF (FEW); UR TOTAL PROTEIN (Dip) NEGATIVE (NEGATIVE); UR UROBILINOGEN (Dip) NEGATIVE (NEGATIVE); UR WBC CLUMPS MANY /HPF (NONE SEEN)
[2016-12-23 14:47] VITALS: BP 104/55; RESP 18
[2016-12-23 20:00] VITALS: BP 130/62; RESP 18
[2016-12-23] MEDS: ATORVASTATIN 20 MG TAB PO SCH (21:48)
[2016-12-23] MEDS: CEPHALEXIN 500 MG CAP PO SCH (21:49)
[2016-12-24] VITALS (9 sets, daily range): BP systolic 80–192; BP diastolic 47–92; PULSE 85; RESP 18
[2016-12-24] MEDS: ACCU-CHEK XX SCH (02:30)
[2016-12-24] MEDS: CEPHALEXIN 500 MG CAP PO SCH ×3 (06:25→21:12)
[2016-12-24] MEDS: PANTOPRAZOLE (EC) 40 MG TAB PO SCH (06:25)
[2016-12-24] MEDS: INSULIN ASPART [NOVOLOG] 3 ML PEN SC SCH ×7 (08:15→20:58)
[2016-12-24] MEDS: INSULIN GLARGINE [LANtus] 3 ML PEN SC SCH (08:17)
[2016-12-24] MEDS: SENNA TAB PO SCH (09:00)
[2016-12-24] MEDS ORDERED: NIFEdipine (XL) 60 MG TAB PO SCH (09:00)
[2016-12-24] MEDS: DOCUSATE SODIUM 100 MG CAP PO SCH ×2 (09:13→20:50)
[2016-12-24] MEDS: BENAZEPRIL 10 MG TAB PO SCH (09:13)
[2016-12-24] MEDS: ASPIRIN 81 MG TAB PO SCH (09:14)
[2016-12-24] MEDS: ISOSORBIDE DINITRATE 10 MG TAB PO SCH ×3 (09:14→20:50)
[2016-12-24] MEDS: predniSOLONE (3 MG/ML PO SYG) PO SCH (09:15)
[2016-12-24] MEDS: QUETIAPINE 25 MG TAB PO SCH (11:38)
[2016-12-24] MEDS: FLUCONAZOLE 150 MG TAB PO SCH (11:38)
[2016-12-24 12:20] LABS: BASOPHILS % 0.2 % (0.0-2.0); EOSINOPHILS # 0.1 10^3/ul (0.0-0.5); HEMATOCRIT 37.9 % (37.0-47.0); HEMOGLOBIN 12.2 g/dl (12.0-16.0); LYMPHOCYTES # 1.6 10^3/ul (0.8-2.9); LYMPHOCYTES % 12.3 % (15.0-51.0); MEAN CORPUSCULAR HEMOGLOBIN 26.3 pg (29.0-33.0); MEAN CORPUSCULAR HGB CONC 32.2 g/dl (32.0-37.0); MEAN CORPUSCULAR VOLUME 81.9 fl (82.0-101.0); MEAN PLATELET VOLUME 11.8 fl (7.4-10.4); MONOCYTE # 0.9 10^3/ul (0.3-0.9); MONOCYTES % 6.7 % (0.0-11.0); NEUTROPHILS % 79.1 % (39.0-77.0); PLATELET COUNT 210 10^3/UL (140-415); RED BLOOD COUNT 4.63 10^6/ul (4.20-5.40); RED CELL DISTRIBUTION WIDTH 15.2 % (11.5-14.5); WHITE BLOOD COUNT 12.6 10^3/ul (4.8-10.8)
--- NOTE | 2016-12-24 12:22 | CONS ---
Date/Time of Note Date/Time of Note DATE: 12/24/16 TIME: 12:21 Consult Date/Type/Reason Admit Date/Time Dec 11, 2016 at 20:00 Type of Consultation: cardiology Ordering Provider: DEBBI SARABIA MD Subjective increased BP this AM Objective [id number] Vital Signs Date Time Temp Pulse Resp B/P Pulse Ox O2 Delivery O2 Flow Rate FiO2 12/24/16 11:45 140/61 12/24/16 08:00 98.4 72 18 97 12/23/16 20:00 Nasal Cannula 2.0 12/22/16 01:42 21 Intake and Output 12/23/16 12/23/16 12/24/16 15:00 23:00 07:00 Intake Total 240 ml 740 ml Balance 240 ml 740 ml Results/Medications Result Diagram: 12/24/16 1205 Results 24 hrs Laboratory Tests Test 12/23/16 17:22 12/23/16 21:50 12/24/16 02:42 12/24/16 07:45 Bedside Glucose 172 266 H 260 H 182 Test 12/24/16 11:18 12/24/16 12:05 Bedside Glucose 346 H White Blood Count 12.6 H Red Blood Count 4.63 Hemoglobin 12.2 Hematocrit 37.9 Mean Corpuscular Volume 81.9 L Mean Corpuscular Hemoglobin 26.3 L Mean Corpuscular Hemoglobin Concent 32.2 Red Cell Distribution Width 15.2 H Platelet Count 210 Mean Platelet Volume 11.8 H Neutrophils % 79.1 H Lymphocytes % 12.3 L Monocytes % 6.7 Eosinophils % 1.0 Basophils % 0.2 Nucleated Red Blood Cells % 0.0 Lymphocytes # 1.6 Monocytes # 0.9 Eosinophils # 0.1 Basophils # 0.0 Nucleated Red Blood Cells # 0.0 Medications Current Medications Aspirin (Aspirin) 81 mg DAILY PO Last administered on 12/24/16 09:14; Admin Dose 81 MG; Start 12/11/16 at 22:20 Pantoprazole (Protonix Tab) 40 mg DAILY@06 PO Last administered on 12/24/16 06 :25; Admin Dose 40 MG; Start 12/11/16 at 22:20 Nitroglycerin (Nitroglycerin (Sl Tab) 0.4 Mg) 1 tab Q5M PRN SL ANGINA; Start at 22:20 Miscellaneous Information 1 ea NOTE XX ; Start 12/11/16 at 22:20 Glucose (Glutose) 15 gm Q15M PRN PO DECREASED GLUCOSE Last administered on 08:00; Admin Dose 15 GM; Start 12/11/16 at 22:20 Glucose (Glutose) 22.5 gm Q15M PRN PO DECREASED GLUCOSE Last administered on 21:11; Admin Dose 22.5 GM; Start 12/11/16 at 22:20 Dextrose (D50w Syringe) 25 ml Q15M PRN IV DECREASED GLUCOSE; Start 12/11/16 at 22:20 Dextrose (D50w Syringe) 50 ml Q15M PRN IV DECREASED GLUCOSE; Start 12/11/16 at 22:20 Glucagon (Glucagen) 1 mg Q15M PRN IM DECREASED GLUCOSE; Start 12/11/16 at 22:20 Glucose (Glutose) 15 gm Q15M PRN BUCCAL DECREASED GLUCOSE Last administered on 12/12/16 22:06; Admin Dose 15 GM; Start 12/11/16 at 22:20 Quetiapine Fumarate (Seroquel) 25 mg DAILY PO Last administered on 12/24/16 11 :38; Admin Dose 25 MG; Start 12/11/16 at 22:20 Magnesium Hydroxide (Milk Of Mag) 30 ml BID PRN PO CONSTIPATION Last administered on 12/16/16 07:14; Admin Dose 30 ML; Start 12/11/16 at 22:20 Bisacodyl (Dulcolax Supp) 10 mg DAILY PRN [place] CONSTIPATION Last administered on 12/22/16 05:36; Admin Dose 10 MG; Start 12/11/16 at 22:20 Atorvastatin Calcium (Lipitor) 20 mg QHS PO Last administered on 12/23/16 21: 48; Admin Dose 20 MG; Start 12/11/16 at 23:10 Diagnostic Test (Pha) (Accu-Chek) 1 ea 02 XX Last administered on 12/23/16 02: 14; Admin Dose 1 EA; Start 12/15/16 at 02:00 Acetaminophen (Tylenol Tab) 650 mg Q4H PRN PO PAIN AND OR ELEVATED TEMP Last administered on 12/23/16 12:38; Admin Dose 650 MG; Start 12/15/16 at 11:30 Prednisolone (Prelone (Ped)) 10 mg DAILY PO Last administered on 12/24/16 09: 15; Admin Dose 10 MG; Start 12/18/16 at 09:00 Meclizine HCl (Antivert) 25 mg BID PRN PO NAUSEA AND/OR VOMITING Last administered on 12/24/16 09:13; Admin Dose 25 MG; Start 12/18/16 at 11:30 Benazepril HCl (Lotensin) 10 mg DAILY PO Last administered on 12/24/16 09:13; Admin Dose 10 MG; Start 12/19/16 at 09:00 Isosorbide Dinitrate (Isordil) 10 mg TID PO Last administered on 12/24/16 09: 14; Admin Dose 10 MG; Start 12/18/16 at 21:00 Ondansetron HCl (Zofran Tab) 4 mg Q6H PRN PO NAUSEA AND/OR VOMITING; Start 12/18 at 19:30 Al Hydrox/Mg Hydrox/Simethicone (Mag-Al Plus) 30 ml Q4H PRN PO GASTROINTESTINAL UPSET Last administered on 12/20/16 17:31; Admin Dose 30 ML; Start 12/18/16 at 19:30 Docusate Sodium (Colace) 100 mg BID PO Last administered on 12/24/16 09:13; Admin Dose 100 MG; Start 12/20/16 at 21:00 Senna (Senokot) 1 tab DAILY PO Last administered on 12/24/16 09:00; Admin Dose 1 TAB; Start 12/20/16 at 21:00 Lactulose (Enulose) 20 gm DAILY PRN PO CONSTIPATION Last administered on 09:01; Admin Dose 20 GM; Start 12/20/16 at 15:00 Insulin Glargine (Lantus) 30 unit DAILY@08 SC Last administered on 12/24/16 08 :17; Admin Dose 30 UNIT; Start 12/22/16 at 08:00 Nifedipine (Procardia Xl) 60 mg DAILY PO Last administered on 12/24/16 09:17; Admin Dose 60 MG; Start 12/24/16 at 09:00 Cephalexin (Keflex) 500 mg Q8 PO Last administered on 12/24/16 06:25; Admin Dose 500 MG; Start 12/23/16 at 22:00 Fluconazole (Diflucan) 150 mg DAILY PO Last administered on 12/24/16t 11:38; Admin Dose 150 MG; Start 12/24/16 at 12:00 Assessment/Plan Additional Assessment/Plan Rehab- Toxic metabolic encephalopathy. Overall steady functional gains. Working towards discharge home when bp improves Status post syncopal episode. -urinalysis for possible UTI Acute kidney injury and dehydration. Bronchitis. Diabetes mellitus- meds per IM Hypertension- improved Hyperlipidemia. History of CVA. SLIM WILSON MD Dec 24, 2016 12:22
[2016-12-24 12:37] LABS: ALBUMIN 3.4 g/dl (3.3-4.9); ALBUMIN/GLOBULIN RATIO 1.06; BILIRUBIN,INDIRECT 0.2 mg/dl (0-1.1); BILIRUBIN,TOTAL 0.2 mg/dl (0.2-1.3); CALCIUM 9.1 mg/dl (8.4-10.2); CREATININE 0.91 mg/dl (0.44-1.00); POTASSIUM 4.5 mmol/L (3.5-5.1); TOTAL PROTEIN 6.6 g/dl (6.1-8.1)
--- NOTE | 2016-12-24 12:51 | PN ---
Date/Time of Note Date/Time of Note DATE: 12/24/16 TIME: 12:50 Assessment/Plan VTE Prophylaxis VTE Prophylaxis Intervention: other Lines/Catheters IV [facility] Type [facility]from [facility]): [facility] Urinary Cath still in place: No Assessment/Plan Assessment/Plan - Hyperglycemic sec to steroids and Diabetes- cont to monitor - Acute bronchitis, continue Levaquin, steroids. - Near syncopal episode. Acute coronary syndrome ruled out. cardiac enzymes is negative 3. - per Dr. Bhagat in cardiology consultation. - Rule out transient ischemic attack in patient with history of stroke. Continue aspirin. MRI is negative. - Dr. Rios is following in a neurology consultation. - Diabetes mellitus type 2. Hemoglobin A1c is 9.6. Continue Lantus and NovoLog. - Hypertension. Continue Lotensin and Norvasc. - Acute kidney injury secondary to dehydration, resolved. Dw Dr Lucas Subjective 24 Hr Interval Summary Constitutional: requiring O2 Exam/Review of Systems Vital Signs Vitals Vital Signs Date Time Temp Pulse Resp B/P Pulse Ox O2 Delivery O2 Flow Rate FiO2 12/24/16 11:45 140/61 12/24/16 08:00 98.4 72 18 97 12/23/16 20:00 Nasal Cannula 2.0 12/22/16 01:42 21 Intake and Output 12/23/16 12/23/16 12/24/16 15:00 23:00 07:00 Intake Total 240 ml 740 ml Balance 240 ml 740 ml Exam Constitutional: alert, well developed Respiratory: clear to auscultation Cardiovascular: nl pulses, regular rate and rhythm Gastrointestinal: non-tender, soft Musculoskeletal: nl extremities to inspection Extremities: normal pulses Neurological: nl speech Results Result Diagram: 12/24/16 1205 12/24/16 1205 Results 24 hrs Laboratory Tests Test 12/23/16 17:22 12/23/16 21:50 12/24/16 02:42 12/24/16 07:45 Bedside Glucose 172 266 H 260 H 182 Test 12/24/16 11:18 12/24/16 12:05 12/24/16 12:24 Bedside Glucose 346 H 350 H White Blood Count 12.6 H Red Blood Count 4.63 Hemoglobin 12.2 Hematocrit 37.9 Mean Corpuscular Volume 81.9 L Mean Corpuscular Hemoglobin 26.3 L Mean Corpuscular Hemoglobin Concent 32.2 Red Cell Distribution Width 15.2 H Platelet Count 210 Mean Platelet Volume 11.8 H Neutrophils % 79.1 H Lymphocytes % 12.3 L Monocytes % 6.7 Eosinophils % 1.0 Basophils % 0.2 Nucleated Red Blood Cells % 0.0 Lymphocytes # 1.6 Monocytes # 0.9 Eosinophils # 0.1 Basophils # 0.0 Nucleated Red Blood Cells # 0.0 Sodium Level 136 Potassium Level 4.5 Chloride Level 100 Carbon Dioxide Level 29 Anion Gap 12 Blood Urea Nitrogen 21 H Creatinine 0.91 Glucose Level 397 H Calcium Level 9.1 Total Bilirubin 0.2 Direct Bilirubin 0.00 Indirect Bilirubin 0.2 Aspartate Amino Transf (AST/SGOT) 15 Alanine Aminotransferase (ALT/SGPT) 29 Alkaline Phosphatase 108 Total Protein 6.6 Albumin 3.4 Globulin 3.20 Albumin/Globulin Ratio 1.06 Medications Medications Current Medications Aspirin (Aspirin) 81 mg DAILY PO Last administered on 12/24/16 09:14; Admin Dose 81 MG; Start 12/11/16 at 22:20 Pantoprazole (Protonix Tab) 40 mg DAILY@06 PO Last administered on 12/24/16 06 :25; Admin Dose 40 MG; Start 12/11/16 at 22:20 Nitroglycerin (Nitroglycerin (Sl Tab) 0.4 Mg) 1 tab Q5M PRN SL ANGINA; Start at 22:20 Miscellaneous Information 1 ea NOTE XX ; Start 12/11/16 at 22:20 Glucose (Glutose) 15 gm Q15M PRN PO DECREASED GLUCOSE Last administered on 08:00; Admin Dose 15 GM; Start 12/11/16 at 22:20 Glucose (Glutose) 22.5 gm Q15M PRN PO DECREASED GLUCOSE Last administered on 21:11; Admin Dose 22.5 GM; Start 12/11/16 at 22:20 Dextrose (D50w Syringe) 25 ml Q15M PRN IV DECREASED GLUCOSE; Start 12/11/16 at 22:20 Dextrose (D50w Syringe) 50 ml Q15M PRN IV DECREASED GLUCOSE; Start 12/11/16 at 22:20 Glucagon (Glucagen) 1 mg Q15M PRN IM DECREASED GLUCOSE; Start 12/11/16 at 22:20 Glucose (Glutose) 15 gm Q15M PRN BUCCAL DECREASED GLUCOSE Last administered on 12/12/16 22:06; Admin Dose 15 GM; Start 12/11/16 at 22:20 Quetiapine Fumarate (Seroquel) 25 mg DAILY PO Last administered on 12/24/16 11 :38; Admin Dose 25 MG; Start 12/11/16 at 22:20 Magnesium Hydroxide (Milk Of Mag) 30 ml BID PRN PO CONSTIPATION Last administered on 12/16/16 07:14; Admin Dose 30 ML; Start 12/11/16 at 22:20 Bisacodyl (Dulcolax Supp) 10 mg DAILY PRN [place] CONSTIPATION Last administered on 12/22/16 05:36; Admin Dose 10 MG; Start 12/11/16 at 22:20 Atorvastatin Calcium (Lipitor) 20 mg QHS PO Last administered on 12/23/16 21: 48; Admin Dose 20 MG; Start 12/11/16 at 23:10 Diagnostic Test (Pha) (Accu-Chek) 1 ea 02 XX Last administered on 12/23/16 02: 14; Admin Dose 1 EA; Start 12/15/16 at 02:00 Acetaminophen (Tylenol Tab) 650 mg Q4H PRN PO PAIN AND OR ELEVATED TEMP Last administered on 12/23/16 12:38; Admin Dose 650 MG; Start 12/15/16 at 11:30 Prednisolone (Prelone (Ped)) 10 mg DAILY PO Last administered on 12/24/16 09: 15; Admin Dose 10 MG; Start 12/18/16 at 09:00 Meclizine HCl (Antivert) 25 mg BID PRN PO NAUSEA AND/OR VOMITING Last administered on 12/24/16 09:13; Admin Dose 25 MG; Start 12/18/16 at 11:30 Benazepril HCl (Lotensin) 10 mg DAILY PO Last administered on 12/24/16 09:13; Admin Dose 10 MG; Start 12/19/16 at 09:00 Isosorbide Dinitrate (Isordil) 10 mg TID PO Last administered on 12/24/16 09: 14; Admin Dose 10 MG; Start 12/18/16 at 21:00 Ondansetron HCl (Zofran Tab) 4 mg Q6H PRN PO NAUSEA AND/OR VOMITING; Start 12/18 at 19:30 Al Hydrox/Mg Hydrox/Simethicone (Mag-Al Plus) 30 ml Q4H PRN PO GASTROINTESTINAL UPSET Last administered on 12/20/16 17:31; Admin Dose 30 ML; Start 12/18/16 at 19:30 Docusate Sodium (Colace) 100 mg BID PO Last administered on 12/24/16 09:13; Admin Dose 100 MG; Start 12/20/16 at 21:00 Senna (Senokot) 1 tab DAILY PO Last administered on 12/24/16 09:00; Admin Dose 1 TAB; Start 12/20/16 at 21:00 Lactulose (Enulose) 20 gm DAILY PRN PO CONSTIPATION Last administered on 09:01; Admin Dose 20 GM; Start 12/20/16 at 15:00 Insulin Glargine (Lantus) 30 unit DAILY@08 SC Last administered on 12/24/16 08 :17; Admin Dose 30 UNIT; Start 12/22/16 at 08:00 Nifedipine (Procardia Xl) 60 mg DAILY PO Last administered on 12/24/16 09:17; Admin Dose 60 MG; Start 12/24/16 at 09:00 Cephalexin (Keflex) 500 mg Q8 PO Last administered on 12/24/16 06:25; Admin Dose 500 MG; Start 12/23/16 at 22:00 Fluconazole (Diflucan) 150 mg DAILY PO Last administered on 12/24/16 11:38; Admin Dose 150 MG; Start 12/24/16 at 12:00 TAMERA HAKNINS Dec 24, 2016 12:51
[2016-12-24] MEDS ORDERED: INSULIN ASPART [NOVOLOG] 3 ML PEN SC ONE (13:00)
--- NOTE | 2016-12-24 14:54 | CONS ---
Date/Time of Note Date/Time of Note DATE: 12/24/16 TIME: 14:52 Assessment/Plan Assessment/Plan Chief Complaint/Hosp Course IMPRESSION: 1. Chest pain.-negative trop x 3/NL EF by echo. NO ischemia. NL EF by lexiscan 2. Presyncope.- no sig arrythmia by tele monitoring 3. Hypotension- very labile with epsiodes of severe HTN 4. Electrocardiogram with lateral T-wave inversion-negative trop x 3 5. Generalized weakness. 6. Diabetes mellitus. 7. Prerenal azotemia. Rec: -Now transferred to Rehab -Continue benazepril with reasonable BP control -Decrease Procardia XL to 30 mg daily -Continue asa/statin -Continue prednisilone -Follow volume status closely -PT/OT Problems: Consultation Date/Type/Reason Admit Date/Time Dec 11, 2016 at 20:00 Initial Consult Date 12/11/2016 Type of Consultation: cardiology Reason for Consultation HTN Referring Provider: DEBBI SARABIA MD Exam/Review of Systems Vital Signs Vitals Vital Signs Date Time Temp Pulse Resp B/P Pulse Ox O2 Delivery O2 Flow Rate FiO2 12/24/16 14:07 85 110/52 97 Room Air 12/24/16 14:00 97.4 18 12/23/16 20:00 2.0 12/22/16 01:42 21 Intake and Output 12/23/16 12/23/16 12/24/16 15:00 23:00 07:00 Intake Total 240 ml 740 ml Balance 240 ml 740 ml Exam Review of Systems: CONSTITUTIONAL: No fevers, chills. PULMONARY: No sob CARDIOVASCULAR: No chest pain/palpitations GASTROINTESTINAL: No nausea/vomiting. GENITOURINARY: No hematuria/dysuria. MUSCULOSKELETAL: No myagias/arthalgias. PSYCHIATRIC: The patient denies depression. NEUROLOGIC: No weakness Constitutional: alert Psych: no complaints Head: normocephalic ENMT: mucosa pink and moist Neck: jvd (9 cm water), supple Respiratory: diminished breath sounds Cardiovascular: regular rate and rhythm Gastrointestinal: soft Musculoskeletal: muscle tone Extremities: edema (none) Neurological: other (No focal deficits) Results Result Diagram: 12/24/16 1205 12/24/16 1205 Results 24 hrs Laboratory Tests Test 12/23/16 17:22 12/23/16 21:50 12/24/16 02:42 12/24/16 07:45 Bedside Glucose 172 266 H 260 H 182 Test 12/24/16 11:18 12/24/16 12:05 12/24/16 12:24 Bedside Glucose 346 H 350 H White Blood Count 12.6 H Red Blood Count 4.63 Hemoglobin 12.2 Hematocrit 37.9 Mean Corpuscular Volume 81.9 L Mean Corpuscular Hemoglobin 26.3 L Mean Corpuscular Hemoglobin Concent 32.2 Red Cell Distribution Width 15.2 H Platelet Count 210 Mean Platelet Volume 11.8 H Neutrophils % 79.1 H Lymphocytes % 12.3 L Monocytes % 6.7 Eosinophils % 1.0 Basophils % 0.2 Nucleated Red Blood Cells % 0.0 Lymphocytes # 1.6 Monocytes # 0.9 Eosinophils # 0.1 Basophils # 0.0 Nucleated Red Blood Cells # 0.0 Sodium Level 136 Potassium Level 4.5 Chloride Level 100 Carbon Dioxide Level 29 Anion Gap 12 Blood Urea Nitrogen 21 H Creatinine 0.91 Glucose Level 397 H Calcium Level 9.1 Total Bilirubin 0.2 Direct Bilirubin 0.00 Indirect Bilirubin 0.2 Aspartate Amino Transf (AST/SGOT) 15 Alanine Aminotransferase (ALT/SGPT) 29 Alkaline Phosphatase 108 Total Protein 6.6 Albumin 3.4 Globulin 3.20 Albumin/Globulin Ratio 1.06 Medications Medications Current Medications Aspirin (Aspirin) 81 mg DAILY PO Last administered on 12/24/16 09:14; Admin Dose 81 MG; Start 12/11/16 at 22:20 Pantoprazole (Protonix Tab) 40 mg DAILY@06 PO Last administered on 12/24/16 06 :25; Admin Dose 40 MG; Start 12/11/16 at 22:20 Nitroglycerin (Nitroglycerin (Sl Tab) 0.4 Mg) 1 tab Q5M PRN SL ANGINA; Start at 22:20 Miscellaneous Information 1 ea NOTE XX ; Start 12/11/16 at 22:20 Glucose (Glutose) 15 gm Q15M PRN PO DECREASED GLUCOSE Last administered on 08:00; Admin Dose 15 GM; Start 12/11/16 at 22:20 Glucose (Glutose) 22.5 gm Q15M PRN PO DECREASED GLUCOSE Last administered on 21:11; Admin Dose 22.5 GM; Start 12/11/16 at 22:20 Dextrose (D50w Syringe) 25 ml Q15M PRN IV DECREASED GLUCOSE; Start 12/11/16 at 22:20 Dextrose (D50w Syringe) 50 ml Q15M PRN IV DECREASED GLUCOSE; Start 12/11/16 at 22:20 Glucagon (Glucagen) 1 mg Q15M PRN IM DECREASED GLUCOSE; Start 12/11/16 at 22:20 Glucose (Glutose) 15 gm Q15M PRN BUCCAL DECREASED GLUCOSE Last administered on 12/12/16 22:06; Admin Dose 15 GM; Start 12/11/16 at 22:20 Quetiapine Fumarate (Seroquel) 25 mg DAILY PO Last administered on 12/24/16 11 :38; Admin Dose 25 MG; Start 12/11/16 at 22:20 Magnesium Hydroxide (Milk Of Mag) 30 ml BID PRN PO CONSTIPATION Last administered on 12/16/16 07:14; Admin Dose 30 ML; Start 12/11/16 at 22:20 Bisacodyl (Dulcolax Supp) 10 mg DAILY PRN [place] CONSTIPATION Last administered on 12/22/16 05:36; Admin Dose 10 MG; Start 12/11/16 at 22:20 Atorvastatin Calcium (Lipitor) 20 mg QHS PO Last administered on 12/23/16 21: 48; Admin Dose 20 MG; Start 12/11/16 at 23:10 Diagnostic Test (Pha) (Accu-Chek) 1 ea 02 XX Last administered on 12/23/16 02: 14; Admin Dose 1 EA; Start 12/15/16 at 02:00 Acetaminophen (Tylenol Tab) 650 mg Q4H PRN PO PAIN AND OR ELEVATED TEMP Last administered on 12/23/16 12:38; Admin Dose 650 MG; Start 12/15/16 at 11:30 Prednisolone (Prelone (Ped)) 10 mg DAILY PO Last administered on 12/24/16 09: 15; Admin Dose 10 MG; Start 12/18/16 at 09:00 Meclizine HCl (Antivert) 25 mg BID PRN PO NAUSEA AND/OR VOMITING Last administered on 12/24/16 09:13; Admin Dose 25 MG; Start 12/18/16 at 11:30 Benazepril HCl (Lotensin) 10 mg DAILY PO Last administered on 12/24/16 09:13; Admin Dose 10 MG; Start 12/19/16 at 09:00 Isosorbide Dinitrate (Isordil) 10 mg TID PO Last administered on 12/24/16 09: 14; Admin Dose 10 MG; Start 12/18/16 at 21:00 Ondansetron HCl (Zofran Tab) 4 mg Q6H PRN PO NAUSEA AND/OR VOMITING; Start 12/18 at 19:30 Al Hydrox/Mg Hydrox/Simethicone (Mag-Al Plus) 30 ml Q4H PRN PO GASTROINTESTINAL UPSET Last administered on 12/20/16 17:31; Admin Dose 30 ML; Start 12/18/16 at 19:30 Docusate Sodium (Colace) 100 mg BID PO Last administered on 12/24/16 09:13; Admin Dose 100 MG; Start 12/20/16 at 21:00 Senna (Senokot) 1 tab DAILY PO Last administered on 12/24/16 09:00; Admin Dose 1 TAB; Start 12/20/16 at 21:00 Lactulose (Enulose) 20 gm DAILY PRN PO CONSTIPATION Last administered on 09:01; Admin Dose 20 GM; Start 12/20/16 at 15:00 Insulin Glargine (Lantus) 30 unit DAILY@08 SC Last administered on 12/24/16 08 :17; Admin Dose 30 UNIT; Start 12/22/16 at 08:00 Nifedipine (Procardia Xl) 60 mg DAILY PO Last administered on 12/24/16 09:17; Admin Dose 60 MG; Start 12/24/16 at 09:00 Cephalexin (Keflex) 500 mg Q8 PO Last administered on 12/24/16 06:25; Admin Dose 500 MG; Start 12/23/16 at 22:00 Fluconazole (Diflucan) 150 mg DAILY PO Last administered on 12/24/16 11:38; Admin Dose 150 MG; Start 12/24/16 at 12:00 ROSALINDA JARVIS Dec 24, 2016 14:54
[2016-12-24] MEDS: ATORVASTATIN 20 MG TAB PO SCH (20:50)
[2016-12-25 02:00] VITALS: BP 121/78; RESP 18
[2016-12-25] MEDS: ACCU-CHEK XX SCH (02:00)
[2016-12-25] MEDS: PANTOPRAZOLE (EC) 40 MG TAB PO SCH (06:39)
[2016-12-25] MEDS: CEPHALEXIN 500 MG CAP PO SCH ×3 (06:39→21:23)
[2016-12-25 06:53] LABS: BASOPHILS % 0.3 % (0.0-2.0); EOSINOPHILS # 0.1 10^3/ul (0.0-0.5); EOSINOPHILS % 1.3 % (0.0-7.0); HEMATOCRIT 34.9 % (37.0-47.0); HEMOGLOBIN 11.4 g/dl (12.0-16.0); LYMPHOCYTES # 2.4 10^3/ul (0.8-2.9); LYMPHOCYTES % 22.5 % (15.0-51.0); MEAN CORPUSCULAR HEMOGLOBIN 26.3 pg (29.0-33.0); MEAN CORPUSCULAR HGB CONC 32.7 g/dl (32.0-37.0); MEAN CORPUSCULAR VOLUME 80.6 fl (82.0-101.0); MEAN PLATELET VOLUME 12.1 fl (7.4-10.4); MONOCYTE # 0.7 10^3/ul (0.3-0.9); MONOCYTES % 6.2 % (0.0-11.0); NEUTROPHIL # 7.5 10^3/ul (1.6-7.5); NEUTROPHILS % 69.3 % (39.0-77.0); PLATELET COUNT 183 10^3/UL (140-415); RED BLOOD COUNT 4.33 10^6/ul (4.20-5.40); RED CELL DISTRIBUTION WIDTH 15.1 % (11.5-14.5); WHITE BLOOD COUNT 10.7 10^3/ul (4.8-10.8)
[2016-12-25 07:17] LABS: CALCIUM 9.4 mg/dl (8.4-10.2); CREATININE 0.75 mg/dl (0.44-1.00); POTASSIUM 4.2 mmol/L (3.5-5.1)
[2016-12-25 07:30] VITALS: BP 142/70; RESP 20
[2016-12-25] MEDS ORDERED: NIFEdipine (XL) 30 MG TAB PO ONE (07:53)
[2016-12-25] MEDS: INSULIN ASPART [NOVOLOG] 3 ML PEN SC SCH ×7 (08:17→20:39)
[2016-12-25] MEDS: DOCUSATE SODIUM 100 MG CAP PO SCH ×2 (08:19→20:39)
[2016-12-25] MEDS: QUETIAPINE 25 MG TAB PO SCH (08:19)
[2016-12-25] MEDS: LACTULOSE 30ML CUP PO PRN (08:19)
[2016-12-25] MEDS: ASPIRIN 81 MG TAB PO SCH (08:19)
[2016-12-25] MEDS: INSULIN GLARGINE [LANtus] 3 ML PEN SC SCH (08:19)
[2016-12-25] MEDS: BENAZEPRIL 10 MG TAB PO SCH (08:20)
[2016-12-25] MEDS: ISOSORBIDE DINITRATE 10 MG TAB PO SCH (08:20)
[2016-12-25] MEDS: SENNA TAB PO SCH (08:20)
[2016-12-25] MEDS: predniSOLONE (3 MG/ML PO SYG) PO SCH ×2 (08:21→12:19)
[2016-12-25] MEDS: FLUCONAZOLE 150 MG TAB PO SCH (08:22)
[2016-12-25] MEDS ORDERED: NIFEdipine (XL) 30 MG TAB PO SCH (09:00)
--- NOTE | 2016-12-25 13:40 | CONS ---
Date/Time of Note Date/Time of Note DATE: 12/25/16 TIME: 13:40 Consult Date/Type/Reason Admit Date/Time Dec 11, 2016 at 20:00 Type of Consultation: cardiology Ordering Provider: DEBBI SARABIA MD Subjective RN reports patient with variable BP, BS Objective pulm-cta abd-soft Vital Signs Date Time Temp Pulse Resp B/P Pulse Ox O2 Delivery O2 Flow Rate FiO2 12/25/16 07:30 97.7 74 20 142/70 98 12/24/16 20:30 Nasal Cannula 2.0 12/22/16 01:42 21 Intake and Output 12/24/16 12/24/16 12/25/16 14:59 22:59 06:59 Intake Total 460 ml 650 ml Balance 460 ml 650 ml Results/Medications Result Diagram: 12/25/1629 12/25/16 0629 Results 24 hrs Laboratory Tests Test 12/24/16 17:52 12/24/16 20:47 12/25/16 02:49 12/25/16 06:29 Bedside Glucose 166 278 H 285 H White Blood Count 10.7 Red Blood Count 4.33 Hemoglobin 11.4 L Hematocrit 34.9 L Mean Corpuscular Volume 80.6 L Mean Corpuscular Hemoglobin 26.3 L Mean Corpuscular Hemoglobin Concent 32.7 Red Cell Distribution Width 15.1 H Platelet Count 183 Mean Platelet Volume 12.1 H Neutrophils % 69.3 Lymphocytes % 22.5 Monocytes % 6.2 Eosinophils % 1.3 Basophils % 0.3 Nucleated Red Blood Cells % 0.0 Neutrophils # 7.5 Lymphocytes # 2.4 Monocytes # 0.7 Eosinophils # 0.1 Basophils # 0.0 Nucleated Red Blood Cells # 0.0 Sodium Level 136 Potassium Level 4.2 Chloride Level 103 Carbon Dioxide Level 29 Anion Gap 8 Blood Urea Nitrogen 24 H Creatinine 0.75 Glucose Level 263 #H Calcium Level 9.4 Test 12/25/16 08:10 12/25/16 12:12 Bedside Glucose 257 H 86 Medications Current Medications Aspirin (Aspirin) 81 mg DAILY PO Last administered on 12/25/16 08:19; Admin Dose 81 MG; Start 12/11/16 at 22:20 Pantoprazole (Protonix Tab) 40 mg DAILY@06 PO Last administered on 12/25/16 06 :39; Admin Dose 40 MG; Start 12/11/16 at 22:20 Nitroglycerin (Nitroglycerin (Sl Tab) 0.4 Mg) 1 tab Q5M PRN SL ANGINA; Start at 22:20 Miscellaneous Information 1 ea NOTE XX ; Start 12/11/16 at 22:20 Glucose (Glutose) 15 gm Q15M PRN PO DECREASED GLUCOSE Last administered on 08:00; Admin Dose 15 GM; Start 12/11/16 at 22:20 Glucose (Glutose) 22.5 gm Q15M PRN PO DECREASED GLUCOSE Last administered on 21:11; Admin Dose 22.5 GM; Start 12/11/16 at 22:20 Dextrose (D50w Syringe) 25 ml Q15M PRN IV DECREASED GLUCOSE; Start 12/11/16 at 22:20 Dextrose (D50w Syringe) 50 ml Q15M PRN IV DECREASED GLUCOSE; Start 12/11/16 at 22:20 Glucagon (Glucagen) 1 mg Q15M PRN IM DECREASED GLUCOSE; Start 12/11/16 at 22:20 Glucose (Glutose) 15 gm Q15M PRN BUCCAL DECREASED GLUCOSE Last administered on 12/12/16 22:06; Admin Dose 15 GM; Start 12/11/16 at 22:20 Quetiapine Fumarate (Seroquel) 25 mg DAILY PO Last administered on 12/25/16 08 :19; Admin Dose 25 MG; Start 12/11/16 at 22:20 Magnesium Hydroxide (Milk Of Mag) 30 ml BID PRN PO CONSTIPATION Last administered on 12/16/16 07:14; Admin Dose 30 ML; Start 12/11/16 at 22:20 Bisacodyl (Dulcolax Supp) 10 mg DAILY PRN [place]STIP[place] Last administered on 12/22/16 05:36; Admin Dose 10 MG; Start 12/11/16 at 22:20 Atorvastatin Calcium (Lipitor) 20 mg QHS PO Last administered on 12/24/16 20: 50; Admin Dose 20 MG; Start 12/11/16 at 23:10 Diagnostic Test (Pha) (Accu-Chek) 1 ea 02 XX Last administered on 12/25/16 02: 00; Admin Dose 1 EA; Start 12/15/16 at 02:00 Acetaminophen (Tylenol Tab) 650 mg Q4H PRN PO PAIN AND OR ELEVATED TEMP Last administered on 12/23/16 12:38; Admin Dose 650 MG; Start 12/15/16 at 11:30 Prednisolone (Prelone (Ped)) 10 mg DAILY PO Last administered on 12/25/16 12: 19; Admin Dose 10 MG; Start 12/18/16 at 09:00 Meclizine HCl (Antivert) 25 mg BID PRN PO NAUSEA AND/OR VOMITING Last administered on 12/24/16 09:13; Admin Dose 25 MG; Start 12/18/16 at 11:30 Benazepril HCl (Lotensin) 10 mg DAILY PO Last administered on 12/25/16 08:20; Admin Dose 10 MG; Start 12/19/16 at 09:00 Ondansetron HCl (Zofran Tab) 4 mg Q6H PRN PO NAUSEA AND/OR VOMITING; Start 12/18 at 19:30 Al Hydrox/Mg Hydrox/Simethicone (Mag-Al Plus) 30 ml Q4H PRN PO GASTROINTESTINAL UPSET Last administered on 12/20/16 17:31; Admin Dose 30 ML; Start 12/18/16 at 19:30 Docusate Sodium (Colace) 100 mg BID PO Last administered on 12/25/16 08:19; Admin Dose 100 MG; Start 12/20/16 at 21:00 Senna (Senokot) 1 tab DAILY PO Last administered on 12/25/16 08:20; Admin Dose 1 TAB; Start 12/20/16 at 21:00 Lactulose (Enulose) 20 gm DAILY PRN PO CONSTIPATION Last administered on 08:19; Admin Dose 20 GM; Start 12/20/16 at 15:00 Insulin Glargine (Lantus) 30 unit DAILY@08 SC Last administered on 12/25/16 08 :19; Admin Dose 30 UNIT; Start 12/22/16 at 08:00 Cephalexin (Keflex) 500 mg Q8 PO Last administered on 12/25/16 06:39; Admin Dose 500 MG; Start 12/23/16 at 22:00 Fluconazole (Diflucan) 150 mg DAILY PO Last administered on 12/25/16 08:22; Admin Dose 150 MG; Start 9/13/17 at 12:00 Hydralazine HCl (Apresoline) 25 mg Q6H PRN PO SBP>160; Start 12/25/16 at 13:30 Assessment/Plan Additional Assessment/Plan Rehab- Toxic metabolic encephalopathy. Hold dc given medical issues Status post syncopal episode. -oli UTI Acute kidney injury and dehydration. Bronchitis. Diabetes mellitus- meds per IM Hypertension- improved Hyperlipidemia. History of CVA. SLIM WILSON MD Dec 25, 2016 13:40
[2016-12-25 14:00] VITALS: BP 106/52; RESP 18
--- NOTE | 2016-12-25 17:56 | PN ---
Date/Time of Note Date/Time of Note DATE: 12/25/16 TIME: 17:32 Assessment/Plan VTE Prophylaxis VTE Prophylaxis Intervention: other Lines/Catheters IV [facility] Urinary Cath still in place: No Assessment/Plan Assessment/Plan -Orthostatic Hypotension - Htn meds got adjusted. cont to monitor - Hyperglycemic sec to steroids and Diabetes- cont to monitor - Acute bronchitis, continue Levaquin, steroids. - Near syncopal episode. Acute coronary syndrome ruled out. cardiac enzymes is negative 3. - per Dr. Bhagat in cardiology consultation. - Rule out transient ischemic attack in patient with history of stroke. Continue aspirin. MRI is negative. - Dr. Rios is following in a neurology consultation. - Diabetes mellitus type 2. Hemoglobin A1c is 9.6. Continue Lantus and NovoLog. - Hypertension. Continue Lotensin and Norvasc. - Acute kidney injury secondary to dehydration, resolved. Dw Dr Lucas Subjective 24 Hr Interval Summary Free Text/Dictation AFEBRILE, tolerates PT-dw staff Respiratory: no complaints Cardiovascular: no complaints Gastrointestinal: no complaints Genitourinary: no complaints Musculoskeletal: no complaints Skin: no complaints Exam/Review of Systems Vital Signs Vitals Vital Signs Date Time Temp Pulse Resp B/P Pulse Ox O2 Delivery O2 Flow Rate FiO2 12/25/16 14:00 97.8 75 18 106/52 96 12/25/16 08:00 Nasal Cannula 2.0 12/22/16 01:42 21 Intake and Output 12/24/16 12/24/16 12/25/16 15:00 23:00 07:00 Intake Total 460 ml 910 ml Balance 460 ml 910 ml Exam Constitutional: alert, oriented, well developed Cardiovascular: nl pulses, regular rate and rhythm Gastrointestinal: non-tender, soft Musculoskeletal: nl extremities to inspection Extremities: normal pulses Neurological: confused, nl speech Results Result Diagram: 12/25/16 0629 12/25/16 0629 Results 24 hrs Laboratory Tests Test 12/24/16 17:52 12/24/16 20:47 12/25/16 02:49 12/25/16 06:29 Bedside Glucose 166 278 H 285 H White Blood Count 10.7 Red Blood Count 4.33 Hemoglobin 11.4 L Hematocrit 34.9 L Mean Corpuscular Volume 80.6 L Mean Corpuscular Hemoglobin 26.3 L Mean Corpuscular Hemoglobin Concent 32.7 Red Cell Distribution Width 15.1 H Platelet Count 183 Mean Platelet Volume 12.1 H Neutrophils % 69.3 Lymphocytes % 22.5 Monocytes % 6.2 Eosinophils % 1.3 Basophils % 0.3 Nucleated Red Blood Cells % 0.0 Neutrophils # 7.5 Lymphocytes # 2.4 Monocytes # 0.7 Eosinophils # 0.1 Basophils # 0.0 Nucleated Red Blood Cells # 0.0 Sodium Level 136 Potassium Level 4.2 Chloride Level 103 Carbon Dioxide Level 29 Anion Gap 8 Blood Urea Nitrogen 24 H Creatinine 0.75 Glucose Level 263 #H Calcium Level 9.4 Test 12/25/16 08:10 12/25/16 12:12 12/25/16 17:22 Bedside Glucose 257 H 86 90 Medications Medications Current Medications Aspirin (Aspirin) 81 mg DAILY PO Last administered on 12/25/16 08:19; Admin Dose 81 MG; Start 12/11/16 at 22:20 Pantoprazole (Protonix Tab) 40 mg DAILY@06 PO Last administered on 12/25/16 06 :39; Admin Dose 40 MG; Start 12/11/16 at 22:20 Nitroglycerin (Nitroglycerin (Sl Tab) 0.4 Mg) 1 tab Q5M PRN SL ANGINA; Start at 22:20 Miscellaneous Information 1 ea NOTE XX ; Start 12/11/16 at 22:20 Glucose (Glutose) 15 gm Q15M PRN PO DECREASED GLUCOSE Last administered on 08:00; Admin Dose 15 GM; Start 12/11/16 at 22:20 Glucose (Glutose) 22.5 gm Q15M PRN PO DECREASED GLUCOSE Last administered on 21:11; Admin Dose 22.5 GM; Start 12/11/16 at 22:20 Dextrose (D50w Syringe) 25 ml Q15M PRN IV DECREASED GLUCOSE; Start 12/11/16 at 22:20 Dextrose (D50w Syringe) 50 ml Q15M PRN IV DECREASED GLUCOSE; Start 12/11/16 at 22:20 Glucagon (Glucagen) 1 mg Q15M PRN IM DECREASED GLUCOSE; Start 12/11/16 at 22:20 Glucose (Glutose) 15 gm Q15M PRN BUCCAL DECREASED GLUCOSE Last administered on 12/12/16 22:06; Admin Dose 15 GM; Start 12/11/16 at 22:20 Quetiapine Fumarate (Seroquel) 25 mg DAILY PO Last administered on 12/25/16 08 :19; Admin Dose 25 MG; Start 12/11/16 at 22:20 Magnesium Hydroxide (Milk Of Mag) 30 ml BID PRN PO CONSTIPATION Last administered on 12/16/16 07:14; Admin Dose 30 ML; Start 12/11/16 at 22:20 Bisacodyl (Dulcolax Supp) 10 mg DAILY PRN [place] CONSTIPATION Last administered on 12/22/16 05:36; Admin Dose 10 MG; Start 12/11/16 at 22:20 Atorvastatin Calcium (Lipitor) 20 mg QHS PO Last administered on 12/24/16 20: 50; Admin Dose 20 MG; Start 12/11/16 at 23:10 Diagnostic Test (Pha) (Accu-Chek) 1 ea 02 XX Last administered on 12/25/16 02: 00; Admin Dose 1 EA; Start 12/15/16 at 02:00 Acetaminophen (Tylenol Tab) 650 mg Q4H PRN PO PAIN AND OR ELEVATED TEMP Last administered on 12/23/16 12:38; Admin Dose 650 MG; Start 12/15/16 at 11:30 Prednisolone (Prelone (Ped)) 10 mg DAILY PO Last administered on 12/25/16 12: 19; Admin Dose 10 MG; Start 12/18/16 at 09:00 Meclizine HCl (Antivert) 25 mg BID PRN PO NAUSEA AND/OR VOMITING Last administered on 12/24/16 09:13; Admin Dose 25 MG; Start 12/18/16 at 11:30 Benazepril HCl (Lotensin) 10 mg DAILY PO Last administered on 12/25/16 08:20; Admin Dose 10 MG; Start 12/19/16 at 09:00 Ondansetron HCl (Zofran Tab) 4 mg Q6H PRN PO NAUSEA AND/OR VOMITING; Start 12/18 at 19:30 Al Hydrox/Mg Hydrox/Simethicone (Mag-Al Plus) 30 ml Q4H PRN PO GASTROINTESTINAL UPSET Last administered on 12/20/16 17:31; Admin Dose 30 ML; Start 12/18/16 at 19:30 Docusate Sodium (Colace) 100 mg BID PO Last administered on 12/25/16 08:19; Admin Dose 100 MG; Start 12/20/16 at 21:00 Senna (Senokot) 1 tab DAILY PO Last administered on 12/25/16 08:20; Admin Dose 1 TAB; Start 12/20/16 at 21:00 Lactulose (Enulose) 20 gm DAILY PRN PO CONSTIPATION Last administered on 08:19; Admin Dose 20 GM; Start 12/20/16 at 15:00 Insulin Glargine (Lantus) 30 unit DAILY@08 SC Last administered on 12/25/16 08 :19; Admin Dose 30 UNIT; Start 12/22/16 at 08:00 Cephalexin (Keflex) 500 mg Q8 PO Last administered on 12/25/16 13:41; Admin Dose 500 MG; Start 12/23/16 at 22:00 Fluconazole (Diflucan) 150 mg DAILY PO Last administered on 12/25/16 08:22; Admin Dose 150 MG; Start 12/24/16 at 12:00 Hydralazine HCl (Apresoline) 25 mg Q6H PRN PO SBP>160; Start 12/25/16 at 13:30 TAMERA HANKINS Dec 25, 2016 17:42
[2016-12-25 20:00] VITALS: BP 119/58; RESP 18
[2016-12-25] MEDS: ATORVASTATIN 20 MG TAB PO SCH (20:39)
--- NOTE | 2016-12-25 20:53 | CONS ---
Date/Time of Note Date/Time of Note DATE: 12/25/16 TIME: 20:49 Assessment/Plan Assessment/Plan Chief Complaint/Hosp Course IMPRESSION: 1. Chest pain.-negative trop x 3/NL EF by echo. NO ischemia. NL EF by lexiscan 2. Presyncope.- no sig arrythmia by tele monitoring 3. Hypertension 4. Electrocardiogram with lateral T-wave inversion-negative trop x 3 5. Generalized weakness. 6. Diabetes mellitus. 7. Prerenal azotemia. 8. UTI Rec: -Now transferred to Rehab -Continue benazepril at current dose with reasonable BP control -Procardia XL d/c'd -Continue keflex and f/u cx data -Continue asa/statin -Continue prednisilone -Follow volume status closely -PT/OT Problems: Consultation Date/Type/Reason Admit Date/Time Dec 11, 2016 at 20:00 Initial Consult Date 12/11/2016 Type of Consultation: cardiology Reason for Consultation chest pain Referring Provider: DEBBI SARABIA MD Exam/Review of Systems Vital Signs Vitals Vital Signs Date Time Temp Pulse Resp B/P Pulse Ox O2 Delivery O2 Flow Rate FiO2 12/25/16 20:00 98.7 72 18 119/58 94 12/25/16 08:00 Nasal Cannula 2.0 12/22/16 01:42 21 Intake and Output 12/24/16 12/24/16 12/25/16 15:00 23:00 07:00 Intake Total 460 ml 910 ml Balance 460 ml 910 ml Exam Review of Systems: CONSTITUTIONAL: No fevers, chills. PULMONARY: No sob CARDIOVASCULAR: No chest pain/palpitations GASTROINTESTINAL: No nausea/vomiting. GENITOURINARY: No hematuria/dysuria. MUSCULOSKELETAL: No myagias/arthalgias. PSYCHIATRIC: The patient denies depression. NEUROLOGIC: No weakness Constitutional: alert Psych: no complaints Head: normocephalic ENMT: mucosa pink and moist Neck: jvd, supple Respiratory: diminished breath sounds Cardiovascular: regular rate and rhythm Gastrointestinal: non-tender, soft Musculoskeletal: muscle tone Extremities: edema Neurological: other Results Result Diagram: 12/25/16 0629 12/25/16 0629 Results 24 hrs Laboratory Tests Test 12/25/16 02:49 12/25/16 06:29 12/25/16 08:10 12/25/16 12:12 Bedside Glucose 285 H 257 H 86 White Blood Count 10.7 Red Blood Count 4.33 Hemoglobin 11.4 L Hematocrit 34.9 L Mean Corpuscular Volume 80.6 L Mean Corpuscular Hemoglobin 26.3 L Mean Corpuscular Hemoglobin Concent 32.7 Red Cell Distribution Width 15.1 H Platelet Count 183 Mean Platelet Volume 12.1 H Neutrophils % 69.3 Lymphocytes % 22.5 Monocytes % 6.2 Eosinophils % 1.3 Basophils % 0.3 Nucleated Red Blood Cells % 0.0 Neutrophils # 7.5 Lymphocytes # 2.4 Monocytes # 0.7 Eosinophils # 0.1 Basophils # 0.0 Nucleated Red Blood Cells # 0.0 Sodium Level 136 Potassium Level 4.2 Chloride Level 103 Carbon Dioxide Level 29 Anion Gap 8 Blood Urea Nitrogen 24 H Creatinine 0.75 Glucose Level 263 #H Calcium Level 9.4 Test 12/25/16 17:22 Bedside Glucose 90 Medications Medications Current Medications Aspirin (Aspirin) 81 mg DAILY PO Last administered on 12/25/16 08:19; Admin Dose 81 MG; Start 12/11/16 at 22:20 Pantoprazole (Protonix Tab) 40 mg DAILY@06 PO Last administered on 12/25/16 06 :39; Admin Dose 40 MG; Start 12/11/16 at 22:20 Nitroglycerin (Nitroglycerin (Sl Tab) 0.4 Mg) 1 tab Q5M PRN SL ANGINA; Start at 22:20 Miscellaneous Information 1 ea NOTE XX ; Start 12/11/16 at 22:20 Glucose (Glutose) 15 gm Q15M PRN PO DECREASED GLUCOSE Last administered on 08:00; Admin Dose 15 GM; Start 12/11/16 at 22:20 Glucose (Glutose) 22.5 gm Q15M PRN PO DECREASED GLUCOSE Last administered on 21:11; Admin Dose 22.5 GM; Start 12/11/16 at 22:20 Dextrose (D50w Syringe) 25 ml Q15M PRN IV DECREASED GLUCOSE; Start 12/11/16 at 22:20 Dextrose (D50w Syringe) 50 ml Q15M PRN IV DECREASED GLUCOSE; Start 12/11/16 at 22:20 Glucagon (Glucagen) 1 mg Q15M PRN IM DECREASED GLUCOSE; Start 12/11/16 at 22:20 Glucose (Glutose) 15 gm Q15M PRN BUCCAL DECREASED GLUCOSE Last administered on 12/12/16 22:06; Admin Dose 15 GM; Start 12/11/16 at 22:20 Quetiapine Fumarate (Seroquel) 25 mg DAILY PO Last administered on 12/25/16 08 :19; Admin Dose 25 MG; Start 12/11/16 at 22:20 Magnesium Hydroxide (Milk Of Mag) 30 ml BID PRN PO CONSTIPATION Last administered on 12/16/16 07:14; Admin Dose 30 ML; Start 12/11/16 at 22:20 Bisacodyl (Dulcolax Supp) 10 mg DAILY PRN [place] CONSTIPATION Last administered on 12/22/16 05:36; Admin Dose 10 MG; Start 12/11/16 at 22:20 Atorvastatin Calcium (Lipitor) 20 mg QHS PO Last administered on 12/25/16 20: 39; Admin Dose 20 MG; Start 12/11/16 at 23:10 Diagnostic Test (Pha) (Accu-Chek) 1 ea 02 XX Last administered on 12/25/16 02: 00; Admin Dose 1 EA; Start 12/15/16 at 02:00 Acetaminophen (Tylenol Tab) 650 mg Q4H PRN PO PAIN AND OR ELEVATED TEMP Last administered on 12/23/16 12:38; Admin Dose 650 MG; Start 12/15/16 at 11:30 Prednisolone (Prelone (Ped)) 10 mg DAILY PO Last administered on 12/25/16 12: 19; Admin Dose 10 MG; Start 12/18/16 at 09:00 Meclizine HCl (Antivert) 25 mg BID PRN PO NAUSEA AND/OR VOMITING Last administered on 12/24/16 09:13; Admin Dose 25 MG; Start 12/18/16 at 11:30 Benazepril HCl (Lotensin) 10 mg DAILY PO Last administered on 12/25/16 08:20; Admin Dose 10 MG; Start 12/19/16 at 09:00 Ondansetron HCl (Zofran Tab) 4 mg Q6H PRN PO NAUSEA AND/OR VOMITING; Start 12/18 at 19:30 Al Hydrox/Mg Hydrox/Simethicone (Mag-Al Plus) 30 ml Q4H PRN PO GASTROINTESTINAL UPSET Last administered on 12/20/16 17:31; Admin Dose 30 ML; Start 12/18/16 at 19:30 Docusate Sodium (Colace) 100 mg BID PO Last administered on 12/25/16 20:39; Admin Dose 100 MG; Start 12/20/16 at 21:00 Senna (Senokot) 1 tab DAILY PO Last administered on 12/25/16 08:20; Admin Dose 1 TAB; Start 12/20/16 at 21:00 Lactulose (Enulose) 20 gm DAILY PRN PO CONSTIPATION Last administered on 08:19; Admin Dose 20 GM; Start 12/20/16 at 15:00 Insulin Glargine (Lantus) 30 unit DAILY@08 SC Last administered on 12/25/16 08 :19; Admin Dose 30 UNIT; Start 12/22/16 at 08:00 Cephalexin (Keflex) 500 mg Q8 PO Last administered on 12/25/16 13:41; Admin Dose 500 MG; Start 12/23/16 at 22:00 Fluconazole (Diflucan) 150 mg DAILY PO Last administered on 12/25/16 08:22; Admin Dose 150 MG; Start 12/24/16 at 12:00 Hydralazine HCl (Apresoline) 25 mg Q6H PRN PO SBP>160; Start 12/25/16 at 13:30 ROSALINDA JARVIS Dec 25, 2016 20:53
[2016-12-26 02:00] VITALS: BP 128/68; RESP 18
[2016-12-26] MEDS: ACCU-CHEK XX SCH (02:00)
[2016-12-26] MEDS: CEPHALEXIN 500 MG CAP PO SCH ×3 (06:22→21:01)
[2016-12-26] MEDS: PANTOPRAZOLE (EC) 40 MG TAB PO SCH (06:22)
[2016-12-26] MEDS: INSULIN ASPART [NOVOLOG] 3 ML PEN SC SCH ×7 (07:35→21:07)
[2016-12-26 08:00] VITALS: BP 130/91; PULSE 79; RESP 18
[2016-12-26] MEDS: DOCUSATE SODIUM 100 MG CAP PO SCH ×2 (08:01→21:01)
[2016-12-26] MEDS: QUETIAPINE 25 MG TAB PO SCH (08:01)
[2016-12-26] MEDS: predniSOLONE (3 MG/ML PO SYG) PO SCH (08:02)
[2016-12-26] MEDS: BENAZEPRIL 10 MG TAB PO SCH (08:02)
[2016-12-26] MEDS: ASPIRIN 81 MG TAB PO SCH (08:02)
[2016-12-26] MEDS: FLUCONAZOLE 150 MG TAB PO SCH (08:02)
[2016-12-26] MEDS: INSULIN GLARGINE [LANtus] 3 ML PEN SC SCH (08:04)
[2016-12-26] MEDS: SENNA TAB PO SCH (08:09)
[2016-12-26 13:30] VITALS: BP 120/50; PULSE 74
--- NOTE | 2016-12-26 13:36 | CONS ---
Date/Time of Note Date/Time of Note DATE: 12/26/16 TIME: 13:35 Consult Date/Type/Reason Admit Date/Time Dec 11, 2016 at 20:00 Type of Consultation: cardiology Ordering Provider: DEBBI SARABIA MD Subjective Better today Objective pulm-cta cga ambulation Vital Signs Date Time Temp Pulse Resp B/P Pulse Ox O2 Delivery O2 Flow Rate FiO2 12/26/16 08:00 97.6 79 18 130/91 94 Room Air 12/25/16 21:49 2.0 Intake and Output 12/25/16 12/25/16 12/26/16 15:00 23:00 07:00 Intake Total 520 ml 740 ml Balance 520 ml 740 ml Results/Medications Result Diagram: 12/25/16 0629 12/25/16 0629 Results 24 hrs Laboratory Tests Test 12/25/16 17:22 12/25/16 20:31 12/26/16 04:16 12/26/16 07:57 Bedside Glucose 90 152 131 134 Test 12/26/16 12:10 Bedside Glucose 137 Medications Current Medications Aspirin (Aspirin) 81 mg DAILY PO Last administered on 12/26/16 08:02; Admin Dose 81 MG; Start 12/11/16 at 22:20 Pantoprazole (Protonix Tab) 40 mg DAILY@06 PO Last administered on 12/26/16 06 :22; Admin Dose 40 MG; Start 12/11/16 at 22:20 Nitroglycerin (Nitroglycerin (Sl Tab) 0.4 Mg) 1 tab Q5M PRN SL ANGINA; Start at 22:20 Miscellaneous Information 1 ea NOTE XX ; Start 12/11/16 at 22:20 Glucose (Glutose) 15 gm Q15M PRN PO DECREASED GLUCOSE Last administered on 08:00; Admin Dose 15 GM; Start 12/11/16 at 22:20 Glucose (Glutose) 22.5 gm Q15M PRN PO DECREASED GLUCOSE Last administered on 21:11; Admin Dose 22.5 GM; Start 12/11/16 at 22:20 Dextrose (D50w Syringe) 25 ml Q15M PRN IV DECREASED GLUCOSE; Start 12/11/16 at 22:20 Dextrose (D50w Syringe) 50 ml Q15M PRN IV DECREASED GLUCOSE; Start 12/11/16 at 22:20 Glucagon (Glucagen) 1 mg Q15M PRN IM DECREASED GLUCOSE; Start 12/11/16 at 22:20 Glucose (Glutose) 15 gm Q15M PRN BUCCAL DECREASED GLUCOSE Last administered on 12/12/16 22:06; Admin Dose 15 GM; Start 12/11/16 at 22:20 Quetiapine Fumarate (Seroquel) 25 mg DAILY PO Last administered on 12/26/16 08 :01; Admin Dose 25 MG; Start 12/11/16 at 22:20 Magnesium Hydroxide (Milk Of Mag) 30 ml BID PRN PO CONSTIPATION Last administered on 12/16/16 07:14; Admin Dose 30 ML; Start 12/11/16 at 22:20 Bisacodyl (Dulcolax Supp) 10 mg DAILY PRN [place] CONSTIPATION Last administered on 12/22/16 05:36; Admin Dose 10 MG; Start 12/11/16 at 22:20 Atorvastatin Calcium (Lipitor) 20 mg QHS PO Last administered on 12/25/16 20: 39; Admin Dose 20 MG; Start 12/11/16 at 23:10 Diagnostic Test (Pha) (Accu-Chek) 1 ea 02 XX Last administered on 12/25/16 02: 00; Admin Dose 1 EA; Start 12/15/16 at 02:00 Acetaminophen (Tylenol Tab) 650 mg Q4H PRN PO PAIN AND OR ELEVATED TEMP Last administered on 12/23/16 12:38; Admin Dose 650 MG; Start 12/15/16 at 11:30 Prednisolone (Prelone (Ped)) 10 mg DAILY PO Last administered on 12/26/16 08: 02; Admin Dose 10 MG; Start 12/18/16 at 09:00 Meclizine HCl (Antivert) 25 mg BID PRN PO NAUSEA AND/OR VOMITING Last administered on 12/24/16 09:13; Admin Dose 25 MG; Start 12/18/16 at 11:30 Benazepril HCl (Lotensin) 10 mg DAILY PO Last administered on 12/26/16 08:02; Admin Dose 10 MG; Start 12/19/16 at 09:00 Ondansetron HCl (Zofran Tab) 4 mg Q6H PRN PO NAUSEA AND/OR VOMITING; Start 12/18 at 19:30 Al Hydrox/Mg Hydrox/Simethicone (Mag-Al Plus) 30 ml Q4H PRN PO GASTROINTESTINAL UPSET Last administered on 12/20/16 17:31; Admin Dose 30 ML; Start 12/18/16 at 19:30 Docusate Sodium (Colace) 100 mg BID PO Last administered on 12/26/16 08:01; Admin Dose 100 MG; Start 12/20/16 at 21:00 Senna (Senokot) 1 tab DAILY PO Last administered on 12/26/16 08:09; Admin Dose 1 TAB; Start 12/20/16 at 21:00 Lactulose (Enulose) 20 gm DAILY PRN PO CONSTIPATION Last administered on 08:19; Admin Dose 20 GM; Start 12/20/16 at 15:00 Insulin Glargine (Lantus) 30 unit DAILY@08 SC Last administered on 12/26/16 08 :04; Admin Dose 30 UNIT; Start 12/22/16 at 08:00 Cephalexin (Keflex) 500 mg Q8 PO Last administered on 12/26/16 06:22; Admin Dose 500 MG; Start 12/23/16 at 22:00 Fluconazole (Diflucan) 150 mg DAILY PO Last administered on 12/26/16 08:02; Admin Dose 150 MG; Start 12/24/16 at 12:00 Hydralazine HCl (Apresoline) 25 mg Q6H PRN PO SBP>160; Start 12/25/16 at 13:30 Assessment/Plan Additional Assessment/Plan Rehab- Toxic metabolic encephalopathy. Improving . Will monitor over the weekend, and work towards home Thursday Status post syncopal episode. -urinalysis for possible UTI Acute kidney injury and dehydration. Bronchitis. Diabetes mellitus- meds per IM Hypertension- improved Hyperlipidemia. History of CVA. SLIM WILSON MD Dec 26, 2016 13:36
--- NOTE | 2016-12-26 14:50 | CONS ---
Date/Time of Note Date/Time of Note DATE: 12/26/16 TIME: 14:49 Assessment/Plan Assessment/Plan Additional Assessment/Plan 1. Chest pain.-negative trop x 3 - will monitor clinically NO intervention planned now. Now confused, but denies CP. better NOW. 2. Presyncope.- no sig arrythmia by tele monitoring - no ectopy on tele - no indication for pacer. 3. Hypotension on admit-now improved with HTN -Labile - will add therapy as needed 4. Electrocardiogram with lateral T-wave inversion. Assess for acute coronary syndrome. R/o [place] now. 5. Generalized weakness- much improved 6. Diabetes mellitus - con't sheila Rx 7. Prerenal azotemia. 8. Encephalopathy - more confused today - PMD to follow. CON'T REHAB - HEADING TOWARD dc NEXT WEEK IF STABLE. Consultation Date/Type/Reason Admit Date/Time Dec 11, 2016 at 20:00 Type of Consultation: cardiology Referring Provider: DEBBI SARABIA MD 24 HR Interval Summary Free Text/Dictation NO acute events - no CP noted. ROS: No fever, no chills, no nausea, no vomiting, no diarrhea/constipation No recent weight changes No chest pain, no PND, no orthopnea No dizziness, blurred vision No thirst, no heat or cold intolerance Exam/Review of Systems Vital Signs Vitals Vital Signs Date Time Temp Pulse Resp B/P Pulse Ox O2 Delivery O2 Flow Rate FiO2 12/26/16 13:30 74 120/50 12/26/16 08:00 97.6 18 94 Room Air 12/25/16 21:49 2.0 Intake and Output 12/25/16 12/25/16 12/26/16 15:00 23:00 07:00 Intake Total 520 ml 740 ml Balance 520 ml 740 ml Exam General: WN/WD/NAD, AOx 1-2 HEENT: Unicetric/atraumatic/EOMI (follows commands) NECK: JVD elevated, no thyromegaly Lymph: no lymphadenopathy HEART: regular with no S3, II/ systolic murmur at apex LUNGS: Coarse sounds ABD: soft, NT, ND, +BS : Intact Neuro: non focal SKIN: chronic changes EXT: trace edema Results Result Diagram: 12/25/1662812/25/16628 Results 24 hrs Laboratory Tests Test 12/25/16 17:22 12/25/16 20:31 12/26/16 04:16 12/26/16 07:57 Bedside Glucose 90 152 131 134 Test 12/26/16 12:10 Bedside Glucose 137 Medications Medications Current Medications Aspirin (Aspirin) 81 mg DAILY PO Last administered on 12/26/16 08:02; Admin Dose 81 MG; Start 12/11/16 at 22:20 Pantoprazole (Protonix Tab) 40 mg DAILY@06 PO Last administered on 12/26/16 06 :22; Admin Dose 40 MG; Start 12/11/16 at 22:20 Nitroglycerin (Nitroglycerin (Sl Tab) 0.4 Mg) 1 tab Q5M PRN SL ANGINA; Start at 22:20 Miscellaneous Information 1 ea NOTE XX ; Start 12/11/16 at 22:20 Glucose (Glutose) 15 gm Q15M PRN PO DECREASED GLUCOSE Last administered on 08:00; Admin Dose 15 GM; Start 12/11/16 at 22:20 Glucose (Glutose) 22.5 gm Q15M PRN PO DECREASED GLUCOSE Last administered on 21:11; Admin Dose 22.5 GM; Start 12/11/16 at 22:20 Dextrose (D50w Syringe) 25 ml Q15M PRN IV DECREASED GLUCOSE; Start 12/11/16 at 22:20 Dextrose (D50w Syringe) 50 ml Q15M PRN IV DECREASED GLUCOSE; Start 12/11/16 at 22:20 Glucagon (Glucagen) 1 mg Q15M PRN IM DECREASED GLUCOSE; Start 12/11/16 at 22:20 Glucose (Glutose) 15 gm Q15M PRN BUCCAL DECREASED GLUCOSE Last administered on 12/12/16 22:06; Admin Dose 15 GM; Start 12/11/16 at 22:20 Quetiapine Fumarate (Seroquel) 25 mg DAILY PO Last administered on 12/26/16 08 :01; Admin Dose 25 MG; Start 12/11/16 at 22:20 Magnesium Hydroxide (Milk Of Mag) 30 ml BID PRN PO CONSTIPATION Last administered on 12/16/16 07:14; Admin Dose 30 ML; Start 12/11/16 at 22:20 Bisacodyl (Dulcolax Supp) 10 mg DAILY PRN [place] CONSTIPATION Last administered on 12/22/16 05:36; Admin Dose 10 MG; Start 12/11/16 at 22:20 Atorvastatin Calcium (Lipitor) 20 mg QHS PO Last administered on 12/25/16 20: 39; Admin Dose 20 MG; Start 12/11/16 at 23:10 Diagnostic Test (Pha) (Accu-Chek) 1 ea 02 XX Last administered on 12/25/16 02: 00; Admin Dose 1 EA; Start 12/15/16 at 02:00 Acetaminophen (Tylenol Tab) 650 mg Q4H PRN PO PAIN AND OR ELEVATED TEMP Last administered on 12/23/16 12:38; Admin Dose 650 MG; Start 12/15/16 at 11:30 Prednisolone (Prelone (Ped)) 10 mg DAILY PO Last administered on 12/26/16 08: 02; Admin Dose 10 MG; Start 12/18/16 at 09:00 Meclizine HCl (Antivert) 25 mg BID PRN PO NAUSEA AND/OR VOMITING Last administered on 12/24/16 09:13; Admin Dose 25 MG; Start 12/18/16 at 11:30 Benazepril HCl (Lotensin) 10 mg DAILY PO Last administered on 12/26/16 08:02; Admin Dose 10 MG; Start 12/19/16 at 09:00 Ondansetron HCl (Zofran Tab) 4 mg Q6H PRN PO NAUSEA AND/OR VOMITING; Start 12/18 at 19:30 Al Hydrox/Mg Hydrox/Simethicone (Mag-Al Plus) 30 ml Q4H PRN PO GASTROINTESTINAL UPSET Last administered on 12/20/16 17:31; Admin Dose 30 ML; Start 12/18/16 at 19:30 Docusate Sodium (Colace) 100 mg BID PO Last administered on 12/26/16 08:01; Admin Dose 100 MG; Start 12/20/16 at 21:00 Senna (Senokot) 1 tab DAILY PO Last administered on 12/26/16 08:09; Admin Dose 1 TAB; Start 12/20/16 at 21:00 Lactulose (Enulose) 20 gm DAILY PRN PO CONSTIPATION Last administered on 08:19; Admin Dose 20 GM; Start 12/20/16 at 15:00 Insulin Glargine (Lantus) 30 unit DAILY@08 SC Last administered on 12/26/16 08 :04; Admin Dose 30 UNIT; Start 12/22/16 at 08:00 Cephalexin (Keflex) 500 mg Q8 PO Last administered on 12/26/16 13:49; Admin Dose 500 MG; Start 12/23/16 at 22:00 Fluconazole (Diflucan) 150 mg DAILY PO Last administered on 12/26/16 08:02; Admin Dose 150 MG; Start 12/24/16 at 12:00 Hydralazine HCl (Apresoline) 25 mg Q6H PRN PO SBP>160; Start 12/25/16 at 13:30 ARTHUR TITUS MD Dec 26, 2016 14:50
[2016-12-26 16:30] VITALS: BP 149/63; RESP 18
--- NOTE | 2016-12-26 18:16 | PN ---
Date/Time of Note Date/Time of Note DATE: 12/26/16 TIME: 18:15 Assessment/Plan VTE Prophylaxis VTE Prophylaxis Intervention: other Lines/Catheters IV [facility]ter Type (from [facility]): [facility] Urinary Cath still in place: No Assessment/Plan Assessment/Plan -Orthostatic Hypotension Htn meds got adjusted. cont to monitor - Hyperglycemic sec to steroids and Diabetes- cont to monitor - Acute bronchitis, continue Levaquin, steroids. - Near syncopal episode. Acute coronary syndrome ruled out. cardiac enzymes is negative 3. - per Dr. Bhagat in cardiology consultation. - Rule out transient ischemic attack in patient with history of stroke. Continue aspirin. MRI is negative. - Dr. Rios is following in a neurology consultation. - Diabetes mellitus type 2. Hemoglobin A1c is 9.6. Continue Lantus and NovoLog. - Hypertension. Continue Lotensin and Norvasc. - Acute kidney injury secondary to dehydration, resolved. Rupesh Lucas Subjective 24 Hr Interval Summary Free Text/Dictation sleeping, easy awakens when called by name, denies any complaints tolerates PT- dw staff Constitutional: requiring IVF Respiratory: no complaints Cardiovascular: no complaints Gastrointestinal: no complaints Genitourinary: no complaints Musculoskeletal: no complaints Exam/Review of Systems Vital Signs Vitals Vital Signs Date Time Temp Pulse Resp B/P Pulse Ox O2 Delivery O2 Flow Rate FiO2 12/26/16 16:30 97.9 78 18 149/63 94 12/26/16 08:00 Room Air 12/25/16 21:49 2.0 Intake and Output 12/25/16 12/25/16 12/26/16 15:00 23:00 07:00 Intake Total 520 ml 740 ml Balance 520 ml 740 ml Exam Constitutional: alert, oriented, well developed Cardiovascular: nl pulses, regular rate and rhythm Gastrointestinal: non-tender, soft Musculoskeletal: nl extremities to inspection Extremities: normal pulses Neurological: confused, nl speech Results Result Diagram: 12/25/16 0629 12/25/16 0629 Results 24 hrs Laboratory Tests Test 12/25/16 20:31 12/26/16 04:16 12/26/16 07:57 12/26/16 12:10 Bedside Glucose 152 131 134 137 Test 12/26/16 17:25 Bedside Glucose 295 H Medications Medications Current Medications Aspirin (Aspirin) 81 mg DAILY PO Last administered on 12/26/16 08:02; Admin Dose 81 MG; Start 12/11/16 at 22:20 Pantoprazole (Protonix Tab) 40 mg DAILY@06 PO Last administered on 12/26/16 06 :22; Admin Dose 40 MG; Start 12/11/16 at 22:20 Nitroglycerin (Nitroglycerin (Sl Tab) 0.4 Mg) 1 tab Q5M PRN SL ANGINA; Start at 22:20 Miscellaneous Information 1 ea NOTE XX ; Start 12/11/16 at 22:20 Glucose (Glutose) 15 gm Q15M PRN PO DECREASED GLUCOSE Last administered on 08:00; Admin Dose 15 GM; Start 12/11/16 at 22:20 Glucose (Glutose) 22.5 gm Q15M PRN PO DECREASED GLUCOSE Last administered on 21:11; Admin Dose 22.5 GM; Start 12/11/16 at 22:20 Dextrose (D50w Syringe) 25 ml Q15M PRN IV DECREASED GLUCOSE; Start 12/11/16 at 22:20 Dextrose (D50w Syringe) 50 ml Q15M PRN IV DECREASED GLUCOSE; Start 12/11/16 at 22:20 Glucagon (Glucagen) 1 mg Q15M PRN IM DECREASED GLUCOSE; Start 12/11/16 at 22:20 Glucose (Glutose) 15 gm Q15M PRN BUCCAL DECREASED GLUCOSE Last administered on 12/12/16 22:06; Admin Dose 15 GM; Start 12/11/16 at 22:20 Quetiapine Fumarate (Seroquel) 25 mg DAILY PO Last administered on 12/26/16 08 :01; Admin Dose 25 MG; Start 12/11/16 at 22:20 Magnesium Hydroxide (Milk Of Mag) 30 ml BID PRN PO CONSTIPATION Last administered on 12/16/16 07:14; Admin Dose 30 ML; Start 12/11/16 at 22:20 Bisacodyl (Dulcolax Supp) 10 mg DAILY PRN [place] CONSTIPATION Last administered on 12/22/16 05:36; Admin Dose 10 MG; Start 12/11/16 at 22:20 Atorvastatin Calcium (Lipitor) 20 mg QHS PO Last administered on 12/25/16 20: 39; Admin Dose 20 MG; Start 12/11/16 at 23:10 Diagnostic Test (Pha) (Accu-Chek) 1 ea 02 XX Last administered on 12/25/16 02: 00; Admin Dose 1 EA; Start 12/15/16 at 02:00 Acetaminophen (Tylenol Tab) 650 mg Q4H PRN PO PAIN AND OR ELEVATED TEMP Last administered on 12/23/16 12:38; Admin Dose 650 MG; Start 12/15/16 at 11:30 Prednisolone (Prelone (Ped)) 10 mg DAILY PO Last administered on 12/26/16 08: 02; Admin Dose 10 MG; Start 12/18/16 at 09:00 Meclizine HCl (Antivert) 25 mg BID PRN PO NAUSEA AND/OR VOMITING Last administered on 12/24/16 09:13; Admin Dose 25 MG; Start 12/18/16 at 11:30 Benazepril HCl (Lotensin) 10 mg DAILY PO Last administered on 12/26/16 08:02; Admin Dose 10 MG; Start 12/19/16 at 09:00 Ondansetron HCl (Zofran Tab) 4 mg Q6H PRN PO NAUSEA AND/OR VOMITING; Start 12/18 at 19:30 Al Hydrox/Mg Hydrox/Simethicone (Mag-Al Plus) 30 ml Q4H PRN PO GASTROINTESTINAL UPSET Last administered on 12/20/16 17:31; Admin Dose 30 ML; Start 12/18/16 at 19:30 Docusate Sodium (Colace) 100 mg BID PO Last administered on 12/26/16 08:01; Admin Dose 100 MG; Start 12/20/16 at 21:00 Senna (Senokot) 1 tab DAILY PO Last administered on 12/26/16 08:09; Admin Dose 1 TAB; Start 12/20/16 at 21:00 Lactulose (Enulose) 20 gm DAILY PRN PO CONSTIPATION Last administered on 08:19; Admin Dose 20 GM; Start 12/20/16 at 15:00 Insulin Glargine (Lantus) 30 unit DAILY@08 SC Last administered on 12/26/16 08 :04; Admin Dose 30 UNIT; Start 12/22/16 at 08:00 Cephalexin (Keflex) 500 mg Q8 PO Last administered on 12/26/16 13:49; Admin Dose 500 MG; Start 12/23/16 at 22:00 Fluconazole (Diflucan) 150 mg DAILY PO Last administered on 12/26/16 08:02; Admin Dose 150 MG; Start 12/24/16 at 12:00 Hydralazine HCl (Apresoline) 25 mg Q6H PRN PO SBP>160; Start 12/25/16 at 13:30 TAMERA HANKINS Dec 26, 2016 18:16
[2016-12-26 20:00] VITALS: BP 146/62; RESP 18
[2016-12-26] MEDS: ATORVASTATIN 20 MG TAB PO SCH (21:01)
[2016-12-27 02:00] VITALS: BP 126/64; RESP 18
[2016-12-27] MEDS: ACCU-CHEK XX SCH (02:15)
[2016-12-27] MEDS: CEPHALEXIN 500 MG CAP PO SCH ×3 (06:20→21:02)
[2016-12-27] MEDS: PANTOPRAZOLE (EC) 40 MG TAB PO SCH (06:20)
[2016-12-27 07:30] VITALS: BP 137/66; RESP 18
[2016-12-27] MEDS: INSULIN GLARGINE [LANtus] 3 ML PEN SC SCH (08:02)
[2016-12-27] MEDS: INSULIN ASPART [NOVOLOG] 3 ML PEN SC SCH ×7 (08:03→21:07)
[2016-12-27] MEDS: SENNA TAB PO SCH (08:11)
[2016-12-27] MEDS: DOCUSATE SODIUM 100 MG CAP PO SCH ×2 (08:11→21:02)
[2016-12-27] MEDS: ASPIRIN 81 MG TAB PO SCH (08:11)
[2016-12-27] MEDS: predniSOLONE (3 MG/ML PO SYG) PO SCH (08:11)
[2016-12-27] MEDS: QUETIAPINE 25 MG TAB PO SCH (08:11)
[2016-12-27] MEDS: BENAZEPRIL 10 MG TAB PO SCH (08:12)
[2016-12-27] MEDS: FLUCONAZOLE 150 MG TAB PO SCH (08:12)
--- NOTE | 2016-12-27 10:30 | CONS ---
Date/Time of Note Date/Time of Note DATE: 12/27/16 TIME: 10:29 Consult Date/Type/Reason Admit Date/Time Dec 11, 2016 at 20:00 Type of Consultation: cardiology Ordering Provider: DEBBI SARABIA MD Subjective Comfortable Objective pulm-cta cga ambulation Vital Signs Date Time Temp Pulse Resp B/P Pulse Ox O2 Delivery O2 Flow Rate FiO2 12/27/16 02:00 97.8 68 18 126/64 96 12/26/16 19:53 Nasal Cannula 2.0 Intake and Output 12/26/16 12/26/16 12/27/16 15:00 23:00 07:00 Intake Total 600 ml Balance 600 ml Results/Medications Result Diagram: 12/25/16 0629 12/25/16 06 Results 24 hrs Laboratory Tests Test 12/26/16 12:10 12/26/16 17:25 12/26/16 20:59 12/27/16 02:26 Bedside Glucose 137 295 H 190 135 Test 12/27/16 07:55 Bedside Glucose 239 H Medications Current Medications Aspirin (Aspirin) 81 mg DAILY PO Last administered on 12/27/16 08:11; Admin Dose 81 MG; Start 12/11/16 at 22:20 Pantoprazole (Protonix Tab) 40 mg DAILY@06 PO Last administered on 12/27/16 06 :20; Admin Dose 40 MG; Start 12/11/16 at 22:20 Nitroglycerin (Nitroglycerin (Sl Tab) 0.4 Mg) 1 tab Q5M PRN SL ANGINA; Start at 22:20 Miscellaneous Information 1 ea NOTE XX ; Start 12/11/16 at 22:20 Glucose (Glutose) 15 gm Q15M PRN PO DECREASED GLUCOSE Last administered on 08:00; Admin Dose 15 GM; Start 12/11/16 at 22:20 Glucose (Glutose) 22.5 gm Q15M PRN PO DECREASED GLUCOSE Last administered on 21:11; Admin Dose 22.5 GM; Start 12/11/16 at 22:20 Dextrose (D50w Syringe) 25 ml Q15M PRN IV DECREASED GLUCOSE; Start 12/11/16 at 22:20 Dextrose (D50w Syringe) 50 ml Q15M PRN IV DECREASED GLUCOSE; Start 12/11/16 at 22:20 Glucagon (Glucagen) 1 mg Q15M PRN IM DECREASED GLUCOSE; Start 12/11/16 at 22:20 Glucose (Glutose) 15 gm Q15M PRN BUCCAL DECREASED GLUCOSE Last administered on 12/12/16 22:06; Admin Dose 15 GM; Start 12/11/16 at 22:20 Quetiapine Fumarate (Seroquel) 25 mg DAILY PO Last administered on 12/27/16 08 :11; Admin Dose 25 MG; Start 12/11/16 at 22:20 Magnesium Hydroxide (Milk Of Mag) 30 ml BID PRN PO CONSTIPATION Last administered on 12/16/16 07:14; Admin Dose 30 ML; Start 12/11/16 at 22:20 Bisacodyl (Dulcolax Supp) 10 mg DAILY PRN [place] CONSTIPATION Last administered on 12/22/16 05:36; Admin Dose 10 MG; Start 12/11/16 at 22:20 Atorvastatin Calcium (Lipitor) 20 mg QHS PO Last administered on 12/26/16 21: 01; Admin Dose 20 MG; Start 12/11/16 at 23:10 Diagnostic Test (Pha) (Accu-Chek) 1 ea 02 XX Last administered on 12/27/16 02: 15; Admin Dose 1 EA; Start 12/15/16 at 02:00 Acetaminophen (Tylenol Tab) 650 mg Q4H PRN PO PAIN AND OR ELEVATED TEMP Last administered on 12/23/16 12:38; Admin Dose 650 MG; Start 12/15/16 at 11:30 Prednisolone (Prelone (Ped)) 10 mg DAILY PO Last administered on 12/27/16 08: 11; Admin Dose 10 MG; Start 12/18/16 at 09:00 Meclizine HCl (Antivert) 25 mg BID PRN PO NAUSEA AND/OR VOMITING Last administered on 12/24/16 09:13; Admin Dose 25 MG; Start 12/18/16 at 11:30 Benazepril HCl (Lotensin) 10 mg DAILY PO Last administered on 12/27/16 08:12; Admin Dose 10 MG; Start 12/19/16 at 09:00 Ondansetron HCl (Zofran Tab) 4 mg Q6H PRN PO NAUSEA AND/OR VOMITING; Start 12/18 at 19:30 Al Hydrox/Mg Hydrox/Simethicone (Mag-Al Plus) 30 ml Q4H PRN PO GASTROINTESTINAL UPSET Last administered on 12/20/16 17:31; Admin Dose 30 ML; Start 12/18/16 at 19:30 Docusate Sodium (Colace) 100 mg BID PO Last administered on 12/27/16 08:11; Admin Dose 100 MG; Start 12/20/16 at 21:00 Senna (Senokot) 1 tab DAILY PO Last administered on 12/27/16 08:11; Admin Dose 1 TAB; Start 12/20/16 at 21:00 Lactulose (Enulose) 20 gm DAILY PRN PO CONSTIPATION Last administered on 08:19; Admin Dose 20 GM; Start 12/20/16 at 15:00 Insulin Glargine (Lantus) 30 unit DAILY@08 SC Last administered on 12/27/16 08 :02; Admin Dose 30 UNIT; Start 12/22/16 at 08:00 Cephalexin (Keflex) 500 mg Q8 PO Last administered on 12/27/16 06:20; Admin Dose 500 MG; Start 12/23/16 at 22:00 Fluconazole (Diflucan) 150 mg DAILY PO Last administered on 12/27/16 08:12; Admin Dose 150 MG; Start 12/24/16 at 12:00 Hydralazine HCl (Apresoline) 25 mg Q6H PRN PO SBP>160; Start 12/25/16 at 13:30 Assessment/Plan Additional Assessment/Plan Rehab- Toxic metabolic encephalopathy. Continue rehab Status post syncopal episode. -yeast UTI Acute kidney injury and dehydration. Bronchitis. Diabetes mellitus- meds per IM Hypertension- improved Hyperlipidemia. History of CVA. SLIM WILSON MD Dec 27, 2016 10:30
[2016-12-27] MEDS: ACETAMINOPHEN 325 MG TAB PO PRN (10:46)
--- NOTE | 2016-12-27 12:46 | PN ---
Date/Time of Note Date/Time of Note DATE: 12/27/16 TIME: 12:46 Assessment/Plan VTE Prophylaxis VTE Prophylaxis Intervention: other Lines/Catheters [facility] Urinary Cath still in place: No Assessment/Plan Chief Complaint/Hosp Course - Acute bronchitis, continue Levaquin, steroids. - Near syncopal episode. Acute coronary syndrome ruled out. cardiac enzymes is negative 3. Dr. Bhagat is following and cardiology consultation. - Rule out transient ischemic attack in patient with history of stroke. Continue aspirin. MRI is negative. Dr. Rios is following in a neurology consultation. - Diabetes mellitus type 2. Hemoglobin A1c is 9.6. Continue Lantus and NovoLog. - Hypertension. Continue Lotensin and Norvasc. - Acute kidney injury secondary to dehydration, resolved. Problems: Subjective 24 Hr Interval Summary Free Text/Dictation Patient feels fatigue but denies any complaints Exam/Review of Systems Vital Signs Vitals Vital Signs Date Time Temp Pulse Resp B/P Pulse Ox O2 Delivery O2 Flow Rate FiO2 12/27/16 07:30 98.0 86 18 137/66 94 12/26/16 19:53 Nasal Cannula 2.0 Intake and Output 12/26/16 12/26/16 12/27/16 15:00 23:00 07:00 Intake Total 600 ml Balance 600 ml Exam Constitutional: well developed Head: atraumatic, normocephalic Neck: supple Respiratory: clear to auscultation Cardiovascular: regular rate and rhythm Gastrointestinal: non-tender, soft Extremities: normal pulses Results Result Diagram: 12/25/16 0629 12/25/16 0629 Results 24 hrs Laboratory Tests Test 12/26/16 17:25 12/26/16 20:59 12/27/16 02:26 12/27/16 07:55 Bedside Glucose 295 H 190 135 239 H Test 12/27/16 12:09 Bedside Glucose 274 H Medications Medications Current Medications Aspirin (Aspirin) 81 mg DAILY PO Last administered on 12/27/16 08:11; Admin Dose 81 MG; Start 12/11/16 at 22:20 Pantoprazole (Protonix Tab) 40 mg DAILY@06 PO Last administered on 12/27/16 06 :20; Admin Dose 40 MG; Start 12/11/16 at 22:20 Nitroglycerin (Nitroglycerin (Sl Tab) 0.4 Mg) 1 tab Q5M PRN SL ANGINA; Start at 22:20 Miscellaneous Information 1 ea NOTE XX ; Start 12/11/16 at 22:20 Glucose (Glutose) 15 gm Q15M PRN PO DECREASED GLUCOSE Last administered on 08:00; Admin Dose 15 GM; Start 12/11/16 at 22:20 Glucose (Glutose) 22.5 gm Q15M PRN PO DECREASED GLUCOSE Last administered on 21:11; Admin Dose 22.5 GM; Start 12/11/16 at 22:20 Dextrose (D50w Syringe) 25 ml Q15M PRN IV DECREASED GLUCOSE; Start 12/11/16 at 22:20 Dextrose (D50w Syringe) 50 ml Q15M PRN IV DECREASED GLUCOSE; Start 12/11/16 at 22:20 Glucagon (Glucagen) 1 mg Q15M PRN IM DECREASED GLUCOSE; Start 12/11/16 at 22:20 Glucose (Glutose) 15 gm Q15M PRN BUCCAL DECREASED GLUCOSE Last administered on 12/12/16 22:06; Admin Dose 15 GM; Start 12/11/16 at 22:20 Quetiapine Fumarate (Seroquel) 25 mg DAILY PO Last administered on 12/27/16 08 :11; Admin Dose 25 MG; Start 12/11/16 at 22:20 Magnesium Hydroxide (Milk Of Mag) 30 ml BID PRN PO CONSTIPATION Last administered on 12/16/16 07:14; Admin Dose 30 ML; Start 12/11/16 at 22:20 Bisacodyl (Dulcolax Supp) 10 mg DAILY PRN [place] CONSTIPATION Last administered on 12/22/16 05:36; Admin Dose 10 MG; Start 12/11/16 at 22:20 Atorvastatin Calcium (Lipitor) 20 mg QHS PO Last administered on 12/26/16 21: 01; Admin Dose 20 MG; Start 12/11/16 at 23:10 Diagnostic Test (Pha) (Accu-Chek) 1 ea 02 XX Last administered on 12/27/16 02: 15; Admin Dose 1 EA; Start 12/15/16 at 02:00 Acetaminophen (Tylenol Tab) 650 mg Q4H PRN PO PAIN AND OR ELEVATED TEMP Last administered on 12/27/16 10:46; Admin Dose 650 MG; Start 12/15/16 at 11:30 Prednisolone (Prelone (Ped)) 10 mg DAILY PO Last administered on 12/27/16 08: 11; Admin Dose 10 MG; Start 12/18/16 at 09:00 Meclizine HCl (Antivert) 25 mg BID PRN PO NAUSEA AND/OR VOMITING Last administered on 12/24/16 09:13; Admin Dose 25 MG; Start 12/18/16 at 11:30 Benazepril HCl (Lotensin) 10 mg DAILY PO Last administered on 12/27/16 08:12; Admin Dose 10 MG; Start 12/19/16 at 09:00 Ondansetron HCl (Zofran Tab) 4 mg Q6H PRN PO NAUSEA AND/OR VOMITING; Start 12/18 at 19:30 Al Hydrox/Mg Hydrox/Simethicone (Mag-Al Plus) 30 ml Q4H PRN PO GASTROINTESTINAL UPSET Last administered on 12/20/16 17:31; Admin Dose 30 ML; Start 12/18/16 at 19:30 Docusate Sodium (Colace) 100 mg BID PO Last administered on 12/27/16 08:11; Admin Dose 100 MG; Start 12/20/16 at 21:00 Senna (Senokot) 1 tab DAILY PO Last administered on 12/27/16 08:11; Admin Dose 1 TAB; Start 12/20/16 at 21:00 Lactulose (Enulose) 20 gm DAILY PRN PO CONSTIPATION Last administered on 08:19; Admin Dose 20 GM; Start 12/20/16 at 15:00 Insulin Glargine (Lantus) 30 unit DAILY@08 SC Last administered on 12/27/16 08 :02; Admin Dose 30 UNIT; Start 12/22/16 at 08:00 Cephalexin (Keflex) 500 mg Q8 PO Last administered on 12/27/16 06:20; Admin Dose 500 MG; Start 12/23/16 at 22:00 Fluconazole (Diflucan) 150 mg DAILY PO Last administered on 12/27/16 08:12; Admin Dose 150 MG; Start 12/24/16 at 12:00 Hydralazine HCl (Apresoline) 25 mg Q6H PRN PO SBP>160; Start 12/25/16 at 13:30 FACUNDO WHITEHEAD Dec 27, 2016 12:46
[2016-12-27 14:00] VITALS: BP 121/57; RESP 20
--- NOTE | 2016-12-27 14:59 | CONS ---
Date/Time of Note Date/Time of Note DATE: 12/27/16 TIME: 14:58 Assessment/Plan Assessment/Plan Additional Assessment/Plan 1. Chest pain.-negative trop x 3 - will monitor clinically NO intervention planned now. Now confused, but denies CP. better NOW. STABLE. 2. Presyncope.- no sig arrythmia by tele monitoring - no ectopy on tele - no indication for pacer. 3. Hypotension on admit-now improved with HTN -Labile - will add therapy as needed - IN GOOD RANGE NOW 4. Electrocardiogram with lateral T-wave inversion. Assess for acute coronary syndrome. R/o VT now. 5. Generalized weakness- much improved 6. Diabetes mellitus - con't sheila Rx 7. Prerenal azotemia. 8. Encephalopathy - more confused today - PMD to follow. CON'T REHAB - HEADING TOWARD dc NEXT WEEK IF STABLE. Consultation Date/Type/Reason Admit Date/Time Dec 11, 2016 at 20:00 Type of Consultation: cardiology Referring Provider: DEBBI SARABIA MD 24 HR Interval Summary Free Text/Dictation NO acute events - con't rehab now - BP well controlled mostly ROS: No fever, no chills, no nausea, no vomiting, no diarrhea/constipation No recent weight changes No chest pain, no PND, no orthopnea No dizziness, blurred vision No thirst, no heat or cold intolerance Exam/Review of Systems Vital Signs Vitals Vital Signs Date Time Temp Pulse Resp B/P Pulse Ox O2 Delivery O2 Flow Rate FiO2 12/27/16 08:00 Nasal Cannula 2.0 12/27/16 07:30 98.0 86 18 137/66 94 Intake and Output 12/26/16 12/26/16 12/27/16 15:00 23:00 07:00 Intake Total 600 ml Balance 600 ml Exam General: WN/WD/NAD, AOx 1-2 HEENT: Unicetric/atraumatic/EOMI (follows commands) NECK: JVD elevated, no thyromegaly Lymph: no lymphadenopathy HEART: regular with no S3, II/ systolic murmur at apex LUNGS: Coarse sounds ABD: soft, NT, ND, +BS : Intact Neuro: non focal SKIN: chronic changes EXT: trace edema Results Result Diagram: 12/25/1662812/25/16628 Results 24 hrs Laboratory Tests Test 12/26/16 17:25 12/26/16 20:59 12/27/16 02:26 12/27/16 07:55 Bedside Glucose 295 H 190 135 239 H Test 12/27/16 12:09 Bedside Glucose 274 H Medications Medications Current Medications Aspirin (Aspirin) 81 mg DAILY PO Last administered on 12/27/16 08:11; Admin Dose 81 MG; Start 12/11/16 at 22:20 Pantoprazole (Protonix Tab) 40 mg DAILY@06 PO Last administered on 12/27/16 06 :20; Admin Dose 40 MG; Start 12/11/16 at 22:20 Nitroglycerin (Nitroglycerin (Sl Tab) 0.4 Mg) 1 tab Q5M PRN SL ANGINA; Start at 22:20 Miscellaneous Information 1 ea NOTE XX ; Start 12/11/16 at 22:20 Glucose (Glutose) 15 gm Q15M PRN PO DECREASED GLUCOSE Last administered on 08:00; Admin Dose 15 GM; Start 12/11/16 at 22:20 Glucose (Glutose) 22.5 gm Q15M PRN PO DECREASED GLUCOSE Last administered on 21:11; Admin Dose 22.5 GM; Start 12/11/16 at 22:20 Dextrose (D50w Syringe) 25 ml Q15M PRN IV DECREASED GLUCOSE; Start 12/11/16 at 22:20 Dextrose (D50w Syringe) 50 ml Q15M PRN IV DECREASED GLUCOSE; Start 12/11/16 at 22:20 Glucagon (Glucagen) 1 mg Q15M PRN IM DECREASED GLUCOSE; Start 12/11/16 at 22:20 Glucose (Glutose) 15 gm Q15M PRN BUCCAL DECREASED GLUCOSE Last administered on 12/12/16 22:06; Admin Dose 15 GM; Start 12/11/16 at 22:20 Quetiapine Fumarate (Seroquel) 25 mg DAILY PO Last administered on 12/27/16 08 :11; Admin Dose 25 MG; Start 12/11/16 at 22:20 Magnesium Hydroxide (Milk Of Mag) 30 ml BID PRN PO CONSTIPATION Last administered on 12/16/16 07:14; Admin Dose 30 ML; Start 12/11/16 at 22:20 Bisacodyl (Dulcolax Supp) 10 mg DAILY PRN [place] CONSTIPATION Last administered on 12/22/16 05:36; Admin Dose 10 MG; Start 12/11/16 at 22:20 Atorvastatin Calcium (Lipitor) 20 mg QHS PO Last administered on 12/26/16 21: 01; Admin Dose 20 MG; Start 12/11/16 at 23:10 Diagnostic Test (Pha) (Accu-Chek) 1 ea 02 XX Last administered on 12/27/16 02: 15; Admin Dose 1 EA; Start 12/15/16 at 02:00 Acetaminophen (Tylenol Tab) 650 mg Q4H PRN PO PAIN AND OR ELEVATED TEMP Last administered on 12/27/16 10:46; Admin Dose 650 MG; Start 12/15/16 at 11:30 Prednisolone (Prelone (Ped)) 10 mg DAILY PO Last administered on 12/27/16 08: 11; Admin Dose 10 MG; Start 12/18/16 at 09:00 Meclizine HCl (Antivert) 25 mg BID PRN PO NAUSEA AND/OR VOMITING Last administered on 12/24/16 09:13; Admin Dose 25 MG; Start 12/18/16 at 11:30 Benazepril HCl (Lotensin) 10 mg DAILY PO Last administered on 12/27/16 08:12; Admin Dose 10 MG; Start 12/19/16 at 09:00 Ondansetron HCl (Zofran Tab) 4 mg Q6H PRN PO NAUSEA AND/OR VOMITING; Start 12/18 at 19:30 Al Hydrox/Mg Hydrox/Simethicone (Mag-Al Plus) 30 ml Q4H PRN PO GASTROINTESTINAL UPSET Last administered on 12/20/16 17:31; Admin Dose 30 ML; Start 12/18/16 at 19:30 Docusate Sodium (Colace) 100 mg BID PO Last administered on 12/27/16 08:11; Admin Dose 100 MG; Start 12/20/16 at 21:00 Senna (Senokot) 1 tab DAILY PO Last administered on 12/27/16 08:11; Admin Dose 1 TAB; Start 12/20/16 at 21:00 Lactulose (Enulose) 20 gm DAILY PRN PO CONSTIPATION Last administered on 08:19; Admin Dose 20 GM; Start 12/20/16 at 15:00 Insulin Glargine (Lantus) 30 unit DAILY@08 SC Last administered on 12/27/16 08 :02; Admin Dose 30 UNIT; Start 12/22/16 at 08:00 Cephalexin (Keflex) 500 mg Q8 PO Last administered on 12/27/16 14:24; Admin Dose 500 MG; Start 12/23/16 at 22:00 Fluconazole (Diflucan) 150 mg DAILY PO Last administered on 12/27/16 08:12; Admin Dose 150 MG; Start 12/24/16 at 12:00 Hydralazine HCl (Apresoline) 25 mg Q6H PRN PO SBP>160; Start 12/25/16 at 13:30 ARTHUR TITUS MD Dec 27, 2016 14:59
[2016-12-27 20:00] VITALS: BP 147/65; PULSE 75; RESP 19
[2016-12-27] MEDS: ATORVASTATIN 20 MG TAB PO SCH (21:02)
[2016-12-28] MEDS: ACCU-CHEK XX SCH (02:27)
[2016-12-28] MEDS: CEPHALEXIN 500 MG CAP PO SCH ×3 (06:21→21:00)
[2016-12-28] MEDS: PANTOPRAZOLE (EC) 40 MG TAB PO SCH (06:21)
[2016-12-28] MEDS: INSULIN GLARGINE [LANtus] 3 ML PEN SC SCH (07:47)
[2016-12-28] MEDS: INSULIN ASPART [NOVOLOG] 3 ML PEN SC SCH ×7 (07:48→20:56)
[2016-12-28] MEDS: FLUCONAZOLE 150 MG TAB PO SCH (08:32)
[2016-12-28] MEDS: SENNA TAB PO SCH (08:32)
[2016-12-28] MEDS: BENAZEPRIL 10 MG TAB PO SCH (08:32)
[2016-12-28] MEDS: predniSOLONE (3 MG/ML PO SYG) PO SCH (08:32)
[2016-12-28] MEDS: ASPIRIN 81 MG TAB PO SCH (08:33)
[2016-12-28] MEDS: DOCUSATE SODIUM 100 MG CAP PO SCH ×2 (08:33→20:55)
[2016-12-28] MEDS: QUETIAPINE 25 MG TAB PO SCH (08:33)
--- NOTE | 2016-12-28 13:09 | CONS ---
Date/Time of Note Date/Time of Note DATE: 12/28/16 TIME: 13:08 Assessment/Plan Assessment/Plan Additional Assessment/Plan 1. Chest pain.-negative trop x 3 - will monitor clinically NO intervention planned now. Now confused, but denies CP. better NOW. STABLE. 2. Presyncope.- no sig arrythmia by tele monitoring - no ectopy on tele - no indication for pacer. STABLE HR now. 3. Hypotension on admit-now improved with HTN -Labile - will add therapy as needed - IN GOOD RANGE NOW 4. Electrocardiogram with lateral T-wave inversion. Assess for acute coronary syndrome. R/o [place] now. 5. Generalized weakness- much improved 6. Diabetes mellitus - con't sheila Rx 7. Prerenal azotemia. 8. Encephalopathy - more confused today - PMD to follow. CON'T REHAB - HEADING TOWARD dc NEXT WEEK IF STABLE. MORE alert. Consultation Date/Type/Reason Admit Date/Time Dec 11, 2016 at 20:00 Type of Consultation: cardiology Referring Provider: DEBBI SARABIA MD 24 HR Interval Summary Free Text/Dictation NO acute events - BP stable - in good fluid status. ROS: No fever, no chills, no nausea, no vomiting, no diarrhea/constipation No recent weight changes No chest pain, no PND, no orthopnea No dizziness, blurred vision No thirst, no heat or cold intolerance Exam/Review of Systems Vital Signs Vitals Vital Signs Date Time Temp Pulse Resp B/P Pulse Ox O2 Delivery O2 Flow Rate FiO2 12/28/16 07:52 Nasal Cannula 2.0 12/27/16 20:00 97.6 75 19 147/65 94 Intake and Output 12/27/16 12/27/16 12/28/16 14:59 22:59 06:59 Intake Total 660 ml 360 ml Output Total 1 ml Balance 659 ml 360 ml Exam General: WN/WD/NAD, AO x 2-3 HEENT: Unicetric/atraumatic/EOMI (follows commands) NECK: JVD elevated, no thyromegaly Lymph: no lymphadenopathy HEART: regular with no S3, II/ systolic murmur at apex LUNGS: Coarse sounds ABD: soft, NT, ND, +BS : Intact Neuro: non focal SKIN: chronic changes EXT: trace edema Results Result Diagram: 12/25/16 0629 12/25/16 0629 Results 24 hrs Laboratory Tests Test 12/27/16 17:17 12/27/16 21:00 12/28/16 02:22 12/28/16 07:40 Bedside Glucose 92 236 H 102 154 Test 12/28/16 12:08 Bedside Glucose 234 H Medications Medications Current Medications Aspirin (Aspirin) 81 mg DAILY PO Last administered on 12/28/16 08:33; Admin Dose 81 MG; Start 12/11/16 at 22:20 Pantoprazole (Protonix Tab) 40 mg DAILY@06 PO Last administered on 12/28/16 06 :21; Admin Dose 40 MG; Start 12/11/16 at 22:20 Nitroglycerin (Nitroglycerin (Sl Tab) 0.4 Mg) 1 tab Q5M PRN SL ANGINA; Start at 22:20 Miscellaneous Information 1 ea NOTE XX ; Start 12/11/16 at 22:20 Glucose (Glutose) 15 gm Q15M PRN PO DECREASED GLUCOSE Last administered on 08:00; Admin Dose 15 GM; Start 12/11/16 at 22:20 Glucose (Glutose) 22.5 gm Q15M PRN PO DECREASED GLUCOSE Last administered on 21:11; Admin Dose 22.5 GM; Start 12/11/16 at 22:20 Dextrose (D50w Syringe) 25 ml Q15M PRN IV DECREASED GLUCOSE; Start 12/11/16 at 22:20 Dextrose (D50w Syringe) 50 ml Q15M PRN IV DECREASED GLUCOSE; Start 12/11/16 at 22:20 Glucagon (Glucagen) 1 mg Q15M PRN IM DECREASED GLUCOSE; Start 12/11/16 at 22:20 Glucose (Glutose) 15 gm Q15M PRN BUCCAL DECREASED GLUCOSE Last administered on 12/12/16 22:06; Admin Dose 15 GM; Start 12/11/16 at 22:20 Quetiapine Fumarate (Seroquel) 25 mg DAILY PO Last administered on 12/28/16 08 :33; Admin Dose 25 MG; Start 12/11/16 at 22:20 Magnesium Hydroxide (Milk Of Mag) 30 ml BID PRN PO CONSTIPATION Last administered on 12/16/16 07:14; Admin Dose 30 ML; Start 12/11/16 at 22:20 Bisacodyl (Dulcolax Supp) 10 mg DAILY PRN [place] CONSTIPATION Last administered on 12/22/16 05:36; Admin Dose 10 MG; Start 12/11/16 at 22:20 Atorvastatin Calcium (Lipitor) 20 mg QHS PO Last administered on 12/27/16 21: 02; Admin Dose 20 MG; Start 12/11/16 at 23:10 Diagnostic Test (Pha) (Accu-Chek) 1 ea 02 XX Last administered on 12/28/16 02: 27; Admin Dose 1 EA; Start 12/15/16 at 02:00 Acetaminophen (Tylenol Tab) 650 mg Q4H PRN PO PAIN AND OR ELEVATED TEMP Last administered on 12/27/16 10:46; Admin Dose 650 MG; Start 12/15/16 at 11:30 Prednisolone (Prelone (Ped)) 10 mg DAILY PO Last administered on 12/28/16 08: 32; Admin Dose 10 MG; Start 12/18/16 at 09:00 Meclizine HCl (Antivert) 25 mg BID PRN PO NAUSEA AND/OR VOMITING Last administered on 12/24/16 09:13; Admin Dose 25 MG; Start 12/18/16 at 11:30 Benazepril HCl (Lotensin) 10 mg DAILY PO Last administered on 12/28/16 08:32; Admin Dose 10 MG; Start 12/19/16 at 09:00 Ondansetron HCl (Zofran Tab) 4 mg Q6H PRN PO NAUSEA AND/OR VOMITING; Start 12/18 at 19:30 Al Hydrox/Mg Hydrox/Simethicone (Mag-Al Plus) 30 ml Q4H PRN PO GASTROINTESTINAL UPSET Last administered on 12/20/16 17:31; Admin Dose 30 ML; Start 12/18/16 at 19:30 Docusate Sodium (Colace) 100 mg BID PO Last administered on 12/28/16 08:33; Admin Dose 100 MG; Start 12/20/16 at 21:00 Senna (Senokot) 1 tab DAILY PO Last administered on 12/28/16 08:32; Admin Dose 1 TAB; Start 12/20/16 at 21:00 Lactulose (Enulose) 20 gm DAILY PRN PO CONSTIPATION Last administered on 08:19; Admin Dose 20 GM; Start 12/20/16 at 15:00 Insulin Glargine (Lantus) 30 unit DAILY@08 SC Last administered on 12/28/16 07 :47; Admin Dose 30 UNIT; Start 12/22/16 at 08:00 Cephalexin (Keflex) 500 mg Q8 PO Last administered on 12/28/16 06:21; Admin Dose 500 MG; Start 12/23/16 at 22:00 Fluconazole (Diflucan) 150 mg DAILY PO Last administered on 12/28/16 08:32; Admin Dose 150 MG; Start 12/24/16 at 12:00 Hydralazine HCl (Apresoline) 25 mg Q6H PRN PO SBP>160; Start 12/25/16 at 13:30 ARTHUR TITUS MD Dec 28, 2016 13:09
[2016-12-28 14:00] VITALS: BP 116/55; RESP 20
[2016-12-28 20:00] VITALS: BP 136/69; RESP 18
[2016-12-28] MEDS: ATORVASTATIN 20 MG TAB PO SCH (20:55)
[2016-12-29] MEDS: ACCU-CHEK XX SCH (02:00)
[2016-12-29] MEDS: PANTOPRAZOLE (EC) 40 MG TAB PO SCH (05:53)
[2016-12-29] MEDS: CEPHALEXIN 500 MG CAP PO SCH ×2 (05:53→12:43)
[2016-12-29 07:30] VITALS: BP 144/64; RESP 18
[2016-12-29] MEDS: INSULIN ASPART [NOVOLOG] 3 ML PEN SC SCH ×4 (07:35→12:34)
[2016-12-29] MEDS: QUETIAPINE 25 MG TAB PO SCH (08:21)
[2016-12-29] MEDS: DOCUSATE SODIUM 100 MG CAP PO SCH (08:21)
[2016-12-29] MEDS: SENNA TAB PO SCH (08:21)
[2016-12-29] MEDS: BENAZEPRIL 10 MG TAB PO SCH (08:21)
[2016-12-29] MEDS: FLUCONAZOLE 150 MG TAB PO SCH (08:21)
[2016-12-29] MEDS: INSULIN GLARGINE [LANtus] 3 ML PEN SC SCH (08:21)
[2016-12-29] MEDS: predniSOLONE (3 MG/ML PO SYG) PO SCH (08:22)
[2016-12-29] MEDS: ASPIRIN 81 MG TAB PO SCH (08:22)
--- NOTE | 2016-12-29 09:17 | CONS ---
Date/Time of Note Date/Time of Note DATE: 12/29/16 TIME: 09:14 Assessment/Plan Assessment/Plan Additional Assessment/Plan 1. Chest pain.-negative trop x 3 - will monitor clinically NO intervention planned now. Now confused, but denies CP. better NOW. STABLE. No hemodynamic instability now. 2. Presyncope - no sig arrhythmia by tele monitoring - no ectopy on tele - no indication for pacer. STABLE HR now. 3. Hypotension on admit-now improved with HTN - Labile - will add therapy as needed - IN GOOD RANGE NOW 4. Electrocardiogram with lateral T-wave inversion. Assess for acute coronary syndrome. R/o [place] now. 5. Generalized weakness- much improved 6. Diabetes mellitus - con't sheila Rx 7. Prerenal azotemia. 8. Encephalopathy - more confused today - PMD to follow. CON'T REHAB - HEADING TOWARD dc NEXT WEEK IF STABLE. MORE alert.Con't rehab. Consultation Date/Type/Reason Admit Date/Time Dec 11, 2016 at 20:00 Type of Consultation: cardiology Referring Provider: DEBBI SARABIA MD 24 HR Interval Summary Free Text/Dictation NO acute events - BP stable - no chest pain now. Compliant with rehab. ROS: No fever, no chills, no nausea, no vomiting, no diarrhea/constipation No recent weight changes No chest pain, no PND, no orthopnea No dizziness, blurred vision No thirst, no heat or cold intolerance Exam/Review of Systems Vital Signs Vitals Vital Signs Date Time Temp Pulse Resp B/P Pulse Ox O2 Delivery O2 Flow Rate FiO2 12/28/16 20:05 Nasal Cannula 2.0 12/28/16 20:00 98.6 77 18 136/69 95 Intake and Output 12/28/16 12/28/16 12/29/16 15:00 23:00 07:00 Intake Total 900 ml 300 ml Balance 900 ml 300 ml Exam General: WN/WD/NAD, AOx 2-3 HEENT: Unicetric/atraumatic/EOMI (follow commands) NECK: JVD elevated, no thyromegaly Lymph: no lymphadenopathy HEART: regular with no S3, II/ systolic murmur at apex LUNGS: Coarse sounds ABD: soft, NT, ND, +BS : Intact Neuro: non focal SKIN: chronic changes EXT: trace edema Results Result Diagram: 12/25/16 0629 12/25/16 0629 Results 24 hrs Laboratory Tests Test 12/28/16 12:08 12/28/16 17:14 12/28/16 20:52 12/29/16 07:53 Bedside Glucose 234 H 123 154 120 Medications Medications Current Medications Aspirin (Aspirin) 81 mg DAILY PO Last administered on 12/29/16 08:22; Admin Dose 81 MG; Start 12/11/16 at 22:20 Pantoprazole (Protonix Tab) 40 mg DAILY@06 PO Last administered on 12/29/16 05 :53; Admin Dose 40 MG; Start 12/11/16 at 22:20 Nitroglycerin (Nitroglycerin (Sl Tab) 0.4 Mg) 1 tab Q5M PRN SL ANGINA; Start at 22:20 Miscellaneous Information 1 ea NOTE XX ; Start 12/11/16 at 22:20 Glucose (Glutose) 15 gm Q15M PRN PO DECREASED GLUCOSE Last administered on 08:00; Admin Dose 15 GM; Start 12/11/16 at 22:20 Glucose (Glutose) 22.5 gm Q15M PRN PO DECREASED GLUCOSE Last administered on 21:11; Admin Dose 22.5 GM; Start 12/11/16 at 22:20 Dextrose (D50w Syringe) 25 ml Q15M PRN IV DECREASED GLUCOSE; Start 12/11/16 at 22:20 Dextrose (D50w Syringe) 50 ml Q15M PRN IV DECREASED GLUCOSE; Start 12/11/16 at 22:20 Glucagon (Glucagen) 1 mg Q15M PRN IM DECREASED GLUCOSE; Start 12/11/16 at 22:20 Glucose (Glutose) 15 gm Q15M PRN BUCCAL DECREASED GLUCOSE Last administered on 12/12/16 22:06; Admin Dose 15 GM; Start 12/11/16 at 22:20 Quetiapine Fumarate (Seroquel) 25 mg DAILY PO Last administered on 12/29/16 08 :21; Admin Dose 25 MG; Start 12/11/16 at 22:20 Magnesium Hydroxide (Milk Of Mag) 30 ml BID PRN PO CONSTIPATION Last administered on 12/16/16 07:14; Admin Dose 30 ML; Start 12/11/16 at 22:20 Bisacodyl (Dulcolax Supp) 10 mg DAILY PRN [place] CONSTIPATION Last administered on 12/22/16 05:36; Admin Dose 10 MG; Start 12/11/16 at 22:20 Atorvastatin Calcium (Lipitor) 20 mg QHS PO Last administered on 12/28/16 20: 55; Admin Dose 20 MG; Start 12/11/16 at 23:10 Diagnostic Test (Pha) (Accu-Chek) 1 ea 02 XX Last administered on 12/28/16 02: 27; Admin Dose 1 EA; Start 12/15/16 at 02:00 Acetaminophen (Tylenol Tab) 650 mg Q4H PRN PO PAIN AND OR ELEVATED TEMP Last administered on 12/27/16 10:46; Admin Dose 650 MG; Start 12/15/16 at 11:30 Prednisolone (Prelone (Ped)) 10 mg DAILY PO Last administered on 12/28/16 08: 32; Admin Dose 10 MG; Start 12/18/16 at 09:00 Meclizine HCl (Antivert) 25 mg BID PRN PO NAUSEA AND/OR VOMITING Last administered on 12/24/16 09:13; Admin Dose 25 MG; Start 12/18/16 at 11:30 Benazepril HCl (Lotensin) 10 mg DAILY PO Last administered on 12/29/16 08:21; Admin Dose 10 MG; Start 12/19/16 at 09:00 Ondansetron HCl (Zofran Tab) 4 mg Q6H PRN PO NAUSEA AND/OR VOMITING; Start 12/18 at 19:30 Al Hydrox/Mg Hydrox/Simethicone (Mag-Al Plus) 30 ml Q4H PRN PO GASTROINTESTINAL UPSET Last administered on 12/20/16 17:31; Admin Dose 30 ML; Start 12/18/16 at 19:30 Docusate Sodium (Colace) 100 mg BID PO Last administered on 12/29/16 08:21; Admin Dose 100 MG; Start 12/20/16 at 21:00 Senna (Senokot) 1 tab DAILY PO Last administered on 12/29/16 08:21; Admin Dose 1 TAB; Start 12/20/16 at 21:00 Lactulose (Enulose) 20 gm DAILY PRN PO CONSTIPATION Last administered on 08:19; Admin Dose 20 GM; Start 12/20/16 at 15:00 Insulin Glargine (Lantus) 30 unit DAILY@08 SC Last administered on 12/29/16 08 :21; Admin Dose 30 UNIT; Start 12/22/16 at 08:00 Cephalexin (Keflex) 500 mg Q8 PO Last administered on 12/29/16 05:53; Admin Dose 500 MG; Start 12/23/16 at 22:00 Fluconazole (Diflucan) 150 mg DAILY PO Last administered on 12/29/16 08:21; Admin Dose 150 MG; Start 12/24/16 at 12:00 Hydralazine HCl (Apresoline) 25 mg Q6H PRN PO SBP>160; Start 12/25/16 at 13:30 ARTHUR TITUS MD Dec 29, 2016 09:17
[2016-12-29] MEDS: LACTULOSE 30ML CUP PO PRN (12:32)
--- NOTE | 2016-12-29 12:34 | DS ---
Date/Time of Note Date/Time of Note DATE: 12/29/16 TIME: 12:34 Discharge Summary Admission/Discharge Info Admit Date/Time Dec 11, 2016 at 20:00 Discharge Date/Time Discharge Diagnosis 1. Toxic metabolic encephalopathy. 2. Status post syncopal episode. 3. Acute kidney injury and dehydration. 4. Bronchitis. 5. Diabetes mellitus. 6. Hypertension. 7. Hyperlipidemia. 8. History of CVA. 9. Improvements in self-care, mobility. Patient Condition: Good Hospital Course DISCHARGE Patient was admitted for comprehensive interdisciplinary acute rehabilitation. Patient made steady gradual functional gains and improved from a mod level to a CGA level for self care and mobility, including ambulating over 70 feet with the use of a front wheeled walker. Family was trained in assistance Patient is being discharged home with recommendations for home health PT and OT follow up. DME recommendations: FWW; BSC; Shower Chair Patient will follow up with PMD upon DC Home Meds Active Scripts Ondansetron (Ondansetron Odt) 4 Mg Tab.rapdis, 4 MG PO Q6H Y for NAUSEA AND/OR VOMITING, #10 TAB Prov:CYRIL MARIO. 12/30/16 Metronidazole* (Flagyl*) 500 Mg Tablet, 500 MG PO TID for 7 Days, TAB Prov:CYRIL MARIO S. 12/30/16 Ciprofloxacin Hcl* (Ciprofloxacin Hcl*) 500 Mg Tablet, 500 MG PO BID for 7 Days , TAB Prov:CYRIL MARIO. 12/30/16 Insulin Glargine* (Lantus*) 100 Unit/Ml Soln, 20 UNIT SC DAILY for 30 Days, EA Prov:STEPHANIE MADRIGAL NP 10/31/14 Insulin Aspart* (Novolog Insulin Pen*) 100 Unit/Ml Soln, 3 UNIT SC WITH MEALS for 30 Days Prov:STEPHANIE MADRIGAL NP 10/31/14 Reported Medications Glycopyrrolate/Formoterol Fum (Bevespi Aerosphere Inhaler) 10.7 Gm Hfa.aer.ad, 10.7 GM IH 12/30/16 Pantoprazole* (Pantoprazole*) 40 Mg Tablet.dr, 40 MG PO AC BREAKFAST, TAB 12/03/16 Duloxetine Hcl* (Cymbalta*) 30 Mg Capsule.dr, 30 MG PO DAILY, CAP 12/03/16 Docusate Sodium* (Colace*) 100 Mg Capsule, 100 MG PO DAILY, #30 CAP 12/03/16 Atorvastatin Calcium* (Atorvastatin Calcium*) 20 Mg Tablet, 20 MG PO QHS, #30 TAB 12/03/16 Aspirin* (Aspirin* Chew) 81 Mg Tab.chew, 81 MG PO DAILY, TAB.CHEW 12/03/16 Amlodipine Besylate* (Amlodipine Besylate*) 5 Mg Tablet, 5 MG PO DAILY, #30 TAB 12/03/16 Quetiapine Fumarate* (Seroquel*) 25 Mg Tablet, 25 TAB PO DAILY 11/27/11 Discontinued Reported Medications Lorazepam* (Lorazepam*) 1 Mg Tablet, 1 MG PO Q8 Y for ANXIETY, #60 TAB 12/03/16 Discontinued Scripts Ranitidine Hcl* (Zantac*) 150 Mg Tablet, 150 MG PO BID Y for EPIGASTRIC PAIN, # 30 TAB Prov:JENNIFER LAMA DO 12/28/15 Metoprolol Tartrate* (Lopressor*) 25 Mg Tab, 25 MG PO BID for 30 Days, TAB Prov:STEPHANIE MADRIGAL NP 10/31/14 Primary Care Provider Nedra Bill DO Pending Labs Laboratory Tests Test 12/28/16 17:14 12/28/16 20:52 12/29/16 07:53 12/29/16 12:30 Bedside Glucose 123mg/dL (70-220) 154mg/dL (70-220) 120mg/dL (70-220) 165mg/dL (70-220) SLIM WILSON MD Dec 29, 2016 12:34
--- NOTE | 2016-12-29 22:35 | PN ---
DATE: 12/29/2016 SUBJECTIVE DATA: Follow up on diabetes, history of TIA, history of severe hypertension, and funguria. Patient denies any chest pain or shortness of breath. No reported fever or chills. No reported nausea or vomiting. No reported dysuria or hematuria. No reported fever in last 24 hours. PHYSICAL EXAM: GENERAL: Patient, conscious, awake, alert. VITAL SIGNS: Temperature 98.4, pulse 73, respiration 18, blood pressure 144/64, and O2 sat 95 percent. HEENT: Conjunctiva normal. Oropharynx clear. NECK: Supple. No thyromegaly. CHEST: Fairly clear, no accessory muscle use. HEART: Normal. No murmur, gallop, or rub. ABDOMEN: Soft, nontender, nondistended. Bowel sounds positive EXTREMITIES: No leg edema. NEUROLOGIC: The patient is awake, alert. With no gross focal deficits. LABS: Fasting blood sugar this morning was 120. IMPRESSION: 1. Recent bronchitis, improved. 2. Hypertension, improved. We will continue benazepril. 3. Diabetes mellitus. Blood sugar readings are reasonably controlled. There was 1 outlier. Continue Lantus and current short-acting insulin. 4. Psychosis, stable with therapies. 5. Dyslipidemia. Continue Lipitor. No side effects. 6. Funguria. Continue Diflucan. DISPOSITION: Patient will be discharged home today with Home Health and will have followup as an outpatient. DISCHARGE FOLLOWUP: The patient was instructed to follow up with Dr. Bill. Dictated By: Redd Hadley MD /nano/gini /Document#: [id number]
[2016-12-30] MEDS ORDERED: GLYC10.7 IH (04:25)
[2016-12-30] MEDS ORDERED: CIPR500T4 PO (05:47)
[2016-12-30] MEDS ORDERED: METR500T PO (05:47)
[2016-12-30] MEDS ORDERED: ONDA4TAB14 PO (05:47)
== END 2016-12-29 13:00 | disposition home health service (06) | DRG 92 ==
LOC: VRC 20:00
PROVIDERS: ADMIT Physical Medicine & Rehabilitation; ATTEND Internal Medicine
PROC: F07Z5ZZ Bed Mobility Treatment (ICD-10-PCS; principal; 2016-12-11)
PROC: F08Z2ZZ Grooming/Personal Hygiene Treatment (ICD-10-PCS; 2016-12-11)
PROC: F06Z6ZZ Communicative/Cognitive Integration Skills Treatment (ICD-10-PCS; 2016-12-11)
DX: G92 Toxic encephalopathy (principal); N17.9 Acute kidney failure, unspecified; B49 Unspecified mycosis; E11.9 Type 2 diabetes mellitus without complications; N39.0 Urinary tract infection, site not specified; E86.0 Dehydration; R55 Syncope and collapse; J40 Bronchitis, not specified as acute or chronic; E78.5 Hyperlipidemia, unspecified; Z86.73 Personal history of transient ischemic attack (TIA), and cerebral infarction without residual deficits; I10 Essential (primary) hypertension; Z79.4 Long term (current) use of insulin; Z79.82 Long term (current) use of aspirin; R79.89 Other specified abnormal findings of blood chemistry; R53.1 Weakness; F29 Unspecified psychosis not due to a substance or known physiological condition
CPT/HCPCS: 74000; 74230; 80048; 80053; 81001; 81003; 82947; 82962; 85025; 87081; 87086; 92507; 92523; 92526; 92610; 92611; 94640; 94664; 97110; 97112; 97116; 97150; 97163; 97167; 97530; 97535; 97542; J1815; J1956; J2920; J7510

== ENCOUNTER 2016-12-29 21:40 | Emergency (ER) | payer MEDICARE, OTHER ==
[~2016-12-29] VITALS: Ht 167.6 cm; Wt 86.0 kg
[2016-12-29 21:46] VITALS: Ht 167.6 cm; Wt 86.0 kg
[2016-12-30] MEDS ORDERED: SOD CHLORIDE 0.9% 500 ML IV STA (02:03)
[2016-12-30] MEDS ORDERED: morphine 2 MG INJ IV STA (02:03)
[2016-12-30] MEDS ORDERED: ONDANSETRON 4 MG INJ IV STA (02:03)
[2016-12-30 02:43] LABS: ABNORMAL IP MESSAGE 1; BASOPHILS % 0.2 % (0.0-2.0); EOSINOPHILS # 0.1 10^3/ul (0.0-0.5); EOSINOPHILS % 0.4 % (0.0-7.0); HEMATOCRIT 42.8 % (37.0-47.0); HEMOGLOBIN 13.5 g/dl (12.0-16.0); LYMPHOCYTES # 2.2 10^3/ul (0.8-2.9); LYMPHOCYTES % 14.2 % (15.0-51.0); MEAN CORPUSCULAR HEMOGLOBIN 25.8 pg (29.0-33.0); MEAN CORPUSCULAR HGB CONC 31.5 g/dl (32.0-37.0); MEAN CORPUSCULAR VOLUME 81.7 fl (82.0-101.0); MEAN PLATELET VOLUME 13.3 fl (7.4-10.4); MONOCYTE # 0.7 10^3/ul (0.3-0.9); MONOCYTES % 4.5 % (0.0-11.0); NEUTROPHIL # 12.1 10^3/ul (1.6-7.5); PLATELET COUNT 197 10^3/UL (140-415); RED BLOOD COUNT 5.24 10^6/ul (4.20-5.40); RED CELL DISTRIBUTION WIDTH 15.7 % (11.5-14.5); WHITE BLOOD COUNT 15.2 10^3/ul (4.8-10.8)
[2016-12-30 02:46] LABS: POSITIVE DIFF @See below
[2016-12-30 03:51] LABS: ALANINE AMINOTRANSFERASE 29 IU/L (13-69); ALKALINE PHOSPHATASE 119 IU/L (42-121); ANION GAP 19 (8-16); ASPARTATE AMINO TRANSFERASE 19 IU/L (15-46); BLOOD UREA NITROGEN 36 mg/dl (7-20); CARBON DIOXIDE 22 mmol/L (21-31); CHLORIDE 100 mmol/L (97-110); CREATININE 1.98 mg/dl (0.44-1.00); GLUCOSE 390 mg/dl (70-220); POTASSIUM 4.7 mmol/L (3.5-5.1); SODIUM 136 mmol/L (135-144); TOTAL PROTEIN 6.9 g/dl (6.1-8.1)
[2016-12-30 03:52] LABS: ALBUMIN 3.6 g/dl (3.3-4.9); ALBUMIN/GLOBULIN RATIO 1.09; TROPONIN-I < 0.012 ng/ml (0.00-0.12)
[2016-12-30] MEDS ORDERED: GLYC10.7 IH (04:25)
[2016-12-30] MEDS ORDERED: CIPR500T4 PO (05:47)
[2016-12-30] MEDS ORDERED: METR500T PO (05:47)
[2016-12-30] MEDS ORDERED: ONDA4TAB14 PO (05:47)
--- NOTE | 2016-12-30 05:53 | ERD ---
ER Documentation Chief Complaint Date/Time DATE: 12/30/16 TIME: 05:52 Chief Complaint upper ab pain radaiting to back, diarrhea HPI This is an 81-year-old female with upper abdominal pain rating to back along with diarrhea 4-5 episodes nonbloody. No fevers no chills. Abdominal pain colicky in nature. No radiations. No chest pain. No shortness of breath. No other current issues. ROS All systems reviewed and are negative except as per history of present illness. Medications Home Meds Active Scripts Ondansetron (Ondansetron Odt) 4 Mg Tab.rapdis, 4 MG PO Q6H Y for NAUSEA AND/OR VOMITING, #10 TAB Prov:CYRIL MARIO. 12/30/16 Metronidazole* (Flagyl*) 500 Mg Tablet, 500 MG PO TID for 7 Days, TAB Prov:CYRIL MARIO S. 12/30/16 Ciprofloxacin Hcl* (Ciprofloxacin Hcl*) 500 Mg Tablet, 500 MG PO BID for 7 Days , TAB Prov:CYRIL MARIO. 12/30/16 Insulin Glargine* (Lantus*) 100 Unit/Ml Soln, 20 UNIT SC DAILY for 30 Days, EA Prov:STEPHANIE MADRIGAL [employer] CLERK 10/31/14 Insulin Aspart* (Novolog Insulin Pen*) 100 Unit/Ml Soln, 3 UNIT SC WITH MEALS for 30 Days Prov:STEPHANIE MADRIGAL [employer] CLERK 10/31/14 Reported Medications Glycopyrrolate/Formoterol Fum (Bevespi Aerosphere Inhaler) 10.7 Gm Hfa.aer.ad, 10.7 GM IH 12/30/16 Pantoprazole* (Pantoprazole*) 40 Mg Tablet.dr, 40 MG PO AC BREAKFAST, TAB 12/03/16 Duloxetine Hcl* (Cymbalta*) 30 Mg Capsule.dr, 30 MG PO DAILY, CAP 12/03/16 Docusate Sodium* (Colace*) 100 Mg Capsule, 100 MG PO DAILY, #30 CAP 12/03/16 Atorvastatin Calcium* (Atorvastatin Calcium*) 20 Mg Tablet, 20 MG PO QHS, #30 TAB 12/03/16 Aspirin* (Aspirin* Chew) 81 Mg Tab.chew, 81 MG PO DAILY, TAB.CHEW 12/03/16 Amlodipine Besylate* (Amlodipine Besylate*) 5 Mg Tablet, 5 MG PO DAILY, #30 TAB 12/03/16 Quetiapine Fumarate* (Seroquel*) 25 Mg Tablet, 25 TAB PO DAILY 11/27/11 Discontinued Reported Medications Lorazepam* (Lorazepam*) 1 Mg Tablet, 1 MG PO Q8 Y for ANXIETY, #60 TAB 12/03/16 Discontinued Scripts Ranitidine Hcl* (Zantac*) 150 Mg Tablet, 150 MG PO BID Y for EPIGASTRIC PAIN, # 30 TAB Prov:JENNIFER LAMA DO 12/28/15 Metoprolol Tartrate* (Lopressor*) 25 Mg Tab, 25 MG PO BID for 30 Days, TAB Prov:STEPHANIE MADRIGAL [employer] CLERK 10/31/14 Allergies Allergies: Coded Allergies: No Known Drug Allergy (Unverified Allergy, Mild, 12/30/16) PMhx/Soc History of Surgery: No Anesthesia Reaction: No (UNKNOWN) Hx Neurological Disorder: Yes (HX OF STROKE; ENCEPHALOPATHY) Hx Respiratory Disorders: No Hx Cardiac Disorders: Yes (HTN; HYPERLIPIDEMIA) Hx Psychiatric Problems: Yes (ANXIETY; DEPRESSION) Hx Alcohol Use: No Hx Substance Use: No Hx Tobacco Use: No Smoking Status: Never smoker Physical Exam Vitals Vital Signs Date Time Temp Pulse Resp B/P Pulse Ox O2 Delivery O2 Flow Rate FiO2 12/30/16 05:29 98.3 80 20 106/77 98 Room Air 12/30/16 05:08 98.3 77 20 138/82 98 Room Air 12/29/16 21:46 98.6 88 20 141/85 98 Physical Exam Const: [] Head: Atraumatic Eyes: Normal Conjunctiva ENT: Normal External Ears, Nose and Mouth. Neck: Full range of motion..~ No meningismus. Resp: Clear to auscultation bilaterally Cardio: Regular rate and rhythm, no murmurs Abd: Soft, non tender, non distended. Normal bowel sounds Skin: No petechiae or rashes Back: No midline or flank tenderness Ext: No cyanosis, or edema Neur: Awake and alert Psych: Normal Mood and Affect Result Diagram: 12/30/1621212/30/16 0213 Results 24 hrs Laboratory Tests Test 12/30/16 02:13 White Blood Count 15.210^3/ul Red Blood Count 5.2410^6/ul Hemoglobin 13.5g/dl Hematocrit 42.8% Mean Corpuscular Volume 81.7fl Mean Corpuscular Hemoglobin 25.8pg Mean Corpuscular Hemoglobin Concent 31.5g/dl Red Cell Distribution Width 15.7% Platelet Count 70168^3/UL Mean Platelet Volume 13.3fl Neutrophils % 80.0% Lymphocytes % 14.2% Monocytes % 4.5% Eosinophils % 0.4% Basophils % 0.2% Nucleated Red Blood Cells % 0.0/100WBC Neutrophils # 12.110^3/ul Lymphocytes # 2.210^3/ul Monocytes # 0.710^3/ul Eosinophils # 0.110^3/ul Basophils # 0.010^3/ul Nucleated Red Blood Cells # 0.010^3/ul Sodium Level 136mmol/L Potassium Level 4.7mmol/L Chloride Level 100mmol/L Carbon Dioxide Level 22mmol/L Anion Gap 19 Blood Urea Nitrogen 36mg/dl Creatinine 1.98mg/dl Glucose Level 390mg/dl Calcium Level 9.0mg/dl Total Bilirubin 0.0mg/dl Direct Bilirubin 0.00mg/dl Indirect Bilirubin 0.0mg/dl Aspartate Amino Transf (AST/SGOT) 19IU/L Alanine Aminotransferase (ALT/SGPT) 29IU/L Alkaline Phosphatase 119IU/L Troponin I < 0.012ng/ml Total Protein 6.9g/dl Albumin 3.6g/dl Globulin 3.30g/dl Albumin/Globulin Ratio 1.09 Lipase 50U/L Current Medications Medications (Trade) Dose Ordered Sig/Jarett Route PRN Reason Start Time Stop Time Status Last Admin Dose Admin Sodium Chloride (NS) 500 ml @ 500 mls/hr Q1H STAT IV 12/30/16 02:03 12/30/16 03:02 DC 12/30/16 02:15 Morphine Sulfate (morphine) 2 mg ONCE STAT IV 12/30/16 02:03 12/30/16 02:04 DC 12/30/16 02:16 Ondansetron HCl (Zofran Inj) 4 mg ONCE STAT IV 12/30/16 02:03 12/30/16 02:04 DC 12/30/16 02:15 Procedures/MDM EKG: Rate/Rhythm: [Normal Sinus Rhythm] QRS, ST, T-waves: [No changes consistent w/ acute ischemia] Impression: [No evidence of ischemia or arrhythmia] Chest X-ray 1V Interpreted by me: Soft Tissue: No acute abnormalities Bones: No acute abnormalities Mediastinum/Cardiac Silhouette/Lungs: [No acute abnormalities] Medical decision-making: Patient has evidence of mild diverticulitis with clinically and some nonspecific CAT scan findings. At this point clinically stable for trial of outpatient management with Cipro Flagyl. Told to return in 8 hours for serial abdominal exams Departure Diagnosis: Primary Impression: Abdominal pain Abdominal location: generalized Qualified Code: R10.84 - Generalized abdominal pain Condition: Stable Patient Instructions: Diverticulitis CYRIL MARIO Dec 30, 2016 05:53
[2016-12-30 07:53] VITALS: BP 116/60; PULSE 84; RESP 17; TEMP 98.2
--- NOTE | 2016-12-30 09:07 | RADRPT ---
PROCEDURE: CT of the abdomen and pelvis without contrast CLINICAL INDICATION: Abdominal pain. TECHNIQUE: Spiral CT images through the abdomen and pelvis without the use of oral and without the use of intravenous contrast. The administered radiation dose is CTDI 22.13 and DLP 1248.71. One or more of the following dose reduction techniques were used: automated exposure control, adjustment o f the mA and/or kV according to patient size, or use of iterative reconstruction technique. COMPARISON: 12/28/2015 FINDINGS: The study is limited by lack of intravenous contrast. Lower thorax: Slight dependent atalectasis of the lung bases is seen.. Liver: The liver is unremarkable in appearance. Biliary: The gallbladder is unremarkable.. No biliary ductal dilatation is seen. Pancreas: Unremarkable. No focal mass or inflammatory process. Spleen: Probable stable splenic cyst, partially obscured by motion. Adrenal glands: Probable stable 9 mm right adrenal adenoma. The left adrenal is minimally nodular in contour.. Genitourinary: No hydronephrosis or renal calculi are seen.. The bladder is unremarkable in appearan ce.. Gastrointestinal Tract: There is no evidence for bowel obstruction, free air, or abscess. The appen miguel is unremarkable in appearance. Small hiatal hernia. Dense residual contrast material is seen i n the colon. Lymph nodes: No visible pathologic lymphadenopathy.. Vascular structures: Aortic and coronary artery atherosclerotic calcification.. Peritoneal cavity: Unremarkable mesentery and peritoneum.. No mass, edema, or ascites. Reproductive Organs: Surgically absent.. Musculoskeletal: Degenerative change of the spine and hips. 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 Fat-containing umbilical hernia. IMPRESSION: No definite acute abnormality of the abdomen or pelvis. RPTAT: [facility] Physician Jaime Date Time Electronically viewed and signed by Physician Jaime on 12/30/2016 04:01 CASPER/
--- NOTE | 2016-12-30 09:08 | RADRPT ---
PROCEDURE: XR Chest. CLINICAL INDICATION: Abdominal Pain TECHNIQUE: Portable single view of the chest COMPARISON: 10/27/2014 FINDINGS: Mild cardiomegaly. Calcified aorta. Multiple old left rib fractures. Mild interstitial prominence of the lungs. No definite acute infiltrate, pleural effusion, or overt congestive heart failure. Contr ast material is seen in bowel loops in the upper abdomen. Degenerative change of the spine and right shoulder. IMPRESSION: Cardiomegaly. Aortic atherosclerosis. No definite acute pulmonary disease. RPTAT: [facility] Kendra Beaulieu Physician Date Time Electronically viewed and signed by Kendra Beaulieu, Physician on 12/30/2016 04:50 LE/
== END 2016-12-30 07:55 | disposition home or self-care (01) ==
LOC: E/R 21:40
DX: R10.84 Generalized abdominal pain (principal); I10 Essential (primary) hypertension; E11.9 Type 2 diabetes mellitus without complications; Z79.4 Long term (current) use of insulin; Z79.82 Long term (current) use of aspirin
CPT/HCPCS: 36415; 71010; 74176; 80053; 83690; 84484; 85025; 93005; 96374; 96375; 99285; J2270; J2405; J7040

== ENCOUNTER 2017-06-02 01:31 | Inpatient (IN) | END 2017-06-16 05:57 | DRG 872 ==

== ENCOUNTER → 2017-12-09 | Outpatient (CLI) | END | disposition home or self-care (01) ==

== ENCOUNTER 2018-02-25 08:19 | Emergency (ER) | END 2018-02-25 12:36 | disposition home or self-care (01) ==